=== PATIENT | male | born 1935 | race Caucasian/White ===

== ENCOUNTER 2022-11-27 10:48 | Emergency (ER) | payer MEDICARE, SELFPAY ==
[2022-11-27 10:59] VITALS: BP 164/102; PULSE 86; RESP 24; TEMP 36.4; O2SAT 97; BMI 32.4
--- NOTE | 2022-11-27 11:19 | CT_ITS ---
[address] [address] Patient Name: NAKIA NARAYANAN MRN: [id number] date: 1935 Sex: M Assigned Patient Location: ED.MAIN Current Patient Location: Accession/Order Number: [id number] Exam Date: 11/27/2022 12:50 Report Date: 11/27/2022 13:23 At the request of: MARY DUEÑAS Procedure: CT abdomen pelvis w con EXAMINATION: CT abdomen pelvis w con HISTORY: pain ; abdominal pain, diarrhea, nausea, weakness COMPARISON: No relevant comparison available. TECHNIQUE: Axial, Coronal, and Sagittal images were obtained without and/or with IV contrast as indicated by examination type. Dose reduction techniques were achieved by using automated exposure control and/or adjustment of mA and/or kV according to patient size and/or use of iterative reconstruction technique. FINDINGS: LUNG BASES: No visible pulmonary or pleural disease. LIVER: No enlargement, atrophy, suspicious density, or significant focal lesion. BILIARY: No dilatation or calcification. PANCREAS: No lesion, fluid collection, or abnormal duct dilatation. SPLEEN: No enlargement or focal lesion. ADRENALS: No mass or enlargement. KIDNEYS: Overall mild cortical thinning, with areas of moderate and marked thinning. Nonobstructing 3 mm stone within right and left kidney. Small benign-appearing cysts bilaterally. BOWEL/MESENTERY: Numerous prominent diverticula involving the proximal sigmoid colon with mild surrounding inflammatory changes. No visible mass, obstruction, or bowel wall thickening. Normal appendix. AORTA/VASCULAR: Moderate atherosclerotic disease. Slight fusiform aneurysmal dilation of the distal aorta, 2.7 cm in maximum diameter. RETROPERITONEUM: No mass or adenopathy. LYMPH NODES: No adenopathy. URINARY BLADDER: No visible focal wall thickening, lesion, or calculus. PELVIC ORGANS: No visible mass. Pelvic organs appropriate for patient age. ABDOMINAL WALL: No mass or hernia. BONES: No bony lesion or fracture. OTHER: Negative. IMPRESSION: 1.Mild acute diverticulitis of the sigmoid colon. 2.Bilateral nonobstructing nephrolithiasis. Bilateral cortical thinning, likely age related. 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 Electronically authenticated by: DOLORES NIETO Date: 11/27/2022 13:23
--- NOTE | 2022-11-27 11:22 | ED_ITS ---
HPI - Abdominal Pain General Chief Complaint: Abdominal Pain Stated Complaint: DIARRHEA Time Seen by Provider: 11/27/22 11:12 Source: patient Mode of arrival: walk-in Limitations: no limitations History of Present Illness HPI narrative: Patient presents to emergency department complaining of abdominal pain. Patient states he has left lower quadrant pain for 4 or 5 days. He had diarrhea for the last 6 days. He states the stool is watery. He was taking Imodium yesterday and he still having the diarrhea. He was recently started on for ataxia. Complains of generalized weakness. Denies any fever, or chills. He denies any flank pain hematuria, dysuria. He denies any Off,chest pain, shortness of breath. He denies any dizziness, palpitations. He denies any headache, or upper respiratory infection symptoms. Related Data Home Medications Medication Instructions Recorded Confirmed aspirin 81 mg tablet,delayed 81 mg PO DAILY 11/27/22 11/27/22 release (Adult Low Dose Aspirin) dapagliflozin 10 mg tablet 10 mg PO DAILY 11/27/22 11/27/22 (Farxiga) metoprolol succinate 50 mg 25 mg PO DAILY 11/27/22 11/27/22 tablet,extended release 24 hr (Toprol XL) multivitamin (Multiple Vitamins 1 tab PO DAILY 11/27/22 11/27/22 tablet) pantoprazole 40 mg tablet,delayed 40 mg PO DAILY 11/27/22 11/27/22 release (Protonix) potassium citrate 10 mEq (1,080 10 meq PO BID 11/27/22 11/27/22 mg) tablet,extended release psyllium husk (aspartame) 3.4 gram 1 packet PO DAILY 11/27/22 11/27/22 oral powder packet (Metamucil Fiber Singles) simvastatin 40 mg tablet 40 mg PO DAILY 11/27/22 11/27/22 sitagliptin phosphate 50 1 tab PO BID 11/27/22 11/27/22 mg-metformin 1,000 mg tablet (Janumet) torsemide 20 mg tablet 20 mg PO DAILY 11/27/22 11/27/22 Previous Rx's Medication Instructions Recorded amoxicillin 875 mg-potassium 1 tab PO Q12H #28 tabs 11/27/22 clavulanate 125 mg tablet Allergies Allergy/AdvReac Type Severity Reaction Status Date / Time No Known Drug Allergies Allergy Verified 11/27/22 11:41 Review of Systems ROS Narrative ROS: Unless otherwise stated in this report the patient's positive and negative responses for review of systems for constitutional, eyes, ENT, cardiovascular, respiratory, gastrointestinal, neurological, , musculoskeletal and integument systems and related systems to the presenting problem are either stated in the history of present illness or were not pertinent or were negative for the symptoms and/or complaints related to the presenting medical problem. [facility] Social History Smoking status: Former smoker Exam Narrative Exam Narrative: Nurses notes and vital signs reviewed and patient is not hypoxic. General: Nontoxic, Well-appearing and in no apparent distress. Skin: Warm, dry, no pallor noted. No Rash Head: Normocephalic, atraumatic. Neck: Supple, non-tender. Eye: Pupils are equal, round and EOMI. No scleral icterus. Ears, Nose, Mouth, and Throat: TM clear, no posterior oropharynx erythema or nasal mucosal hypertrophy, uvula is mid-line Oral mucosa is moist Cardiovascular: Regular Rate and Rhythm without murmur, gallop or rub. Respiratory: No accessory muscle use or respiratory distress. Lungs are clear to auscultation, no wheezing, rales or rhonchi Chest Wall: no tenderness Back: No midline thoracic or lumbar vertebral tenderness. No CVA tenderness Musculoskeletal: normal ROM, no calf or popliteal tenderness, no lower extremity edema/swelling GI: Abdomen is soft, non-distended. Normal bowel sounds. No masses appreciated. No tenderness to palpation. No rebound, guarding, or rigidity noted. Neurological: A&O x4. No cranial nerve dysfunction observed. No truncal ataxia. Moves all extremities. Sensation intact. Psychiatric: Cooperative and interactive. Normal mood and affect. Constitutional Vital Signs - 24 hr 11/27/22 10:59 11/27/22 12:13 Temperature 97.6 F Pulse Rate [Monitor] 86 72 Respiratory Rate 24 18 Blood Pressure [Right Arm] 164/102 H 117/89 H Pulse Oximetry 97 99 Oxygen Delivery Method Room Air Course Vital Signs Vital signs: Vital Signs Temperature 97.6 F 11/27/22 10:59 Pulse Rate 86 11/27/22 10:59 Respiratory Rate 24 11/27/22 10:59 Blood Pressure 164/102 H 11/27/22 10:59 Pulse Oximetry 97 11/27/22 10:59 Oxygen Delivery Method Room Air 11/27/22 10:59 Temperature 97.6 F 11/27/22 10:59 Pulse Rate 72 11/27/22 12:13 Respiratory Rate 18 11/27/22 12:13 Blood Pressure 117/89 H 11/27/22 12:13 Pulse Oximetry 99 11/27/22 12:13 Oxygen Delivery Method Room Air 11/27/22 10:59 MDM - Abdominal Pain MDM Narrative Medical decision making narrative: Patient had an IV established and was given IV fluids. Labs and CT studies were done. The patient was advised to provide a stool sample if possible. Denied any abdominal pain at this time and does not want anything for pain. Patient was started on Zosyn. He will be given a prescription for Augmentin. Patient was not able to provide a stool sample while in the emergency department. Patient is nontoxic, abdomen is benign and nonsurgical. He is stable for outpatient follow-up and treatment. At this time the patient is without objective evidence of an acute process requiring hospitalization or inpatient management. The patient has remained hemodynamically stable. No additional indication for emergent studies at this time. I answered all questions. Discussed discharge instructions including standard anticipatory guidance and what should prompt a return to the emergency department, including if they get worse are not getting better or develops any new or concerning symptoms. I've given them specific time frame in which to follow-up, and who to follow-up with. The patient demonstrates understanding. Patient is nontoxic and stable for discharge with outpatient follow-up. This note was created with the assistance of a speech recognition program. Although the intention is to generate documents that actually reflects the content of the visit, no guarantees can be provided that every mistake has been identified and corrected by editing. Differential Diagnosis Differential diagnosis: Likely abdominal pain, constipation, diverticulitis, gastroenteritis, pancreatitis and small bowel obstruction Medical Records Attestation: I reviewed the patient's medical records. Lab Data Attestation: I reviewed the patient's lab results. Labs: Lab Results 11/27/22 Range/Units 11:29 WBC 9.5 (4.0-11.0) 10^3/uL RBC 4.67 L (4.70-6.10) 10^6/uL Hgb 14.0 (14.0-18.0) g/dL Hct 42.9 (42.0-54.0) % MCV 91.9 (80.0-94.0) fL MCH 30.0 (25.9-34.0) pg MCHC 32.6 (29.9-35.2) g/dL RDW 14.8 (11.0-15.0) % Plt Count 195 (150-450) 10^3/uL MPV 11.6 (9.5-13.5) fL Neut % (Auto) 72.4 (43.0-75.0) % Lymph % (Auto) 11.5 L (20.5-60.0) % Hale % (Auto) 13.0 H (1.7-12.0) % Eos % (Auto) 1.5 (0.9-7.0) % Baso % (Auto) 0.6 (0.2-2.0) % Neut # (Auto) 6.9 H (1.4-6.5) 10^3/uL Lymph # (Auto) 1.1 L (1.2-3.8) 10^3/uL Hale # (Auto) 1.2 H (0.3-0.8) 10^3/uL Eos # (Auto) 0.1 (0.0-0.7) 10^3/uL Baso # (Auto) 0.1 (0.0-0.1) 10^3/uL Sodium 141 (136-145) mmol/L Potassium 4.2 (3.5-5.1) mmol/L Chloride 105 (98-107) mmol/L Carbon Dioxide 24.3 (21.0-32.0) mmol/L Anion Gap 15.9 BUN 21.0 H (7.0-18.0) mg/dL Creatinine 1.36 H (0.70-1.30) mg/dL Est GFR ( Amer) >60 (>=60) Est GFR (Non-Af Amer) 50 L (>=60) BUN/Creatinine Ratio 15.4 Glucose 155 H (74-106) mg/dL Lactate 1.6 (0.4-2.0) mmol/L Calcium 8.6 (8.5-10.1) mg/dL Total Bilirubin 0.6 (0.2-1.0) mg/dL AST 29 (15-37) U/L ALT 37 (16-63) U/L Total Protein 7.0 (6.4-8.2) g/dL Albumin 3.6 (3.4-5.0) g/dL Globulin 3.4 g/dL Albumin/Globulin Ratio 1.[address] scan - abdomen: Radiologist's impression: Patient Name: NAKIA NARAYANAN MRN: [id number] date: 1935 Sex: M Assigned Patient Location: ED.MAIN Current Patient Location: ER Accession/Order Number: [id number] Exam Date: 11/27/2022 12:50 Report Date: 11/27/2022 13:23 At the request of: MARY DUEÑAS Procedure: CT abdomen pelvis w con EXAMINATION: CT abdomen pelvis w con HISTORY: pain ; abdominal pain, diarrhea, nausea, weakness COMPARISON: No relevant comparison available. TECHNIQUE: Axial, Coronal, and Sagittal images were obtained without and/or with IV contrast as indicated by examination type. Dose reduction techniques were achieved by using automated exposure control and/or adjustment of mA and/or kV according to patient size and/or use of iterative reconstruction technique. FINDINGS: LUNG BASES: No visible pulmonary or pleural disease. LIVER: No enlargement, atrophy, suspicious density, or significant focal lesion. BILIARY: No dilatation or calcification. PANCREAS: No lesion, fluid collection, or abnormal duct dilatation. SPLEEN: No enlargement or focal lesion. ADRENALS: No mass or enlargement. KIDNEYS: Overall mild cortical thinning, with areas of moderate and marked thinning. Nonobstructing 3 mm stone within right and left kidney. Small benign-appearing cysts bilaterally. BOWEL/MESENTERY: Numerous prominent diverticula involving the proximal sigmoid colon with mild surrounding inflammatory changes. No visible mass, obstruction, or bowel wall thickening. Normal appendix. AORTA/VASCULAR: Moderate atherosclerotic disease. Slight fusiform aneurysmal dilation of the distal aorta, 2.7 cm in maximum diameter. RETROPERITONEUM: No mass or adenopathy. LYMPH NODES: No adenopathy. URINARY BLADDER: No visible focal wall thickening, lesion, or calculus. PELVIC ORGANS: No visible mass. Pelvic organs appropriate for patient age. ABDOMINAL WALL: No mass or hernia. BONES: No bony lesion or fracture. OTHER: Negative. IMPRESSION: 1.Mild acute diverticulitis of the sigmoid colon. 2.Bilateral nonobstructing nephrolithiasis. Bilateral cortical thinning, likely age related. 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 Electronically authenticated by: DOLORES NIETO Date: 11/27/2022 13:23 Discharge Plan Discharge Chief Complaint: Abdominal Pain Clinical Impression: Diverticulitis Patient Disposition: Home, Self-Care Time of Disposition Decision: 13:55 Condition: Good Mode of Transportation: Private Vehicle Prescriptions / Home Meds: New amoxicillin-pot clavulanate 875-125 mg tablet 1 tab PO Q12H Qty: 28 0RF No Action aspirin [Adult Low Dose Aspirin] 81 mg tablet,delayed release (DR/EC) 81 mg PO DAILY Janumet 50-1,000 mg tablet 1 tab PO BID potassium citrate 10 mEq (1,080 mg) tablet extended release 10 meq PO BID torsemide 20 mg tablet 20 mg PO DAILY simvastatin 40 mg tablet 40 mg PO DAILY pantoprazole [Protonix] 40 mg tablet,delayed release (DR/EC) 40 mg PO DAILY metoprolol succinate [Toprol XL] 50 mg tablet extended release 24 hr 25 mg PO DAILY multivitamin [Multiple Vitamins] Tablet 1 tab PO DAILY Metamucil Fiber Singles 3.4 gram powder in packet 1 packet PO DAILY Farxiga 10 mg tablet 10 mg PO DAILY Instructions: Diverticulitis (ED) Stand Alone Forms: Portal Instructions Referrals: LETHA COFFMAN [Primary Care Provider] - 1 week
[2022-11-27] MEDS: 0.9 % SODIUM CHLORIDE 1,000 ML 999 ML IV (11:33)
[2022-11-27 11:46] LABS: Basophils Absolute Auto 0.1 10^3/uL (0.0-0.1); Basophils Percent Auto 0.6 % (0.2-2.0); Eosinophils Absolute Auto 0.1 10^3/uL (0.0-0.7); Eosinophils Percent Auto 1.5 % (0.9-7.0); Hematocrit 42.9 % (42.0-54.0); Immature Granulocytes Abs Auto 0.09 10^3/uL (0.00-0.03); Lymphocytes Absolute Auto 1.1 10^3/uL (1.2-3.8); Lymphocytes Percent Auto 11.5 % (20.5-60.0); Mean Corpuscular HGB Conc 32.6 g/dL (29.9-35.2); Mean Corpuscular Volume 91.9 fL (80.0-94.0); Mean Platelet Volume 11.6 fL (9.5-13.5); Monocytes Absolute Auto 1.2 10^3/uL (0.3-0.8); Neutrophils Absolute Auto 6.9 10^3/uL (1.4-6.5); Neutrophils Percent Auto 72.4 % (43.0-75.0); Platelet Count 195 10^3/uL (150-450); Red Blood Count 4.67 10^6/uL (4.70-6.10); Red Cell Distribution Width 14.8 % (11.0-15.0); White Blood Count 9.5 10^3/uL (4.0-11.0)
[2022-11-27 12:04] LABS: Lactate/Lactic Acid 1.6 mmol/L (0.4-2.0)
[2022-11-27 12:13] VITALS: BP 117/89; PULSE 72; RESP 18; O2SAT 99
[2022-11-27 12:13] LABS: Alanine Aminotransferase 37 U/L (16-63); Albumin Globulin Ratio 1.1; Albumin Level 3.6 g/dL (3.4-5.0); Alkaline Phosphatase 69 U/L (46-116); Anion Gap 15.9; Aspartate Amino Transferase 29 U/L (15-37); BUN Creatinine Ratio 15.4; Bilirubin Total 0.6 mg/dL (0.2-1.0); Calcium 8.6 mg/dL (8.5-10.1); Carbon Dioxide 24.3 mmol/L (21.0-32.0); Chloride 105 mmol/L (98-107); Estimated GFR (African America >60 (>=60); Estimated GFR (Non-African Ame 50 (>=60); Globulin 3.4 g/dL; Glucose 155 mg/dL (74-106); Potassium 4.2 mmol/L (3.5-5.1); Sodium 141 mmol/L (136-145)
--- NOTE | 2022-11-27 12:53 | PC.NURSE ---
PT DOWN FOR CT SCAN BUDDY ALLISON
[2022-11-27] MEDS: PIPERACILLIN SODIUM/TAZOBACTAM 4.5 GM in 0.9 % SODIUM CHLORIDE 50 ML IV (13:50)
[2022-11-27 13:58] VITALS: BP 117/84; PULSE 72; RESP 16; O2SAT 97
[2022-11-27 14:42] LABS: Bilirubin Urine NEGATIVE (NEGATIVE); Blood Urine NEGATIVE (NEGATIVE); Clarity Urine CLEAR (CLEAR); Color Urine LT. YELLOW (YELLOW); Glucose Urine UA 250 mg/dL (NEGATIVE); Ketones Urine NEGATIVE (NEGATIVE); Leukocyte Esterase Urine NEGATIVE (NEGATIVE); Nitrite Urine NEGATIVE (NEGATIVE); Protein Urine NEGATIVE (NEG/TRACE); Specific Gravity Urine <=1.005 (1.005-1.025); Urobilinogen Urine 0.2 EU/dL (0.2-1.0); pH Urine 5.5 (5.0-9.0)
[2022-11-27 14:49] LABS: Bacteria Urine NONE SEEN #/HPF (NONE SEEN); Crystals Seen? None Seen #/HPF (None Seen); Mucus Urine NONE SEEN (NONE SEEN); RBC Urine NONE SEEN #/HPF (0-2); Squamous Epithelial Cell Urine NONE SEEN #/LPF (NONE/RARE); WBC Urine NONE SEEN #/HPF (NONE SEEN)
[2022-11-27 14:50] LABS: Cast Seen? NONE SEEN #/LPF (NONE SEEN); Urine Culture Indicated NO
== END 2022-11-27 14:26 | disposition home or self-care (01) ==
PROVIDERS: Emergency Provider Emergency Medicine; PCP Internal Medicine
DX: R10.32 Left lower quadrant pain (principal); K57.32 Diverticulitis of large intestine without perforation or abscess without bleeding; R19.7 Diarrhea, unspecified; R53.1 Weakness; Z79.82 Long term (current) use of aspirin; Z79.899 Other long term (current) drug therapy
CPT/HCPCS: 36415; 74177; 80053; 81001; 83605; 85025; 87507; 96361; 96365; 99285; Q9967

== ENCOUNTER 2023-03-27 09:11 | Outpatient (OUT) | payer MEDICARE, SELFPAY ==
--- NOTE | 2023-03-27 09:20 | XR_ITS ---
The [address] [address] Patient Name: NAKIA NARAYANAN MRN: [id number] date: 1935 Sex: M Assigned Patient Location: RAD Current Patient Location: RAD Accession/Order Number: [id number] Exam Date: 03/27/2023 09:28 Report Date: 03/27/2023 09:46 At the request of: SADAF WEINER Procedure: XR abdomen 1V EXAM: XR abdomen 1V HISTORY: Kidney Stone N20.0 COMPARISON: None. TECHNIQUE: AP view of the abdomen. FINDINGS: Nonobstructive bowel gas pattern is noted. There is a punctate calculus over the right renal region. The osseous structures are intact. XR/XR abdomen 1V IMPRESSION: Punctate right nephrolithiasis. Electronically authenticated by: CESAR TELLES Date: 03/27/2023 09:46
== END 2023-03-27 09:12 | disposition home or self-care (01) ==
LOC: RAD 09:14
PROVIDERS: PCP Internal Medicine; Visit Provider Urology
DX: N20.0 Calculus of kidney (principal)
CPT/HCPCS: 74018

== ENCOUNTER 2023-12-05 07:20 | Emergency (ER) | payer MEDICARE, SELFPAY ==
[2023-12-05] VITALS (20 sets, daily range): BP systolic 118–152; BP diastolic 75–100; PULSE 75–93; TEMP 37.3; O2SAT 84–96; BMI 32.6
[2023-12-05 07:33] LABS: Glucometer 199 mg/dL (74-106)
--- NOTE | 2023-12-05 07:49 | CT_ITS ---
The [address] [address] Patient Name: NAKIA NARAYANAN MRN: [id number] date: 1935 Sex: M Assigned Patient Location: ED.MAIN Current Patient Location: ER Accession/Order Number: [id number] Exam Date: 12/05/2023 08:13 Report Date: 12/05/2023 08:42 At the request of: RICHARD GARCIA Procedure: CT sinus wo con EXAMINATION: CT sinus wo con HISTORY: CHRONIC SINUS COMPARISON: No relevant comparison available. TECHNIQUE: Axial and Coronal CT images were created without IV contrast. Dose reduction techniques were achieved by using automated exposure control and/or adjustment of mA and/or kV according to patient size and/or use of iterative reconstruction technique. FINDINGS: MAXILLARY SINUSES: Bilateral maxillary soft tissue attenuation measuring up to 10 mm with narrowing of the right ostiomeatal unit and occlusion of the left ostiomeatal unit ETHMOID SINUSES: Moderate bilateral opacification SPHENOID SINUSES: Clear right. Opacified left FRONTAL SINUSES: Atrophic right. Moderate left opacification NASAL FOSSA: 1 mm left deviation of the nasal septum. No lianne bullosa or paradoxical turbinates are identified. OTHER: Negative. Limited views of the skull base and orbits are unremarkable. CT/CT sinus wo con IMPRESSION: Moderate diffuse paranasal sinus disease Electronically authenticated by: LISA CORRALES Date: 12/05/2023 08:42
[2023-12-05 08:09] LABS: PCO2 VBG 37.4 mmHg (40.0-52.0); pH VBG 7.447 (7.330-7.430)
[2023-12-05 08:14] LABS: Basophils Absolute Auto 0.1 10^3/uL (0.0-0.1); Basophils Percent Auto 0.3 % (0.2-2.0); Eosinophils Absolute Auto 0.1 10^3/uL (0.0-0.7); Eosinophils Percent Auto 0.7 % (0.9-7.0); Hematocrit 43.3 % (42.0-54.0); Hemoglobin 14.2 g/dL (14.0-18.0); Immature Granulocytes Abs Auto 0.07 10^3/uL (0.00-0.03); Immature Granulocytes Pct Auto 0.5 % (0.0-0.5); Lymphocytes Absolute Auto 1.1 10^3/uL (1.2-3.8); Mean Corpuscular HGB Conc 32.8 g/dL (29.9-35.2); Mean Corpuscular Hemoglobin 29.3 pg (25.9-34.0); Mean Corpuscular Volume 89.5 fL (80.0-94.0); Mean Platelet Volume 12.4 fL (9.5-13.5); Monocytes Absolute Auto 1.7 10^3/uL (0.3-0.8); Monocytes Percent Auto 11.1 % (1.7-12.0); Neutrophils Absolute Auto 12.1 10^3/uL (1.4-6.5); Neutrophils Percent Auto 80.4 % (43.0-75.0); Platelet Count 148 10^3/uL (150-450); Red Blood Count 4.84 10^6/uL (4.70-6.10); Red Cell Distribution Width 14.6 % (11.0-15.0); White Blood Count 15.1 10^3/uL (4.0-11.0)
[2023-12-05] MEDS: 0.9 % SODIUM CHLORIDE 1,000 ML 999 ML IV (08:19)
[2023-12-05 08:37] LABS: Alanine Aminotransferase 28 U/L (16-63); Albumin Globulin Ratio 0.8; Albumin Level 3.1 g/dL (3.4-5.0); Alkaline Phosphatase 76 U/L (46-116); Anion Gap 15.9; Aspartate Amino Transferase 29 U/L (15-37); BUN Creatinine Ratio 17.2; Bilirubin Total 0.6 mg/dL (0.2-1.0); Calcium 8.4 mg/dL (8.5-10.1); Carbon Dioxide 24.1 mmol/L (21.0-32.0); Chloride 101 mmol/L (98-107); Creatine Kinase 71 U/L (39-308); Estimated GFR (African America 51 (>=60); Estimated GFR (Non-African Ame 42 (>=60); Globulin 3.9 g/dL; Glucose 198 mg/dL (74-106); Magnesium 1.6 mg/dL (1.8-2.4); Sodium 137 mmol/L (136-145); Troponin I High Sensitivity 11.3 pg/mL (4.0-76.1)
--- NOTE | 2023-12-05 09:42 | ED_ITS ---
HPI HPI - General Adult General Chief complaint: Weakness Stated complaint: HIGH SUGAR Time Seen by Provider: 12/05/23 07:32 Source: patient Mode of arrival: walk-in Limitations: no limitations History of Present Illness HPI narrative: Patient is a 88-year-old male who is presenting to the ER today with chief complaint of a 1.5-hour shaking episode that occurred this morning. Patient nevaeh es at home alone. Patient called his sister around 7:00 this morning to bring her into the emergency room. Patient states that shaking has improved. Patient is been having chronic sinus issues for several months. Patient states he will intermittently have eye drainage, nasal drainage, intermittently coughing. Patient is here because the shaking episode today. Patient was due to have a outpatient CT scan of the sinuses done at 815 this morning. Patient came to the ER instead secondary to shaking episode. Patient has no headache. No neck pain. No chest pain, shortness of breath. No nausea, vomiting, no other acute complaints. No rash. All systems are negative except as noted/marked. All systems reviewed and otherwise negative. Nurses note and vital signs reviewed and patient is not hypoxic. General: The patient appears well and in no apparent distress. Patient is resting comfortably on cart. Patient is not toxic, lethargic, or listless Skin: Warm, dry, no pallor noted. There is no rash noted. No petechiae, purpura. Head: Normocephalic, atraumatic, no tenderness to palpation to bilateral frontal maxillary sinus. Eye: Normal conjunctiva, no drainage, EOMI. PERRL Ears, Nose, Mouth, and Throat: oral mucosa is moist. Patient has a hearing aid in his left ear. Left ear shows no erythema, perforation or bulging, patient does have some small black wax noted to the left ear canal, however I am able to visualize TM. Patient right TM shows black wax is noted to the auditory canal. Patient is able to visualize the right TM partially, no erythema, perforation or bulging noted. Nares patent. Mouth without vesicles. Cardiovascular: Regular Rate and Rhythm, no murmur, gallop, rub Respiratory: Patient is in no distress, no accessory muscle use, lungs are elizabeth r to auscultation, no wheezing, rales or rhonchi Back: non-tender, no CVA tenderness bilaterally to percussion. No CT LS midline pain GI: Soft, obese, no tenderness to palpation, no masses appreciated. No rebound, guarding, or rigidity noted. No distention. Musculoskeletal: Patient has full range of motion of all of the extremities, no motor, sensory, or focal neurological deficits Neurological: A&O x4, normal speech Psychiatric: Cooperative Related Data Home Medications ?Medication ?Instructions ?Recorded ?Confirmed aspirin 81 mg tablet,delayed 81 mg PO DAILY 11/27/22 11/27/22 release (Adult Low Dose Aspirin) dapagliflozin propanediol 10 mg 10 mg PO DAILY 11/27/22 11/27/22 tablet (Farxiga) metoprolol succinate 50 mg 25 mg PO DAILY 11/27/22 11/27/22 tablet,extended release 24 hr (Toprol XL) multivitamin (Multiple Vitamins 1 tab PO DAILY 11/27/22 11/27/22 tablet) pantoprazole 40 mg tablet,delayed 40 mg PO DAILY 11/27/22 11/27/22 release (Protonix) potassium citrate 10 mEq (1,080 10 meq PO BID 11/27/22 11/27/22 mg) tablet,extended release psyllium husk (aspartame) 3.4 gram 1 packet PO DAILY 11/27/22 11/27/22 oral powder packet (Metamucil Fiber Singles) simvastatin 40 mg tablet 40 mg PO DAILY 11/27/22 11/27/22 sitagliptin phosphate 50 1 tab PO BID 11/27/22 11/27/22 mg-metformin 1,000 mg tablet (Janumet) torsemide 20 mg tablet 20 mg PO DAILY 11/27/22 11/27/22 Previous Rx's ?Medication ?Instructions ?Recorded amoxicillin 875 mg-potassium 1 tab PO Q12H #28 tabs 11/27/22 clavulanate 125 mg tablet Allergies Allergy/AdvReac Type Severity Reaction Status Date / Time No Known Drug Allergies Allergy Verified 11/27/22 11:41 Opioid HPI Opioid Management Most Recent Opioid Data: No Data to Display PFSH PFSH Social History Smoking status: Former smoker Exam Constitutional Vital Signs, click to edit/add: Last Vital Signs Temp 99.1 F 12/05/23 07:23 Pulse 79 12/05/23 09:50 Resp 28 H 12/05/23 09:50 BP 125/75 12/05/23 09:30 Pulse Ox 84 L 12/05/23 09:50 Course Vital Signs Vital signs: Vital Signs Temperature 99.1 F 12/05/23 07:23 Pulse Rate 93 H 12/05/23 07:23 Respiratory Rate 18 12/05/23 07:23 Blood Pressure 152/93 H 12/05/23 07:23 Pulse Oximetry 93 L 12/05/23 07:23 Temperature 99.1 F 12/05/23 07:23 Pulse Rate 79 12/05/23 09:50 Respiratory Rate 28 H 12/05/23 09:50 Blood Pressure 125/75 12/05/23 09:30 Pulse Oximetry 84 L 12/05/23 09:50 Medical Decision Making MDM Narrative Medical decision making narrative: CT of the sinuses show moderate diffuse paranasal sinus disease. Patient BUN and creatinine are elevated compared to last year. Patient was given 1 L of IV fluids. Patient feels better. Patient was ambulated and feels back to his normal state. Patient ambulated well. Patient has no other acute findings on lab testing. Patient will be discharged. 0950 I did speak to MIKE Conklin and Dr. Hester office. Dr. Hester is out of the office today. Patient should have 2 more days of Augmentin to take. Dr. Hester will look at CT sinus report which was given to Katerin of moderate diffuse paranasal sinus disease. Patient has had no headache. No nausea or vomiting. Dr. Hester will call patient and add additional antibiotics if indicated. Patient understands this. This was written on his discharge paperwork. No questions at discharge Lab Data Lab results reviewed: Yes I reviewed the patient's lab results Labs: Lab Results 12/05/23 12/05/23 12/05/23 Range/Units 07:28 07:55 09:37 WBC 15.1 H (4.0-11.0) 10^3/uL RBC 4.84 (4.70-6.10) 10^6/uL Hgb 14.2 (14.0-18.0) g/dL Hct 43.3 (42.0-54.0) % MCV 89.5 (80.0-94.0) fL MCH 29.3 (25.9-34.0) pg MCHC 32.8 (29.9-35.2) g/dL RDW 14.6 (11.0-15.0) % Plt Count 148 L (150-450) 10^3/uL MPV 12.4 (9.5-13.5) fL Neut % (Auto) 80.4 H (43.0-75.0) % Lymph % (Auto) 7.0 L (20.5-60.0) % [place] % (Auto) 11.1 (1.7-12.0) % Eos % (Auto) 0.7 L (0.9-7.0) % Baso % (Auto) 0.3 (0.2-2.0) % Neut # (Auto) 12.1 H (1.4-6.5) 10^3/uL Lymph # (Auto) 1.1 L (1.2-3.8) 10^3/uL [place] # (Auto) 1.7 H (0.3-0.8) 10^3/uL Eos # (Auto) 0.1 (0.0-0.7) 10^3/uL Baso # (Auto) 0.1 (0.0-0.1) 10^3/uL Abs Immat Gran (auto) 0.07 H (0.00-0.03) 10^3/uL Imm/Tot Granulo (auto) 0.5 (0.0-0.5) % VBG pH 7.447 H (7.330-7.430) VBG pCO2 37.4 L (40.0-52.0) mmHg Sodium 137 (136-145) mmol/L Potassium 4.0 (3.5-5.1) mmol/L Chloride 101 (98-107) mmol/L Carbon Dioxide 24.1 (21.0-32.0) mmol/L Anion Gap 15.9 BUN 27.0 H (7.0-18.0) mg/dL Creatinine 1.57 H (0.70-1.30) mg/dL Est GFR ( Amer) 51 L (>=60) Est GFR (Non-Af Amer) 42 L (>=60) BUN/Creatinine Ratio 17.2 Glucose 198 H (74-106) mg/dL Calcium 8.4 L (8.5-10.1) mg/dL Magnesium 1.6 L (1.8-2.4) mg/dL Total Bilirubin 0.6 (0.2-1.0) mg/dL AST 29 (15-37) U/L ALT 28 (16-63) U/L Alkaline Phosphatase 76 (46-116) U/L Total Creatine Kinase 71 (39-308) U/L Troponin I High Sens 11.3 (4.0-76.1) pg/mL NT-Pro-B Natriuret Pep 448.0 (<=1800.0) pg/mL Total Protein 7.0 (6.4-8.2) g/dL Albumin 3.1 L (3.4-5.0) g/dL Globulin 3.9 g/dL Albumin/Globulin Ratio 0.8 Urine Color Yellow (YELLOW) Urine Clarity Clear (CLEAR) Urine pH 6.0 (5.0-9.0) Ur Specific [place] 1.020 (1.005-1.025) Urine Protein Negative (NEG/TRACE) mg/dL Urine Glucose (UA) Negative (NEGATIVE) mg/dL Urine Ketones Negative (NEGATIVE) mg/dL Urine Occult Blood Negative (NEGATIVE) Urine Nitrite Negative (NEGATIVE) Urine Bilirubin Negative (NEGATIVE) Urine Urobilinogen 0.2 (0.2-1.0) EU/dL Ur Leukocyte Esterase Negative (NEGATIVE) Urine RBC None seen (0-2) #/HPF Urine WBC None seen (NONE SEEN) #/HPF Ur Squamous Epith Cells Rare (NONE/RARE) #/LPF Urine Bacteria None seen (NONE SEEN) #/HPF Urine Mucus None seen (NONE SEEN) POC Glucose 199 H (74-106) mg/dL Urine creatinine is elevated compared to last year, Imaging Data CT scan - pelvis: Radiologist's impression: ITS Impressions Sinuses CT 12/05/23 07:49 IMPRESSION: Moderate diffuse paranasal sinus disease Electronically authenticated by: LISA CORRALES Date: 12/05/2023 08:42 ECG Data Attestation: I personally reviewed and interpreted this ECG as follows: (EKG interpretation. Normal sinus rhythm at 90 beats a minute. Left axis deviation. No acute ST elevation, flattening of ST waves, no acute changes) Discharge Plan Discharge Stand Alone Forms: Portal Instructions Chief Complaint: Weakness Clinical Impression: Episode of shaking, Dehydration, mild, Chronic sinusitis Patient Disposition: Home, Self-Care Time of Disposition Decision: 09:53 Condition: Fair Prescriptions / Home Meds: No Action aspirin [Adult Low Dose Aspirin] 81 mg tablet,delayed release (DR/EC) 81 mg PO DAILY Janumet 50-1,000 mg tablet 1 tab PO BID potassium citrate 10 mEq (1,080 mg) tablet extended release 10 meq PO BID torsemide 20 mg tablet 20 mg PO DAILY simvastatin 40 mg tablet 40 mg PO DAILY pantoprazole [Protonix] 40 mg tablet,delayed release (DR/EC) 40 mg PO DAILY metoprolol succinate [Toprol XL] 50 mg tablet extended release 24 hr 25 mg PO DAILY multivitamin [Multiple Vitamins] Tablet 1 tab PO DAILY Metamucil Fiber Singles 3.4 gram powder in packet 1 packet PO DAILY Farxiga 10 mg tablet 10 mg PO DAILY amoxicillin-pot clavulanate 875-125 mg tablet 1 tab PO Q12H Qty: 28 0RF Print Language: Monegasque Additional Instructions: I spoke to Esmer and Dr. Covarrubias office. She will relay the message to Dr. Hester tomorrow of patient's CT finding of moderate diffuse paranasal sinus disease. Continue to increase fluids at home. Finish the Augmentin antibiotic that you are on at this time. Increase fluids at home, Gatorade, Powerade, or water. Alternate using either Claritin or Zyrtec; and Flonase. Add Mucinex as well as needed. Alternate Tylenol and Motrin every 4 hours to help with fever control, body aches or joint pain. Use [id number] vitamin C, vitamin D3, and zinc to help fight infection and help with her immune system. Referrals: LETHA COVARRUBIAS [Primary Care Provider] - 1 week Discharge Date/Time: 12/05/23 10:07
[2023-12-05 09:59] LABS: Bilirubin Urine NEGATIVE (NEGATIVE); Blood Urine NEGATIVE (NEGATIVE); Clarity Urine CLEAR (CLEAR); Color Urine YELLOW (YELLOW); Glucose Urine UA NEGATIVE (NEGATIVE); Ketones Urine NEGATIVE (NEGATIVE); Leukocyte Esterase Urine NEGATIVE (NEGATIVE); Nitrite Urine NEGATIVE (NEGATIVE); Protein Urine NEGATIVE (NEG/TRACE); Urobilinogen Urine 0.2 EU/dL (0.2-1.0)
--- NOTE | 2023-12-05 10:01 | ECG_ITS ---
[facility] Test Date: 2023-12-05 Pat Name: NAKIA NARAYANAN Department: Room: - Gender: Male [employer]: : [id number] Requested By: LETHA CFOFMAN Order Number: [id number] Reading MD: EUSEBIO PADILLA Measurements Intervals [place] Rate: 90 P: 23 MA: 144 QRS: -22 QRSD: 96 T: 12 QT: 352 QTc: 399 Interpretive Statements 1100 Sinus rhythm 3623 Possible inferior myocardial infarction, probably old 9150 abnormal ECG Compared to ECG 04/24/2020 13:41:23 No significant changes Electronically Signed On 12-05-2023 21:05:58 EDT by EUSEBIO PADILLA
[2023-12-05 10:08] LABS: WBC Urine NONE SEEN #/HPF (NONE SEEN)
[2023-12-05 10:09] LABS: Bacteria Urine NONE SEEN #/HPF (NONE SEEN); Mucus Urine NONE SEEN (NONE SEEN); RBC Urine NONE SEEN #/HPF (0-2); Squamous Epithelial Cell Urine RARE #/LPF (NONE/RARE)
== END 2023-12-05 10:07 | disposition home or self-care (01) ==
PROVIDERS: Emergency Provider Emergency Medicine; PCP Internal Medicine
DX: E86.0 Dehydration (principal); J32.9 Chronic sinusitis, unspecified; R25.1 Tremor, unspecified; Z87.891 Personal history of nicotine dependence
CPT/HCPCS: 36415; 36416; 70486; 80053; 81001; 82550; 82800; 83735; 83880; 84484; 85025; 93005; 99285

== ENCOUNTER 2023-12-13 10:46 | Outpatient (OUT) | payer MEDICARE, SELFPAY ==
--- OUTSIDE RECORDS SUMMARY | 2023-12-13 10:54 | XMS_ITS ---
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 Name Role Phone Benjie Covarrubias II Unavailable [phone] Benjie Covarrubias II Primary Care Provider [phone] No, Referral Unavailable Unavailable BENJIE COVARRUBIAS Primary Care Physician TREVOR, DR ROSE MARIE Nicholson Attending Unavailable ZIJENNIFER, DR DOLORES Adamson Consulting Unavailable SATISH, DR MONAE Primary Care Unavailable TREVOR, DR ROSE MARIE Nicholson Admitting Unavailable TREVOR, DR ROSE MARIE Nicholson Consulting Unavailable HUSAM, DR TALAVERA Admitting Unavailable HUSAM, DR TALAVERA Attending Unavailable HUSAM, DR TALAVERA Consulting Unavailable SATISH, DR MONAE Primary Care Unavailable SAVANNA, DR LISA Alberto Consulting Unavailable SATISH, DR MONAE Admitting Unavailable SATISH, DR MONAE Attending Unavailable SATISH, DR MONAE Consulting Unavailable SATISH, DR MONAE Primary Care Unavailable GERSON, DR DOLORES Adamson Consulting Unavailable TREVOR, DR ROSE MARIE Nicholson Attending Unavailable SATISH, DR MONAE Primary Care Unavailable MURRAY, DR ROSE MARIE Nicholson Consulting Unavailable TREVOR, DR ROSE MARIE Nicholson Admitting Unavailable TREVOR, DR ROSE MARIE Nicholson Admitting Unavailable TREVOR, DR ROSE MARIE Nicholson Attending Unavailable SATISH, DR MONAE Primary Care Unavailable TREVOR, DR ROSE MARIE Nicholson Consulting Unavailable SATISH, DR MONAE Attending Unavailable SATISH, DR MONAE Consulting Unavailable COVARRUBIAS, DR MONAE Primary Care Unavailable COVARRUBIAS, DR MONAE Admitting Unavailable GERSON, DR DOLORES Adamson Consulting Unavailable Benjie Covarrubias II Unavailable [phone] Benjie Covarrubias II Primary Care Provider No, Referral Unavailable Unavailable Satish BRAND MD, Daniel B Unavailable Satish BRAND MD, Daniel B Primary Care Provider Sadaf STOVALL Attending Unavailable Sadaf STOVALL Attending Unavailable JOAO LARA Referring Unavailable BENJIE COVARRUBIAS II Primary Care Unavailable BENJIE COVARRUBIAS II Primary Care Unavailable MARCO A GARVEY Referring Unavailable JOAO LARA Attending Unavailable BENJIE COVARRUBIAS II Primary Care Unavailable JOAO LARA Referring Unavailable BENJIE COVARRUBIAS II Primary Care Unavailable MARCO A GARVEY Attending Unavailable BENJIE COVARRUBIAS Attending Unavailable LORENA RIVAS Attending Unavailable BENJIE COVARRUBIAS Attending Unavailable BENJIE COVARRUBIAS Attending Unavailable LORENA RIVSA Attending Unavailable BENJIE COVARRUBIAS Attending Unavailable BENJIE COVARRUBIAS Attending Unavailable Encounters Encounter Date Encounter Type Care Provider Facility Start: 04-05-2024 ambulatory Sadaf STOVALL Facili ty:[facility] Start: 12-11-2023 End: 12-11-2023 ambulatory BENJIE COVARRUBIAS Not Available Start: 11-27-2023 End: 11-27-2023 ambulatory BENJIE COVARRUBIAS Not Available Start: 10-26-2023 End: 10-26-2023 ambulatory LORENA RIVAS Not Available Start: 10-25-2023 End: 10-25-2023 ambulatory BENJIE COVARRUBIAS Not Available Start: 10-18-2023 End: 10-18-2023 ambulatory BENJIE COVARRUBIAS Not Available Start: 08-17-2023 End: 08-17-2023 ambulatory LORENA RIVAS Not Available Start: 08-14-2023 End: 08-15-2023 ambulatory JOAO LARA Facility:[facility] Start: 08-14-2023 End: 08-14-2023 Patient encounter procedure Steviehien Jacobstle MAYONNAISE MIXER.ASBESTOS PIPE SUPERVISOR Work Phone: Cardiology Comment on above: Primary hypertension (Primary Dx); Chronic diastolic heart failure (HCC); Pure hypercholesterolemia; S/P CABG x 1; Atherosclerosis of cheesh-na coronary artery 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; Nonrheumatic aortic valve stenosis Start: 07-24-2023 End: 07-24-2023 ambulatory EBNJIE COVARRUBIAS Not Available Start: 04-14-2023 End: 04-14-2023 ambulatory BENJIE COVARRUBIAS II Facility:[facility] Start: 04-03-2023 End: 04-04-2023 ambulatory Sadaf STOVALL Facility:[facility] Start: 02-20-2023 End: 02-20-2023 ambulatory BENJIE COVARRUBIAS II Facility:[facility] Start: 02-20-2023 End: 02-20-2023 Patient encounter procedure Marco A Garvey MD Work Phone: Cardiology Comment on above: Nonrheumatic aortic valve stenosis (Primary Dx); Primary hypertension; Pure hypercholesterolemia; Chronic diastolic heart failure (HCC); Atherosclerosis of cheesh-na coronary artery 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; S/P CABG x 1; S/P AVR Start: 08-23-2022 End: 08-23-2022 Patient encounter procedure Joao Lara APRÁNGELA Work Phone: Cardiology Comment on above: Chronic diastolic he art failure (HCC) (Primary Dx); S/P CABG x 1; S/P AVR; Nonrheumatic aortic valve stenosis; Primary hypertension; Pure hypercholesterolemia; Obesity, Class I, BMI 30-34.9; Type 2 diabetes mellitus without complication, without long-term current use of insulin (HCC); Abnormal TSH Start: 07-05-2022 End: 07-06-[address] BENJIE COVARRUBIAS Facility:[facility] Start: 04-01-2022 End: 04-01-2022 Patient encounter procedure Sadaf STOVALL [facility] Start: 03-28-2022 End: 03-29-[address] SADAF STOVALL Facility:[facility] Start: 02-21-2022 End: 02-21-2022 Patient encounter procedure Marco A Garvey MD Work Phone: Cardiology Comment on above: Nonrheumatic aortic valve stenosis (Primary Dx); Primary hypertension; Pure hypercholesterolemia; Chronic diastolic heart failure (HCC); Atherosclerosis of cheesh-na coronary artery 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; S/P CABG x 1; S/P AVR; Obesity, Class I, BMI 30-34.9 Start: 02-08-2022 End: 02-09-[address] ROSE MARIE MURRAY Facility:[facility] Start: 01-25-2022 End: 01-26-[address] ROSE MARIE MURRAY Facility:[facility] Start: 11-16-2021 End: 11-17-[address] BENJIE COVARRUBIAS Facility:[facility] Start: 04-07-2020 Patient encounter status Marco A Garvey MD Work Phone: [facility] Procedure Code Equipment Code Equipment Original Text Equipment Identifier Dates Wesley Thk1.65mm P tfe 4x.5in Cardiovascular Sterile - [id number] Start: 04-08-2020 Valve Perdomo In spiris Resilia 25mm Pericardial Aortic Bioprosthesis - [id number] Start: 04-08-2020 CATARACT EXTRACT ION W/ INTRAOCULAR LENS Luis Solis DO 08/06/19 Non Biological Eye L FDA Start: 08-06-2019 CATARACT EXTRACT ION W/ INTRAOCULAR LENS Will ULRICH, Luis 08/20/19 Non Biological Eye R [id number] FDA Start: 08-20-2019 Immunizations Immunization Date Immunization Notes Care Provider Fa yvettety 05-12-2021 influenza virus vacc ine, unspecified formulation Sadaf STOVALL [facility] 05-10-2021 SARS-CoV-2 (COVID-19 ) mRNA-[id number] vaccine Sadaf STOVALL [facility] Comment on above: Result Comment: 2021: [id number] 03-29-2021 influenza virus vacc ine, unspecified formulation Sadaf STOVALL [facility] 08-13-2020 SARS-CoV-2 (COVID-19 ) mRNA-[id number] vaccine Sadaf STOVALL [facility] 07-13-2020 SARS-CoV-2 (COVID-19 ) mRNA-1273 vaccine Sadaf STOVALL [facility] 06-26-2020 SARS-CoV-2 (COVID-19 ) mRNA-1273 vaccine Sadaf STOVALL [facility] Comment on above: Result Comment: Pt s tates he is fully vaccinated but does not know the dates 03-30-2020 influenza virus vacc ine, unspecified formulation Sadaf STOVALL [facility] 03-30-2020 influenza, high dose seasonal, preservative-free Marco A Garvey MD Work Phone: [facility] Work Phone: 04-11-2019 influenza virus vacc ine, unspecified formulation Sadaf STOVALL [facility] 04-11-2019 influenza, high dose seasonal, preservative-free Marco A Garvey MD Work Phone: [facility] Work Phone: 04-03-2018 influenza virus vacc ine, unspecified formulation Sadaf STOVALL [facility] 04-03-2018 seasonal influenza, intradermal, preservative free Marco A Garvey MD Work Phone: [facility] Work Phone: 05-10-2017 influenza virus vacc ine, unspecified formulation Sadaf STOVALL [facility] 05-10-2017 Seasonal trivalent influenza vaccine, adjuvanted, preservative free Marco A Garvey MD Work Phone: [facility] Work Phone: 04-12-2017 influenza virus vacc ine, unspecified formulation Sadafisamar STOVALL [facility] 04-12-2017 influenza, injectabl e, quadrivalent, preservative free Marco A Garvey MD Work Phone: [facility] Work Phone: 03-27-2017 pneumococcal conjuga te vaccine, 13 valaly Garvey MD Work Phone: [facility] Work Phone: 03-22-2017 pneumococcal conjuga te vaccine, 13 valent Marco A Garvey MD Work Phone: [facility] Work Phone: 03-14-2017 pneumococcal polysaccharide vaccine, 23 valent Marco A Garvey MD Work Phone: [facility] Work Phone: 05-11-2016 influenza virus vacc ine, unspecified formulation Sadaf STOVALL [facility] 05-11-2016 influenza, injectabl e, quadrivalent, preservative free Marco A Garvey MD Work Phone: [facility] Work Phone: 04-27-2016 influenza virus vacc ine, unspecified formulation Sadaf STOVALL [facility] 04-27-2016 Seasonal trivalent influenza vaccine, adjuvanted, preservative free Marco A Garvey MD Work Phone: [facility] Work Phone: 04-24-2015 influenza virus vacc ine, unspecified formulation Sadaf STOVALL [facility] 04-24-2015 influenza, injectabl e, quadrivalent, contains preservative Marco A Garvey MD Work Phone: [facility] Work Phone: 05-14-2013 influenza virus vacc ine, unspecified formulation Sadaf STOVALL [facility] 05-14-2013 influenza, seasonal, injectable Marco A Garvey MD Work Phone: [facility] Work Phone: Medications Current Medications Medication Drug Class(es) Dates Sig (Normalized) Sig (Original) aspirin 81 mg oral tablet (5 sources) Platelet Aggregation Inhibitor, Nonsteroidal Anti-inflammatory Drug Start: 03-19-2019 take 1 tablet by mouth once daily aspirin 81 mg oral tablet 81 mg = 1 tab(s), Oral, Daily, Refills(s) 0, Blood Thinner Start Date: 03/19/19 Status: Ordered take 1 tablet by mouth once kennedy y aspirin, enteric coated (ASPIRIN, ENTERIC COATED) 81 mg EC tablet Take 81 mg by mouth once daily. 0 Active Comment on above: Take 81 mg by mouth once daily. hydroCHLOROthiazide 12.5 mg / lisinopril 10 mg oral tablet (1 source) Thiazide Diuretic, Angiotensin Converting Enzyme Inhibitor Start: 03-19-20 take 1 tablet by mouth twice daily hydrochlorothiaz seema-lisinopril 12.5 mg-10 mg oral tablet 1 tab(s), Oral, BID, Refill(s) 0, High blood pressure Start Date: 03/19/19 Status: Ordered 24 hr metoprolol succinate 25 mg extended release oral tablet (5 sources) beta-Adrenergic Amrit Start: 04-01-20 take 1 mg by mouth once daily Toprol XL 25 mg Tab-ER mg tab(s), Oral, Daily, Refills(s) 0 Start Date: 04/01/22 Status: Ordered Start: 04-18-2020 take 1 tablet by evangelina th once daily metoprolol succinate ER (TOPROL XL) 50 mg 24 hr tablet Take 1 tablet by mouth once daily. 30 tablet 1 04/18/2020 Active Comment on above: Take 1 tablet by evangelina th once daily. Multi Vitamin+ (1 source) Start: 03-19-20 take 1 tablet by mouth once daily Multi Vitamin+ 1 tab, Oral, Daily, Refill(s) 0, Prophylaxis Start Date: 03/19/19 Status: Ordered Natural Fiber Therapy 3.4 g/7 g oral powder for reconstitution (1 source) Start: 04-01-20 take 1 g by mouth once daily Natural Fiber Therapy 3.4 g/7 g oral powder for reconstitution gm, Oral, Daily, Refills(s) 0 Start Date: 04/01/22 Status: Ordered pantoprazole 20 mg delayed release oral tablet (5 sources) Proton Pump Inhibitor Start: 04-01-20 take 1 mg by mouth once daily Protonix 20 mg Tab-DR mg tab(s), Oral, Daily, Refills(s) 0 Start Date: 04/01/22 Status: Ordered Start: 04-17-2020 take 1 tablet by evangelina th once daily pantoprazole DR (PROTONIX) 40 mg tablet Take 1 tablet by mouth once daily. 30 tablet 1 04/17/2020 Active Comment on above: Take 1 tablet by evangelina th once daily. perflutren lipid microspheres 1.3 mL in NaCl (PF) 0.9% 10 mL injection (DEFINITY) (5 sources) Start: 02-20-2023 End: 05-21-2024 perflutren lipid microspheres 1.3 mL in NaCl (PF) 0.9% 10 mL injection (DEFINITY) Start: 08-23-2022 End: 11-22-2023 perflutren lipid microsphere s 1.3 mL in NaCl (PF) 0.9% 10 mL injection (DEFINITY) potassium citrate 10 meq extended release oral tablet (5 sources) Start: 09-13-2019 take 1 tablet by mouth three times daily potassium CITRATE 10 mEq ER Tab 10 mEq, 1 tab(s), Oral, TID, 300 tab(s), Refill(s) 4, [facility], 172.7, cm, 08/20/19 7:07:00 EST, Height/Length Measured, 102.8, kg, 03/29/19 9:31:00 EDT, Weight Measured Start Date: 09/13/19 Status: Ordered take 10 mEq by mouth twice daily potassium citrate ER (UROCIT-K) 10 mEq (1,080 mg) TbER Take 1,080 mg by mouth twice daily. 0 Active Comment on above: Take 1,080 mg by evangelina twice daily. simvastatin 40 mg oral tablet (5 sources) HMG-CoA Reductase Inhibitor Start: 9 take 1 tablet by mouth once daily at bedtime simvastatin 40 mg Tab 40 mg = 1 tab(s), Oral, Once a day (at bedtime), Refills(s) 0, High cholesterol Start Date: 03/19/19 Status: Ordered Comment on above: Take 40 mg by mouth daily at bedtime. 125 ml sodium chloride 9 mg/ml prefilled syringe (5 sources) Start: 3 End: 4 sodium chloride 0.9 % (flush) 10 mL (BD POSIFLUSH) Completed/Discontinued Medications Medication Drug Class(es) Dates Sig (Normalized) Sig (Original) acetaminophen 325 mg oral tablet (4 sources) Start: 04-17-2020 take 2 tablets by mouth every four hours as needed acetaminophen (TYLENOL) 325 mg tablet Take 2 tablets by mouth every 4 hours as needed for Pain. 30 Each 0 04/17/2020 Active Comment on above: Take 2 tablets by mo uth every 4 hours as needed for Pain. canagliflozin 100 mg oral tablet (2 sources) Sodium-Glucose Cotransporter 2 Inhibitor take 1 tablet by mouth once daily at breakfast canagliflozin (INVOKANA) 100 mg tab Take 100 mg by mouth daily with breakfast. 0 Active Comment on above: Take 100 mg by mouth daily with breakfast. glimepiride 1 mg oral tablet (1 source) Sulfonylurea take 2 tablets by mouth once daily at breakfast glimepiride (AMARYL) 1 mg tablet Take 2 mg by mouth daily with breakfast. 0 Active Comment on above: Take 2 mg by mouth d aily with breakfast. metFORMIN hydrochloride 1000 mg / SITagliptin 50 mg oral tablet (5 sources) Biguanide, Dipeptidyl Peptidase 4 Inhibitor Start: 04-17-2020 take 1 tablet by mouth once daily at breakfast sitaGLIPtin-metFOR MIN (JANUMET) 50-1,000 mg per tablet Take 1 tablet by mouth daily with breakfast. 0 04/17/2020 Active Start: 03-19-2019 Janumet 50/100 , Oral, BID, Refill(s) 0, High blood sugar Start Date: 03/19/19 Status: Ordered Comment on above: Take 1 tablet by evangelina th daily with breakfast. metOLazone 5 mg oral tablet (4 sources) Thiazide-like Diuretic Start: 0 take 1 tablet by mouth once metOLAzone (ZAROXOLYN) 5 mg tablet Take 1 tablet by mouth every Monday,Monday,Mon. 30 tablet 0 05/08/2020 Active Comment on above: Take 1 tablet by evangelina th every Monday,Monday,Monday. multivitamin tablet (4 sources) take 1 tablet by mouth once daily multivitamin tablet Take 1 tablet by mouth once daily. 0 Active Comment on above: Take 1 tablet by evangelina th once daily. torsemide 20 mg oral tablet (5 sources) Loop Diuretic Start: 0 take 1 tablet by mouth once daily torsemide (DEMADEX) 20 mg tablet Indications: Chronic diastolic heart failure (HCC) TAKE 1 TABLET BY MOUTH EVERY DAY 90 tablet 1 06/10/2020 Active Comment on above: TAKE 1 TABLET BY EVANGELINA TH EVERY DAY wheat dextrin/L.acid/aspart maximilian (FIBER WITH PROBIOTIC ORAL) (4 sources) wheat dextrin/L.acid/aspar tame (FIBER WITH PROBIOTIC ORAL) Take 2 teaspoonsful by mouth once daily. 0 Active Comment on above: Take 2 teaspoonsful by mouth once daily. Payers Date Payer Category Payer Medicare [id number] 1959 Medicare [id number] 1959 Medicare [id number] 1935 Unknown [id number] 2.16.84 [id number] 1935 Unknown [id number] 2.16.84 [id number] 1935 Unknown [id number] 2.16.84 [id number] 1935 Unknown [id number] 2.16.84 [id number] 1935 Unknown [id number] 2.16.84 [id number] 1935 Unknown [id number] 2.16.84 [id number] 1935 Unknown [id number] 2.16.8 [id number] 1935 Unknown [id number] 2.16.8 [id number] 1935 Unknown [id number] 2.16.84 [id number] 1935 Unknown [id number] 2.16.84 [id number] 1935 Unknown [id number] 2.16.84 [id number] 1935 Unknown [id number] 2.16.84 [id number] 1935 Unknown [id number] 2.16.84 [id number] 1935 Unknown [id number] 2.16.84 [id number] 1935 Unknown [id number] 2.16.84 [id number] Plan of Treatment Date Care Activity Detail Author Start: 08-14-2024 Hepatitis B surface antibody level LDL Cholesterol [facility] Start: 10-23-2023 Hemoglobin A1c measurement HbA1C [facility] Start: 06-26-2023 Advance Directive Discussion Advance Directive Discussion [facility] Start: 06-26-2023 Depression Assessment Depression Assessment [facility] Start: 04-13-2023 End: 08-23-2023 Echocardiography ECHO Cardiology Routine Chronic diastolic heart failure (HCC) S/P AVR Expected: 04/13/2023, Expires: 08/23/2023 [facility] Work Phone: Comment on above: Expected: 04/13/2023, Expires: Start: 03-21-2023 Hemoglobin A1c/Hemoglobin.total in Blood HBA1C [facility] Start: 02-24-2023 Influenza vaccination INFLUENZA (#1) [facility] Start: 08-02-2022 COVID-19 VACCINE (5 - Moderna series) COVID-19 VACCINE (5 - Moderna series) [facility] Start: 06-26-2022 ADVANCE DIRECTIVE DISCUSSION ADVANCE DIRECTIVE DISCUSSION [facility] Start: 06-26-2022 DEPRESSION ASSESSMENT DEPRESSION ASSESSMENT [facility] Start: 02-24-2022 Influenza vaccination INFLUENZA (#1) [facility] Start: 09-07-2021 COVID-19 VACCINE (4 - Booster for Moderna series) COVID-19 VACCINE (4 - Booster for Moderna series) [facility] Start: 09-02-2021 Hemoglobin A1c/Hemoglobin.total in Blood HBA1C [facility] Start: 06-26-2021 ADVANCE DIRECTIVE DISCUSSION ADVANCE DIRECTIVE DISCUSSION [facility] Start: 03-13-2021 3 comp foot exam completed DIABETIC FOOT EXAM [facility] Start: 03-13-2021 Diabetic foot examination Diabetic Foot Exam [facility] Start: 1995 RSV Vaccine (1 - 1-dose 60+ series) RSV Vaccine (1 - 1-dose 60+ series) [facility] Start: 1985 SHINGRIX VACCINE (1 of 2) SHINGRIX VACCINE (1 of 2) [facility] Start: 1954 Urine microalbumin profile [facility] Start: 1953 Hepatitis B surface antibody level LDL CHOLESTEROL [facility] Start: 1945 Glaucoma screening Dilated Retinal Exam [facility] Start: 1945 Hepatitis B screening URINE ALBUMIN:CREATININE RATIO [facility] Start: 1945 Hepatitis C antibody, confirmatory test DILATED RETINAL EXAM [facility] ECG COMPLETE ECG COMPLETE ECG 08/23/2022 10:19 AM EST [facility] ECG COMPLETE ECG COMPLETE ECG 08/14/2023 9:29 AM EST [facility] End: 02-21-2024 Echocardiography ECHO Cardiology Routine Nonrheumatic aortic valve stenosis Primary hypertension Pure hypercholesterolemia Chronic diastolic heart failure (HCC) Atherosclerosis of cheesh-na coronary artery 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 S/P CABG x 1 S/P AVR 1 Occurrences starting 02/20/2023 until 02/21/2024 [facility] Work Phone: Comment on above: 1 Occurrences starting 02/20/2023 until 02/21/2024 [facility] Active Problems Problem Classification Problem Date Documented Da te Episodic/Chronic Chronic kidney disease (4 sources) Chronic kidney disease stage 2; Translations: [Chronic kidney disease, stage 2 (mild)] Onset: 05-08-2020 05-08-2020 Chronic Congestive heart failure; nonhypertensive (9 sources) Chronic diastolic heart failure; Translations: [Chronic diastolic (congestive) heart failure] Onset: 01-15-2020 Chronic Coronary atherosclerosis and other heart disease (8 sources) Coronary atherosclerosis; Translations: [Atherosclerotic heart disease of cheesh-na coronary artery without angina pectoris] Onset: 04-07-2020 Chronic Diabetes mellitus without complication (6 sources) Type 2 diabetes mellitus; Translations: [Type 2 diabetes mellitus without complications] Onset: 04-07-2020 04-16-2020 Chronic Diabetes mellitus without complication (2 sources) Glycosuria; Translations: [Glycosuria] Onset: 04-01-2022 Episodic Disorders of lipid metabolism (10 sources) Pure hypercholesterolemia ; Translations: [Pure hypercholesterolemia , unspecified] Onset: 06-18-2019 Chronic Essential hypertension (10 sources) Essential hypertension; Translations: [Essential (primary) hypertension] Onset: 06-18-2019 Chronic Genitourinary symptoms and ill-defined conditions (1 source) Post-micturition incontinence 03-30-2020 Chronic Genitourinary symptoms and ill-defined conditions (1 source) Blood in urine 03-19-2019 Episodic Heart valve disorders (16 sources) Aortic stenosis, non-rheumatic ; Translations: [Nonrheumatic aortic (valve) stenosis] Onset: 06-18-2019 Chronic Hyperplasia of prostate (3 sources) Benign prostatic hypertrophy with outflow obstruction; Translations: [Benign prostatic hyperplasia with lower urinary tract symptoms] Onset: 03-30-2022 Chronic Inflammatory conditions of male genital organs (1 source) Prostatitis 03-19-2019 Episodic Melanomas of skin (1 source) Malignant melanoma of skin 03-19-2019 Chronic Other male genital disorders (1 source) Impotence 03-19-2019 Chronic Other nutritional; endocrine; and metabolic disorders (6 sources) Obese class I; Translations: [Obesity, unspecified] Onset: 04-07-2020 Chronic Residual codes; unclassified (1 source) H/O: anticoagulant therapy 03-19-2019 Episodic Residual codes; unclassified (4 sources) Early satiety; Translations: [EARLY SATIETY] Onset: 07-05-2022 Episodic Screening and history of mental health and substance abuse codes (1 source) Ex-smoker 03-19-2019 Episodic Spondylosis; intervertebral disc disorders; other back problems (2 sources) Other spondylosis with radiculopathy, lumbar region; Translations: [Spondylosis without myelopathy or radiculopathy, lumbar region] Onset: 01-29-2022 Chronic Past or Other Problems Problem Classification Problem Date Documented Da te Episodic/Chronic Acute and unspecified renal failure (4 sources) Acute injury of kidney; Translations: [Acute kidney failure, unspecified] Onset: 0 04-16-2020 Episodic Administrative/social admission (8 sources) Discharge status; Translations: [Encounter for administrative examinations, unspecified] Onset: 0 04-16-2020 Episodic Calculus of urinary tract (7 sources) Kidney stone; Translations: [Calculus of kidney] Onset: 2 Episodic Complications of surgical procedures or medical care (4 sources) Expected difficult tracheal intubation; Translations: [Failed or difficult intubation, initial encounter] Onset: 0 04-14-2020 Episodic Conditions associated with dizziness or vertigo (4 sources) Orthostatic hypotension; Translations: [Dizziness and giddiness] Onset: 9 06-18-2019 Episodic Crushing injury or internal injury (4 sources) Laceration of stomach; Translations: [Laceration of stomach, initial encounter] Onset: 0 04-16-2020 Episodic Other bone disease and musculoskeletal deformities (1 source) Other specified disorders of bone density and structure, unspecified site; Translations: [OTH D/O BONE DEN STRUCT UNS SITE] Onset: 2 Episodic Other connective tissue disease (1 source) Pain in right leg; Translations: [PAIN IN RIGHT LEG] Onset: 2 Episodic Other gastrointestinal disorders (4 sources) Dysphagia, unspecified; Translations: [DYSPHAGIA UNSPECIFIED] Onset: 2 Episodic Other nervous system disorders (4 sources) Acute postoperative pain; Translations: [Other acute postprocedural pain] Onset: 0 04-16-2020 Episodic Other screening for suspected conditions (not mental disorders or infectious disease) (5 sources) Electrocardiogram abnormal; Translations: [Abnormal electrocardiogram [ECG] [EKG]] Onset: 9 06-18-2019 Episodic Pleurisy; pneumothorax; pulmonary collapse (4 sources) Atelectasis; Translations: [Atelectasis] Onset: 0 04-16-2020 Episodic Spondylosis; intervertebral disc disorders; other back problems (8 sources) Intervertebral disc disorders with radiculopathy, lumbar region; Translations: [Lumbago with sciatica, right side] Onset: 2 Episodic Procedures Date Procedure Procedure Detail Performing Clinician Start: 08-14-2023 Ecg routine ecg w/le ast 12 lds i&r only Joao Lara APRN.CNP Work Phone: Start: 08-23-2022 Ecg routine ecg w/le ast 12 lds i&r only [facility] Provider Start: 05-08-2020 History of coronary artery bypass grafting S/P CABG x 1 Marco A Garvey MD Work Phone: Start: 08-20-2019 Cataract extraction and insertion of intraocular lens Sadaf STOVALL Start: 08-06-2019 Cataract extraction and insertion of intraocular lens Sadaf STOVALL Comment on above: left Start: 06-26-2019 Construction of shunt P edyta STOVALL Start: 12-23-2013 Cystoscopy Sadaf RODRIGUEZ Start: 12-04-2013 Urodynamic studies Patr arielle STOVALL Start: 12-25-2007 Extracorporeal shock wave lithotripsy of calculus of kidney Sadaf STOVALL Comment on above: 09/05/2011, 01/05/2017 Start: 01-24-2002 Extracorporeal shock wave lithotripsy of calculus of kidney Sadaf STOVALL Comment on above: 12/2007, 09/21/2017 Start: 12-24-2001 Extracorporeal shock wave lithotripsy of calculus of kidney Sadaf STOVALL Arthroplasty of knee Sadaf STOVALL Circumcision Sadaf STOVALL History of coronary artery bypass grafting S/P CABG x 1 Marco A Garvey MD Work Phone: History of coronary artery bypass grafting S/P CABG x 1 Joao Lara APRN.[employer] PIPE SUPERVISOR Work Phone: History of coronary artery bypass grafting S/P CABG x 1 Marco A Garvey MD Work Phone: History of coronary artery bypass grafting S/P CABG x 1 Joao Lara APRN.[employer] PIPE SUPERVISOR Work Phone: Maxillary sinus endo scopy with removal of polyps Sadaf STOVALL Transurethral prostatectomy Sadaf STOVALL Results Test Name Value Interpretation Reference Range Facility CBC panel Auto (Bld)on 08-14 Erythrocyte distribution width (RBC) [Ratio] 14.8 % Normal 11.5-15.0 [facility] Comment on above: Order Comment: Claudia toscano Type: BLOOD SPECIMEN Ordering Facility: [facility] Address: [address] [place] [address] Performed By: #### 5 8410-2 #### [facility] CLIA [id number] [address] [place] [address] [place] Erythrocyte distribution width (RBC) [Ratio] 14.8 % 11.5 - 15.0 % [facility] Hematocrit (Bld) [Volume fraction] 40.3 % Normal 39.0-51.0 [facility] Comment on above: Order Comment: Claudia toscano Type: BLOOD SPECIMEN Ordering Facility: [facility] Address: [address] [place] [address] Performed By: #### 5 8410-2 #### [facility] CLIA [id number] [address] [place] [address] [place] Hematocrit (Bld) [Volume fraction] 40.3 % 39.0 - 51.0 % [facility] Hemoglobin (Bld) [Mass/Vol] 13.4 g/dL Normal 13.0-17.0 [facility] Comment on above: Order Comment: Katiei men Type: BLOOD SPECIMEN Ordering Facility: [facility] Address: [address] [place] [address] Performed By: #### 5 8410-2 #### [facility] CLIA [id number] [address] [place] [address] [place] Hemoglobin (Bld) [Mass/Vol] 13.4 g/dL 13.0 - 17.0 g/dL [facility] MCH (RBC) [Entitic mass] 30.5 pg Normal 26.0-34.0 [facility] Comment on above: Order Comment: Katiei men Type: BLOOD SPECIMEN Ordering Facility: [facility] Address: [address] [place] [address] Performed By: #### 5 8410-2 #### [facility] CLIA [id number] [address] [place] [address] [place] MCH (RBC) [Entitic mass] 30.5 pg 26.0 - 34.0 pg [facility] MCHC (RBC) [Mass/Vol] 33.3 g/dL Normal 30.5-36.0 [facility] Comment on above: Order Comment: Speci men Type: BLOOD SPECIMEN Ordering Facility: [facility] Address: [address] [place] [address] Performed By: #### 5 8410-2 #### [facility] CLIA [id number] [address] [place] [address] [place] MCHC (RBC) [Mass/Vol] 33.3 g/dL 30.5 - 36.0 g/dL [facility] MCV (RBC) [Entitic vol] 91.6 fL Normal 80.0-100.0 [facility] Comment on above: Order Comment: Speci men Type: BLOOD SPECIMEN Ordering Facility: [facility] Address: [address] [place] [address] Performed By: #### 5 8410-2 #### [facility] CLIA [id number] [address] [place] [address] [place] MCV (RBC) [Entitic vol] 91.6 fL 80.0 - 100.0 fL [facility] Nucleated RBC (Bld) [#/Vol] 10*3/uL Normal <0.01 [facility] Comment on above: Order Comment: Speci men Type: BLOOD SPECIMEN Ordering Facility: [facility] Address: [address] [place] [address] Performed By: #### 5 8410-2 #### [facility] CLIA [id number] [address] [place] [address] [place] Nucleated RBC (Bld) [#/Vol] <0.01 k/uL [facility] Platelet mean volume (Bld) [Entitic vol] 12.8 fL High 9.0-12.7 [facility] Comment on above: Order Comment: Speci men Type: BLOOD SPECIMEN Ordering Facility: [facility] Address: [address] [place] [address] Performed By: #### 5 8410-2 #### [facility] CLIA [id number] [address] [place] [address] [place] Platelet mean volume (Bld) [Entitic vol] 12.8 fL High 9.0 - 12.7 fL [facility] Platelets (Bld) [#/Vol] 194 10*3/uL Normal 150-400 [facility] Comment on above: Order Comment: Speci men Type: BLOOD SPECIMEN Ordering Facility: [facility] Address: [address] [place] [address] Performed By: #### 5 8410-2 #### [facility] CLIA [id number] [address] [place] [address] [place] Platelets (Bld) [#/Vol] 194 10*3/uL 150 - 400 k/uL [facility] RBC (Bld) [#/Vol] 4.40 10*6/uL Normal 4.20-6.00 [facility] Comment on above: Order Comment: Speci men Type: BLOOD SPECIMEN Ordering Facility: [facility] Address: [address] [place] [address] Performed By: #### 5 8410-2 #### [facility] CLIA [id number] [address] [place] [address] [place] RBC (Bld) [#/Vol] 4.40 10*6/uL 4.20 - 6.0 0 m/uL [facility] WBC (Bld) [#/Vol] 10.34 10*3/uL Normal 3.70-11.00 [facility] Comment on above: Order Comment: Speci men Type: BLOOD SPECIMEN Ordering Facility: [facility] Address: [address] [place] [address] Performed By: #### 5 8410-2 #### [facility] CLIA [id number] [address] [place] [address] [place] WBC (Bld) [#/Vol] 10.34 10*3/uL 3.70 - 11 .00 k/uL [facility] CNOVon 08-14-2023 CNOV Office Visit (CARDLO ) -------- NAKIA NARAYANAN ([id number]) 1935 M Date Time Provider Department 08/14/23 9:30 AM JOAO LARA During your visit today, we recorded the following information about you: Pulse Blood pressure Weight 67/minute 134/72 97.7 kg Joao Lara APRN.[employer] P[employer] SUPERVISOR 08/27/2023 10:06 PM Signed [facility] Department of Cardiovascular Medicine SECTION OF REGIONAL CARDIOLOGY August 14, 2023 OUTPATIENT VISIT TYPE ESTABLISHED PRIMARY CARE PHYSICIAN: Benjie Covarrubias II, MD, MD SUBJECTIVE: CHIEF COMPLAINT: Patient presents with: Cardiology Follow Up HISTORY OF PRESENT ILLNESS: Nakia Narayanan is a 88 year old male who presents for 6 month CVM follow up. He is accompanied by his son. Patient has a history of hypertension, hyperlipidemia, diastolic heart failure, as well as a history of aortic stenosis, status post AVR along with Coronary artery disease status post coronary artery bypass surgery with 1 vessel grafted on 04/08/2020. Former smoker Last visit: 02/20/[address] Marco A Garvey. No reported CV symptoms or complaints. No changes in medical management. An updated echocardiogram was advised. Today, patient denies chest pain, shortness of breath, orthopnea, cough, significant edema/weight gain, palpitations, PND, lightheadedness, syncope or other significant CV symptoms. Average functional capacity (active with ADL). States compliance with medications. Diet: He is eating deli meat for lunch. Cardiac work-up includes : An echocardiogram in 2019 which showed moderate aortic stenosis. A nuclear stress testing done in June 2019 showed no ischemia. Ejection fraction 62%. An Echocardiogram done on 01/15/2020 showed moderately severe aortic stenoses and a gradient over 55 mmHg. AVR, CABGx1 (Vein graft ascending aorta end to side first obtuse marginal branch. On 04/13/2020 had a limited 2D echo study which showed normal LV function. The bioprosthetic aortic valve appears to be functioning normally. REVIEW OF SYSTEMS: Detailed 14 systems reviewed. Pertinent information, positive and/or negative or non-contributory with the exception of pertinent positives described in HPI. Past Medical, Family and Social history reviewed; unchanged from prior. ASSESSMENT/PLAN: Nakia Narayanan was seen today for 6-month CVM follow-up. Diagnoses and all orders for this visit: Encounter Diagnosis ICD-10-CM 1. Primary hypertension I10 ECG COMPLETE COMP METABOLIC PANEL CBC LIPID PANEL, NONFASTING MAGNESIUM BLD 2. Chronic diastolic heart failure (HCC) I50.32 COMP METABOLIC PANEL CBC LIPID PANEL, NONFASTING MAGNESIUM BLD 3. Pure hypercholesterolemia E78.00 COMP METABOLIC PANEL LIPID PANEL, NONFASTING 4. 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 Atherosclerosis of cheesh-na coronary artery 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 I25.10 COMP METABOLIC PANEL CBC LIPID PANEL, NONFASTING MAGNESIUM BLD 6. 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 Grade 1 diastolic dysfunction noted. He is advised to limit his dietary sodium and eating of processed foods. -CAD status post CABG x 1- SVG to obtuse marginal branch No anginal symptoms. Continue aspirin 81 mg daily, metoprolol succinate 50 mg once daily, simvastatin 40 mg daily at bedtime -Chronic diastolic heart failure. EF 62% per echo 04/14/2023. Continue metolazone 5 mg Monday and Monday, torsemide 20 mg daily along with potassium citrate 10 mEq twice daily -Aortic stenosis status post AVR-Inspiris prosthetic valve size #25. -LDL goal less than 70 mg/dL. On statin therapy. Will update labs. -Continue lifestyle modifications: Reduce sodium intake, regular aerobic exercise 30 mins/day for at least 5 days/week, eating heart healthy/Plant-based/most ly whole foods, limited animal products and low dairy diet and maintaining ideal body weight with BMI < 25. Follow up: -Patient will follow-up in 6 months CVM with communication in between if symptoms or changes occur. -Patient should continue to follow with their primary physician for routine health care maintenance and age appropriate risk factor assessment, modification and screenings. PHYSICAL EXAMINATION: BP 134/72 (BP Site: Right Arm) Pulse 67 Wt 97.7 kg (215 lb 6.2 oz) SpO2 97% BMI 32.75 kg/m? General appearance: in no acute distress, alert. Eyes: Anicteric sclera. EOMI Neck: No carotid bruits. No JVD Lungs: Normal respiratory effort. No wheezing, crackles, or rhonchi. Heart: Regular rhythm. Regular rate. No significant murmur. Trace nonpitting edema to RLE 1+ LLE mildly pitting edema Abdomen: Abdomen soft, non-tender. No hepatomegaly or bruits. Vascular: Central and peripheral pulses: +2. No renal, ABD aortic, or femoral bruit. Neuro: No gross focal deficits Psych: mood maris (more content not included)... Normal [facility] Comprehensive metabolic 2000 panelon 08-14-2023 Albumin [Mass/Vol] 3.9 g/dL Normal 3.9-4.9 [facility] Comment on above: Order Comment: Katiei everton Type: BLOOD SPECIMEN Ordering Facility: [facility] Address: [address] [place] [address] Performed By: #### 1 9123-9, LIPNF, 42639-4 #### [facility] CLIA [id number] [address] [place] [address] [place] Albumin [Mass/Vol] 3.9 g/dL 3.9 - 4.9 g/dL [facility] ALP [Catalytic activity/Vol] 72 U/L Normal 38-113 [facility] Comment on above: Order Comment: Claudia toscano Type: BLOOD SPECIMEN Ordering Facility: [facility] Address: [address] [place] [address] Performed By: #### 1 9123-9, LIPNF, 06906-3 #### [facility] CLIA [id number] [address] [place] [address] [place] ALP [Catalytic activity/Vol] 72 U/L 38 - 113 U/L [facility] ALT [Catalytic activity/Vol] 14 U/L Normal 10-54 [facility] Comment on above: Order Comment: Speci men Type: BLOOD SPECIMEN Ordering Facility: [facility] Address: [address] [place] [address] Performed By: #### 1 9123-9, LIPNF, 44586-8 #### [facility] CLIA [id number] [address] [place] [address] [place] ALT [Catalytic activity/Vol] 14 U/L 10 - 54 U/L [facility] Anion gap [Moles/Vol] 13 mmol/L Normal 9-18 [facility] Comment on above: Order Comment: Speci men Type: BLOOD SPECIMEN Ordering Facility: [facility] Address: [address] [place] [address] Performed By: #### 1 9123-9, LIPNF, 09950-9 #### [facility] CLIA [id number] [address] [place] [address] [place] Anion gap [Moles/Vol] 13 mmol/L 9 - 18 mmol/L [facility] AST [Catalytic activity/Vol] 20 U/L Normal 14-40 [facility] Comment on above: Order Comment: Speci men Type: BLOOD SPECIMEN Ordering Facility: [facility] Address: [address] [place] [address] Performed By: #### 1 9123-9, LIPNF, 57498-2 #### [facility] CLIA [id number] [address] [place] [address] [place] AST [Catalytic activity/Vol] 20 U/L 14 - 40 U/L [facility] Bilirubin [Mass/Vol] 0.3 mg/dL Normal 0.2-1.3 [facility] Comment on above: Order Comment: Speci men Type: BLOOD SPECIMEN Ordering Facility: [facility] Address: [address] [place] [address] Performed By: #### 1 9123-9, LIPNF, #### [facility] CLIA [id number] [address] [place] [address] [place] Bilirubin [Mass/Vol] 0.3 mg/dL 0.2 - 1 .3 mg/dL [facility] Calcium [Mass/Vol] 9.1 mg/dL Normal 8.5-10.2 [facility] Comment on above: Order Comment: Speci men Type: BLOOD SPECIMEN Ordering Facility: [facility] Address: [address] [place] [place] [id number] Performed By: #### 1 9123-9, LIPNF, #### [facility] CLIA [id number] [address] [place] [address] [place] Calcium [Mass/Vol] 9.1 mg/dL 8.5 - 10. 2 mg/dL [facility] Chloride [Moles/Vol] 107 mmol/L High 97-105 [facility] Comment on above: Order Comment: Speci men Type: BLOOD SPECIMEN Ordering Facility: [facility] Address: [address] [place] [id number] Performed By: #### 1 9123-9, LIPNF, #### [facility] CLIA [id number] [address] [place], [place] [address] [place] Chloride [Moles/Vol] 107 mmol/L High 97 - 10 5 mmol/L [facility] CO2 [Moles/Vol] 24 mmol/L Normal 22-30 [facility] Comment on above: Order Comment: Speci men Type: BLOOD SPECIMEN Ordering Facility: [facility] Address: [address] [place] [id number] Performed By: #### 1 9123-9, LIPNF, #### [facility] CLIA [id number] [address] [place] [place] [id number] [place] CO2 [Moles/Vol] 24 mmol/L 22 - 30 mmol/L [facility] Creatinine [Mass/Vol] 1.28 mg/dL High 0.73-1.22 [facility] Comment on above: Order Comment: Claudia toscano Type: BLOOD SPECIMEN Ordering Facility: [facility] Address: [address] [place] [address] Performed By: #### 1 9123-9, YVETTE, 34336-3 #### [facility] CLIA [id number] [address] [place] [address] [place] Creatinine [Mass/Vol] 1.28 mg/dL High 0.73 - 1.22 mg/dL [facility] Creatinine and Glomerular filtration rate.predicted panel (S/P/Bld) 54 mL/min/1.73m??? Low >=60 [facility] Comment on above: Order Comment: Claudia toscano Type: BLOOD SPECIMEN Ordering Facility: [facility] Address: [address] [place] [address] Result Comment: Brenda mated Glomerular Filtration Rate (eGFR) is calculated using the 2020 CKD-EPI creatinine equation. This equation utilizes serum creatinine, sex, and age as parameters. The creatinine assay has traceable calibration to isotope dilution-mass spectrometry. Refer to KDIGO guidelines for clinical interpretation. In patients with unstable renal function, e.g. those with acute kidney injury, the eGFR may not accurately reflect actual GFR. Performed By: #### 1 9123-9, YVETTE, 87977-3 #### [facility] CLIA [id number] [address] [place] [address] [place] Estimated Glomerular Filtration Rate 54 mL/min/1.73m Low >=60 mL/min/1.73m [facility] Glucose [Mass/Vol] 121 mg/dL High 74-99 [facility] Comment on above: Order Comment: Claudia toscano Type: BLOOD SPECIMEN Ordering Facility: [facility] Address: [address] [place] [address] Result Comment: The [place] Diabetes Association (ADA) provides guidance for cutoff values for fasting glucose and random glucose. The ADA defines fasting as no caloric intake for at least 8 hours. Fasting plasma glucose results between 100 to 125 mg/dL indicate increased risk for diabetes (prediabetes). Fasting plasma glucose results greater than or equal to 126 mg/dL meet the criteria for diagnosis of diabetes. In the absence of unequivocal hyperglycemia, results should be confirmed by repeat testing. In a patient with classic symptoms of hyperglycemia or hyperglycemic crisis, random plasma glucose results greater than or equal to 200 mg/dL meet the criteria for diagnosis of diabetes. Reference: Standards of Medical Care in Diabetes 2016, [place] [employer] Association. Diabetes Care. 2016.39(Suppl 1). Performed By: #### 1 9123-9, LIPNF, 23431-3 #### [facility] CLIA [id number] [address] [place] [address] [place] Glucose [Mass/Vol] 121 mg/dL High 74 - 99 mg/dL [facility] Potassium [Moles/Vol] 4.2 mmol/L Normal 3.7-5.1 [facility] Comment on above: Order Comment: Speci men Type: BLOOD SPECIMEN Ordering Facility: [facility] Address: [address] [place] [address] Performed By: #### 1 9123-9, LIPNF, 68853-0 #### [facility] CLIA [id number] [address] [place] [address] [place] Potassium [Moles/Vol] 4.2 mmol/L 3.7 - 5.1 mmol/L [facility] Protein [Mass/Vol] 6.3 g/dL Normal 6.3-8.0 [facility] Comment on above: Order Comment: Speci men Type: BLOOD SPECIMEN Ordering Facility: [facility] Address: [address] [place] [address] Performed By: #### 1 9123-9, LIPNF, 05615-3 #### [facility] CLIA [id number] [address] [place] [address] [place] Protein [Mass/Vol] 6.3 g/dL 6.3 - 8.0 g/dL [facility] Sodium [Moles/Vol] 144 mmol/L Normal 136-144 [facility] Comment on above: Order Comment: Speci men Type: BLOOD SPECIMEN Ordering Facility: [facility] Address: [address] [place] [address] Performed By: #### 1 9123-9, LIPZACHERY, 07916-1 #### [facility] CLIA [id number] [address] [place] [address] [place] Sodium [Moles/Vol] 144 mmol/L 136 - 144 mmol/L [facility] Urea nitrogen [Mass/Vol] 22 mg/dL Normal 9-24 [facility] Comment on above: Order Comment: Claudia everton Type: BLOOD SPECIMEN Ordering Facility: [facility] Address: [address] [place] [address] Performed By: #### 1 9123-9, LIPZACHERY, 53296-1 #### [facility] CLIA [id number] [address] [place] [address] [place] Urea nitrogen [Mass/Vol] 22 mg/dL 9 - 24 mg/dL [facility] ECG COMPLETEon 08-14-2023 Atrial Rate 72 BPM [facility] Calculated P [place] 58 degrees [facility] Calculated R [place] -9 degrees [facility] Calculated T [place] 64 degrees [facility] ECG COMPLETE Ventricular Rate : 7 2 BPM Atrial Rate : 72 BPM P-R Interval : 182 ms QRS Duration : 102 ms Q-T Interval : 390 ms QTC Calculation(Bazett) : 427 ms Calculated P [place] : 58 degrees Calculated R [place] : -9 degrees Calculated T [place] : 64 degrees NORMAL SINUS RHYTHM LOW VOLTAGE QRS, CONSIDER PULMONARY DISEASE, PERICARDIAL EFFUSION, OR NORMAL VARIANT BORDERLINE ECG Confirmed by MARY SCHRADER MD ([id number]) on 08/14/2023 4:17:30 PM NAME : NAKIA NARAYANAN PID : [id number] : 1935 Gender : Male Race : ORD : [id number] Procedure Date : Aug 14 2023 09:29:38 Edit Date : Aug 14 2023 16:17:34 Diagnosis: NORMAL SINUS RHYTHM LOW VOLTAGE QRS, CONSIDER PULMONARY DISEASE, PERICARDIAL EFFUSION, OR NORMAL VARIANT BORDERLINE ECG Confirmed by MARY SCHRADER MD (34) on 08/14/2023 4:17:30 PM Test Reason : I10 Primary hypertension Location : 145 : [facility]ASH Overread By : MARY SCHRADER MD Edited By : MARY SCHRADER MD Referred By : MARCO A GARVEY Acquired by : lrs, [facility] P-R Interval 182 ms [facility] QRS Duration 102 ms [facility] QT Interval 390 ms [facility] QTC Calculation (Bazett) 427 ms [facility] Ventricular Rate 72 BPM [facility] LIPID PANEL, NONFASTINGon Cholesterol [Mass/Vol] 116 mg/dL Normal <200 [facility] Comment on above: Order Comment: Specjoseph men Type: BLOOD SPECIMEN Ordering Facility: [facility] Address: [address] [place] [address] Result Comment: <200 mg/dL, Desirable 200-239 mg/dL, Borderline high >239 mg/dL, High Performed By: #### 1 9123-9, LIPNF, 01766-9 #### [facility] CLIA [id number] [address] [place] [address] [place] Cholesterol [Mass/Vol] 116 mg/dL <200 mg/dL [facility] HDL CHOLESTEROL, NF 32 mg/dL Low >39 [facility] Comment on above: Order Comment: Claudia men Type: BLOOD SPECIMEN Ordering Facility: [facility] Address: [address] [place] [address] Result Comment: 40-5 9 mg/dL, Acceptable >59 mg/dL, High: Negative risk factor for coronary heart disease <40 mg/dL, Low: Positive risk factor for coronary heart disease Performed By: #### 1 9123-9, LIPNF, 05753-1 #### [facility] CLIA [id number] [address] [place] [address] [place] HDL Cholesterol, Nonfasting 32 mg/dL Low >39 mg/dL [facility] LDL CHOLESTEROL, NF 38 mg/dL Normal <100 [facility] Comment on above: Order Comment: Claudia men Type: BLOOD SPECIMEN Ordering Facility: [facility] Address: [address] [place] [address] Result Comment: <100 mg/dL, Optimal 100-129 mg/dL, Near optimal/above optimal 130-159 mg/dL, Borderline high 160-189 mg/dL, High >189 mg/dL, Very high Secondary prevention optimal LDL Cholesterol levels are recommended to be < 70 mg/dL Performed By: #### 1 9123-9, LIPNF, #### [facility] CLIA [id number] [address] [place] [address] [place] LDL Cholesterol, Nonfasting 38 mg/dL <100 mg/dL [facility] LDL/HDL RATIO, NF 1.19 mg/dL Normal <2.54 [facility] Comment on above: Order Comment: Claudia toscano Type: BLOOD SPECIMEN Ordering Facility: [facility] Address: [address] [place] [address] Result Comment: Refe rence: 1. National Cholesterol Education Program ATP III Guideline At-A-Glance Quick Desk Reference: National Heart, Lung, and Blood [place]. National Institutes of Health. 2001: NIH Publication No. 01-3305. 2. An International Atherosclerosis Society position paper: global recommendations for the management of dyslipidemia: executive summary, Atherosclerosis. 2014: 232(2):410-413. Performed By: #### 1 9123-9, LIPZACHERY, #### [facility] CLIA [id number] [address] [place] [address] [place] LDL/HDL Ratio, Nonfasting 1.19 mg/dL <2.54 mg/dL [facility] NON HDL CHOL, NF 84 mg/dL Normal <130 [facility] Comment on above: Order Comment: Claudia toscano Type: BLOOD SPECIMEN Ordering Facility: [facility] Address: [address] [place] [address] Result Comment: <130 mg/dL, Optimal 130-159 mg/dL, Near optimal/above optimal 160-189 mg/dL, Borderline high 190-219 mg/dL, High >219 mg/dL, Very high Secondary prevention optimal non HDL Cholesterol levels are recommended to be <100 mg/dL Performed By: #### 1 9123-9, LIPNF, 36587-8 #### [facility] CLIA [id number] [address] [place] [address] [place] Non HDL Cholesterol, Nonfasting 84 mg/dL <130 mg/dL [facility] T CHOL/HDL RATIO NF 3.63 mg/dL Normal <5.10 [facility] Comment on above: Order Comment: Speci men Type: BLOOD SPECIMEN Ordering Facility: [facility] Address: [address] [place] [address] Performed By: #### 1 9123-9, LIPNF, 66289-0 #### [facility] CLIA [id number] [address] [place] [address] [place] Total Chol/HDL Ratio, Nonfasting 3.63 mg/dL <5.10 mg/dL [facility] TRIGLYCERIDES, NF 230 mg/dL High <150 [facility] Comment on above: Order Comment: Speci men Type: BLOOD SPECIMEN Ordering Facility: [facility] Address: [address] [place] [address] Result Comment: <150 mg/dL, Normal 150-199 mg/dL, Borderline high 200-499 mg/dL, High >499 mg/dL, Very high Performed By: #### 1 9123-9, LIPNF, 98977-9 #### [facility] CLIA [id number] [address] [place] [address] [place] Triglycerides, Nonfasting 230 mg/dL High <150 mg/dL [facility] VLDL CHOLESTEROL, NF 46 mg/dL High <30 [facility] Comment on above: Order Comment: Speci men Type: BLOOD SPECIMEN Ordering Facility: [facility] Address: [address] [place], [place] [id number] Performed By: #### 1 9123-9, LIPNF, 08128-2 #### [facility] CLIA [id number] [address] [place] [address] [place] VLDL Cholesterol, Nonfasting 46 mg/dL High <30 mg/dL [facility] MAGNESIUM BLDon 08-14-2023 Magnesium [Mass/Vol] 1.7 mg/dL 1.7 - 2 .3 mg/dL [facility] Magnesium SerPl-mCncon 08-14 Magnesium [Mass/Vol] 1.7 mg/dL Normal 1.7-2.[address] [facility] Comment on above: Order Comment: Speci men Type: BLOOD SPECIMEN Ordering Facility: [facility] Address: [address] [place] [address] Performed By: #### 1 9123-9, LIPNF, 68302-6 #### [facility] CLIA [id number] [address] [place] [address] [place] [address] [place] ECHOon 04-14-2023 Echocardiography Echocardiography Rep ort: Transthoracic Echo Formerly [facility] Date of service: 04/14/2023 10:29:09 AM PROFESSIONAL Ordering physician: JOAO LARA Indication: Routine surveillance of prosthetic valve (>3yrs) Technologist: Chencho Huerta Interpreting physician: Kasey Hernández MD PATIENT: Name: NAKIA NARAYANAN : 1935 Age: 87 years Gender: M Previous cardiovascular interventions: CABG (04/08/2020) Aortic valve replacement (04/08/2020) Primary rhythm: sinus. Height: 172.70 cm BSA: 2.22 m Weight: 102.97 kg BMI: 34.5 kg/m Heart rate 68 bpm Blood pressure 148/71 mmHg Technically difficult exam due to body habitus. Color Doppler was utilized to interrogate the cardiac valves assessed and spectral Doppler was utilized to determine the flow velocities and pressure gradients reported in this exam. MEASUREMENTS: Value Indexed Normal Left atrial volume 67 ml (biplane A-L) 30 ml/m Leonard <= 34 LV ID (diastole) 4.4 cm (2D) 2.00 cm/m LV ID (systole) 2.8 cm (2D) 1.27 cm/m IVS, leaflet tips 1.1 cm (2D) Posterior wall thickness 1.1 cm (2D) Left ventricular mass 172 g (2D) 77 g/m LV stroke volume 56 ml (2D biplane) LV end diastolic volume 91 ml (2D biplane) 40.8 ml/m 34<=EDVi<75 LV end systolic volume 34 ml (2D biplane) 15.4 ml/m Ejection Fraction 62 % (2D biplane) EF > 52 FINDINGS: LEFT VENTRICLE The left ventricle is normal in size. Left ventricular systolic function is normal. Grade I left ventricular diastolic dysfunction. Mitral annular lateral E/e': 9.8. Mitral annular septal E/e': 13.6. Wall Motion: All scored segments are normal. RIGHT VENTRICLE The right ventricle is normal in size. Right ventricular systolic function is normal. RV systolic tissue Doppler velocity is 10.3 cm/s. Tricuspid annular displacement is 1.3 cm. Estimated right ventricular systolic pressure is not reported due to an insufficient tricuspid regurgitation signal. Estimated right atrial pressure is 8 mmHg based on IVC assessment. LEFT ATRIUM The left atrial cavity is normal in size. RIGHT ATRIUM The right atrial cavity is normal in size. Inferior Vena Cava: The inferior vena cava appears normal measuring 1.6 cm. The vessel decreases less than 50 percent with inspiration. MITRAL VALVE There is mild mitral annular calcification observed anterior and posterior. There is trace mitral valve regurgitation. There is no thickening. The pressure half time is 95 msec. The peak mitral E/A ratio is 0.65. The average mitral E/e' ratio is 11.7. The mitral flow deceleration time is 327 msec. TRICUSPID VALVE The tricuspid valve leaflets are structurally normal. There is trace tricuspid valve regurgitation. AORTIC VALVE Inspiris prosthetic valve size #25. There is trace (trace - 1+) aortic valve regurgitation. The peak gradient is 20 mmHg (peak velocity = 224.0 cm/s). The mean gradient is 10 mmHg. The LVOT mean velocity is 64.0 cm/s. The aortic VTI is 38.5 cm. The mean velocity in the aortic valve is 143.0 cm/s. The dimensionless valve index is 0.50. PULMONIC VALVE The pulmonic valve cusps are structurally normal. There is trace pulmonic valve regurgitation. The peak gradient is 6 mmHg. AORTA The aorta is unseen or not interrogated. INTERATRIAL SEPTUM There is no evidence of intracardiac shunting as detected by Doppler. INTERVENTRICULAR SEPTUM There is abnormal motion of the interventricular septum secondary to prior cardiac surgery. PERICARDIUM There is no pericardial effusion. There is an epicardial fat pad. CONCLUSIONS: - Technically difficult exam due to body habitus. - Exam indication: Routine surveillance of prosthetic valve (>3yrs) - The left ventricle is normal in size. Left ventricular systolic function is normal. EF = 62 5% (2D biplane) Grade I left ventricular diastolic dysfunction. - The right ventricle is normal in size. Right ventricular systolic function is normal. - Inspiris prosthetic aortic valve (size #25). There is trace (trace - 1+) aortic valve regurgitation. The peak gradient is 20 mmHg, the mean gradient is 10 mmHg and the dimensionless valve index is 0.50. Prior peak and mean gradients were 19/9mmHg. - Exam was compared with the prior CC echocardiographic exam performed on 04/13/2020. There is no significant change. * * * Final * * * CC [email or web address] [facility] [employer] : [id number] Normal [facility] Ambulatory Visit Summaryon 1 Ambulatory Visit Summary NAKIA NARAYANAN :1935 Visit Date:04/03/2023 Ambulatory Visit Instructions Your Diagnosis Kidney stones BPH with urinary obstruction Glucosuria Tests Performed Urnls Dip Stick Auto w/o Microscopy POC 22312 XR Abdomen 1 View -- Results Pending -- Please visit your patient portal for your results or contact your primary care physician. Your Care Team Attending Physician - Sadaf STOVALL MD Primary Care Physician - BENJIE COVARRUBIAS MD This Is Your Medications List potassium citrate (potassium CITRATE 10 mEq ER Tab) Contact prescribing physician if questions or concerns aspirin (aspirin 81 mg oral tablet) canagliflozin (Invokana 100 mg oral tablet) metformin-sitagliptin (Janumet) metoprolol (Toprol XL 25 mg Tab-ER) multivitamin (Multi Vitamin+) pantoprazole (Protonix 20 mg Tab-DR) psyllium (Natural Fiber Therapy 3.4 g/7 g oral powder for reconstitution) simvastatin (simvastatin 40 mg Tab) torsemide (torsemide 20 mg Tab) Procedures Performed Cataract extraction and insertion of intraocular lens (08/20/2019), Cataract extraction and insertion of intraocular lens (08/06/2019), Bypass (2019), Cystoscopy (12/23/2013), Urodynamics (12/04/2013), ESWL of kidney (12/25/2007), ESWL of kidney (01/24/2002), ESWL of kidney (12/24/2001), Circumcision, Knee replacement, Maxillary sinus endoscopy with removal of polyps, Transurethral resection of prostate. Discharge Vitals Heart Rate (Peripheral) 81 Respiratory Rate 16 Blood Pressure 131/80 Height 172.7 cm Height 68 in Weight 93 kg Weight 204.6 lb BMI 31.18 What to do next Scheduled Follow-Up Appointments Monday 8:30 AM EDT With: HUSAM ANGELES, Sadaf Adamson Where: [facility] Patient Educationon 04-03-20 23 Patient Education Nephrology Dietary Guidelines to Help Prevent Kidney Stones Kidney stones are deposits of minerals and salts that form inside your kidneys. Your risk of developing kidney stones may be greater depending on your diet, your lifestyle, the medicines you take, and whether you have certain medical conditions. Most people can lower their chances of developing kidney stones by following the instructions below. Your dietitian may give you more specific instructions depending on your overall health and the type of kidney stones you tend to develop. What are tips for following this plan? Reading food labels ? Choose foods with no salt added or low-salt labels. Limit your salt (sodium) intake to less than 1,500 mg a day. ? Choose foods with calcium for each meal and snack. Try to eat about 300 mg of calcium at each meal. Foods that contain 200?500 mg of calcium a serving include: ? 8 oz (237 mL) of milk, fdrnpej-plfifailvvrk-juc ry milk, and calcium-fortifiedfruit juice. Calcium-fortified means that calcium has been added to these drinks. ? 8 oz (237 mL) of kefir, yogurt, and soy yogurt. ? 4 oz (114 g) of tofu. ? 1 oz (28 g) of cheese. ? 1 cup (150 g) of dried figs. ? 1 cup (91 g) of cooked broccoli. ? One 3 oz (85 g) can of sardines or mackerel. Most people need 1,000?1,500 mg of calcium a day. Talk to your dietitian about how much calcium is recommended for you. Shopping ? Buy plenty of fresh fruits and vegetables. Most people do not need to avoid fruits and vegetables, even if these foods contain nutrients that may contribute to kidney stones. ? When shopping for convenience foods, choose: ? Whole pieces of fruit. ? Pre-made salads with dressing on the side. ? Low-fat fruit and yogurt smoothies. ? Avoid buying frozen meals or prepared deli foods. These can be high in sodium. ? Look for foods with live cultures, such as yogurt and kefir. ? Choose high-fiber grains, such as whole-wheat breads, oat bran, and wheat cereals. Cooking ? Do not add salt to food when cooking. Place a salt shaker on the table and allow each person to add his or her own salt to taste. ? Use vegetable protein, such as beans, textured vegetable protein (TVP), or tofu, instead of meat in pasta, casseroles, and soups. Meal planning ? Eat less salt, if told by your dietitian. To do this: ? Avoid eating processed or pre-made food. ? Avoid eating fast food. ? Eat less animal protein, including cheese, meat, poultry, or fish, if told by your dietitian. To do this: ? Limit the number of times you have meat, poultry, fish, or cheese each week. Eat a diet free of meat at least 2 days a week. ? Eat only one serving each day of meat, poultry, fish, or seafood. ? When you prepare animal protein, cut pieces into small portion sizes. For most meat and fish, one serving is about the size of the palm of your hand. ? Eat at least five servings of fresh fruits and vegetables each day. To do this: ? Keep fruits and vegetables on hand for snacks. ? Eat one piece of fruit or a handful of berries with breakfast. ? Have a salad and fruit at lunch. ? Have two kinds of vegetables at dinner. ? Limit foods that are high in a substance called oxalate. These include: ? Spinach (cooked), rhubarb, beets, sweet potatoes, and [place] chard. ? Peanuts. ? Potato chips, tanzanian fries, and baked potatoes with skin on. ? Nuts and nut products. ? Chocolate. ? If you regularly take a diuretic medicine, make sure to eat at least 1 or 2 servings of fruits or vegetables that are high in potassium each day. These include: ? Avocado. ? Banana. ? Carver, prune, carrot, or tomato juice. ? Baked potato. ? Cabbage. ? Beans and split peas. Lifestyle ? Drink enough fluid to keep your urine pale yellow. This is the most important thing you can do. Spread your fluid intake throughout the day. ? If you drink alcohol: ? Limit how much you use to: ? 0?1 drink a day for women who are not . ? 0?2 drinks a day for men. ? Be aware of how much alcohol is in your drink. In the [place] one drink equals one 12 oz bottle of beer (355 mL), one 5 oz glass of wine (148 mL), or one 1? oz glass of hard liquor (44 mL). ? Lose weight if told by your health care provider. Work with your dietitian to find an eating plan and weight loss strategies that work best for you. General information ? Talk to your health care provider and dietitian about taking daily supplements. You may be told the following depending on your health and the cause of your kidney stones: ? Not to take supplements with vitamin C. ? To take a calcium supplement. ? To take a daily probiotic supplement. ? To take other supplements such as magnesium, fish oil, or vitamin B6. ? Take wrpp-qcj-nzpdwvj and prescription medicines only as told by your health care provider. These include supplements. What foods should I limit? Limit your in (more content not included)... Normal [facility] RAD - MISCon 04-03-2023 RAD - MIS [id number] Normal [facility] Urology Phone Visit- Telehea lthon 04-03-2023 Urology Phone Visit- Telehealth Chief Complaint 1yr KUB HPI Staff 1yr KUB DX: Kidney Stone, BPH & Glucosuria *Potassium Citrate 10meq BID KUB 03/27/23 Denies flank pain. Denies visible blood in urine. Denies pain/burning. Denies all concerns at this time. History of Present Illness Tests reviewed: reviewed UA and KUB. I have reviewed the previous health record information and history for this patient from . I have reviewed and verified the staff HPI to be accurate for this encounter. There have been no associated fever, chills, flank pain, or blood in the urine. Denies any urinary infections since last encounter. Review of Systems PHQ Score Initial Depression Screen Score: 0 ROS - Provider Constitutional: denies weight loss, denies hot flashes. Eyes: denies eye problems. Gastrointestinal: denies nausea, denies vomiting. Cardiovascular: denies chest pain or angina. Integumentary: no dryness Musculoskeletal: denies musculoskeletal symptoms. ENMT: denies otolaryngeal symptoms. Respiratory: no shortness of breath. Heme/Lymph: denies easy bleeding tendency, denies easy bruising tendency. Psychiatric: no confusion, no anxiety. Genitourinary: See HPI. Physical Exam Vitals & Measurements HR: 81(Peripheral) RR: 16 BP: 131/80 HT: 68 in HT: 172.7 cm WT: 93 kg WT: 204.6 lb BMI: 31.18 General Appearance: alert, no distress, well nourished, well developed male. Assessment/Plan 1. Kidney stones (N20.0: Calculus of kidney) KUB 03/28/22 - Rt sided punctate lower pole nephrolithiasis KUB 03/27/23 - punctate stones in the Rt renal region Denies any stone issues since previous encounter. Pt continues Potassium Citrate 10mEq bid. States his PCP does refills for this med. Discussed imaging findings with pt, small stones are present, remain stable. Will continue to monitor stones. Follow up in 1 yr w/KUB. All questions/concerns were discussed. Pt to call the office if he encounters any issues prior. Pt acknowledges understanding. -Will order KUB. 2. BPH with urinary obstruction (N40.1: Benign prostatic hyperplasia with lower urinary tract symptoms) Patient is not on any prostate medications at this time. Pt. is on Lasix which increases his frequency. Good stream, states he usually double voids. Pt states that he dribbles when he doesn't double void. UA today is clear of infection or blood. Discussed starting a BPH med to help his current sxs. Pt states he feels he doesn't need to start one. Will continue to monitor sxs. 3. Glucosuria (R81: Glycosuria) UA today >=1000 mg/dL, pt. is diabetic. Pt states his recent A1C was 7.1, states he has been trying different meds. Unchanged. Follow-up With When Contact Information HUSAM ANGELES, JERROD Ch In 1 year [facility] [address], [place] [id number]- Additional Instructions: w/KUB Patient Education Dietary Guidelines to Help Prevent Kidney Stones I, Tori Ventura , personally scribed for Dr. Stovall on 04/03/2023 09:25:52. . Documentation recorded by the scribe, Tori Ventura, accurately reflects the services(s) I performed and decisions made by me. Problem List/Past Medical History Ongoing BPH with urinary obstruction Diabetes Elevated cholesterol Former smoker Glucosuria Hematuria History of kidney stones HTN (hypertension) Hx of chcf use of blood thinners Impotence Kidney stones Melanoma of skin Post-void dribbling Prostatitis Historical No qualifying data Procedure/Surgical History Cataract extraction and insertion of intraocular lens (08/20/2019), Cataract extraction and insertion of intraocular lens (08/06/2019), Bypass (2019), Cystoscopy (12/23/2013), Urodynamics (12/04/2013), ESWL of kidney (12/25/2007), ESWL of kidney (01/24/2002), ESWL of kidney (12/24/2001), Circumcision, Knee replacement, Maxillary sinus endoscopy with removal of polyps, Transurethral resection of prostate. Medications aspirin 81 mg oral tablet, 81 mg= 1 tab(s), Oral, Daily Invokana 100 mg oral tablet, Oral, Daily Janumet, 50/100, Oral, BID Multi Vitamin+, 1 tab, Oral, Daily Natural Fiber Therapy 3.4 g/7 g oral powder for reconstitution, Oral, Daily potassium CITRATE 10 mEq ER Tab, 10 mEq= 1 tab(s), Oral, TID, 4 refills Protonix 20 mg Tab-DR, Oral, Daily simvastatin 40 mg Tab, 40 mg= 1 tab(s), Oral, Once a day (at bedtime) Toprol XL 25 mg Tab-ER, Oral, Daily torsemide 20 mg Tab, Oral, Daily Allergies No Known Allergies Social History Alcohol Current, Beer, 1-2 times per month, 04/01/2022 Tobacco Never (less than 100 in lifetime) Tobacco Use:. Never Smokeless Tobacco Use:. Household tobacco concerns: No. Yes, 04/03/2023 Family History Stroke: Father and Father. Immunizations Vaccine Date Status Comments influenza virus vaccine, inactivated 03/27/2023 Recorded influenza virus vaccine, inactivated 04/01/2022 Recorded SARS-CoV-2 (COVID (more content not included)... Normal [facility] Comment on above: Result Comment: Elec tronically Signed By: HUSAM ANGELES, Sadaf Adamson\.br\Date and Time Signed: 04/03/23 09:28 EDT\.br\Electronically Co-Signed By: Tori Ventura.br\Date and Time Co-Signed: 04/03/23 09:26 EDT Fito 02-20-2023 [facility] Office Visit ([facility] ) -------- NAKIA NARAYANAN ([id number]) 1935 M Date Time Provider Department 02/20/23 10:30 AM MARCO A GARVEY During your visit today, we recorded the following information about you: Pulse Blood pressure Weight 68/minute 137/92 93.4 kg Marco A Garvey MD 02/20/2023 10:39 AM Signed [facility] OUTPATIENT VISIT DATE February 20, 2023 OUTPATIENT VISIT TYPE ESTABLISHED PRIMARY CARE PHYSICIAN: Benjie Covarrubias II, MD [address] [place] [address] CHIEF COMPLAINT: Heart failure, Hyperlipidemia, Hypertension, and Valvular heart disease HISTORY OF PRESENT ILLNESS: Mr. Narayanan is a 87 year old male A very delightful gentleman with history of hypertension, hyperlipidemia, diastolic heart failure, as well as a history of aortic stenosis, status post AVR along with Coronary artery disease status post coronary artery bypass surgery with 1 vessel grafted on 04/08/2020. Former smoker. Cardiac work-up includes : An echocardiogram in 2019 which showed moderate aortic stenosis. A nuclear stress testing done in June 2019 showed no ischemia. Ejection fraction 62%. An Echocardiogram done on 01/15/2020 showed moderately severe aortic stenoses and a gradient over 55 mmHg. AVR, CABGx1 (Vein graft ascending aorta end to side first obtuse marginal branch. On 04/13/2020 had a limited 2D echo study which showed normal LV function. The bioprosthetic aortic valve appears to be functioning normally. IMPRESSION: Encounter Diagnosis ICD-10-CM 1. 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 Primary hypertension I10 ECHO 3. Pure hypercholesterolemia E78.00 ECHO 4. Chronic diastolic heart failure (HCC) I50.32 ECHO 5. Atherosclerosis of cheesh-na coronary artery 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 I25.10 ECHO 6. 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 S/P AVR Z95.2 ECHO PLAN AND RECOMMENDATIONS: Aortic valve disease Status post aortic valve replacement in 2019. Had no echocardiogram done since then even though echo was ordered previously. We will ask for an echocardiogram to be done to reassess valvular function. Coronary artery disease Postcoronary artery bypass surgery x1. SVG to obtuse marginal branch. No anginal symptoms. History of heart failure Diastolic in nature and due to valvular heart disease. Euvolemic. Hypertension Fairly well controlled on current management. Usually on the higher side in the clinic. However at home it is perfectly controlled. Hyperlipidemia LDL goal 70 or less. Monitored by primary care physician. PHYSICAL EXAMINATION: BP 137/92 Pulse 68 Wt 93.4 kg (206 lb) SpO2 95% BMI 31.32 kg/m? HEENT: normocephalic, EOMI Heart: regular rhythm Lungs: clear to auscultation Abdomen: bowel sounds present Extremities: no edema Musculoskeletal: chest wall nontender Neurological: alert and oriented Psychiatric: appropriate and cooperative Skin: no rash, cellulitis or lesions appreciated CARDIOVASCULAR MEDICINE TESTING: I have personally reviewed ECG and laboratory results Last EKG Result Conclusion ECG COMPLETE Collected: 08/23/2022 10:19 AM (Final result) Impression: SINUS RHYTHM WITH OCCASIONAL PREMATURE VENTRICULAR COMPLEXES OTHERWISE NORMAL ECG Confirmed by MARCO A GARVEY MD ([id number]) on 08/24/2022 10:00:15 AM PAST CARDIAC HISTORY: See above. PAST MEDICAL HISTORY Diagnosis Date Atherosclerosis of cheesh-na coronary artery 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 04/07/2020 Chronic diastolic heart failure (HCC) DMII (diabetes mellitus, type 2) (HCC) 1999 HLD (hyperlipidemia) 1999 HTN (hypertension) 1999 Nonrheumatic aortic valve stenosis Orthostatic lightheadedness Pure hypercholesterolemia 06/18/2019 Type 2 diabetes mellitus without complication, with long-term current use of insulin (HCC) 04/07/2020 PAST SURGICAL HISTORY Procedure Laterality Date ARTHRP KNE CONDYLEANDPLATU MEDIALANDLAT COMPARTMENTS Right 1994 [employer] EXTRACTION HX SECOND STAGE TURP Social History Tobacco Use Smoking status: Former Packs/day: 1.00 Years: 35.00 Additional pack years: 0.00 Total pack years: 35.00 Types: Cigarettes Quit date: 1963 Years since quittin.6 Smokeless tobacco: Never Vaping Use Vaping Use: Never used Substance Use Topics Alcohol use: Never Drug use: Never FAMILY HISTORY Problem Relation Age of Onset other (Polycythemia) Mother other (CVA) Father 65 age 72 ALLERGIES No Known Allergies CURRENT MEDICATIONS: torsemide (DEMADEX) 20 mg tabletTAKE 1 TABLET BY MOUTH EVERY DAYDisp: 90 tabletRfl: 1 metOLAzone (ZAROXOLYN) 5 mg tabletTake 1 tablet by mouth every Monday,Monday,Monday. Disp: 30 tabletRfl: 0 (Patient taking differently: Take 5 mg by mouth as needed.) sitaGLIPtin-metFORMIN (JANUMET) (more content not included)... Normal [facility] ECG COMPLETEon 08-24-2022 Atrial Rate 72 BPM [facility] Calculated P [place] 56 degrees [facility] Calculated R [place] 61 degrees [facility] Calculated T [place] 42 degrees [facility] P-R Interval 188 ms [facility] QRS Duration 94 ms [facility] QT Interval 402 ms [facility] QTC Calculation (Bazett) 440 ms [facility] Ventricular Rate 72 BPM [facility] CBC panel Auto (Bld)on 08-23 Erythrocyte distribution width (RBC) [Ratio] 14.4 % 11.5 - 15.0 % [facility] Hematocrit (Bld) [Volume fraction] 43.9 % 39.0 - 51.0 % [facility] Hemoglobin (Bld) [Mass/Vol] 14.2 g/dL 13.0 - 17.0 g/dL [facility] MCH (RBC) [Entitic mass] 29.4 pg 26.0 - 34.0 pg [facility] MCHC (RBC) [Mass/Vol] 32.3 g/dL 30.5 - 36.0 g/dL [facility] MCV (RBC) [Entitic vol] 90.9 fL 80.0 - 100.0 fL [facility] Nucleated RBC (Bld) [#/Vol] <0.01 k/uL [facility] Platelet mean volume (Bld) [Entitic vol] 13.0 fL High 9.0 - 12.7 fL [facility] Platelets (Bld) [#/Vol] 189 10*3/uL 150 - 400 k/uL [facility] RBC (Bld) [#/Vol] 4.83 10*6/uL 4.20 - 6.0 0 m/uL [facility] WBC (Bld) [#/Vol] 8.53 10*3/uL 3.70 - 11. 00 k/uL [facility] Comprehensive metabolic 2000 panelon 08-23-2022 Albumin [Mass/Vol] 4.3 g/dL 3.9 - 4.9 g/dL [facility] ALP [Catalytic activity/Vol] 75 U/L 38 - 113 U/L [facility] ALT [Catalytic activity/Vol] 26 U/L 10 - 54 U/L [facility] Anion gap [Moles/Vol] 11 mmol/L 9 - 18 mmol/L [facility] AST [Catalytic activity/Vol] 31 U/L 14 - 40 U/L [facility] Bilirubin [Mass/Vol] 0.4 mg/dL 0.2 - 1 .3 mg/dL [facility] Calcium [Mass/Vol] 9.3 mg/dL 8.5 - 10. 2 mg/dL [facility] Chloride [Moles/Vol] 103 mmol/L 97 - 10 5 mmol/L [facility] CO2 [Moles/Vol] 25 mmol/L 22 - 30 mmol/L [facility] Creatinine [Mass/Vol] 1.17 mg/dL 0.73 - 1.22 mg/dL [facility] Estimated Glomerular Filtration Rate 60 mL/min/1.73m >=60 mL/min/1.73m [facility] Glucose [Mass/Vol] 277 mg/dL High 74 - 99 mg/dL [facility] Potassium [Moles/Vol] 5.0 mmol/L 3.7 - 5.1 mmol/L [facility] Protein [Mass/Vol] 6.4 g/dL 6.3 - 8.0 g/dL [facility] Sodium [Moles/Vol] 139 mmol/L 136 - 144 mmol/L [facility] Urea nitrogen [Mass/Vol] 21 mg/dL 9 - 24 mg/dL [facility] MAGNESIUM [facility] 08-23-2022 Magnesium [Mass/Vol] 1.7 mg/dL 1.7 - 2 .3 mg/dL [facility] TSH [facility] 08-23-2022 TSH Qn 5.670 m[IU]/L High 0.270 - 4.200 mIU/L [facility] XR KUB 1 VIEWon 03-28-2022 XR KUB 1 VIEW EXAMINATION: XR KUB 1 VIEW HISTORY: Kidney stone COMPARISON: No relevant comparison available. FINDINGS: KIDNEY/URETER - RIGHT: Punctate lower pole nephrolithiasis KIDNEY/URETER - LEFT: No visible renal or ureteral calcifications. PELVIS: No visible ureteral calcifications. Any visible calcifications favor phleboliths. BOWEL: No abnormal dilation or deviation. BONES: Moderate degenerative changes OTHER: Vascular calcifications. No abnormal gaseous collections. IMPRESSION: Punctate right nephrolithiasis Electronically authenticated by: LISA CORRALES Date: 2022-03-28 16:12 Normal [facility] XR LSPINE W_OBLS AND FLEX_EX Ton 01-26-2022 XR LSPINE W_OBLS AND FLEX_EXT EXAMINATION: XR LSPINE W_OBLS AND FLEX_EXT HISTORY: Low back pain COMPARISON: No relevant comparison available. FINDINGS: BONES: Mild grade 1 anterior listhesis of L4 on 5. Moderate degenerative facet arthropathy L3-4 through L5-S1. DISC SPACES: Moderate narrowing T11-T12. Mild narrowing L5-3, L3-4. PARASPINOUS: Negative. No paraspinous abnormality is seen. OTHER: Marked atherosclerotic disease of aorta. IMPRESSION: 1. Multilevel mild-moderate degenerative changes. 2. No appreciable acute abnormality. Electronically authenticated by: DOLORES NIETO Date: 2022-01-26 08:10 Normal [facility] Complete Blood Count with Au to Diffon 11-19-2021 Erythrocyte distribution width (RBC) [Ratio] 15.0 % Normal 11.0-15.0 [facility] Library Circulation Assistant Comment on above: Performed By: #### F T4, CMP, TSH reflex FT4, LIPD, URIC, CBCJESSICA, MDIFF #### [facility] [address], [place] [id number] Hematocrit (Bld) [Volume fraction] 41.0 % Normal 38.5-50.0 [facility] Specialist Comment on above: Performed By: #### F T4, CMP, TSH reflex FT4, LIPD, URIC, CBCMD JESSICAIFF #### [facility] [address], [place] [id number] Hemoglobin (Bld) [Mass/Vol] 13.2 g/dL Normal 13.0-17.1 [facility] Specialist Comment on above: Performed By: #### F T4, CMP, TSH reflex FT4, LIPD, URIC, CBCJESSICA, MDIFF #### [facility] [address], [place] [id number] MCH (RBC) [Entitic mass] 29.3 pg Normal 27.0-33.0 [facility] Specialist Comment on above: Performed By: #### F T4, CMP, TSH reflex FT4, LIPD, URIC, CBCJESSICA, MDIFF #### [facility] [address], [place] [id number] MCHC (RBC) [Mass/Vol] 32.2 g/dL Normal 32.0-36.0 [facility] Specialist Comment on above: Performed By: #### F T4, CMP, TSH reflex FT4, LIPD, URIC, CBCJESSICA MDIFF #### [facility] [address], [place] [id number] MCV (RBC) [Entitic vol] 91 fL Normal 80-100 [facility] Specialist Comment on above: Performed By: #### F T4, CMP, TSH reflex FT4, LIPD, URIC, CBCAD, MDIFF #### [facility] [address], [place] [id number] Platelet mean volume (Bld) [Entitic vol] 12.40 fL Normal 7.50-12.50 [facility] Comment on above: Performed By: #### F T4, CMP, TSH reflex FT4, LIPD, URIC, CBCAD, MDIFF #### [facility] [address], [place] [id number] Platelets (Bld) [#/Vol] 167 10*3/uL Normal 140-400 [facility] Comment on above: Performed By: #### F T4, CMP, TSH reflex FT4, LIPD, URIC, CBCAD, MDIFF #### [facility] [address], [place] [id number] RBC (Bld) [#/Vol] 4.50 10*6/uL Normal 4.20-5.80 [facility] Comment on above: Performed By: #### F T4, CMP, TSH reflex FT4, LIPD, URIC, CBCAD, MDIFF #### [facility] [address], [place] [id number] RDW-SD 50.4 fL High 37.0-50.0 [facility] Comment on above: Performed By: #### F T4, CMP, TSH reflex FT4, LIPD, URIC, CBCAD, IFF #### [facility] [address], [place] [id number] REFLEX Manual Differential Normal [facility] Comment on above: Performed By: #### F T4, CMP, TSH reflex FT4, LIPD, URIC, CBCAD, MDIFF #### [facility] [address], [place] [id number] WBC (Bld) [#/Vol] 10.5 10*3/uL Normal 3.8-11.0 [facility] Comment on above: Performed By: #### F T4, CMP, TSH reflex FT4, LIPD, URIC, CBCAD, IFF #### [facility] [address], [place] [id number] Comprehensive Metabolic Pane mary 11-19-2021 Albumin [Mass/Vol] 3.9 g/dL Normal 3.6-5.1 [facility] Comment on above: Performed By: #### F T4, CMP, TSH reflex FT4, LIPD, URIC, CBCJESSICA, MDIFF #### [facility] [address], [place] [id number] Albumin/Globulin [Mass ratio] 1.7 {ratio} Normal 1.0-2.5 [facility] Comment on above: Performed By: #### F T4, CMP, TSH reflex FT4, LIPD, URIC, CBCJESSICA, MDIFF #### [facility] [address], [place] [id number] ALP [Catalytic activity/Vol] 64 U/L Normal 40-129 [facility] Comment on above: Performed By: #### F T4, CMP, TSH reflex FT4, LIPD, URIC, CBCMD JESSICAIFF #### [facility] [address], [place] [id number] ALT [Catalytic activity/Vol] 29 U/L Normal 9-46 [facility] Specialist Comment on above: Result Comment: 05/26 Female reference range changed. Performed By: #### F T4, CMP, TSH reflex FT4, LIPD, URIC, CBCJESSICA, MDIFF #### [facility] [address], [place] [id number] Anion gap [Moles/Vol] 18 mmol/L Normal 12-20 [facility] Specialist Comment on above: Result Comment: Effe ctive 07/01/2019 reference range changed. Performed By: #### F T4, CMP, TSH reflex FT4, LIPD, URIC, CBCJESSICA, MDIFF #### [facility] [address], [place] [id number] AST [Catalytic activity/Vol] 25 U/L Normal 10-40 [facility] Specialist Comment on above: Performed By: #### F T4, CMP, TSH reflex FT4, LIPD, URIC, CBCMD JESSICAIFF #### [facility] [address], [place] [id number] Bilirubin [Mass/Vol] 0.67 mg/dL Normal 0.30-1.20 [facility] Comment on above: Performed By: #### F T4, CMP, TSH reflex FT4, LIPD, URIC, CBCMD JESSICAIFF #### [facility] [address], [place] [id number] BUN/CREA 15 Ratio Normal 6-22 [facility] Comment on above: Performed By: #### F T4, CMP, TSH reflex FT4, LIPD, URIC, CBCMD JESSICAIFF #### [facility] [address], [place] [id number] Calcium [Mass/Vol] 9.0 mg/dL Normal 8.6-10.2 [facility] Comment on above: Performed By: #### F T4, CMP, TSH reflex FT4, LIPD, URIC, CBCMD JESSICAIFF #### [facility] [address], [place] [id number] Chloride [Moles/Vol] 103 mmol/L Normal 98-107 [facility] Comment on above: Performed By: #### F T4, CMP, TSH reflex FT4, LIPD, URIC, CBCMD JESSICAIFF #### [facility] [address], [place] [id number] CO2 [Moles/Vol] 24 mmol/L Normal 20-31 [facility] Comment on above: Performed By: #### F T4, CMP, TSH reflex FT4, LIPD, URIC, CBCMD JESSICAIFF #### [facility] [address], [place] [id number] Creatinine [Mass/Vol] 1.3 mg/dL Normal 0.7-1.4 [facility] Comment on above: Performed By: #### F T4, CMP, TSH reflex FT4, LIPD, URIC, CBCMD JESSICAIFF #### [facility] [address], [place] [id number] eGFRAA 62 mL/min/1.73m2 Normal >60 [facility] Specialist Comment on above: Performed By: #### F T4, CMP, TSH reflex FT4, LIPD, URIC, CBCMD JESSICAIFF #### [facility] [address], [place] [id number] eGFRNAA 51 mL/min/1.73m2 Low >60 [facility] Comment on above: Performed By: #### F T4, CMP, TSH reflex FT4, LIPD, URIC, CBCMD JESSICAIFF #### [facility] [address], [place] [id number] Globulin (S) [Mass/Vol] 2.3 g/dL Normal 1.9-3.7 [facility] Library Circulation Assistant Comment on above: Performed By: #### F T4, CMP, TSH reflex FT4, LIPD, URIC, CBCJESSICA, MDIFF #### [facility] [address], [place] [id number] Glucose [Mass/Vol] 199 mg/dL High 65-99 [facility] Library Circulation Assistant Comment on above: Result Comment: For FASTING Glucose --- ADA reference ranges: Normal 65-99 mg/dl Prediabetes 100-125 Diabetes >/= 126 Performed By: #### F T4, CMP, TSH reflex FT4, LIPD, URIC, CBCMD JESSICAIFF #### [facility] [address], [place] [id number] Potassium [Moles/Vol] 4.5 mmol/L Normal 3.5-5.5 [facility] Library Circulation Assistant Comment on above: Performed By: #### F T4, CMP, TSH reflex FT4, LIPD, URIC, CBCJESSICA MDIFF #### [facility] [address], [place] [id number] Protein [Mass/Vol] 6.2 g/dL Normal 6.1-8.1 [facility] Circulation Assistant Comment on above: Performed By: #### F T4, CMP, TSH reflex FT4, LIPD, URIC, CBCJESSICA, IFF #### [facility] [address], [place] [id number] Sodium [Moles/Vol] 140 mmol/L Normal 135-146 [facility] Library Circulation Assistant Comment on above: Performed By: #### F T4, CMP, TSH reflex FT4, LIPD, URIC, MD CHINOIFF #### [facility] [address], [place] [id number] Urea nitrogen [Mass/Vol] 20 mg/dL Normal 7-25 [facility] Circulation Assistant Comment on above: Performed By: #### F T4, CMP, TSH reflex FT4, LIPD, URIC, [place] MDIFF #### [facility] [address], [place] [id number] Free T4on 11-19-2021 Free T4 [Mass/Vol] 0.96 ng/dL Normal 0.80-1.80 [facility] Comment on above: Performed By: #### F T4, CMP, TSH reflex FT4, LIPD, URIC, CBCJESSICA, MDIFF #### [facility] [address], [place] [id number] Lipid Panelon 11-19-2021 Cholesterol [Mass/Vol] 143 mg/dL Normal 125-200 [facility] Comment on above: Result Comment: Low risk < 200mg/dL Borderline risk 201-239 mg/dl High risk > or equal to 240 Performed By: #### F T4, CMP, TSH reflex FT4, LIPD, URIC, CBCJESSICA MDIFF #### [facility] [address], [place] [id number] Cholesterol in HDL [Mass/Vol] 44 mg/dL Normal >40 [facility] Comment on above: Result Comment: High Cardiovascular Risk HDL <40 mg/dL Low Cardiovascular Risk HDL > or equal to 60 mg/dl Performed By: #### F T4, CMP, TSH reflex FT4, LIPD, URIC, CBCJESSICA, MDIFF #### [facility] [address], [place] [id number] Cholesterol in LDL [Mass/Vol] 74 mg/dL Normal [facility] Comment on above: Result Comment: LDL ATP III CLASSIFICATION LDL less than 100 mg/dl Optimal LDL 100-129 mg/dl Near or above optimal LDL 130-159 Borderline high LDL 160-189 High LDL greater than 189 mg/dl Very High Performed By: #### F T4, CMP, TSH reflex FT4, LIPD, URIC, CBCJESSICA, MDIFF #### [facility] [address], [place] [id number] Cholesterol in VLDL [Mass/Vol] 25 mg/dL Normal [facility] Comment on above: Performed By: #### F T4, CMP, TSH reflex FT4, LIPD, URIC, CBCJESSICA, MDIFF #### [facility] [address], [place] [id number] Cholesterol.total/Ch olesterol in HDL [Mass ratio] 3 {ratio} Normal [place] [facility] Circulation Assistant Comment on above: Performed By: #### F T4, CMP, TSH reflex FT4, LIPD, URIC, CBCAD, MDIFF #### [facility] [address], [place] [id number] Triglyceride [Mass/Vol] 124 mg/dL Normal 30-150 [facility] Library Circulation Assistant Comment on above: Result Comment: TRIG ATPIII CLASSIFICATIONS TRIG less than 150 mg/dl Normal TRIG 150-199 mg/dl Borderline High TRIG 200-500 mg/dl High TRIG greather than 500 mg/dl Very High Performed By: #### F T4, CMP, TSH reflex FT4, LIPD, URIC, CBCAD, MDIFF #### [facility] [address], [place] [id number] Manual Differentialon 2021 BAND 0.0 % Normal [facility] Specialist Comment on above: Performed By: #### F T4, CMP, TSH reflex FT4, LIPD, URIC, CBCAD, MDIFF #### [facility] [address], [place] [id number] BANDABS 0.0 K/uL Normal [facility] Circulation Assistant Comment on above: Performed By: #### F T4, CMP, TSH reflex FT4, LIPD, URIC, CBCJESSICA, MDIFF #### [facility] [address], [place] [id number] BASO 0.0 % Normal [facility] Circulation Assistant Comment on above: Performed By: #### F T4, CMP, TSH reflex FT4, LIPD, URIC, CBCAD, MDIFF #### [facility] [address], [place] [id number] BASOABS 0.0 K/uL Normal 0.0-0.2 [facility] Circulation Assistant Comment on above: Performed By: #### F T4, CMP, TSH reflex FT4, LIPD, URIC, CBCJESSICA, MDIFF #### [facility] [address], [place] [id number] EOS 1.0 % Normal [facility] Library Circulation Assistant Comment on above: Performed By: #### F T4, CMP, TSH reflex FT4, LIPD, URIC, CBCAD, MDIFF #### [facility] [address], [place] [id number] EOSABS 0.1 K/uL Normal 0.0-0.5 [facility] Specialist Comment on above: Performed By: #### F T4, CMP, TSH reflex FT4, LIPD, URIC, CBCAD, MDIFF #### [facility] [address], [place] [id number] LYMPH 16.0 % Normal [facility] Specialist Comment on above: Performed By: #### F T4, CMP, TSH reflex FT4, LIPD, URIC, CBCAD, MDIFF #### [facility] [address], [place] [id number] LYMPHABS 1.7 K/uL Normal 0.9-3.9 [facility] Specialist Comment on above: Performed By: #### F T4, CMP, TSH reflex FT4, LIPD, URIC, CBCAD, MDIFF #### [facility] [address], [place] [id number] LYMPHATYP 0.0 % Low 0.9-3.9 [facility] Specialist Comment on above: Performed By: #### F T4, CMP, TSH reflex FT4, LIPD, URIC, CBCAD, MDIFF #### [facility] [address], [place] [id number] MONO 9.0 % Normal [facility] Specialist Comment on above: Performed By: #### F T4, CMP, TSH reflex FT4, LIPD, URIC, CBCAD, MDIFF #### [facility] [address], [place] [id number] MONOABS 0.9 K/uL Normal 0.2-0.9 [facility] Specialist Comment on above: Performed By: #### F T4, CMP, TSH reflex FT4, LIPD, URIC, CBCAD, MDIFF #### [facility] [address], [place] [id number] PLT EST Adequate Normal [facility] Specialist Comment on above: Performed By: #### F T4, CMP, TSH reflex FT4, LIPD, URIC, CBCAD, MDIFF #### [facility] [address], [place] [id number] RBCMORPH Normal Normal [facility] Specialist Comment on above: Performed By: #### F T4, CMP, TSH reflex FT4, LIPD, URIC, CBCAD, MDIFF #### [facility] [address], [place] [id number] SEG 74.0 % Normal [facility] Comment on above: Performed By: #### F T4, CMP, TSH reflex FT4, LIPD, URIC, CBCAD, MDIFF #### [facility] [address], [place] [id number] SEGABS 7.7 K/uL Normal 1.5-7.8 [facility] Specialist Comment on above: Performed By: #### F T4, CMP, TSH reflex FT4, LIPD, URIC, CBCAD, MDIFF #### [facility] [address], [place] [id number] WBC 10.5 K/uL Normal 3.8-11.0 [facility] Specialist Comment on above: Performed By: #### F T4, CMP, TSH reflex FT4, LIPD, URIC, CBCAD, MDIFF #### [facility] [address], [place] [id number] TSH w/ Reflex to Free T4on 0 11-19-2021 FT4 reflex Free T4 Normal [facility] Comment on above: Performed By: #### F T4, CMP, TSH reflex FT4, LIPD, URIC, CBCAD, MDIFF #### [facility] [address], [place] [id number] TSH 4.810 uIU/mL High 0.400-4.500 [facility] Library Circulation Assistant Comment on above: Performed By: #### F T4, CMP, TSH reflex FT4, LIPD, URIC, CBCAD, MDIFF #### [facility] [address], [place] [id number] Uric Acidon 11-19-2021 URIC 9.1 mg/dL High 4.0-8.0 [facility] Specialist Comment on above: Result Comment: Refe rence range change 05/12/2017. Prior reference range F 2.4-5.7mg/dL. M 3.4-7.0 mg/dL. Performed By: #### F T4, CMP, TSH reflex FT4, LIPD, URIC, CBCAD, MDIFF #### [facility] [address], [place] [id number] XR MODIFIED BARIUM SWALLOWon 11-16-2021 XR MODIFIED BARIUM SWALLOW EXAMINATION: XR MODIFIED BARIUM SWALLOW HISTORY: Dysphagia COMPARISON: No relevant comparison available. TECHNIQUE: A swallowing evaluation was performed with fluoroscopy in the usual manner. Standard level fluoroscopic mode of operation utilized. FINDINGS: ORAL PHASE: Normal deglutition. PHARYNGEAL PHASE: Normal swallowing. ASPIRATION: None. STRUCTURE: Normal. No visible obstruction, stricture, or dilatation. OTHER: Negative. IMPRESSION: 1. No specific findings to account for patient's symptoms. 2. Please see speech pathologist's report for additional discussion and recommendations. Electronically authenticated by: DOLORES NIETO Date: 2021-11-16 09:48 Normal [facility] Social History Date Type Detail Facility Start: 04-01-2022 Tobacco smoking status Never s moked tobacco (finding) [facility] Start: 02-21-2022 End: 08-14-2023 Alcohol intake Lifetime non-drinker (finding) [facility] Start: 02-11-2022 End: 02-21-2022 Exposure to SARS-CoV-2 (event) Not sure [facility] Start: 04-09-2020 History SDOH Financial 5 [facility] Start: 04-09-2020 History SDOH Transpo rt Med 2 [facility] Start: 04-07-2020 End: 04-09-2020 History SDOH Alcohol Frequency 1 [facility] Start: 04-07-2020 End: 02-20-2023 Sex Assigned At Male [facility] Start: 02-21-2020 End: 08-23-2022 Tobacco smoking status NHIS Ex-smoker [facility] Start: 02-21-2020 End: 02-20-2023 Cigarettes smoked current (pack per day) - Reported 1 [facility] Work Phone: Start: 02-21-2020 End: 08-23-2022 Tobacco use and exposure Smokeless tobacco non-user [facility] Start: 1935 Sex Assigned At Not on file [facility] End: 06-26-1963 History of tobacco use Current smoker [facility] End: 06-26-1963 History of tobacco use Cigarette Smoker [facility] Tobacco smoking status Never [facility] How often to you hav e a drink containing alcohol? Never [facility] Work Phone: (I/We) worried yuriy er (my/our) food would run out before (I/we) got money to buy more. Never true [facility] Work Phone: Vital Signs Date Time Vital Sign Value Performing Clinician Desiree pickard 08-14-2023 09:58-0500 Diastolic blood pressure 72 mm[Hg] Lavisa Lara MAYONNAISE M[employer]ER[employer] P[employer] SUPERVISOR Work Phone: [facility] 08-14-2023 09:58-0500 Systolic blood pressure 134 mm[Hg] Lavisa Lara MAYONNAISE M[employer] P[employer] SUPERVISOR Work Phone: [facility] 08-14-2023 09:33-0500 Body weight 97.7 kg Lavisa Lara MAYON[employer]ISE [employer] PIPE SUPERVISOR Work Phone: [facility] 08-14-2023 09:33-0500 Heart rate 67 /min Lavisa Lara MAYONNAISE M[employer] PIPE SUPERVISOR Work Phone: [facility] 08-14-2023 09:33-0500 SaO2% (BldA) [Mass fraction] 97 % Lavisa Lara [employer]ONNAISE M[employer] P[employer] SUPERVISOR Work Phone: [facility] 02-20-2023 10:16-0400 Body weight 93.44 kg Marco A Garvey MD Work Phone: [facility] 02-20-2023 10:16-0400 Diastolic blood pressure 92 mm[Hg] Marco A Garvey MD Work Phone: [facility] 02-20-2023 10:16-0400 Heart rate 68 /min Marco A Garvey MD Work Phone: [facility] 02-20-2023 10:16-0400 SaO2% (BldA) [Mass fraction] 95 % Marco A Garvey MD Work Phone: [facility] 02-20-2023 10:16-0400 Systolic blood pressure 137 mm[Hg] Marco A Garvey MD Work Phone: [facility] 08-23-2022 10:34-0500 Diastolic blood pressure 73 mm[Hg] Lavisa Lara MAYONNAISE M[employer] P[employer] SUPERVISOR Work Phone: [facility] 08-23-2022 10:34-0500 Heart rate 67 /min Lavisa Lara MAYONNAISE M[employer] PIPE SUPERVISOR Work Phone: [facility] 08-23-2022 10:34-0500 Systolic blood pressure 153 mm[Hg] Lavisa Lara MAYONNAISE M[employer] P[employer] SUPERVISOR Work Phone: [facility] 08-23-2022 10:20-0500 Body weight 102.97 kg Lavisa Lara [employer]ON[employer]ISE [employer] P[employer] SUPERVISOR Work Phone: [facility] 04-01-2022 08:54-0400 Blood Pressure Location Sadaf STOVALL [facility] 04-01-2022 08:54-0400 Diastolic blood pressure 83 mm[Hg] Sadaf STOVALL [facility] 04-01-2022 08:54-0400 Heart rate 73 /min Sadaf STOVALL [facility] 04-01-2022 08:54-0400 Systolic blood pressure 152 mm[Hg] Sadaf STOVALL [facility] 02-21-2022 10:19-0400 Body height 172.7 cm Marco A Garvey MD Work Phone: [facility] 02-21-2022 10:19-0400 Body weight 104.69 kg Marco A Garvey MD Work Phone: [facility] 02-21-2022 10:19-0400 Diastolic blood pressure 84 mm[Hg] Marco A Garvey MD Work Phone: [facility] 02-21-2022 10:19-0400 Heart rate 78 /min Marco A Garvey MD Work Phone: [facility] 02-21-2022 10:19040 SaO2% (BldA) [Mass fraction] 96 % Marco A Garvey MD Work Phone: [facility] 02-21-2022 10:040 Systolic blood pressure 136 mm[Hg] Marco A Garvey MD Work Phone: [facility] Functional Status Date Assessment Result Facility 04-01-2022 Functional Status N/A [facility] Clinical Notes 04-13-2020 to 08-14-2023 Joao Lara APRN.[employer] PIPE SUPERVISOR - 08/14/2023 9:58 AM Marco A Amador MD - 02/20/2023 10:11 AM EDTPatient InstructionsLamichael Lara APRN.[employer]BE[employer] P[employer] SUPERVISOR - 08/23/2022 10:31 AM EST Note Date & Type Note Facility 08-14-2023 Note HNO ID: [id number] Author: JOAO LARA APRN.SOHAN Service: ? Author Type: Nurse Practitioner Type: Progress Notes Filed: 08/27/2023 22:06 Note Text: [facility] Department of Cardiovascular Medicine SECTION OF REGIONAL CARDIOLOGY August 14, 2023 OUTPATIENT VISIT TYPE ESTABLISHED PRIMARY CARE PHYSICIAN: Benjie Covarrubias II, MD, MD SUBJECTIVE: CHIEF COMPLAINT: Patient presents with: Cardiology Follow Up HISTORY OF PRESENT ILLNESS: Nakia Narayanan is a 88 year old male who presents for 6 month CVM follow up. He is accompanied by his son. Patient has a history of hypertension, hyperlipidemia, diastolic heart failure, as well as a history of aortic stenosis, status post AVR along with Coronary artery disease status post coronary artery bypass surgery with 1 vessel grafted on 04/08/2020. Former smoker Last visit: 02/20/[address] Marco A Garvey. No reported CV symptoms or complaints. No changes in medical management. An updated echocardiogram was advised. Today, patient denies chest pain, shortness of breath, orthopnea, cough, significant edema/weight gain, palpitations, PND, lightheadedness, syncope or other significant CV symptoms. Average functional capacity (active with ADL). States compliance with medications. Diet: He is eating deli meat for lunch. Cardiac work-up includes : An echocardiogram in 2018 which showed moderate aortic stenosis. A nuclear stress testing done in June 2019 showed no ischemia. Ejection fraction 62%. An Echocardiogram done on 01/15/2020 showed moderately severe aortic stenoses and a gradient over 55 mmHg. AVR, CABGx1 (Vein graft ascending aorta end to side first obtuse marginal branch. On 04/13/2020 had a limited 2D echo study which showed normal LV function. The bioprosthetic aortic valve appears to be functioning normally. REVIEW OF SYSTEMS: Detailed 14 systems reviewed. Pertinent information, positive and/or negative or non-contributory with the exception of pertinent positives described in HPI. Past Medical, Family and Social history reviewed; unchanged from prior. ASSESSMENT/PLAN: Nakia Narayanan was seen today for 6-month CVM follow-up. Diagnoses and all orders for this visit: Encounter Diagnosis ICD-10-CM 1. Primary hypertension I10 ECG COMPLETE COMP METABOLIC PANEL CBC LIPID PANEL, NONFASTING MAGNESIUM BLD 2. Chronic diastolic heart failure (HCC) I50.32 COMP METABOLIC PANEL CBC LIPID PANEL, NONFASTING MAGNESIUM BLD 3. Pure hypercholesterolemia E78.00 COMP METABOLIC PANEL LIPID PANEL, NONFASTING 4. 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 Atherosclerosis of cheesh-na coronary artery 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 I25.10 COMP METABOLIC PANEL CBC LIPID PANEL, NONFASTING MAGNESIUM BLD 6. 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 Grade 1 diastolic dysfunction noted. He is advised to limit his dietary sodium and eating of processed foods. -CAD status post CABG x 1- SVG to obtuse marginal branch No anginal symptoms. Continue aspirin 81 mg daily, metoprolol succinate 50 mg once daily, simvastatin 40 mg daily at bedtime -Chronic diastolic heart failure. EF 62% per echo 04/14/2023. Continue metolazone 5 mg Monday and Monday, torsemide 20 mg daily along with potassium citrate 10 mEq twice daily -Aortic stenosis status post AVR-Inspiris prosthetic valve size #25. -LDL goal less than 70 mg/dL. On statin therapy. Will update labs. -Continue lifestyle modifications: Reduce sodium intake, regular aerobic exercise 30 mins/day for at least 5 days/week, eating heart healthy/Plant-based/mostly whole foods, limited animal products and low dairy diet and maintaining ideal body weight with BMI < 25. Follow up: -Patient will follow-up in 6 months CVM with communication in between if symptoms or changes occur. -Patient should continue to follow with their primary physician for routine health care maintenance and age appropriate risk factor assessment, modification and screenings. PHYSICAL EXAMINATION: BP 134/72 (BP Site: Right Arm) Pulse 67 Wt 97.7 kg (215 lb 6.2 oz) SpO2 97% BMI 32.75 kg/m? General appearance: in no acute distress, alert. Eyes: Anicteric sclera. EOMI Neck: No carotid bruits. No JVD Lungs: Normal respiratory effort. No wheezing, crackles, or rhonchi. Heart: Regular rhythm. Regular rate. No significant murmur. Trace nonpitting edema to RLE 1+ LLE mildly pitting edema Abdomen: Abdomen soft, non-tender. No hepatomegaly or bruits. Vascular: Central and peripheral pulses: +2. No renal, ABD aortic, or femoral bruit. Neuro: No gross focal deficits Psych: mood appropriate Skin: no rash, cellulitis or lesions appreciated Last 4 Encounter Wt Readings: Date: Wt: 08/14/2023 97.7 kg (215 lb 6.2 oz) 02/20/2023 93.4 kg (206 lb) 08/23/2022 103 kg (227 lb) 02/21/2022 104.7 kg (230 lb 12.8 oz) (more content not included)... [facility] 08-14-2023 History of Present illness Narrative Images from the original note were not included. [facility] Department of Cardiovascular Medicine SECTION OF REGIONAL CARDIOLOGY August 14, 2023 OUTPATIENT VISIT TYPE ESTABLISHED PRIMARY CARE PHYSICIAN: Benjie Covarrubias II, MD, MD SUBJECTIVE: CHIEF COMPLAINT: Patient presents with: Cardiology Follow Up HISTORY OF PRESENT ILLNESS: Nakia Narayanan is a 88 year old male who presents for 6 month CVM follow up. He is accompanied by his son. Patient has a history of hypertension, hyperlipidemia, diastolic heart failure, as well as a history of aortic stenosis, status post AVR along with Coronary artery disease status post coronary artery bypass surgery with 1 vessel grafted on 04/08/2020. Former smoker Last visit: 02/20/[address] Marco A Garvey. No reported CV symptoms or complaints. No changes in medical management. An updated echocardiogram was advised. Today, patient denies chest pain, shortness of breath, orthopnea, cough, significant edema/weight gain, palpitations, PND, lightheadedness, syncope or other significant CV symptoms. Average functional capacity (active with ADL). States compliance with medications. Diet: He is eating deli meat for lunch. Cardiac work-up includes : An echocardiogram in 2019 which showed moderate aortic stenosis. A nuclear stress testing done in June 2019 showed no ischemia. Ejection fraction 62%. An Echocardiogram done on 01/15/2020 showed moderately severe aortic stenoses and a gradient over 55 mmHg. AVR, CABGx1 (Vein graft ascending aorta end to side first obtuse marginal branch. On 04/13/2020 had a limited 2D echo study which showed normal LV function. The bioprosthetic aortic valve appears to be functioning normally. REVIEW OF SYSTEMS: Detailed 14 systems reviewed. Pertinent information, positive and/or negative or non-contributory with the exception of pertinent positives described in HPI. Past Medical, Family and Social history reviewed; unchanged from prior. ASSESSMENT/PLAN: Nakia Narayanan was seen today for 6-month CVM follow-up. Diagnoses and all orders for this visit: Encounter Diagnosis ICD-10-CM 1. Primary hypertension I10 ECG COMPLETE COMP METABOLIC PANEL CBC LIPID PANEL, NONFASTING MAGNESIUM BLD 2. Chronic diastolic heart failure (HCC) I50.32 COMP METABOLIC PANEL CBC LIPID PANEL, NONFASTING MAGNESIUM BLD 3. Pure hypercholesterolemia E78.00 COMP METABOLIC PANEL LIPID PANEL, NONFASTING 4. 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 Atherosclerosis of [place]-na coronary artery 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 I25.10 COMP METABOLIC PANEL CBC LIPID PANEL, NONFASTING MAGNESIUM BLD 6. 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 Grade 1 diastolic dysfunction noted. He is advised to limit his dietary sodium and eating of processed foods. -CAD status post CABG x 1- SVG to obtuse marginal branch No anginal symptoms. Continue aspirin 81 mg daily, metoprolol succinate 50 mg once daily, simvastatin 40 mg daily at bedtime -Chronic diastolic heart failure. EF 62% per echo 04/14/2023. Continue metolazone 5 mg Monday and Monday, torsemide 20 mg daily along with potassium citrate 10 mEq twice daily -Aortic stenosis status post AVR-Inspiris prosthetic valve size #25. -LDL goal less than 70 mg/dL. On statin therapy. Will update labs. -Continue lifestyle modifications: Reduce sodium intake, regular aerobic exercise 30 mins/day for at least 5 days/week, eating heart healthy/Plant-based/mostly whole foods, limited animal products and low dairy diet and maintaining ideal body weight with BMI < 25. Follow up: -Patient will follow-up in 6 months CVM with communication in between if symptoms or changes occur. -Patient should continue to follow with their primary physician for routine health care maintenance and age appropriate risk factor assessment, modification and screenings. PHYSICAL EXAMINATION: BP 134/72 (BP Site: Right Arm) Pulse 67 Wt 97.7 kg (215 lb 6.2 oz) SpO2 97% BMI 32.75 kg/m General appearance: in no acute distress, alert. Eyes: Anicteric sclera. EOMI Neck: No carotid bruits. No JVD Lungs: Normal respiratory effort. No wheezing, crackles, or rhonchi. Heart: Regular rhythm. Regular rate. No significant murmur. Trace nonpitting edema to RLE 1+ LLE mildly pitting edema Abdomen: Abdomen soft, non-tender. No hepatomegaly or bruits. Vascular: Central and peripheral pulses: +2. No renal, ABD aortic, or femoral bruit. Neuro: No gross focal deficits Psych: mood appropriate Skin: no rash, cellulitis or lesions appreciated Last 4 Encounter Wt Readings: Date: Wt: 08/14/2023 97.7 kg (215 lb 6.2 oz) 02/20/2023 93.4 kg (206 lb) 08/23/2022 103 kg (227 lb) 02/21/2022 104.7 kg (230 lb 12.8 oz) Last 4 Encounter BP Readings: Date: BP: 08/14/2023 134/69 02/20/2023 137/92 08/23/2022 153/73 02/21/2022 136/84[manual BP[ Last 4 Encounter Pulse Readings: Date: Pulse: 08/14/2023 67 02/20/2023 68 08/23/2022 67 02/21/2022 78 CARDIOVASCULAR MEDICINE TESTING: I have personally reviewed laboratory results and echocardiogram report P[employer]INENT LABORATORY STUDIES Potassium (mmol/L) Date Value 08/23/2022 5.0 04/17/2020 4.1 Sodium (mmol/L) Date Value 08/23/2022 139 04/17/2020 137 Magnesium (mg/dL) Date Value 08/23/2022 1.7 04/14/2020 1.8 Creatinine (mg/dL) Date Value 08/23/2022 1.17 04/17/2020 1.35 BUN (mg/dL) Date Value 08/23/2022 21 04/17/2020 37 Glucose (mg/dL) Date Value 08/23/2022 277 04/17/2020 145 PT INR (no units) Date Value 04/14/2020 1.1 TSH (mIU/L) Date Value 08/23/2022 5.670 NT Pro BNP (pg/mL) Date Value 02/21/2020 253 No results found for: CHOL , HDL , LDL , TG MEDICATIONS Current Outpatient Medications on File Prior to Visit Medication Sig glimepiride (AMARYL) 1 mg tablet Take 2 mg by mouth daily with breakfast. canagliflozin (INVOKANA) 100 mg tab Take 100 mg by mouth daily with breakfast. torsemide (DEMADEX) 20 mg tablet TAKE 1 TABLET BY MOUTH EVERY DAY metOLAzone (ZAROXOLYN) 5 mg tablet Take 1 tablet by mouth every Monday,Monday,Monday. (Patient taking differently: Take 5 mg by mouth as needed.) sitaGLIPtin-metFORMIN (JANUMET) 50-1,000 mg per tablet Take 1 tablet by mouth daily with breakfast. (Patient taking differently: Take 1 tablet by mouth two times a day with meals.) acetaminophen (TYLENOL) 325 mg tablet Take 2 tablets by mouth every 4 hours as needed for Pain. metoprolol succinate ER (TOPROL XL) 50 mg 24 hr tablet Take 1 tablet by mouth once daily. pantoprazole DR (PROTONIX) 40 mg tablet Take 1 tablet by mouth once daily. wheat dextrin/L.acid/aspartame (FIBER WITH PROBIOTIC ORAL) Take 2 teaspoonsful by mouth once daily. aspirin, enteric coated (ASPIRIN, ENTERIC COATED) 81 mg EC tablet Take 81 mg by mouth once daily. multivitamin tablet Take 1 tablet by mouth once daily. simvastatin (ZOCOR) 40 mg tablet Take 40 mg by mouth daily at bedtime. potassium citrate ER (UROCIT-K) 10 mEq (1,080 mg) TbER Take 1,080 mg by mouth twice daily. Current Facility-Administered Medications on File Prior to Visit Medication perflutren lipid microspheres 1.3 mL in NaCl (PF) 0.9% 10 mL injection (DEFINITY) sodium chloride 0.9 % (flush) 10 mL (BD POSIFLUSH) perflutren lipid microspheres 1.3 mL in NaCl (PF) 0.9% 10 mL injection (DEFINITY) sodium chloride 0.9 % (flush) 10 mL (BD POSIFLUSH) ALLERGIES No Known Allergies ACTIVE PROBLEM LIST Crf (Chronic Renal Failure), Stage 2 (Mild) - 05/08/2020 S/P Cabg X 1 - 05/08/2020 S/P Avr - 05/08/2020 Encounter for Support and Coordination of Transition of Care - 04/14/2020 Comment: Indication for Surgery: Aortic Valve Regurgitation, Coronary Artery Disease Preop LVEF: 58% RVF: Normal Postop LVEF: Normal RVF: Normal EKG: NSR w/ PVCs Cath: Nonobstructive coronary disease. Cards: Fadi Alicia Important/Relevant PMH/PSH: Aortic Valve Stenosis, HTN, HLD, CAD, Chronic Diastolic HF, DM Preoperative Hospital Course: Airway Difficulty: Grade III view (only epiglottis visible) - Bougie Pacing Wires: CUT on 04/13/2020 Chronological List of Surgeries and Major Events (Diagnosis): (Surgeries in bold characters) 04/08/2020: AVR, CABGx1 (Vein graft ascending aorta end to side obtuse marginal 1) A/P of Major Active Problems (excluding routine care and common problems): Cardio: HTN: Normotensive. Continue BB, up titrate as clinically indicated. Maintain MAP 65-85. Resp: Difficult airway: Grade III airway with bougie. Discussed with ENT, GI, Dr. Berrios - no plans for repeat endoscopy or laryngoscopy at this time. Extubated 04/10. Atelectasis: Atelectasis - 04/13/2020 Comment: History: S/p 04/08/2020: AVR, CABGx1 (Vein graft ascending aorta end to side obtuse marginal 1) Assessment: Bibasilar atelectasis noted on chest xray. Currently stable on RA. Plan: Encourage OOB, deep breathing, coughing, PEP therapy. Difficult Airway - 04/13/2020 Comment: History: Grade III airway with bougie. Assessment: Currently stable on RA. Plan: Continue aggressive BPH. Gastric Tear - 04/09/2020 Comment: History: Post op problem Assessment: EGD 04/09 with GI showing deep, but not full thickness, tear on the gastric side of the GE junction. Clot overlying. Not clipped. Post-pyloric feeding tube placed endoscopically. Repeat CT 04/09 of neck and chest to evaluate mediastinal/subQ air - improved air burden. Thoracic surgery and GI following. s/p MBS today (passed) w/ esophogram (no perforation) Plan: . Vanc d/c'ed 04/10 - zosyn and fluconazole dc'd 04/15 per thoracic. Corpak DC 04/[address] Berrios. Per [employer] SUPERVISOR ok to advance diet, use same controls as recommended 04/15. Per speech:The following controls should be utilized to improve pharygneal swallowing safety: *upright position *chin tuck posture during swallows *single sips of liquids, 1/2 teaspoon bites of purees (if placed on FLD) *double swallows after each bolus trial; consider sip of water after pureed trials due to increased residue in valleculae with this texture. - If giving PO meds, they should be in elixir form or crushed and given in a Pain, Postoperative, Acute - 04/08/2020 Comment: History: Post-op. Assessment: Adequately controlled. Plan: Continue to optimize pain with PRN tylenol and oxycodone. Cesar (Acute Kidney Injury) ([facility]) - 04/08/2020 Comment: History: Pre-op SCr-1.6. Home meds: Torsemide and lisinopril/HCTZ Assessment: Non-oliguric. sCr 1.35 today. Plan: Trend and monitor SrCr and UOP. Avoid hypotension and nephrotoxic medications. Discharge Planning Issues - 04/07/2020 Comment: Nakia Narayanan is a 84 year old male from [place], [place]. Supportive son. PT/OT recs Home. CM following. PCP, cards, endo f/u appts requested. DC likely Monday. FYI - CT imagine on 02/20 noted: Few small (less than 6 mm) pulmonary nodules are noted. Consider follow-up imaging in 12 months. Findings consistent with nonspecific interstitial lung abnormalities. Preop Testing - 04/07/2020 Comment: [facility] Surgeon: Dieter Pringle) Yash Informed Consent Completed: No STS Score: -- CAD: Yes - CAD on Problem List: Yes Is intended procedure a CABG: Yes - is a beta amrit ordered? Yes H & P completed: Yes PA/LAT: Completed CT: Completed MRI: N/A LE US: N/A Cath: Yes - reviewed: Yes EKG: Completed Is patient on Amiodarone? No Echo:Completed EF %: PI's: Completed Carotid: Completed Mapping: Completed Dental: cleared- to be scanned PFT's: Completed Recent Labs 04/06/20 1128 CREAT 1.67* UA: pending - patient to provide sample today HCG:N/A ABO/ABO Confirmed: Yes Blood ordered: No Willing to accept blood: SA Swab: Yes - results: Pending Last Dose of Anticoagulation: ASA - to continue Op Note: N/A Pacemaker Check: N/A Implants: no Consults: NONE DM: Yes (a1c 8.4 - Berrios notified) Cardiac Surgical prep: N/A SIGNATURE: Carmina Bolden Obesity, Class I, Bmi 30-34.9 - 04/07/2020 Comment: History: preop Assessment: Body mass index is 32.45 kg/m . Plan: Transitioned to HH diet 04/16. Nutrition following. Atherosclerosis of [place] Coronary Artery of [place] Heart Without Angina Pectoris - 04/07/2020 Comment: S/p 04/08/2020: AVR, CABGx1 (Vein graft ascending aorta end to side obtuse marginal 1) CAD Core Measures: Aspirin: Yes Beta blockers: Yes Statins: Yes Type 2 Diabetes Mellitus, Without Long-Term Current Use of Insulin (Hcc) - 04/07/2020 Comment: History: Pre-op on insulin/oral meds Assessment: BS elevated post-op Plan: Endocrinology following for recs. Endo f/u appt requested per Dr. Berrios recs. Chronic Diastolic Heart Failure (Hcc) - 01/15/2020 Comment: History: Pre-op on GDMT (lisinopril/torsemide, no BB). Pre-op echo with grade I LV diastolic dysfunction, LVH Assessment: S/p 04/08/2020: AVR, CABGx1 (Vein graft ascending aorta end to side obtuse marginal 1) 04/13 Limited echo- LV is normal in size. LV systolic function is normal. EF = 60 5%.Grade I LV diastolic dysfunction. RV is normal in size. RV systolic function is normal. Plan: Restart home regimen when appropriate. Continue diuresis, BB Nonrheumatic Aortic Valve Stenosis - 06/18/2019 Comment: History: Severe pre-op Assessment:S/p 04/08/2020: AVR, CABGx1 (Vein graft ascending aorta end to side obtuse marginal 1) 04/13 Limited echo- Inspiris prosthetic aortic valve (size #25). There is no AR. The peak gradient is 19 mmHg and the mean gradient is 9 mmHg Plan: ASA. Htn (Hypertension) - 06/18/2019 Comment: History: Home meds- lisinopril/HCTZ. Assessment: SBPs 100-130 Plan: Continue BB, up titrate as clinically indicated. Pure Hypercholesterolemia - 06/18/2019 Orthostatic Lightheadedness - 06/18/2019 Abnormal Ekg - 06/18/2019 PAST MEDICAL HISTORY Diagnosis Date Atherosclerosis of cheesh-na coronary artery 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 04/07/2020 Chronic diastolic heart failure (HCC) DMII (diabetes mellitus, type 2) (HCC) 1999 HLD (hyperlipidemia) 1999 HTN (hypertension) 1999 Nonrheumatic aortic valve stenosis Orthostatic lightheadedness Pure hypercholesterolemia 06/18/2019 Type 2 diabetes mellitus without complication, with long-term current use of insulin (HCC) 04/07/2020 PAST SURGICAL HISTORY Procedure Laterality Date ARTHRP KNE CONDYLE&PLATU MEDIAL&LAT COMPARTMENTS Right 1994 CATARACT EXTRACTION HX SECOND STAGE TURP FAMILY HISTORY Problem Relation Age of Onset other (Polycythemia) Mother other (CVA) Father 65 age 72 Social History Tobacco Use Smoking status: Former Packs/day: 1.00 Years: 35.00 Additional pack years: 0.00 Total pack years: 35.00 Types: Cigarettes Quit date: 1963 Years since quittin.1 Smokeless tobacco: Never Vaping Use Vaping Use: Never used Substance Use Topics Alcohol use: Never Drug use: Never Elements of this note, including HPI, ROS, Physical Exam, Assessment and Plan were copied and pasted from previous office visit notes completed within our department. Updates have been made where appropriate/noted and reflect current exam and medical decision making from date of this visit. This note was partially generated with [employer] voice recognition software and may contain errors, including spelling, grammar, syntax and misrecognition of what was dictated, that may not be fully corrected. I appreciate the opportunity to participate in this patient's care. Please do not hesitate to call my office if you have any questions. CONTACT INFORMATION: Joao Lara APRN.CNP Adult Nurse Practitioner [facility] Department of Cardiovascular Medicine [facility] Cardiology Consult Team documented in this encounter [facility] 02-20-2023 Note HNO ID: [id number] Author: Marco A Garvey MD Service: ? Author Type: Physician Type: Progress Notes Filed: 02/20/2023 10:39 AM Note Text: [facility] SECTION OF REGIONAL CARDIOLOGY OUTPATIENT VISIT DATE February 20, 2023 OUTPATIENT VISIT TYPE ESTABLISHED PRIMARY CARE PHYSICIAN: Benjie Covarrubias II, MD [address] [place] [address] CHIEF COMPLAINT: Heart failure, Hyperlipidemia, Hypertension, and Valvular heart disease HISTORY OF PRESENT ILLNESS: Mr. Narayanan is a 87 year old male A very delightful gentleman with history of hypertension, hyperlipidemia, diastolic heart failure, as well as a history of aortic stenosis, status post AVR along with Coronary artery disease status post coronary artery bypass surgery with 1 vessel grafted on 04/08/2020. Former smoker. Cardiac work-up includes : An echocardiogram in 2018 which showed moderate aortic stenosis. A nuclear stress testing done in June 2019 showed no ischemia. Ejection fraction 62%. An Echocardiogram done on 01/15/2020 showed moderately severe aortic stenoses and a gradient over 55 mmHg. AVR, CABGx1 (Vein graft ascending aorta end to side first obtuse marginal branch. On 04/13/2020 had a limited 2D echo study which showed normal LV function. The bioprosthetic aortic valve appears to be functioning normally. IMPRESSION: Encounter Diagnosis ICD-10-CM 1. 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 Primary hypertension I10 ECHO 3. Pure hypercholesterolemia E78.00 ECHO 4. Chronic diastolic heart failure (HCC) I50.32 ECHO 5. Atherosclerosis of cheesh-na coronary artery 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 I25.10 ECHO 6. 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 S/P AVR Z95.2 ECHO PLAN AND RECOMMENDATIONS: Aortic valve disease Status post aortic valve replacement in 2019. Had no echocardiogram done since then even though echo was ordered previously. We will ask for an echocardiogram to be done to reassess valvular function. Coronary artery disease Postcoronary artery bypass surgery x1. SVG to obtuse marginal branch. No anginal symptoms. History of heart failure Diastolic in nature and due to valvular heart disease. Euvolemic. Hypertension Fairly well controlled on current management. Usually on the higher side in the clinic. However at home it is perfectly controlled. Hyperlipidemia LDL goal 70 or less. Monitored by primary care physician. PHYSICAL EXAMINATION: BP 137/92 Pulse 68 Wt 93.4 kg (206 lb) SpO2 95% BMI 31.32 kg/m? HEENT: normocephalic, EOMI Heart: regular rhythm Lungs: clear to auscultation Abdomen: bowel sounds present Extremities: no edema Musculoskeletal: chest wall nontender Neurological: alert and oriented Psychiatric: appropriate and cooperative Skin: no rash, cellulitis or lesions appreciated CARDIOVASCULAR MEDICINE TESTING: I have personally reviewed ECG and laboratory results Last EKG Result Conclusion ECG COMPLETE Collected: 08/23/2022 10:19 AM (Final result) Impression: SINUS RHYTHM WITH OCCASIONAL PREMATURE VENTRICULAR COMPLEXES OTHERWISE NORMAL ECG Confirmed by MANI ANGELES, MARCO A ([id number]) on 08/24/2022 10:00:15 AM PAST CARDIAC HISTORY: See above. PAST MEDICAL HISTORY Diagnosis Date Atherosclerosis of cheesh-na coronary artery 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 04/07/2020 Chronic diastolic heart failure (HCC) DMII (diabetes mellitus, type 2) (HCC) 1999 HLD (hyperlipidemia) 1999 HTN (hypertension) 1999 Nonrheumatic aortic valve stenosis Orthostatic lightheadedness Pure hypercholesterolemia 06/18/2019 Type 2 diabetes mellitus without complication, with long-term current use of insulin (HCC) 04/07/2020 PAST SURGICAL HISTORY Procedure Laterality Date ARTHRP KNE CONDYLEANDPLATU MEDIALANDLAT COMPARTMENTS Right 1994 CATARACT EXTRACTION HX SECOND STAGE TURP Social History Tobacco Use Smoking status: Former Packs/day: 1.00 Years: 35.00 Additional pack years: 0.00 Total pack years: 35.00 Types: Cigarettes Quit date: 1963 Years since quittin.6 Smokeless tobacco: Never Vaping Use Vaping Use: Never used Substance Use Topics Alcohol use: Never Drug use: Never FAMILY HISTORY Problem Relation Age of Onset other (Polycythemia) Mother other (CVA) Father 65 age 72 ALLERGIES No Known Allergies CURRENT MEDICATIONS: torsemide (DEMADEX) 20 mg tabletTAKE 1 TABLET BY MOUTH EVERY DAYDisp: 90 tabletRfl: 1 metOLAzone (ZAROXOLYN) 5 mg tabletTake 1 tablet by mouth every Monday,Monday,Monday.Disp: 30 tabletRfl: 0 (Patient taking differently: Take 5 mg by mouth as needed.) sitaGLIPtin-metFORMIN (JANUMET) 50-1,000 mg per tabletTake 1 tablet by mouth daily with breakfast.Disp: Rfl: (Patient taking differently: Take 1 tablet by mouth twice daily with meals.) acetaminophen (TYLENOL) 325 mg tabletTake 2 tablets by mouth every 4 hours as need (more content not included)... [facility] 02-20-2023 History of Present illness Narrative Images from the original note were not included. [facility]ION[facility] CARDIOLOGY OUTPATIENT VISIT DATE February 20, 2023 OUTPATIENT VISIT TYPE ESTABLISHED PRIMARY CARE PHYSICIAN: Benjie Covarrubias II, MD [address] [place] [address] CHIEF COMPLAINT: Heart failure, Hyperlipidemia, Hypertension, and Valvular heart disease HISTORY OF PRESENT ILLNESS: Mr. Narayanan is a 87 year old male A very delightful gentleman with history of hypertension, hyperlipidemia, diastolic heart failure, as well as a history of aortic stenosis, status post AVR along with Coronary artery disease status post coronary artery bypass surgery with 1 vessel grafted on 04/08/2020. Former smoker. Cardiac work-up includes : An echocardiogram in 2018 which showed moderate aortic stenosis. A nuclear stress testing done in June 2019 showed no ischemia. Ejection fraction 62%. An Echocardiogram done on 01/15/2020 showed moderately severe aortic stenoses and a gradient over 55 mmHg. AVR, CABGx1 (Vein graft ascending aorta end to side first obtuse marginal branch. On 04/13/2020 had a limited 2D echo study which showed normal LV function. The bioprosthetic aortic valve appears to be functioning normally. IMPRESSION: Encounter Diagnosis ICD-10-CM 1. 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 Primary hypertension I10 ECHO 3. Pure hypercholesterolemia E78.00 ECHO 4. Chronic diastolic heart failure (HCC) I50.32 ECHO 5. Atherosclerosis of cheesh-na coronary artery 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 I25.10 ECHO 6. 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 S/P AVR Z95.2 ECHO PLAN AND RECOMMENDATIONS: Aortic valve disease Status post aortic valve replacement in 2020. Had no echocardiogram done since then even though echo was ordered previously. We will ask for an echocardiogram to be done to reassess valvular function. Coronary artery disease Postcoronary artery bypass surgery x1. SVG to obtuse marginal branch. No anginal symptoms. History of heart failure Diastolic in nature and due to valvular heart disease. Euvolemic. Hypertension Fairly well controlled on current management. Usually on the higher side in the clinic. However at home it is perfectly controlled. Hyperlipidemia LDL goal 70 or less. Monitored by primary care physician. PHYSICAL EXAMINATION: BP 137/92 Pulse 68 Wt 93.4 kg (206 lb) SpO2 95% BMI 31.32 kg/m HEENT: normocephalic, EOMI Heart: regular rhythm Lungs: clear to auscultation Abdomen: bowel sounds present Extremities: no edema Musculoskeletal: chest wall nontender Neurological: alert and oriented Psychiatric: appropriate and cooperative Skin: no rash, cellulitis or lesions appreciated CARDIOVASCULAR MEDICINE TESTING: I have personally reviewed ECG and laboratory results Last EKG Result Conclusion ECG COMPLETE Collected: 08/23/2022 10:19 AM (Final result) Impression: SINUS RHYTHM WITH OCCASIONAL PREMATURE VENTRICULAR COMPLEXES OTHERWISE NORMAL ECG Confirmed by MARCO A GARVEY MD ([id number]) on 08/24/2022 10:00:15 AM PAST CARDIAC HISTORY: See above. PAST MEDICAL HISTORY Diagnosis Date Atherosclerosis of cheesh-na coronary artery 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 04/07/2020 Chronic diastolic heart failure (HCC) DMII (diabetes mellitus, type 2) (HCC) 1999 HLD (hyperlipidemia) 1999 HTN (hypertension) 1999 Nonrheumatic aortic valve stenosis Orthostatic lightheadedness Pure hypercholesterolemia 06/18/2019 Type 2 diabetes mellitus without complication, with long-term current use of insulin (HCC) 04/07/2020 PAST SURGICAL HISTORY Procedure Laterality Date ARTHRP KNE CONDYLE&PLATU MEDIAL&LAT COMPARTMENTS Right 1994 CATARACT EXTRACTION HX SECOND STAGE TURP Social History Tobacco Use Smoking status: Former Packs/day: 1.00 Years: 35.00 Additional pack years: 0.00 Total pack years: 35.00 Types: Cigarettes Quit date: 1963 Years since quittin.6 Smokeless tobacco: Never Vaping Use Vaping Use: Never used Substance Use Topics Alcohol use: Never Drug use: Never FAMILY HISTORY Problem Relation Age of Onset other (Polycythemia) Mother other (CVA) Father 65 age 72 ALLERGIES No Known Allergies CURRENT MEDICATIONS: torsemide (DEMADEX) 20 mg tablet^TAKE 1 TABLET BY MOUTH EVERY DAY^Disp: 90 tablet^Rfl: 1 metOLAzone (ZAROXOLYN) 5 mg tablet^Take 1 tablet by mouth every Monday,Monday,Monday.^Disp: 30 tablet^Rfl: 0 (Patient taking differently: Take 5 mg by mouth as needed.) sitaGLIPtin-metFORMIN (JANUMET) 50-1,000 mg per tablet^Take 1 tablet by mouth daily with breakfast.^Disp: ^Rfl: (Patient taking differently: Take 1 tablet by mouth twice daily with meals.) acetaminophen (TYLENOL) 325 mg tablet^Take 2 tablets by mouth every 4 hours as needed for Pain.^Disp: 30 Each^Rfl: 0 metoprolol succinate ER (TOPROL XL) 50 mg 24 hr tablet^Take 1 tablet by mouth once daily.^Disp: 30 tablet^Rfl: [address] (PROTONIX) 40 mg tablet^Take 1 tablet by mouth once daily.^Disp: 30 tablet^Rfl: 1 wheat dextrin/L.acid/aspartame (FIBER WITH PROBIOTIC ORAL)^Take 2 teaspoonsful by mouth once daily.^Disp: ^Rfl: aspirin, enteric coated (ASPIRIN, ENTERIC COATED) 81 mg EC tablet^Take 81 mg by mouth once daily.^Disp: ^Rfl: multivitamin tablet^Take 1 tablet by mouth once daily.^Disp: ^Rfl: simvastatin (ZOCOR) 40 mg tablet^Take 40 mg by mouth daily at bedtime.^Disp: ^Rfl: potassium citrate ER (UROCIT-K) 10 mEq (1,080 mg) TbER^Take 1,080 mg by mouth twice daily. ^Disp: ^Rfl: canagliflozin (INVOKANA) 100 mg tab^Take 100 mg by mouth daily with breakfast.^Disp: ^Rfl: documented in this encounter [facility] 08-23-2022 Instructions Joao Lara APRN.SOHAN - 08/23/2022 10:42 AM EST Images from the original note were not included. Joao Lara CNP HOW TO CUT BACK ON SALT CONSUMPTION Here are the following guidelines to help reduce the amount of sodium in your diet Take the salt shaker off the table and omit salt from recipes and food preparation. Cook without salt or with only small amounts of added salt. Learn to enjoy the flavors of unsalted foods. Try flavoring foods with herbs, spices, and lemon juice. Read food labels carefully to determine the amounts of sodium. Learn to recognize ingredients that contain sodium. Salt, soy sauce, salt brine or any ingredient with sodium (such as monosodium glutamate) or baking soda (sodium bicarbonate) as part of its name contains sodium. Rinsing canned vegetables and fish will remove much of the salt. Season or marinate meat, poultry, and fish ahead of time with onion, garlic and your favorite herbs before cooking to bring out the flavor. Some terms describing sodium content: lite, light, lightly salted, low sodium, reduced sodium, sodium free, unsalted, no salt added, without salt added, very low sodium. Use lower sodium products, when available, to replace those with higher sodium content. Use simple techniques like saving chicken broth from a chicken you cook at home rather than buying a canned, powdered or bouillon cube broth. When dining out words that signal high sodium include: smoked, barbecued, pickled, broth, soy sauce, teriyaki, creole sauce, marinated, cocktail sauce, tomato base, Parmesan, and mustard sauce. FOODS RECOMMENDED FOODS TO AVOID MILK & DAIRY 2-3 servings each day All milk and milk products, except buttermilk Cream cheese Low sodium cheeses Yogurt MILK & DAIRY Buttermilk Cheese (Tiffin, Francis, Cheddar, Blue, Gouda, Chilean, Velveeta) Cheese spreads FRUIT & VEGETABLES 5-9 servings/day Fresh or frozen vegetables No added salt or low salt canned vegetables No added salt tomato products Salt-free vegetable juices All fruit and fruit juices FRUIT & VEGETABLES Canned vegetables Frozen vegetables with seasoning and sauces Pickle relish, sweet or sour Pickled Vegetables Pickles and others prepared in brine Sauerkraut Vegetable or tomato juices, canned or bottled Pickled Fruits BREADS & GRAINS 6-11 servings/day Bread and rolls Dry and cooked cereals Pancakes, waffles Potatoes Salt-free potato chips Salt-free pretzels/snack chips Rice, barley, noodles, spaghetti, macaroni and other pastas Tortillas Unsalted crackers Unsalted popcorn BREADS & GRAINS Breads and rolls with salted tops Instant hot cereals Instant Food Products (e.g., cereals, pasta mixes, potatoes, rice, etc.) Such as boxed mixes like rice, scalloped potatoes, macaroni and cheese Popcorn, Prepackaged Microwave Salted popcorn Saltines, potato chips, pretzels, snack chips, pork rinds MEATS & MEAT SUBSTITUTES 2-3 servings or total of 6 oz daily All fresh and fresh frozen meats (poultry, fish, shellfish, beef, pork, weston) Canned unsalted tuna fish Dried peas and beans Eggs Low sodium peanut butter Unsalted nuts Unsalted soybeans and other meat substitutes MEATS & MEAT SUBSTITUTES Cured, salted, canned or smoked meats, poultry, or fish such as corned beef, ham, clifford, luncheon meats, beef jerky, bologna, pork rinds, hogmaws, ribs, chitterlings, frankfurter, sausage, chorizo, canned fish like tuna, sardines, mackerel, anchovies, caviar, salted cod, de la cruz, sardines, lox, dry fish, and kippered salmon Dried Fish, Assorted (e.g., dried shrimp) Frozen pizza Frozen prepared meat entree dinners such as pot pies, macaroni and cheese Kosher meats Pickled Meats Regular peanut butter Salted nuts Soups Homemade soups, made with allowed ingredients Unsalted broth or bouillon Low sodium commercial soup Soups Broth and soups with added salt Regular canned soups Regular instant soups Regular bouillon cubes FATS & SNACKS (use sparingly) Margarine, vegetable oils and lard Unsalted gravies Unsalted butter Mayonnaise, sour cream Salt-free salad dressings Homemade salad dressings, made without added salt Whipping cream Sugar, honey, jelly, jam, syrup, candies Popsicle s, fruit ice, sherbet, fruit sorbet, marshmallows Homemade cookies, pies, cakes made with allowed ingredients FATS & SNACKS Butter Commercial salad dressings Cheese-based dressings Clifford fat, fatback, salt pork Salad dressing mixes Olives, green and black Prepared frozen cream pies and cheese cake Instant pudding mixes Commercially prepared baked goods (Cakes, cookies, pie) Salted nuts MISC. Allspice, Mustard (dry) Dayhoit Extract Basil Iberia Leaves Capello's Wolof Style Seasoning Jez Seeds Chives Cider Vinegar Cinnamon Velazco Powder Bita Crystal Dill Garlic Powder Dimas Herbal Seasonings: Lawry's Seasoned Pepper Lawrreese's Seasoning (no salt) Lemon Juice Mace Mrs. Dash Nutmeg Onion Powder Paprika Parsley Parsley Patch Peppermint Extract Pimento Jennifer Deandre Salt free seasoning blends Savory Sodium-free Baking Powder Thyme Turmeric Vinegar Ruiz's all-purpose Seasonings MISC. Accent Adela-[place] All commercially prepared and convenience foods such as TV dinners, box mixes, canned entrees, Hamburger [place], meat pies, Turkmen dinners, pizza, Shake'n Bake mixes BBQ sauce Celery salt Keller sauce Garlic salt Horseradish Kitchen Bouquet Lemon pepper Marinade sauce Meat tenderizers Monosodium Glutamate (MSG) Onion salt Libertarian spreads Regular ketchup Relish Salad dressings Salt Seasoning salts Sodium Benzoate Sodium Caseinate Sodium Citrate Sodium Nitrate Sodium Phosphate Sodium Propionate Sodium Saccharin Soy sauce Steak sauce Tartar sauce Teriyaki sauce Worcestershire sauce Labeled no salt Products, Assorted [e.g., hooks paste and sauces, oriental dried plums and other dried seeds, vegetables and fruits (lemon & dimas)] documented in this encounter [facility] 08-23-2022 History of Present illness Narrative Images from the original note were not included. [facility] Department of Cardiovascular Medicine SECTION OF REGIONAL CARDIOLOGY August 23, 2022 OUTPATIENT VISIT TYPE ESTABLISHED PRIMARY CARE PHYSICIAN: Benjie Covarrubias II, MD SUBJECTIVE: CHIEF COMPLAINT: Patient presents with: CARD Follow Up 6 Month HISTORY OF PRESENT ILLNESS: Nakia Narayanan is a 87 year old male who presents for CVM follow up. Patient has a history of coronary artery disease status post coronary artery bypass surgery x1 04/08/2020, long with aortic stenosis status post AVR, diastolic heart failure, hypertension, hyperlipidemia, obesity, former smoker who quit many years ago. Last seen in department of cardiology 02/21/[address] Marco A Garvey. At that time no specific CV symptoms or complaints. No changes to medical management. Today, patient denies chest pain, shortness of breath, orthopnea, cough, significant edema/weight gain, palpitations, PND, lightheadedness, syncope or other significant cardiac symptoms. Home BP 130/70's-80's. He is trying to monitor salt in his diet. Some days worse than other. Home weight about 230 pounds. He is only taking his Zaroxolyn as needed for increased swelling due to increased urination. He is active some days, goes up and down stairs; dong laundry, walking in [employer]. Cardiac work-up includes : An echocardiogram in 2018 which showed moderate aortic stenosis. A nuclear stress testing done in June 2019 showed no ischemia. Ejection fraction 62%. Echocardiogram done on 01/15/2020 showed moderately severe aortic stenoses and a gradient over 55 mmHg. he had AVR, CABGx1 (Vein graft ascending aorta end to side first obtuse marginal branch. On 04/13/2020 had a limited 2D echo study which showed normal LV function. The bioprosthetic aortic valve appears to be functioning normally. REVIEW OF SYSTEMS: Detailed 14 systems reviewed. Pertinent information, positive and/or negative or non-contributory with the exception of pertinent positives described in HPI. Past Medical, Family and Social history reviewed; unchanged from prior. ASSESSMENT/PLAN: Nakia Narayanan was seen today for CVM follow-up visit. Diagnoses and all orders for this visit: Encounter Diagnosis ICD-10-CM 1. Chronic diastolic heart failure (HCC) I50.32 ECG COMPLETE ECHO COMP METABOLIC PANEL CBC MAGNESIUM BLD 2. S/P CABG x 1 Z95.1 3. S/P AVR Z95.2 ECHO 4. Nonrheumatic aortic valve stenosis I35.0 5. Primary hypertension I10 ECG COMPLETE COMP METABOLIC PANEL CBC MAGNESIUM BLD 6. Pure hypercholesterolemia E78.00 7. Obesity, Class I, BMI 30-34.9 E66.9 8. Type 2 diabetes mellitus without complication, without long-term current use of insulin (HCC) E11.9 9. Abnormal TSH R79.89 TSH BLD -CAD status post CABG x1 03/2020. No anginal symptoms or changes in functional capacity. Preliminary ECG completed office today shows sinus rhythm with occasional premature ventricular complexes. Otherwise normal ECG. Ventricular rate 72 bpm. Continue aspirin 81 mg daily, metoprolol succinate 50 mg daily and Zocor 40 mg daily at bedtime. Monitor for myalgias on statin therapy. -Chronic diastolic heart failure. Appears euvolemic and well compensated today. Continue torsemide 20 mg daily along with potassium citrate 10 mEq twice daily and metolazone 5 mg as needed.(Patient is supposed to be taking every Monday and Monday but declines). -Aortic stenosis status post AVR 04/14/2020. Noted echocardiogram 04/14/2020 showed LVEF 60 5%. Prosthetic aortic valve without any regurgitation. Grade 1 diastolic dysfunction noted. Will reassess with next echocardiogram. -Blood pressure goal less than 30 over 80 mmHg. Currently above goal. -LDL goal less than 70 mg/dL. -Continue lifestyle modifications: Reduce sodium intake, regular aerobic exercise, eating heart healthy/Plant-based/whole foods diet and maintaining ideal body weight with BMI < 25. -A1C goal less than 7%. -Abnormal TSH noted on prior labs and will update. Follow-up with primary care provider. Follow up: -Patient will follow-up in 6 months with communication in between if symptoms or changes occur. -Patient should continue to follow with their primary physician for routine health care maintenance and age appropriate risk factor assessment, modification and screenings. PHYSICAL EXAMINATION: BP 153/73 (BP Site: Right Arm, BP Position: Sitting, BP Cuff Size: Large Adult) Pulse 67 Wt 103 kg (227 lb) BMI 34.52 kg/m General appearance: in no acute distress, alert. Eyes: Anicteric sclera. EOMI Neck: No carotid bruits. No JVD Lungs: Normal respiratory effort. No wheezing, crackles, or rhonchi. Heart: Regular rhythm with extrasystoles. Regular rate. NO significant murmur. Trace-1+ BLE edema Abdomen: Abdomen soft, non-tender. No hepatomegaly or bruits. Vascular: Brachial, DP, and PT pulses +2. No renal, ABD aortic, or femoral bruit. Neuro: No gross focal deficits Psych: mood appropriate Last 4 Encounter Wt Readings: Date: Wt: 08/23/2022 103 kg (227 lb) 02/21/2022 104.7 kg (230 lb 12.8 oz) 08/12/2021 106.1 kg (233 lb 12.8 oz) 02/08/2021 103 kg (227 lb) Last 4 Encounter BP Readings: Date: BP: 08/23/2022 162/92 02/21/2022 136/84[manual BP[ 08/12/2021 148/82 02/08/2021 136/75 Last 4 Encounter Pulse Readings: Date: Pulse: 08/23/2022 72 02/21/2022 78 08/12/2021 73 02/08/2021 66 CARDIOVASCULAR MEDICINE TESTING: I have personally reviewed ECG, laboratory results, and echocardiogram report P[employer]INENT LABORATORY STUDIES Potassium (mmol/L) Date Value 04/17/2020 4.1 Sodium (mmol/L) Date Value 04/17/2020 137 Magnesium (mg/dL) Date Value 04/14/2020 1.8 Creatinine (mg/dL) Date Value 04/17/2020 1.35 BUN (mg/dL) Date Value 04/17/2020 37 Glucose (mg/dL) Date Value 04/17/2020 145 PT INR (no units) Date Value 04/14/2020 1.1 NT Pro BNP (pg/mL) Date Value 02/21/2020 253 No results found for: CHOL, HDL, LDL, TG MEDICATIONS Current Outpatient Medications on File Prior to Visit Medication Sig torsemide (DEMADEX) 20 mg tablet TAKE 1 TABLET BY MOUTH EVERY DAY sitaGLIPtin-metFORMIN (JANUMET) 50-1,000 mg per tablet Take 1 tablet by mouth daily with breakfast. (Patient taking differently: Take 1 tablet by mouth twice daily with meals.) acetaminophen (TYLENOL) 325 mg tablet Take 2 tablets by mouth every 4 hours as needed for Pain. metoprolol succinate ER (TOPROL XL) 50 mg 24 hr tablet Take 1 tablet by mouth once daily. pantoprazole DR (PROTONIX) 40 mg tablet Take 1 tablet by mouth once daily. wheat dextrin/L.acid/aspartame (FIBER WITH PROBIOTIC ORAL) Take 2 teaspoonsful by mouth once daily. aspirin, enteric coated (ASPIRIN, ENTERIC COATED) 81 mg EC tablet Take 81 mg by mouth once daily. multivitamin tablet Take 1 tablet by mouth once daily. simvastatin (ZOCOR) 40 mg tablet Take 40 mg by mouth daily at bedtime. potassium citrate ER (UROCIT-K) 10 mEq (1,080 mg) TbER Take 1,080 mg by mouth twice daily. metOLAzone (ZAROXOLYN) 5 mg tablet Take 1 tablet by mouth every Monday,Monday,Monday. (Patient taking differently: Take 5 mg by mouth as needed.) No current facility-administered medications on file prior to visit. ALLERGIES No Known Allergies ACTIVE PROBLEM LIST Crf (Chronic Renal Failure), Stage 2 (Mild) - 05/08/2020 S/P Cabg X 1 - 05/08/2020 S/P Avr - 05/08/2020 Encounter for Support and Coordination of Transition of Care - 04/14/2020 Comment: Indication for Surgery: Aortic Valve Regurgitation, Coronary Artery Disease Preop LVEF: 58% RVF: Normal Postop LVEF: Normal RVF: Normal EKG: NSR w/ PVCs Cath: Nonobstructive coronary disease. Cards: Fadi Alicia Important/Relevant PMH/PSH: Aortic Valve Stenosis, HTN, HLD, CAD, Chronic Diastolic HF, DM Preoperative Hospital Course: Airway Difficulty: Grade III view (only epiglottis visible) - Bougie Pacing Wires: CUT on 04/13/2020 Chronological List of Surgeries and Major Events (Diagnosis): (Surgeries in bold characters) 04/08/2020: AVR, CABGx1 (Vein graft ascending aorta end to side obtuse marginal 1) A/P of Major Active Problems (excluding routine care and common problems): Cardio: HTN: Normotensive. Continue BB, up titrate as clinically indicated. Maintain MAP 65-85. Resp: Difficult airway: Grade III airway with bougie. Discussed with ENT, GI, Dr. Berrios - no plans for repeat endoscopy or laryngoscopy at this time. Extubated 04/10. Atelectasis: Atelectasis - 04/13/2020 Comment: History: S/p 04/08/2020: AVR, CABGx1 (Vein graft ascending aorta end to side obtuse marginal 1) Assessment: Bibasilar atelectasis noted on chest xray. Currently stable on RA. Plan: Encourage OOB, deep breathing, coughing, PEP therapy. Difficult Airway - 04/13/2020 Comment: History: Grade III airway with bougie. Assessment: Currently stable on RA. Plan: Continue aggressive BPH. Gastric Tear - 04/09/2020 Comment: History: Post op problem Assessment: EGD 04/09 with GI showing deep, but not full thickness, tear on the gastric side of the GE junction. Clot overlying. Not clipped. Post-pyloric feeding tube placed endoscopically. Repeat CT 04/09 of neck and chest to evaluate mediastinal/subQ air - improved air burden. Thoracic surgery and GI following. s/p MBS today (passed) w/ esophogram (no perforation) Plan: . Vanc d/c'ed 04/10 - zosyn and fluconazole dc'd 04/15 per thoracic. Corpak DC 04/[address] Berrios. Per [employer] ok to advance diet, use same controls as recommended 04/15. Per speech:The following controls should be utilized to improve pharygneal swallowing safety: *upright position *chin tuck posture during swallows *single sips of liquids, 1/2 teaspoon bites of purees (if placed on FLD) *double swallows after each bolus trial; consider sip of water after pureed trials due to increased residue in valleculae with this texture. - If giving PO meds, they should be in elixir form or crushed and given in a Pain, Postoperative, Acute - 04/08/2020 Comment: History: Post-op. Assessment: Adequately controlled. Plan: Continue to optimize pain with PRN tylenol and oxycodone. Cesar (Acute Kidney Injury) ([facility]) - 04/08/2020 Comment: History: Pre-op SCr-1.6. Home meds: Torsemide and lisinopril/HCTZ Assessment: Non-oliguric. sCr 1.35 today. Plan: Trend and monitor SrCr and UOP. Avoid hypotension and nephrotoxic medications. Discharge Planning Issues - 04/07/2020 Comment: Nakia Narayanan is a 84 year old male from [place], [place]. Supportive son. PT/OT recs Home. CM following. PCP, cards, endo f/u appts requested. DC likely Monday. FYI - CT imagine on 02/20 noted: Few small (less than 6 mm) pulmonary nodules are noted. Consider follow-up imaging in 12 months. Findings consistent with nonspecific interstitial lung abnormalities. Preop Testing - 04/07/2020 Comment: [facility] Surgeon: Dieter Berrios Informed Consent Completed: No STS Score: -- CAD: Yes - CAD on Problem List: Yes Is intended procedure a CABG: Yes - is a beta amrit ordered? Yes H & P completed: Yes PA/LAT: Completed CT: Completed MRI: N/A LE US: N/A Cath: Yes - reviewed: Yes EKG: Completed Is patient on Amiodarone? No Echo:Completed EF %: PI's: Completed Carotid: Completed Mapping: Completed Dental: cleared- to be scanned PFT's: Completed Recent Labs 04/06/20 1128 CREAT 1.67* UA: pending - patient to provide sample today HCG:N/A ABO/ABO Confirmed: Yes Blood ordered: No Willing to accept blood: SA Swab: Yes - results: Pending Last Dose of Anticoagulation: ASA - to continue Op Note: N/A Pacemaker Check: N/A Implants: no Consults: NONE DM: Yes (a1c 8.4 - Berrios notified) Cardiac Surgical prep: N/A SIGNATURE: Carmina Bolden Obesity, Class I, Bmi 30-34.9 - 04/07/2020 Comment: History: preop Assessment: Body mass index is 32.45 kg/m . Plan: Transitioned to HH diet 04/16. Nutrition following. Atherosclerosis of [place] Coronary Artery of [place] Heart Without Angina Pectoris - 04/07/2020 Comment: S/p 04/08/2020: AVR, CABGx1 (Vein graft ascending aorta end to side obtuse marginal 1) CAD Core Measures: Aspirin: Yes Beta blockers: Yes Statins: Yes Type 2 Diabetes Mellitus, Without Long-Term Current Use of Insulin ([facility]) - 04/07/2020 Comment: History: Pre-op on insulin/oral meds Assessment: BS elevated post-op Plan: Endocrinology following for recs. Endo f/u appt requested per Dr. Berrios recs. Chronic Diastolic Heart Failure (Hcc) - 01/15/2020 Comment: History: Pre-op on GDMT (lisinopril/torsemide, no BB). Pre-op echo with grade I LV diastolic dysfunction, LVH Assessment: S/p 04/08/2020: AVR, CABGx1 (Vein graft ascending aorta end to side obtuse marginal 1) 04/13 Limited echo- LV is normal in size. LV systolic function is normal. EF = 60 5%.Grade I LV diastolic dysfunction. RV is normal in size. RV systolic function is normal. Plan: Restart home regimen when appropriate. Continue diuresis, BB Nonrheumatic Aortic Valve Stenosis - 06/18/2019 Comment: History: Severe pre-op Assessment:S/p 04/08/2020: AVR, CABGx1 (Vein graft ascending aorta end to side obtuse marginal 1) 04/13 Limited echo- Inspiris prosthetic aortic valve (size #25). There is no AR. The peak gradient is 19 mmHg and the mean gradient is 9 mmHg Plan: ASA. Htn (Hypertension) - 06/18/2019 Comment: History: Home meds- lisinopril/HCTZ. Assessment: SBPs 100-130 Plan: Continue BB, up titrate as clinically indicated. Pure Hypercholesterolemia - 06/18/2019 Orthostatic Lightheadedness - 06/18/2019 Abnormal Ekg - 06/18/2019 PAST MEDICAL HISTORY Diagnosis Date Atherosclerosis of [place] coronary artery 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 04/07/2020 Chronic diastolic heart failure (HCC) DMII (diabetes mellitus, type 2) ([facility]) 1999 HLD (hyperlipidemia) 1999 HTN (hypertension) 1999 Nonrheumatic aortic valve stenosis Orthostatic lightheadedness Pure hypercholesterolemia 06/18/2019 Type 2 diabetes mellitus without complication, with long-term current use of insulin (HCC) 04/07/2020 PAST SURGICAL HISTORY Procedure Laterality Date ARTHRP KNE CONDYLE&PLATU MEDIAL&LAT COMPARTMENTS Right 1994 CATARACT EXTRACTION HX SECOND STAGE TURP FAMILY HISTORY Problem Relation Age of Onset other (Polycythemia) Mother other (CVA) Father 65 age 72 Social History Tobacco Use Smoking status: Former Packs/day: 1.00 Years: 35.00 Pack years: 35.00 Types: Cigarettes Quit date: 1963 Years since quittin.2 Smokeless tobacco: Never Vaping Use Vaping Use: Never used Substance Use Topics Alcohol use: Never Drug use: Never Elements of this note, including HPI, ROS, Physical Exam, Assessment and Plan were copied and pasted from previous office visit notes completed within our department. Updates have been made where appropriate/noted and reflect current exam and medical decision making from date of this visit. This note was partially generated with [employer] voice recognition software and may contain errors, including spelling, grammar, syntax and misrecognition of what was dictated, that may not be fully corrected. I appreciate the opportunity to participate in this patient's care. Please do not hesitate to call my office if you have any questions. CONTACT INFORMATION: Joao Lara APRN.SOHAN Adult Nurse Practitioner Stacy Gavin Department of Cardiovascular Medicine [facility] [place] [facility] and Surgery [facility] Cardiology Consult Team documented in this encounter [facility] 07-05-2022 Note PROCEDURE: XR GI UPP ER AIR KUB DUAL CONTRAST, XR CINERADIOGRAPHY COMPARISON: None. HISTORY: Early satiety TECHNIQUE: An air contrast upper gastrointestinal series was performed in the usual manner. Standard level fluoroscopic mode of operation utilized. FINDINGS: ESOPHAGUS:Multiple tertiary waves and lack of any coordinated muscular contraction, along with very delayed versus minimal opening of the gastroesophageal valve results in prolonged holding of swallowed contrast within the esophagus. STOMACH: No appreciable obstruction, mass, or ulceration. DUODENUM:No appreciable ulceration or diverticulum. OTHER: Negative. IMPRESSION: 1. Marked tertiary waves of esophagus and minimal forward moving coordinated muscular activity. 2. Minimal relaxation of gastroesophageal valve resulting in prolonged holding of contents within the esophagus. Electronically authenticated by: DOLORES NIETO Date: 2022-07-05 09:31 [facility] 07-05-2022 Note PROCEDURE: XR GI UPP ER AIR KUB DUAL CONTRAST, XR CINERADIOGRAPHY COMPARISON: None. HISTORY: Early satiety TECHNIQUE: An air contrast upper gastrointestinal series was performed in the usual manner. Standard level fluoroscopic mode of operation utilized. FINDINGS: ESOPHAGUS:Multiple tertiary waves and lack of any coordinated muscular contraction, along with very delayed versus minimal opening of the gastroesophageal valve results in prolonged holding of swallowed contrast within the esophagus. STOMACH: No appreciable obstruction, mass, or ulceration. DUODENUM:No appreciable ulceration or diverticulum. OTHER: Negative. IMPRESSION: 1. Marked tertiary waves of esophagus and minimal forward moving coordinated muscular activity. 2. Minimal relaxation of gastroesophageal valve resulting in prolonged holding of contents within the esophagus. Electronically authenticated by: DOLORES NIETO Date: 2022-07-05 09:31 [facility] 04-01-2022 Hospital Discharge instructions Patient Education 04/01/2022 09:37:53 Kidney Stones, Ccjl-[id number] Kidney Stones Kidney stones are rock-like masses that form inside of the kidneys. Kidneys are organs that make pee (urine). A kidney stone may move into other parts of the urinary tract, including: The tubes that connect the kidneys to the bladder (ureters). The bladder. The tube that carries urine out of the body (urethra). Kidney stones can cause very bad pain and can block the flow of pee. The stone usually leaves your body (passes) through your pee. You may need to have a doctor take out the stone. What are the causes? Kidney stones may be caused by: A condition in which certain glands make too much parathyroid hormone (primary hyperparathyroidism). A buildup of a type of crystals in the bladder made of a chemical called uric acid. The body makes uric acid when you eat certain foods. Narrowing (stricture) of one or both of the ureters. A kidney blockage that you were born with. Past surgery on the kidney or the ureters, such as gastric bypass surgery. What increases the risk? You are more likely to develop this condition if: You have had a kidney stone in the past. You have a family history of kidney stones. You do not drink enough water. You eat a diet that is high in protein, salt (sodium), or sugar. You are overweight or very overweight (obese). What are the signs or symptoms? Symptoms of a kidney stone may include: Pain in the side of the belly, right below the ribs (flank pain). Pain usually spreads (radiates) to the groin. Needing to pee often or right away (urgently). Pain when going pee (urinating). Blood in your pee (hematuria). Feeling like you may vomit (nauseous). Vomiting. Fever and chills. How is this treated? Treatment depends on the size, location, and makeup of the kidney stones. The stones will often pass out of the body through peeing. You may need to: Drink more fluid to help pass the stone. In some cases, you may be given fluids through an IV tube put into one of your veins at the hospital. Take medicine for pain. Make changes in your diet to help keep kidney stones from coming back. Sometimes, medical procedures are needed to remove a kidney stone. This may involve: A procedure to break up kidney stones using a beam of light (laser) or shock waves. Surgery to remove the kidney stones. Follow these instructions at home: Medicines Take okce-bqx-dswcvsk and prescription medicines only as told by your doctor. Ask your doctor if the medicine prescribed to you requires you to avoid driving or using heavy machinery. Eating and drinking Drink enough fluid to keep your pee pale yellow. You may be told to drink at least 8 10 glasses of water each day. This will help you pass the stone. If told by your doctor, change your diet. This may include: ?Limiting how much salt you eat. ?Eating more fruits and vegetables. ?Limiting how much meat, poultry, fish, and eggs you eat. Follow instructions from your doctor about eating or drinking restrictions. General instructions Collect pee samples as told by your doctor. You may need to collect a pee sample: ?24 hours after a stone comes out. ?8 12 weeks after a stone comes out, and every 6 12 months after that. Strain your pee every time you pee (urinate), for as long as told. Use the strainer that your doctor recommends. Do not throw out the stone. Keep it so that it can be tested by your doctor. Keep all follow-up visits as told by your doctor. This is important. You may need follow-up tests. How is this prevented? To prevent another kidney stone: Drink enough fluid to keep your pee pale yellow. This is the best way to prevent kidney stones. Eat healthy foods. Avoid certain foods as told by your doctor. You may be told to eat less protein. Stay at a healthy weight. Where to find more information National Kidney Foundation (NKF): www.kidney.org [facility] [employer] [facility] (UCF): www.urologyhealth.org Contact a doctor if: You have pain that gets worse or does not get better with medicine. Get help right away if: You have a fever or chills. You get very bad pain. You get new pain in your belly (abdomen). You pass out (faint). You cannot pee. Summary Kidney stones are rock-like masses that form inside of the kidneys. Kidney stones can cause very bad pain and can block the flow of pee. The stones will often pass out of the body through peeing. Drink enough fluid to keep your pee pale yellow. This information is not intended to replace advice given to you by your health care provider. Make sure you discuss any questions you have with your health care provider. Document Released: 11/28/2008 Document Revised: 10/29/2019 Document Reviewed: 10/29/2019 [employer] Patient Education 2020 [employer]. Follow Up Care 03/29/2021 11:32:59 With:HUSAM ANGELES, Sadaf Adamson, URL Address: [address] [place] [id number] When: Unknown [facility] 02-21-2022 History of Present illness Narrative Images from the original note were not included. [facility] SECTION OF REGIONAL CARDIOLOGY OUTPATIENT VISIT DATE February 21, 2022 OUTPATIENT VISIT TYPE ESTABLISHED PRIMARY CARE PHYSICIAN: Benjie Covarrubias II, MD [address] [place] [id number] CHIEF COMPLAINT: Coronary artery disease, Heart failure, Hyperlipidemia, Hypertension, and obesity HISTORY OF PRESENT ILLNESS: Mr. Narayanan is a 86 year old male, A very delightful gentleman with history of hypertension, hyperlipidemia, diastolic heart failure, as well as a history of aortic stenosis, status post AVR along with Coronary artery disease status post coronary artery bypass surgery with 1 vessel grafted on 04/08/2020. Former smoker however he quit many years ago. Cardiac work-up includes : An echocardiogram in 2019 which showed moderate aortic stenosis. A nuclear stress testing done in June 2019 showed no ischemia. Ejection fraction 62%. Echocardiogram done on 01/15/2020 showed moderately severe aortic stenoses and a gradient over 55 mmHg. he had AVR, CABGx1 (Vein graft ascending aorta end to side first obtuse marginal branch. On 04/13/2020 had a limited 2D echo study which showed normal LV function. The bioprosthetic aortic valve appears to be functioning normally. IMPRESSION: Encounter Diagnosis ICD-10-CM 1. Nonrheumatic aortic valve stenosis I35.0 2. Primary hypertension I10 3. Pure hypercholesterolemia E78.00 4. Chronic diastolic heart failure (HCC) I50.32 5. Atherosclerosis of [place] coronary artery 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 I25.10 6. S/P CABG x 1 Z95.1 7. S/P AVR Z95.2 8. Obesity, Class I, BMI 30-34.9 E66.9 PLAN AND RECOMMENDATIONS: Aortic valve disease Status post AVR as per history. Coronary artery disease With single-vessel coronary artery bypass surgery. No anginal symptoms. Diastolic heart failure As per history. Hypertension Well-controlled by current management. Hyperlipidemia LDL goal 70 or less. His primary care physician does his lipid profile. We do not have the numbers in our system however the patient mentioned to me that his LDL cholesterol is at goal. Obesity Needs more plant-based diet. Less animal-based products. Reduce calorie intake. PHYSICAL EXAMINATION: BP 136/84 (BP Site: Left Arm, BP Position: Sitting, BP Cuff Size: Large Adult) Pulse 78 Ht 172.7 cm (5' 8 ) Wt 104.7 kg (230 lb 12.8 oz) SpO2 96% BMI 35.09 kg/m HEENT: normocephalic, EOMI Heart: regular rhythm Lungs: clear to auscultation Abdomen: bowel sounds present Extremities: pitting edema present trace to 1+ Musculoskeletal: chest wall nontender Neurological: alert and oriented Psychiatric: appropriate and cooperative Skin: no rash, cellulitis or lesions appreciated CARDIOVASCULAR MEDICINE TESTING: I have personally reviewed ECG and laboratory results Last EKG Result Conclusion ECG COMPLETE Collected: 08/12/2021 9:10 AM (Final result) Impression: SINUS RHYTHM WITH OCCASIONAL PREMATURE VENTRICULAR COMPLEXES INFERIOR MYOCARDIAL INFARCTION , AGE UNDETERMINED ABNORMAL ECG Confirmed by MARCO A GARVEY MD ([id number]) on 08/13/2021 10:32:11 AM PAST CARDIAC HISTORY: See above. PAST MEDICAL HISTORY Diagnosis Date Atherosclerosis of [place] coronary artery 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 04/07/2020 Chronic diastolic heart failure (HCC) DMII (diabetes mellitus, type 2) ([facility]) 1999 HLD (hyperlipidemia) 1999 HTN (hypertension) 1999 Nonrheumatic aortic valve stenosis Orthostatic lightheadedness Pure hypercholesterolemia 06/18/2019 Type 2 diabetes mellitus without complication, with long-term current use of insulin ([facility]) 04/07/2020 PAST SURGICAL HISTORY Procedure Laterality Date ARTHRP KNE CONDYLE&PLATU MEDIAL&LAT COMPARTMENTS Right 1994 CATARACT EXTRACTION HX SECOND STAGE TURP Social History Tobacco Use Smoking status: Former Packs/day: 1.00 Years: 35.00 Pack years: 35.00 Types: Cigarettes Quit date: 1963 Years since quittin.6 Smokeless tobacco: Never Vaping Use Vaping Use: Never used Substance Use Topics Alcohol use: Never Drug use: Never FAMILY HISTORY Problem Relation Age of Onset other (Polycythemia) Mother other (CVA) Father 65 age 72 ALLERGIES No Known Allergies CURRENT MEDICATIONS: torsemide (DEMADEX) 20 mg tablet TAKE 1 TABLET BY MOUTH EVERY DAY metOLAzone (ZAROXOLYN) 5 mg tablet Take 1 tablet by mouth every Monday,Monday,Monday. (Patient taking differently: Take 5 mg by mouth as needed.) sitaGLIPtin-metFORMIN (JANUMET) 50-1,000 mg per tablet Take 1 tablet by mouth daily with breakfast. (Patient taking differently: Take 1 tablet by mouth twice daily with meals.) acetaminophen (TYLENOL) 325 mg tablet Take 2 tablets by mouth every 4 hours as needed for Pain. metoprolol succinate ER (TOPROL XL) 50 mg 24 hr tablet Take 1 tablet by mouth once daily. pantoprazole DR (PROTONIX) 40 mg tablet Take 1 tablet by mouth once daily. wheat dextrin/L.acid/aspartame (FIBER WITH PROBIOTIC ORAL) Take 2 teaspoonsful by mouth once daily. aspirin, enteric coated (ASPIRIN, ENTERIC COATED) 81 mg EC tablet Take 81 mg by mouth once daily. multivitamin tablet Take 1 tablet by mouth once daily. simvastatin (ZOCOR) 40 mg tablet Take 40 mg by mouth daily at bedtime. potassium citrate ER (UROCIT-K) 10 mEq (1,080 mg) TbER Take 1,080 mg by mouth twice daily. documented in this encounter [facility] 02-08-2022 Note CONSULTATION CONSULTATION DATE: 02/08/2022 CHIEF COMPLAINT: Right sided hip pain, leg pain. HISTORY OF PRESENT ILLNESS: This is a very pleasant, 86-year-old gentleman who is returning subsequent to a sciatic nerve block. This afforded the patient 50+% improvement of his pain. The patient still reports the pain as a 4/10; a dull, aching sensation. The pain travels into his right foot. The patient states sitting mitigates the pain as does lying down. Standing, walking, bending aggravate the pain. Activities aggravate the pain. The patient, if he drives too long, notes increased pain. The pain runs down his leg to his calf. Currently, the patient takes gabapentin 300 mg daily, hydrocodone 5/325 (he has not been taking this recently), Tylenol 500 mg. He applies Vicks VapoRub to his back and finds this helpful. X-rays of his lumbar spine were reviewed in office today which show anterolisthesis of L4 on L5, lumbar degenerative disc disease, lumbar spondylosis. Narrowing of the spinal canal is noted and is prominent at the level of L5-S1. PHYSICAL EXAMINATION: GENERAL: Upon physical examination, this is a pleasant, cooperative gentleman who does not appear to be in any acute distress. VITAL SIGNS: 127/81, with a heart rate of 75. At a height of 5'8 , the patient weighs 103 kg. HEAD: Atraumatic. NECK: No crepitus is noted. HEART: No orthopnea is present. LUNGS: Unlabored breathing. The patient has a baseline cyanosis along his lips from COPD. ABDOMEN: Protuberant, distended. BACK: Paravertebral spasming is noted, more so along the thoracolumbar spine, as opposed to his lumbosacral area. EXTREMITIES: Slight pedal edema is present bilaterally. MUSCULOSKELETAL: Intact in the lower extremities; however, the extensors and anterior tib are weak on the right compared to the left, especially the extensors hallucis and extensor digitorum. PSYCHIATRICALLY: Affect is appropriate. IMPRESSION: Lumbar radiculitis, neuritis L4-L5 on the right hand side, anterolisthesis of L4 on L5, osteopenia, lumbar degenerative disc disease, lumbar spondylosis. PLAN: We will schedule the patient for a transforaminal epidural steroid injection on the right hand side at the level of L4 and L5. Extension exercises have been given to the patient to perform at present. The patient does not wish to take any medication at this time. Magnesium has been suggested to the patient once again. CC: Benjie Covarrubias M.D. [facility] 01-25-2022 Note CONSULTATION CONSULTATION DATE: 01/25/2022 CHIEF COMPLAINT: Low back pain. Right leg pain, HISTORY OF PRESENT ILLNESS: This is a very pleasant, 86-year-old gentleman, very active individual, who has pain radiating into his right leg. He rates the pain as a 9-10 at times. Activities such as standing, walking, housework, bending, lifting, climbing stairs, yard work aggravate the patient's pain. Sitting down in the recliner mitigates the patient's pain. The patient has tried ibuprofen and he does not find it helpful. He has also tried hydrocodone, which also bound him up. He is taking gabapentin 300 mg on a b.i.d. basis. He thinks it helps. The patient's PAST MEDICAL HISTORY / SURGICAL HISTORY / REVIEW OF SYSTEMS are noted on the chart, along with the MEDICATION LIST / ALLERGIES. No RADIOLOGICAL IMAGES are available. PHYSICAL EXAMINATION: GENERAL APPEARANCE: Upon physical examination, this is a pleasant, cooperative gentleman, who does not appear to be in no acute distress. VITAL SIGNS: Stable at 126/83 with a heart rate of 63. At a height of 5'8 , the patient weighs 105 kg. HEAD: Atraumatic, normocephalic. NECK: Crepitus is noted. HEART: Patient has a porcine valve. LUNGS: Non-labored breathing. Audible congestion present. ABDOMEN: Soft. BACK: Loss of lumbar lordosis is noted. Pelvis is rotated anteriorly. EXTREMITIES: Slight pedal edema is present bilaterally. The patient does take a diuretic. MUSCULOSKELETAL: Intact in the lower extremities at 5/5 bilaterally. Straight leg raise is positive on the right hand side; however, the patient's motor strength is maintained. NEUROLOGICALLY: No overt hypoesthesia; however, the patient has generalized diminished sensation to pin prick in the lower extremities bilaterally. He attributes this to his age and work. IMPRESSION: Current working diagnosis on the patient is chronic low back pain, lumbar spondylosis, right leg pain, right sciatica. PLAN: We will get an x-ray of the lumbar spine, both flexion and extension. Given the heat in the summertime and the fact that the patient is taking diuretic, no narcotics will be prescribed at this time. Education was done with regards to the importance of maintaining daily bowel habit. In addition to this, the patient will apply heat rub to his low back. We will perform a right sciatic nerve block in office today. The patient will be followed up in the office in two weeks. CC: Benjie Covarrubias M.D. [facility] 01-25-2022 Note CONSULTATION PROCEDURE DATE: 01/25/2022 PREOPERATIVE DIAGNOSIS: Right sciatica. POSTOPERATIVE DIAGNOSIS: Right sciatica. PROCEDURE: Right sciatic nerve block. Subsequent to obtaining informed consent, the patient was placed in the prone position. Alcohol prep was used to sterilize the site. A 22 gauge spinal needle was advanced until it comes to rest along the right sciatic nerve. Negative aspiration. Marcaine 0.125% along with Kenalog, a total of 40 mg are injected to the site. Negative heme. The patient tolerates the procedure well, without any overt complication. Will be followed up in the office. [facility] 04-13-2020 History of Past i llness Narrative Problem Noted Date Resolved Date Hyperlipemia 04/13/2020 02/21/2022 Overview: History: On Simvastatin preop. Assessment: Resumed on HH diet 04/16 Plan: Continue statin, trend LFTs On mechanically assisted ventilation 04/08/2020 04/11/2020 Overview: Grade III airway with bougie A/P-WTE Stress hyperglycemia 04/08/2020 04/08/2020 documented as of this encounter (statuses as of 02/21/2022) [facility]10-19-2020 History of Past illness Narrative* Problem Noted Date Resolved Date Hyperlipemia 04/13/2020 02/21/2022 Overview: History: On Simvastatin preop. Assessment: Resumed on HH diet 04/16 Plan: Continue statin, trend LFTs On mechanically assisted ventilation 04/08/2020 04/11/2020 Overview: Grade III airway with bougie A/P-WTE Stress hyperglycemia 04/08/2020 04/08/2020 documented as of this encounter (statuses as of 09/09/2022) [facility] History of Past illness Narrative* Problem Noted Date Diagnosed Date Resolved Date Hyperlipemia 04/13/2020 02/21/2022 Overview: History: On Simvastatin preop. Assessment: Resumed on HH diet 04/16 Plan: Continue statin, trend LFTs On mechanically assisted ventilation 04/08/2020 04/11/2020 Overview: Grade III airway with bougie A/P-WTE Stress hyperglycemia 04/08/2020 020 documented as of this encounter (statuses as of 02/20/2023) [facility] History of Past illness Narrative* Problem Noted Date Diagnosed Date Resolved Date Hyperlipemia 04/13/2020 02/21/2022 Overview: History: On Simvastatin preop. Assessment: Resumed on HH diet 04/16 Plan: Continue statin, trend LFTs On mechanically assisted ventilation 04/08/2020 04/11/2020 Overview: Grade III airway with bougie A/P-WTE Stress hyperglycemia 04/08/2020 020 documented as of this encounter (statuses as of 08/28/2023) [facility] Future [facility]ments Appointment Date:04/03/2023 08:45:00 AM Scheduled Provider:Sadaf STOVALL MD Location:[facility] Appointment Type:URO Office Visit [facility] Evaluation note* Diagnosis Nonrheumatic aortic valve stenosis- Primary Aortic valve disorders Primary hypertension Unspecified essential hypertension Pure hypercholesterolemia Chronic diastolic heart failure (HCC) Chronic diastolic heart failure Atherosclerosis of [place] coronary artery 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 S/P CABG x 1 Postsurgical aortocoronary bypass status S/P 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, Class I, BMI 30-34.9 Obesity, unspecified [facility] Diagnosis Chronic diastolic heart failure (HCC)- Primary Chronic diastolic heart failure S/P CABG x 1 Postsurgical aortocoronary bypass status S/P AVR Heart valve replaced by other means Nonrheumatic aortic valve stenosis Aortic valve disorders Primary hypertension Unspecified essential hypertension Pure hypercholesterolemia Obesity, Class I, BMI 30-34.9 Obesity, unspecified Type 2 diabetes mellitus without complication, without long-term current use of insulin (HCC) Abnormal TSH Other abnormal clinical finding [facility] Diagnosis Nonrheumatic aortic valve stenosis- Primary Aortic valve disorders Primary hypertension Unspecified essential hypertension Pure hypercholesterolemia Chronic diastolic heart failure (HCC) Chronic diastolic heart failure Atherosclerosis of cheesh-na coronary artery 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 S/P CABG x 1 Postsurgical aortocoronary bypass status S/P AVR Heart valve replaced by other means [facility] Diagnosis Primary hypertension- Primary Unspecified essential hypertension Chronic diastolic heart failure (HCC) Chronic diastolic heart failure Pure hypercholesterolemia S/P CABG x 1 Postsurgical aortocoronary bypass status Atherosclerosis of cheesh-na coronary artery 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 Nonrheumatic aortic valve stenosis Aortic valve disorders documented in this encounter [facility] course Narrative No data available for this section [facility] progress note No data available for this section [facility] reason for referral (narrative)* Outpatient Procedure (Routine) - Authorized Specialty Diagnoses / Procedures Referred By Contac t [facility] Diagnoses Chronic diastolic heart failure (HCC) S/P AVR Procedures ECHO ECHO TTC R-T 2D W/WOM-MODE COMPL SPEC&COLR D Joao Lara, MAYON[employer]ISE M[employer]ER.[employer] PIPE SUPERVISOR [address] [place] [address] [facility] [address] [address] Referral ID Status Reason Start Date Expiration Date Visits Requested Visits Authorized [id number] Authorized Auto-Generat ed Referral 08/23/2023 1 1 * Outpatient Procedure (Routine) - Closed Specialty Diagnoses / Procedures Referred By Sunil kapoor Referred To Contact [facility] Diagnoses Chronic diastolic heart failure (HCC) Primary hypertension Procedures ECG COMPLETE ECG ROUTINE ECG W/LEAST 12 LDS W/I&R Joao Lara APRN.CNP [address] [place] [address] [address] Referral ID Status Reason Start Date Expiration Date V isits Requested Visits Authorized [id number] Closed Auto-Generate d Referral 08/23/2022 08/23/2023 1 1 [facility] for referral (narrative)* Outpatient Procedure (Routine) - Pending Review Specialty Diagnoses / Procedures Referred By Sunil kapoor Referred To Contact [facility] Diagnoses Nonrheumatic aortic valve stenosis Primary hypertension Pure hypercholesterolemia Chronic diastolic heart failure (HCC) Atherosclerosis of cheesh-na coronary artery 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 S/P CABG x 1 S/P AVR Procedures ECHO ECHO TTHRC R-T 2D W/WOM-MODE COMPL SPEC&COLR D Marco A Garvey MD [address] [place] [address] [facility] [address] [address] Referral ID Status Reason Start Date Expiration Date Visits Requested Visits Authorized [id number] Pending Review Auto-Generat ed Referral 02/20/2023 02/20/2024 1 1 [facility] for referral (narrative)* Outpatient Procedure (Routine) - Pending Review Specialty Diagnoses / Procedures Referred By Contkassy t Referred [facility] Diagnoses Primary hypertension Procedures ECG COMPLETE ECG ROUTINE ECG W/LEAST 12 LDS W/I&R Joao Lara APRN.SOHAN [address] [place] [address] [facility] [address] [place] [address] Referral ID Status Reason Start Date Expiration Date Visits Requested Visits Authorized [id number] Pending Review Auto-Generat ed Referral 08/14/2023 08/13/2024 1 1 [facility] Summary Purpose Family History No Family History Records FoundNo Family History Records FoundNo Family History Records FoundNo Family History Records FoundNo Family History Records Found Advance Directives No Advanced Directives Records FoundNo Advanced Directives Records FoundNo Advanced Directives Records FoundNo Advanced Directives Records FoundNo Advanced Directives Records Found Additional Source Comments (unrecognized sect ion and content) No Status Records FoundNo Status Records FoundNo Status Records FoundNo Status Records FoundNo Status Records Found INFORMATION SOURCE (unrecogn ized section and content) DATE CREATED AUTHOR 11/20/2021 [facility] dical Specialist DATE CREATED AUTHOR AUTHOR'S ORGANIZ ATION 07/07/2022 [facility] DATE CREATED AUTHOR AUTHOR'S ORGANIZ ATION 04/05/2023 [facility] DATE CREATED AUTHOR AUTHOR'S ORGANIZ ATION 08/28/2023 [facility] DATE CREATED AUTHOR AUTHOR'S ORGANIZ ATION 12/11/2023 [facility] dical Specialists EPIC Source Comments (unrecognize d section and content) In the event this informatio n is protected by the Federal Confidentiality of Alcohol and Drug Abuse Patient Records regulations: The Federal rules restrict any use of the information to criminally investigate or prosecute any alcohol or drug abuse patient.[facility] the event this information is protected by the Federal Confidentiality of Alcohol and Drug Abuse Patient Records regulations: The Federal rules restrict any use of the information to criminally investigate or prosecute any alcohol or drug abuse patient.[facility] the event this information is protected by the Federal Confidentiality of Alcohol and Drug Abuse Patient Records regulations: The Federal rules restrict any use of the information to criminally investigate or prosecute any alcohol or drug abuse patient.[facility] the event this information is protected by the Federal Confidentiality of Alcohol and Drug Abuse Patient Records regulations: The Federal rules restrict any use of the information to criminally investigate or prosecute any alcohol or drug abuse patient.[facility] Reason for Visit (unrecogniz ed section and content) Reason Comments Cardiology Follow Up Reason Comments CARD Follow Up 6 Month Reason Comments CARD Follow Up 6 Month Reason Comments Cardiology Follow Up Care Teams (unrecognized sec tion and content) Household Appliance Mechanic Relationship Specialty Start Date End Date Benjie Covarrubias II [address] [facility] [address] [place] [address] PCP - General Internal Medicine 02/19/20 Benjie Covarrubias II [address] [place] [address] Referring Internal Medicine 06/11/19 No, Referral Referring Cardiology 02/24/20 Household Appliance Mechanic Relationship Specialty Start Date End Date Benjie Covarrubias II [address] [place] [address] PCP - General Internal Medicine 02/19/20 Benjie Covarrubias II [address] [place] [address] Referring Internal Medicine 06/11/19 No, Referral Referring Cardiology 02/24/20 Household Appliance Mechanic Relationship Specialty Start Date End Date Benjie Covarrubias II, MD [address] [place] [address] PCP - General Internal Medicine 02/19/20 Benjie Covarrubias II, MD [address] [place] [address] Referring Internal Medicine 06/11/19 No, Referral Referring Cardiology 02/24/20 Household Appliance Mechanic Relationship Specialty Start Date End Date Benjie Covarrubias II, MD [address] [place] [address] PCP - General Internal Medicine 02/19/20 Benjie Covarrubias II, MD [address] [place] [address] Referring Internal Medicine 06/11/19 No, Referral Referring Cardiology 02/24/20 FOR RECORDS PERTAINING TO PATIENTS WHO ARE OR HAVE BEEN ENROLLED IN A CHEMICAL DEPENDENCY/SUBSTANCEABUSE PROGRAM, SOME INFORMATION MAY BE OMITTED. This clinical summary was aggregated from multiple sources. Caution should be exercised in using it in the provision of clinical care. This summary normalizes information from multiple sources, and as a consequence, information in this document may materially change the coding, format and clinical context of patient data. In addition, data may be omitted in some cases. CLINICAL DECISIONS SHOULD BE BASED ON THE PRIMARY CLINICAL RECORDS. [facility]. provides no warranty or guarantee of the accuracy or completeness of information in this document.
--- NOTE | 2023-12-13 10:55 | XR_ITS ---
The [address] [address] Patient Name: NAKIA NARAYANAN MRN: [id number] date: 1935 Sex: M Assigned Patient Location: [facility] Current Patient Location: Accession/Order Number: [id number] Exam Date: 12/13/2023 11:02 Report Date: 12/14/2023 11:31 At the request of: RONNIE BRUNO Procedure: XR chest 2V EXAMINATION: XR chest 2V HISTORY: Chronic Cough R05.3 COMPARISON: No relevant comparison available. FINDINGS: LUNGS: Trace amount of stranding within lung bases. VASCULATURE: No increased pulmonary vasculature. PLEURA: No pneumothorax, effusion, or pleural thickening. CARDIAC: Prior valve replacement. No cardiac enlargement. MEDIASTINUM: Prior sternotomy. No abnormal widening. BONES: No fracture or visible bone lesion. OTHER: Negative. XR/XR chest 2V IMPRESSION: 1. Suspect trace amount of bibasilar chronic interstitial changes. Mild acute infiltrates or atelectasis are not completely excluded. Electronically authenticated by: DOLORES NIETO Date: 12/14/2023 11:31
== END 2023-12-13 10:47 | disposition home or self-care (01) ==
LOC: RAD 10:48
PROVIDERS: PCP Internal Medicine; Visit Provider Otolaryngology
DX: R05.3 Chronic cough (principal)
CPT/HCPCS: 71046

== ENCOUNTER 2024-01-06 14:03 | Emergency (ER) | payer MEDICARE, SELFPAY ==
[2024-01-06 14:07] VITALS: BP 168/93; PULSE 72; TEMP 36.8; O2SAT 96; BMI 32.2
--- NOTE | 2024-01-06 14:14 | PC.NURSE ---
skin avulsion to right wrist with no bleeding to area. Area clean and bruising to upper and lower area of avulsion.
[2024-01-06 14:16] VITALS: O2SAT 96
--- NOTE | 2024-01-06 14:30 | ED.GENADUL1 ---
HPI HPI - General Adult General Chief complaint: Skin/Abscess/Foreign Body Stated complaint: LACERATION/ FALL Time Seen by Provider: 01/06/24 14:14 Source: patient Mode of arrival: walk-in History of Present Illness HPI narrative: The patient presented to the ER after he had a fall on when he slid into the garden , the patient mentioned that he had an object that he has a hand just below it and apparently he just slides into that object without hitting anything, he did not hit his head or fall directly on his arm but his arm did slide by that object and caused his wound in his right arm The patient denies any other complaint there was no head injury no loss of consciousness The patient last tetanus booster was more than 5 years ago Related Data Home Medications ?Medication ?Instructions ?Recorded ?Confirmed aspirin 81 mg tablet,delayed 81 mg PO DAILY 11/27/22 11/27/22 release (Adult Low Dose Aspirin) dapagliflozin propanediol 10 mg 10 mg PO DAILY 11/27/22 11/27/22 tablet (Farxiga) metoprolol succinate 50 mg 25 mg PO DAILY 11/27/22 11/27/22 tablet,extended release 24 hr (Toprol XL) multivitamin (Multiple Vitamins 1 tab PO DAILY 11/27/22 11/27/22 tablet) pantoprazole 40 mg tablet,delayed 40 mg PO DAILY 11/27/22 11/27/22 release (Protonix) potassium citrate 10 mEq (1,080 10 meq PO BID 11/27/22 11/27/22 mg) tablet,extended release psyllium husk (aspartame) 3.4 gram 1 packet PO DAILY 11/27/22 11/27/22 oral powder packet (Metamucil Fiber Singles) simvastatin 40 mg tablet 40 mg PO DAILY 11/27/22 11/27/22 sitagliptin phosphate 50 1 tab PO BID 11/27/22 11/27/22 mg-metformin 1,000 mg tablet (Janumet) torsemide 20 mg tablet 20 mg PO DAILY 11/27/22 11/27/22 Previous Rx's ?Medication ?Instructions ?Recorded amoxicillin 875 mg-potassium 1 tab PO Q12H #28 tabs 11/27/22 clavulanate 125 mg tablet Allergies Allergy/AdvReac Type Severity Reaction Status Date / Time No Known Drug Allergies Allergy Verified 06/04/23 11:41 Opioid HPI Opioid Management Most Recent Opioid Data: No Data to Display Review of Systems ROS Status of ROS 10 or more systems reviewed and unremarkable except as noted in history and below PFSH PFSH Social History Smoking status: Former smoker Exam Narrative Exam Narrative: Right upper extremity :on the exterior surface of the right forearm the patient have a abrasion that is 5 x 7 cm just proximal to the wrist with an area of redness looking like mostly contusion and ecchymosis then redness and it is mostly almost 5 cm surrounding that large abrasion, there is some mild warmth but no drainage or any abscess or fluid collection Nurses notes and vital signs reviewed and patient is not hypoxic. General: Well-appearing and in no apparent distress. Skin: Warm, dry, no pallor noted. No rash. Head: Normocephalic, atraumatic. Neck: Supple, non-tender. Eye: Pupils are equal, round and EOMI. No scleral icterus. Ears, Nose, Mouth, and Throat: TM are clear, no nasal mucosal hypertrophy. Oral mucosa is moist, no posterior oropharynx erythema, uvula is mid-line Cardiovascular: Regular Rate and Rhythm without murmur, gallop or rub. Respiratory: No accessory muscle use or respiratory distress. Lungs are clear to auscultation, no wheezing, rales or rhonchi Chest Wall: no tenderness Back: No midline thoracic or lumbar vertebral tenderness. No CVA tenderness GI: Abdomen is soft, non-distended. Normal bowel sounds. No masses appreciated. No tenderness to palpation. No rebound, guarding, or rigidity noted. Neurological: A&O x4. No cranial nerve dysfunction observed. No truncal ataxia. Moves all extremities. Sensation intact. Psychiatric: Cooperative and interactive. Normal mood and affect. Constitutional Vital Signs, click to edit/add: Last Vital Signs Temp 98.2 F 01/06/24 14:07 Pulse 72 01/06/24 14:07 Resp 14 01/06/24 14:07 BP 168/93 H 01/06/24 14:07 Pulse Ox 96 01/06/24 14:16 O2 Del Method Room Air 01/06/24 14:16 Course Vital Signs Vital signs: Vital Signs Temperature 98.2 F 01/06/24 14:07 Pulse Rate 72 01/06/24 14:07 Respiratory Rate 14 01/06/24 14:07 Blood Pressure 168/93 H 07/13/24 14:07 Pulse Oximetry 96 01/06/24 14:07 Oxygen Delivery Method Room Air 01/06/24 14:07 Temperature 98.2 F 01/06/24 14:07 Pulse Rate 72 01/06/24 14:07 Respiratory Rate 14 01/06/24 14:07 Blood Pressure 168/93 H 01/06/24 14:07 Pulse Oximetry 96 01/06/24 14:16 Oxygen Delivery Method Room Air 01/06/24 14:16 Medical Decision Making MDM Narrative Medical decision making narrative: Tetanus booster provided Local care with bacitracin as well as Augmentin The patient will be covered possible mild cellulitis and he will be monitoring his abrasion and redness surrounding The patient is to follow up with primary care physician in next 2-3 days or to return to the emergency department should any of the signs or symptoms worsen or new symptoms develop. The patient agrees with the following Diagnosis and Treatment plan and the patient will be discharged home. Discharge Plan Discharge Stand Alone Forms: Portal Instructions Chief Complaint: Skin/Abscess/Foreign Body Clinical Impression: Cellulitis Qualifiers: Site of cellulitis: extremity Site of cellulitis of extremity: upper extremity Laterality: right Qualified Code(s): L03.113 - Cellulitis of right upper limb Contusion Qualifiers: Encounter type: initial encounter Contusion area: upper arm Laterality: right Qualified Code(s): S40.021A - Contusion of right upper arm, initial encounter Patient Disposition: Home, Self-Care Time of Disposition Decision: 14:30 Prescriptions / Home Meds: No Action aspirin [Adult Low Dose Aspirin] 81 mg tablet,delayed release (DR/EC) 81 mg PO DAILY Janumet 50-1,000 mg tablet 1 tab PO BID potassium citrate 10 mEq (1,080 mg) tablet extended release 10 meq PO BID torsemide 20 mg tablet 20 mg PO DAILY simvastatin 40 mg tablet 40 mg PO DAILY pantoprazole [Protonix] 40 mg tablet,delayed release (DR/EC) 40 mg PO DAILY metoprolol succinate [Toprol XL] 50 mg tablet extended release 24 hr 25 mg PO DAILY multivitamin [Multiple Vitamins] Tablet 1 tab PO DAILY Metamucil Fiber Singles 3.4 gram powder in packet 1 packet PO DAILY Farxiga 10 mg tablet 10 mg PO DAILY amoxicillin-pot clavulanate 875-125 mg tablet 1 tab PO Q12H Qty: 28 0RF Print Language: Guinean Referrals: LETHA COFFMAN [Primary Care Provider] - 1 week
[2024-01-06] MEDS: BACITRACIN 0.9 GM PACKET 1 PACKET TOPICAL (14:43)
[2024-01-06] MEDS: ADACEL DIPH,PERTUSS(ACELL),TET VAC/PF 0.5 ML ADULT SYRINGE IM (14:43)
== END 2024-01-06 14:57 | disposition home or self-care (01) ==
PROVIDERS: Emergency Provider Emergency Medicine; PCP Internal Medicine
DX: L03.113 Cellulitis of right upper limb (principal); S40.021A Contusion of right upper arm, initial encounter; W19.XXXA Unspecified fall, initial encounter; Z23 Encounter for immunization; Z87.891 Personal history of nicotine dependence
CPT/HCPCS: 90471; 90715; 99283

== ENCOUNTER 2024-04-01 10:53 | Outpatient (OUT) | payer MEDICARE, SELFPAY ==
--- NOTE | 2024-04-01 11:08 | XR_ITS ---
The [address] [address] Patient Name: NAKIA NARAYANAN MRN: [id number] date: 1935 Sex: M Assigned Patient Location: LAB Current Patient Location: Accession/Order Number: [id number] Exam Date: 04/01/2024 11:12 Report Date: 04/02/2024 10:15 At the request of: SADAF WEINER Procedure: XR abdomen 1V EXAMINATION: XR abdomen 1V HISTORY: Kidney Stones COMPARISON: XR abdomen 03/27/2023 FINDINGS: KIDNEY/URETER - RIGHT: 3 mm calcification inferior pole of right kidney. KIDNEY/URETER - LEFT: No visible renal or ureteral calcifications. PELVIS: No appreciable ureteral stones. Stable appearance of multiple pelvic calcifications suspected represent phleboliths and atherosclerotic disease. BOWEL: No abnormal dilation or deviation. BONES: No acute abnormality. OTHER: Negative. No abnormal gaseous collections. XR/XR abdomen 1V IMPRESSION: 1. Grossly stable right nephrolithiasis. Electronically authenticated by: DOLORES NIETO Date: 04/02/2024 10:15
--- OUTSIDE RECORDS SUMMARY | 2024-04-01 11:16 | XMS_ITS | CCD ---
Author Organization [facility] CliniSyme Care Team Providers Care Veterinarian Epidemiologist Name Role Phone Benjie Covarrubias II Unavailable Benjie Covarrubias II Primary Care Provider No, Referral Unavailable Unavailable BENJIE COVARRUBIAS Primary Care Physician TREVOR, DR ROSE MARIE Nicholson Attending Unavailable ZIEBSHASHANK, DR DOLORES Adamson Consulting Unavailable SATISH, DR [...] Unavailable SATISH, DR MONAE Primary Care Unavailable ZIEBSHASHANK, DR DOLORES Adamson Consulting Unavailable TREVOR, DR ROSE MARIE Nicholson Attending Unavailable SATISH, DR MONAE Primary Care Unavailable MURRAY, DR ROSE MARIE Nicholson Consulting Unavailable TREVOR, DR ROSE MARIE Nicholson Admitting Unavailable TREVOR, DR ROSE MARIE Nicholson Admitting Unavailable MURRAY, DR ROSE MARIE Nicholson Attending Unavailable SATISH, DR MONAE Primary Care Unavailable TREVOR, DR ROSE MARIE Nicholson Consulting Unavailable SATISH, DR MONAE Attending Unavailable COVARRUBIAS, DR MONAE Consulting Unavailable SATISH, DR MONAE Primary Care Unavailable SATISH, DR MONAE Admitting Unavailable ZIJENNIFER, DR DOLORES Adamson Consulting Unavailable Benjie Covarrubias II Unavailable [phone] Benjie Covarrubias II Primary Care Provider [phone] No, Referral Unavailable Unavailable Satish BRAND MD, Daniel B Unavailable [phone] Satish BRAND MD, Daniel B Primary Care Provider Sadaf STOVALL Attending Unavailable Sadaf STOVALL Attending Unavailable Satish BRAND MD, Daniel B Primary Care Provider [phone] COVARRUBIAS II, BENJIE B Primary Care Unavailable LARA, MAVISVALENTINO Referring Unavailable GARVEY, ADALVIRAD Attending Unavailable COVARRUBIAS II, BENJIE B Primary Care Unavailable COVARRUBIAS II, BENJIE B Primary Care Unavailable GARVEY, ADALHAD Attending Unavailable COVARRUBIAS II, BENJIE B Primary Care Unavailable LARA, LAVISA Referring Unavailable COVARRUBIAS II, BENJIE B Primary Care Unavailable LARA, MAVISISA Attending Unavailable GARVEY, JIHAD Referring Unavailable BENJIE COVARRUBIAS Attending Unavailable LORENA RIVAS Attending Unavailable BENJIE COVARRUBIAS Attending Unavailable BENJIE COVARRUBIAS Attending Unavailable LORENA RIVAS Attending Unavailable BENJIE COVARRUBIAS Attending Unavailable BENJIE COVARRUBIAS B Attending Unavailable MARTHAMIRONNIE Nicholson H Attending Unavailable BENJIE COVARRUBIAS Referring Unavailable TIMMIRONNIE Nicholson H Attending Unavailable LORENA RIVAS Attending Unavailable BENJIE COVARRUBIAS Attending Unavailable BENJIE COVARRUBIAS Attending Unavailable BENJIE COVARRUBIAS Attending Unavailable LORENA RIVAS Attending Unavailable Medications Current Medications Medication Drug Class(es) Dates Sig (Normalized) Sig (Original) acetaminophen 325 mg oral tablet (5 sources) Start: 04-17-2020 take 2 tablets by mouth every four hours as needed acetaminophen (TYLENOL) 325 mg tablet Take 2 tablets by mouth every 4 hours as needed for Pain. 30 Each 04/17/2020 Active Comment on above: Take 2 tablets by [facility] every 4 hours as needed for Pain. aspirin 81 mg oral tablet (6 sources) Platelet Aggregation Inhibitor, Nonsteroidal Anti-inflammatory Drug Start: 03-19-2019 take 1 tablet by mouth once daily aspirin 81 mg oral tablet 81 mg = 1 tab(s), Oral, Daily, Refills(s) 0, Blood Thinner Start Date: 03/19/19 Status: Ordered take 1 tablet by mouth once kennedy y aspirin, enteric coated (ASPIRIN, ENTERIC COATED) 81 mg EC tablet Take 81 mg by mouth once daily. Active Comment on above: Take 81 mg by mouth once daily. doxycycline hyclate 100 mg oral capsule (1 source) Tetracycline-class Drug Start: 4 take 100 mg by mouth twice daily Doxycycline Hyclate Active 100 MG PO Twice daily 14 7 January 12, 2024 12:00am glimepiride 2 mg oral tablet (3 sources) Sulfonylurea Start: 4 Glimepiride Active MG PO January 12, 2024 12:00am End: 02-15-2024 take 2 tablets by mouth once daily at breakfast glimepiride (AMARYL) 1 mg tablet Take 2 mg by mouth daily with breakfast. 02/15/2024 Discontinued (Other) Comment on above: Take 2 mg by mouth d aily with breakfast. hydroCHLOROthiazide 12.5 mg / lisinopril 10 mg oral tablet (1 source) Thiazide Diuretic, Angiotensin Converting Enzyme Inhibitor Start: 03-19-20 take 1 tablet by mouth twice daily hydrochlorothia zide-lisinopril 12.5 mg-10 mg oral tablet 1 tab(s), Oral, BID, Refill(s) 0, High blood pressure Start Date: 03/19/19 Status: Ordered metFORMIN hydrochloride 1000 mg / SITagliptin 50 mg oral tablet (6 sources) Biguanide, Dipeptidyl Peptidase 4 Inhibitor Start: 04-17-20 take 1 tablet by mouth once daily at breakfast sitaGLIPtin-met FORMIN (JANUMET) 50-1,000 mg per tablet Take 1 tablet by mouth daily with breakfast. 04/17/2020 Active Start: 03-19-2019 Janumet 50/100 , Oral, BID, Refill(s) 0, High blood sugar Start Date: 03/19/19 Status: Ordered Comment on above: Take 1 tablet by evangelina th daily with breakfast. metOLazone 5 mg oral tablet (6 sources) Thiazide-like Diuretic Start: 02-16-2024 take 1 tablet by mouth once metOLazone (ZAROXOLYN) 5 mg tablet Take 1 tablet by mouth every Monday, Monday, and Monday. 30 tablet 02/16/2024 Active Start: 05-08-2020 End: 02-15-2024 take 1 tablet by mouth once metOLAzone (ZAROXOLYN) 5 mg tablet Take 1 tablet by mouth every Monday,Monday,Monday. 30 tablet 05/08/2020 02/15/2024 Discontinued Comment on above: Take 1 tablet by evangelina th every Monday,Monday,Monday. 24 hr metoprolol succinate 50 mg extended release oral tablet (7 sources) beta-Adrenergic Amrit Start: 01-12-2024 Metoprolol Succinate Active MG PO January 12, 2024 12:00am Start: 04-01-2022 take 1 mg by mouth once daily [...] once daily. Multi Vitamin+ (1 source) Start: 03-19-2019 take 1 tablet by mouth once daily Multi Vitamin+ 1 tab, Oral, Daily, Refill(s) 0, Prophylaxis Start Date: 03/19/19 Status: Ordered multivitamin tablet (5 sources) take 1 tablet by mouth once daily multivitamin tablet Take 1 tablet by mouth once daily. Active take 1 tablet by mouth once kennedy y multivitamin tablet Take 1 tablet by mouth once daily. 0 Active Comment on above: Take 1 tablet by evangelina th once daily. Natural Fiber Therapy 3.4 g/7 g oral powder for reconstitution (1 source) Start: 2 take 1 g by mouth once daily Natural Fiber Therapy 3.4 g/7 g oral powder for reconstitution gm, Oral, Daily, Refills(s) 0 Start Date: 04/01/22 Status: Ordered pantoprazole 40 mg delayed release oral tablet (7 sources) Proton Pump Inhibitor Start: 4 Pantoprazole Active MG PO January 12, 2024 12:00am Start: 04-01-2022 take 1 mg by mouth once daily [...] in NaCl (PF) 0.9% 10 mL injection (DEFINEwirelessgear) (6 sources) Start: 02-20-2023 End: 05-21-2024 perflutren lipid microspheres 1.3 mL in NaCl (PF) 0.9% 10 mL injection (DEFINITY) Start: 08-23-2022 End: 11-22-2023 perflutren lipid microsphere s 1.3 mL in NaCl (PF) 0.9% 10 mL injection (DEFINEwirelessgear) potassium citrate 10 meq extended release oral tablet (6 sources) Start: 09-13-2019 take 1 tablet by mouth three times daily potassium CITRATE 10 mEq ER Tab 10 mEq, 1 tab(s), Oral, TID, 300 tab(s), Refill(s) 4, [facility], 172.7, cm, 08/20/19 7:07:00 EST, Height/Length Measured, 102.8, kg, 03/29/19 9:31:00 EDT, Weight Measured Start Date: 09/13/19 Status: Ordered End: 02-15-2024 take 10 mEq by mouth twice daily potassium citrate ER (UROCIT-K) 10 mEq (1,080 mg) TbER Take 1,080 mg by mouth twice daily. 02/15/2024 Discontinued (Other) Comment on above: Take 1,080 mg by evangelina th twice daily. simvastatin 40 mg oral tablet (7 sources) HMG-CoA Reductase Inhibitor Start: 01-12-2024 Simvastatin Active MG PO January 12, 2024 12:00am Start: 03-19-2019 take 1 tablet by evangelian th once daily at bedtime simvastatin 40 mg Tab 40 mg = 1 tab(s), Oral, Once a day (at bedtime), Refills(s) 0, High cholesterol Start Date: 03/19/19 Status: Ordered Comment on above: Take 40 mg by mouth daily at bedtime. 125 ml sodium chloride 9 mg/ml prefilled syringe (6 sources) Start: 08-23-2022 End: 05-21-2024 sodium chloride 0.9 % (flush) 10 mL (BD POSIFLUSH) torsemide 20 mg oral tablet (6 sources) Loop Diuretic Start: 03-30-2020 take 1 tablet by mouth once daily torsemide (DEMADEX) 20 mg tablet Indications: Chronic diastolic heart failure (HCC) TAKE 1 TABLET BY MOUTH EVERY DAY 90 tablet 1 06/10/2020 Active Comment on above: TAKE 1 TABLET BY EVANGELINA TH EVERY DAY wheat dextrin/L.acid/aspa rtame (FIBER WITH PROBIOTIC ORAL) (5 sources) wheat dextrin/L.acid/asparta me (FIBER WITH PROBIOTIC ORAL) Take 2 teaspoonsful by mouth once daily. Active wheat dextrin/L. acid/aspartame (FIBER WITH PROBIOTIC ORAL) Take 2 teaspoonsful by mouth once daily. 0 Active Comment on above: Take 2 teaspoonsful by mouth once daily. Completed/Discontinued Medications Medication Drug Class(es) Dates Sig (Normalized) Sig (Original) canagliflozin 100 mg oral tablet (3 sources) Sodium-Glucose Cotransporter 2 Inhibitor End: 02-15-2024 take 1 tablet by mouth once daily at breakfast canagliflozin (INVOKANA) 100 mg tab Take 100 mg by mouth daily with breakfast. 02/15/2024 Discontinued (Other) Comment on above: Take 100 mg by mouth daily with breakfast. Problems Active Problems Problem Classification Problem Date Documented Da te Episodic/Chronic Chronic kidney disease (5 sources) Chronic kidney disease stage 2; Translations: [Chronic kidney disease, stage 2 (mild)] Onset: 05-08-2020 05-08-2020 Chronic Congestive heart failure; nonhypertensive (11 sources) Chronic diastolic heart failure; Translations: [Chronic diastolic (congestive) heart failure] Onset: 01-15-2020 Chronic Coronary atherosclerosis and other heart disease (10 sources) Coronary atherosclerosis; Translations: [Atherosclerotic heart disease of [place] coronary artery without angina pectoris] Onset: 04-07-2020 Chronic Diabetes mellitus without complication (7 sources) Type 2 diabetes mellitus; Translations: [Type 2 diabetes mellitus without complications] Onset: 04-07-2020 04-16-2020 Chronic Disorders of lipid metabolism (13 sources) Pure hypercholesterolemia ; Translations: [Pure hypercholesterolemia , unspecified] Onset: 06-18-2019 Resolved: 02-21-2022 Chronic Essential hypertension (12 sources) Essential hypertension; Translations: [Essential (primary) hypertension] Onset: 06-18-2019 Chronic Genitourinary symptoms and ill-defined conditions (1 source) Post-micturition incontinence 03-30-2020 Chronic Genitourinary symptoms and ill-defined conditions (1 source) Blood in urine 03-19-2019 Episodic Heart valve disorders (19 sources) Aortic stenosis, non-rheumatic ; Translations: [Nonrheumatic [...] Chronic Other nutritional; endocrine; and metabolic disorders (7 sources) Obese class I; Translations: [Obesity, unspecified] [...] te Episodic/Chronic Acute and unspecified renal failure (5 sources) Acute injury of kidney; Translations: [Acute kidney failure, unspecified] Onset: 0 04-16-2020 Episodic Administrative/social admission (10 sources) Discharge status; Translations: [Encounter for administrative examinations, unspecified] Onset: 0 04-16-2020 Episodic Calculus of urinary tract (7 sources) Kidney stone; Translations: [Calculus of kidney] Onset: 2 Episodic Complications of surgical procedures or medical care (5 sources) Expected difficult tracheal intubation; Translations: [Failed or difficult intubation, initial encounter] Onset: 0 04-14-2020 Episodic Conditions associated with dizziness or vertigo (5 sources) Orthostatic hypotension; Translations: [Dizziness and giddiness] Onset: 9 06-18-2019 Episodic Crushing injury or internal injury (5 sources) Laceration of stomach; Translations: [Laceration of stomach, initial encounter] Onset: 0 04-16-2020 Episodic Diabetes mellitus without complication (3 sources) Glycosuria; Translations: [Glycosuria] Onset: 0 Resolved: 0 Episodic Other bone disease and musculoskeletal deformities [...] Onset: 2 Episodic Other nervous system disorders (5 sources) Acute postoperative pain; Translations: [Other acute postprocedural pain] Onset: 0 04-16-2020 Episodic Other screening for suspected conditions (not mental disorders or infectious disease) (6 sources) Electrocardiogram abnormal; Translations: [Abnormal electrocardiogram [ECG] [EKG]] Onset: 9 06-18-2019 Episodic Pleurisy; pneumothorax; pulmonary collapse (5 sources) Atelectasis; Translations: [Atelectasis] Onset: 0 04-16-2020 Episodic Respiratory failure; insufficiency; arrest (adult) (1 source) Ventilator finding; Translations: [Dependence on respirator [ventilator] status] Onset: 0 Resolved: 0 04-14-2020 Chronic Spondylosis; intervertebral disc disorders; other back problems (8 sources) Intervertebral disc disorders with radiculopathy, lumbar region; Translations: [Lumbago with sciatica, right side] Onset: 2 Episodic Results Test Name Value Interpretation Reference Range Facility [facility] 02-15-2024 [facility] Office Visit (GRAY ) -------- NAKIA NARAYANAN ([id number]) 1935 M Date Time Provider Department 02/15/24 10:00 AM MARCO A GARVEY During your visit today, we recorded the following information about you: Pulse Blood pressure Weight Height 71/minute 122/72 99 kg 1.727 m Marc oA Garvey MD 02/15/2024 9:55 AM Signed [facility] OUTPATIENT VISIT DATE February 15, 2024 OUTPATIENT VISIT TYPE ESTABLISHED PRIMARY CARE PHYSICIAN: Benjie Covarrubias II, MD [address] [facility] [address] [place] [address] CHIEF COMPLAINT: Coronary artery disease, Heart failure, Hyperlipidemia, Hypertension, and Valvular heart disease HISTORY OF PRESENT ILLNESS: Mr. Narayanan is a 88 year old male, a very delightful gentleman with history of hypertension, hyperlipidemia, diastolic heart failure, as well as a history of aortic stenosis, status post AVR along with Coronary artery disease status post coronary artery bypass surgery with 1 vessel grafted on 04/08/2020. Former smoker. Cardiovascular work-up includes: An echocardiogram in 2018 which showed moderate aortic stenosis. A nuclear stress testing done in June 2019 showed no ischemia. Ejection fraction 62%. An Echocardiogram done on 01/15/2020 showed moderately severe aortic stenoses and a gradient over 55 mmHg. Was followed by AVR, CABGx1 (Vein graft ascending aorta end to side first obtuse marginal branch). On 04/13/2020 had a limited 2D echo study which showed normal LV function. The bioprosthetic aortic valve appears to be functioning normally. An echocardiogram on 04/14/2023 showed ejection fraction of 62%. Prosthetic aortic valve appears to be functioning normally. Only trace to mild aortic valve regurgitation noted. No pulmonary hypertension. No other valvular disease of any significance. He wakes up short of breath almost every night and he has to put extra pillows so he can breathe better. However no shortness of breath on activity during the day much. No chest pain of any kind. No other symptoms or complaints. IMPRESSION: Encounter Diagnosis ICD-10-CM 1. 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 S/P AVR Z95.2 3. Pure hypercholesterolemia E78.00 4. Primary hypertension I10 5. Chronic diastolic heart failure (HCC) I50.32 6. Atherosclerosis of [place] coronary artery of [place] heart without angina pectoris I25.10 PLAN AND RECOMMENDATIONS: Diastolic heart failure Appears to be having orthopnea at night. He is not taking his Zaroxolyn. He was advised strongly to take his Zaroxolyn as recommended. Aortic valve disease Status post AVR. Echocardiogram last year showed normally functioning valve. Will repeat the study next year. Hypertension Well-controlled by current management. Hyperlipidemia LDL goal 70 or less. Last LDL was 38. Excellent control. Coronary artery disease With single-vessel coronary artery bypass surgery. No anginal symptoms. PHYSICAL EXAMINATION: BP 122/72 (BP Site: Left Arm, BP Position: Sitting, BP Cuff Size: Large Adult) Pulse 71 Ht 172.7 cm (5' 8 ) Wt 99 kg (218 lb 4.1 oz) SpO2 95% BMI 33.19 kg/m? HEENT: normocephalic, EOMI Heart: regular rhythm Lungs: clear to auscultation Abdomen: bowel sounds present Extremities: pitting edema present 1+ bilaterally. Musculoskeletal: chest wall nontender Neurological: alert and oriented Psychiatric: appropriate and cooperative Skin: no rash, cellulitis or lesions appreciated CARDIOVASCULAR MEDICINE TESTING: I have personally reviewed ECG, laboratory results, and echocardiogram report Last ECHO Result Conclusion ECHO Collected: 04/14/2023 10:29 AM (Final result) Impression: CONCLUSIONS: - Technically difficult exam due to body habitus. - Exam indication: Routine surveillance of prosthetic valve (>3yrs) - The left ventricle is normal in size. Left ventricular systolic function is normal. EF = 62 ? 5% (2D biplane) Grade I left ventricular [...] - Exam was compared with the prior echocardiographic exam performed on 04/13/2020. There is no significant change. * * * Final * * * Last EKG Result Conclusion ECG COMPLETE Collected: 08/14/2023 9:29 AM (Preliminary result) Impression: NORMAL SINUS RHYTHM LOW VOLTAGE QRS, CONSIDER PULMONARY DISEASE, PERICARDIAL EFFUSION, OR NORMAL VARIANT BORDERLINE ECG PAST CARDIAC HISTORY: See above. PAST MEDICAL HISTORY (more content not included)... Normal [facility] CBC panel Auto (Bld)on 08-14 Erythrocyte distribution width (RBC) [Ratio] 14.8 % 11.5 - 15.0 % [facility] Hematocrit (Bld) [Volume fraction] 40.3 % 39.0 - 51.0 % [facility] Hemoglobin (Bld) [Mass/Vol] 13.4 g/dL 13.0 - 17.0 g/dL [facility] MCH (RBC) [Entitic mass] 30.5 pg 26.0 - 34.0 pg [facility] MCHC (RBC) [Mass/Vol] 33.3 g/dL 30.5 - 36.0 g/dL [facility] MCV (RBC) [Entitic vol] 91.6 fL 80.0 - 100.0 fL [facility] Nucleated RBC (Bld) [#/Vol] <0.01 k/uL [facility] Platelet mean volume (Bld) [Entitic vol] 12.8 fL High 9.0 - 12.7 fL [facility] Platelets (Bld) [#/Vol] 194 10*3/uL 150 - 400 k/uL [facility] RBC (Bld) [#/Vol] 4.40 10*6/uL 4.20 - 6.0 0 m/uL [facility] WBC (Bld) [#/Vol] 10.34 10*3/uL 3.70 - 11 .00 k/uL [facility] Erythrocyte distribution width (RBC) [Ratio] 14.8 % Normal 11.5-15.0 [facility] Comment on above: Order Comment: Speci men Type: BLOOD SPECIMEN Ordering Facility: [facility] Address: [address] [place] [address] Performed By: #### 5 8410-2 #### [facility] CLIA [id number] [address] [place] [address] [place] [facility] Hematocrit (Bld) [Volume fraction] 40.3 % Normal 39.0-51.0 [facility] Comment on above: Order Comment: Speci men Type: BLOOD SPECIMEN Ordering Facility: [facility] Address: [address] [place] [address] Performed By: #### 5 8410-2 #### [facility] CLIA [id number] [address] [place] [address] [place] Hemoglobin (Bld) [Mass/Vol] 13.4 g/dL Normal 13.0-17.0 [facility] Comment on above: Order Comment: Speci men Type: BLOOD SPECIMEN Ordering Facility: [facility] Address: [address] [place] [address] Performed By: #### 5 8410-2 #### [facility] CLIA [id number] [address] [place] [address] [place] MCH (RBC) [Entitic mass] 30.5 pg Normal 26.0-34.0 [facility] Comment on above: Order Comment: Speci men Type: BLOOD SPECIMEN Ordering Facility: [facility] Address: [address] [place] [address] Performed By: #### 5 8410-2 #### [facility] CLIA [id number] [address] [place] [address] [place] MCHC (RBC) [Mass/Vol] 33.3 g/dL Normal 30.5-36.0 [facility] Comment on above: Order Comment: Speci men Type: BLOOD SPECIMEN Ordering Facility: [facility] Address: [address] [place] [address] Performed By: #### 5 8410-2 #### [facility] CLIA [id number] [address] [place] [address] [place] MCV (RBC) [Entitic vol] 91.6 fL Normal 80.0-100.0 [facility] Comment on above: Order Comment: Speci men Type: BLOOD SPECIMEN Ordering Facility: [facility] Address: [address] [place] [address] Performed By: #### 5 8410-2 #### [facility] CLIA [id number] [address] [place] [address] [place] Nucleated RBC (Bld) [#/Vol] 10*3/uL Normal <0.01 [facility] Comment on above: Order Comment: Speci men Type: BLOOD SPECIMEN Ordering Facility: [facility] Address: [address] [place] [address] Performed By: #### 5 8410-2 #### [facility] CLIA [id number] [address] [place] [address] [place] Platelet mean volume (Bld) [Entitic vol] 12.8 fL High 9.0-12.7 [facility] Comment on above: Order Comment: Speci men Type: BLOOD SPECIMEN Ordering Facility: [facility] Address: [address] [place] [address] Performed By: #### 5 8410-2 #### [facility] CLIA [id number] [address] [place] [address] [place] Platelets (Bld) [#/Vol] 194 10*3/uL Normal 150-400 [facility] Comment on above: Order Comment: Speci men Type: BLOOD SPECIMEN Ordering Facility: [facility] Address: [address] [place] [address] Performed By: #### 5 8410-2 #### [facility] CLIA [id number] [address] [place] [address] [place] RBC (Bld) [#/Vol] 4.40 10*6/uL Normal 4.20-6.00 [facility] Comment on above: Order Comment: Speci men Type: BLOOD SPECIMEN Ordering Facility: [facility] Address: [address] [place] [address] Performed By: #### 5 8410-2 #### [facility] CLIA [id number] [address] [place] [address] [place] WBC (Bld) [#/Vol] 10.34 10*3/uL Normal 3.70-11.00 [facility] Comment on above: Order Comment: Speci men Type: BLOOD SPECIMEN Ordering Facility: [facility] Address: [address] [place] [address] Performed By: #### 5 8410-2 #### [facility] CLIA [id number] [address] [place] [address] [place] [address] [place] CNOVon 08-14-2023 [facility] Office Visit (CARDLO ) -------- NAKIA NARAYANAN ([id number]) 1935 M Date Time Provider Department 08/14/23 9:30 AM JOAO LARA During your visit today, we recorded the following information about you: Pulse Blood pressure Weight 67/minute 134/72 97.7 kg Joao Lara APRN.LOPPER 08/27/2023 10:06 PM Signed [facility] Stacy Gavin Department of Cardiovascular Medicine SECTION [...] CABG x 1 Z95.1 5. Atherosclerosis of [place] coronary artery of [place] heart without angina pectoris I25.10 COMP METABOLIC [...] mood maris (more content not included)... Normal [facility] Comprehensive metabolic 2000 panelon 08-14-2023 Albumin [Mass/Vol] 3.9 g/dL 3.9 - 4.9 g/dL [facility] ALP [Catalytic activity/Vol] 72 U/L 38 - 113 U/L [facility] ALT [Catalytic activity/Vol] 14 U/L 10 - 54 U/L [facility] Anion gap [Moles/Vol] 13 mmol/L 9 - 18 mmol/L [facility] AST [Catalytic activity/Vol] 20 U/L 14 - 40 U/L [facility] Bilirubin [Mass/Vol] 0.3 mg/dL 0.2 - 1 .3 mg/dL [facility] Calcium [Mass/Vol] 9.1 mg/dL 8.5 - 10. 2 mg/dL [facility] Chloride [Moles/Vol] 107 mmol/L High 97 - 10 5 mmol/L [facility] CO2 [Moles/Vol] 24 mmol/L 22 - 30 mmol/L [facility] Creatinine [Mass/Vol] 1.28 mg/dL High 0.73 - 1.22 mg/dL [facility] Estimated Glomerular Filtration Rate 54 mL/min/1.73m Low >=60 mL/min/1.73m [facility] Glucose [Mass/Vol] 121 mg/dL High 74 - 99 mg/dL [facility] Potassium [Moles/Vol] 4.2 mmol/L 3.7 - 5.1 mmol/L [facility] Protein [Mass/Vol] 6.3 g/dL 6.3 - 8.0 g/dL [facility] Sodium [Moles/Vol] 144 mmol/L 136 - 144 mmol/L [facility] Urea nitrogen [Mass/Vol] 22 mg/dL 9 - 24 mg/dL [facility] Albumin [Mass/Vol] 3.9 g/dL Normal 3.9-4.9 [facility] Comment on above: Order Comment: Speci men Type: BLOOD SPECIMEN Ordering Facility: [facility] Address: [address] [place] [address] Performed By: #### 1 9123-9, LIPNF, 00338-7 #### [facility] CLIA [id number] [address] [place] [address] [place] ALP [Catalytic activity/Vol] 72 U/L Normal 38-113 [facility] Comment on above: Order Comment: Speci men Type: BLOOD SPECIMEN Ordering Facility: [facility] Address: [address] [place] [address] Performed By: #### 1 9123-9, LIPNF, 94954-9 #### [facility] CLIA [id number] [address] [place] [address] [place] ALT [Catalytic activity/Vol] 14 U/L Normal 10-54 [facility] Comment on above: Order Comment: Speci men Type: BLOOD SPECIMEN Ordering Facility: [facility] Address: [address] [place] [address] Performed By: #### 1 9123-9, LIPNF, 54162-0 #### [facility] CLIA [id number] [address] [place] [address] [place] Anion gap [Moles/Vol] 13 mmol/L Normal 9-18 [facility] Comment on above: Order Comment: Speci men Type: BLOOD SPECIMEN Ordering Facility: [facility] Address: [address] [place] [address] Performed By: #### 1 9123-9, LIPNF, 29180-8 #### [facility] CLIA [id number] [address] [place] [address] [place] AST [Catalytic activity/Vol] 20 U/L Normal 14-40 [facility] Comment on above: Order Comment: Speci men Type: BLOOD SPECIMEN Ordering Facility: [facility] Address: [address] [place] [address] Performed By: #### 1 9123-9, LIPNF, 93912-0 #### [facility] CLIA [id number] [address] [place] [address] [place] Bilirubin [Mass/Vol] 0.3 mg/dL Normal 0.2-1.3 [facility] Comment on above: Order Comment: Speci men Type: BLOOD SPECIMEN Ordering Facility: [facility] Address: [address] [place] [address] Performed By: #### 1 9123-9, LIPNF, 60596-1 #### [facility] CLIA [id number] [address] [place] [address] [place] Calcium [Mass/Vol] 9.1 mg/dL Normal 8.5-10.2 [facility] Comment on above: Order Comment: Speci men Type: BLOOD SPECIMEN Ordering Facility: [facility] Address: [address] [place] [address] Performed By: #### 1 9123-9, LIPNF, 29722-0 #### [facility] CLIA [id number] [address] [place] [address] [place] Chloride [Moles/Vol] 107 mmol/L High 97-105 [facility] Comment on above: Order Comment: Speci men Type: BLOOD SPECIMEN Ordering Facility: [facility] Address: [address] [place] [address] Performed By: #### 1 9123-9, LIPNF, 07599-5 #### [facility] CLIA [id number] [address] [place] [address] [place] CO2 [Moles/Vol] 24 mmol/L Normal 22-30 [facility] Comment on above: Order Comment: Speci men Type: BLOOD SPECIMEN Ordering Facility: [facility] Address: [address] [place] [address] Performed By: #### 1 9123-9, YVETTE, #### [facility] CLIA [id number] [address] [place] [address] [place] Creatinine [Mass/Vol] 1.28 mg/dL High 0.73-1.22 [facility] Comment on above: Order Comment: Speci men Type: BLOOD SPECIMEN Ordering Facility: [facility] Address: [address] [place] [address] Performed By: #### 1 9123-9, YVETET, #### [facility] CLIA [id number] [address] [place] [address] [place] Creatinine and Glomerular filtration rate.predicted panel (S/P/Bld) 54 mL/min/1.73m??? Low >=60 [facility] Comment on above: Order Comment: Speci men Type: BLOOD SPECIMEN Ordering Facility: [facility] Address: [address] [place] [address] Result Comment: Brenda mated Glomerular Filtration Rate [...] GFR. Performed By: #### 1 9123-9, YVETTE, #### [facility] CLIA [id number] [address] [place] [address] [place] Glucose [Mass/Vol] 121 mg/dL High 74-99 [facility] Comment on above: Order Comment: Specjoseph toscano Type: BLOOD SPECIMEN Ordering Facility: [facility] Address: [address] [place] [address] Result Comment: The [place] Diabetes Association (ADA) provides guidance for cutoff [...] Standards of Medical Care in Diabetes 2016, [place] [employer]. Diabetes Care. 2016.39(Suppl 1). Performed By: #### 1 9123-9, LIPNF, 71097-8 #### [facility] CLIA [id number] [address] [place] [address] [place] Potassium [Moles/Vol] 4.2 mmol/L Normal 3.7-5.1 [facility] Comment on above: Order Comment: Claudia toscano Type: BLOOD SPECIMEN Ordering Facility: [facility] Address: [address] [place] [address] Performed By: #### 1 9123-9, LIPNF, 08879-9 #### [facility] CLIA [id number] [address] [place] [address] [place] Protein [Mass/Vol] 6.3 g/dL Normal 6.3-8.0 [facility] Comment on above: Order Comment: Claudia toscano Type: BLOOD SPECIMEN Ordering Facility: [facility] Address: [address] [place] [address] Performed By: #### 1 9123-9, LIPNF, 66965-7 #### [facility] CLIA [id number] [address] [place] [address] [place] Sodium [Moles/Vol] 144 mmol/L Normal 136-144 [facility] Comment on above: Order Comment: Speci men Type: BLOOD SPECIMEN Ordering Facility: [facility] Address: [address] [place] [address] Performed By: #### 1 9123-9, LIPNF, 37873-9 #### [facility] CLIA [id number] [address] [place] [address] [place] Urea nitrogen [Mass/Vol] 22 mg/dL Normal 9-24 [facility] Comment on above: Order Comment: Speci men Type: BLOOD SPECIMEN Ordering Facility: [facility] Address: [address] [place] [address] Performed By: #### 1 9123-9, LIPNF, 06329-9 #### [facility] CLIA [id number] [address] [place] [address] [place] ECG COMPLETEon 08-14-2023 Atrial Rate 72 BPM [facility] Calculated P Sussex 58 degrees [facility] Calculated R [place] -[address] [facility] Calculated T [place] [address] [facility] P-R Interval 182 ms [facility] QRS Duration 102 ms [facility] QT Interval 390 ms [facility] QTC Calculation (Bazett) 427 ms [facility] Ventricular Rate 72 BPM [facility] ECG COMPLETE Ventricular Rate : 7 2 BPM Atrial Rate : 72 BPM P-R Interval : 182 ms QRS Duration : 102 ms Q-T Interval : 390 ms QTC Calculation(Bazett) : 427 ms Calculated P [place] : 58 degrees Calculated R [place] : -9 degrees Calculated T [place] : 64 degrees NORMAL SINUS RHYTHM LOW VOLTAGE QRS, CONSIDER PULMONARY DISEASE, PERICARDIAL EFFUSION, OR NORMAL VARIANT BORDERLINE ECG Confirmed by RACIEL ANGELES, MARY Santiago ([id number]) on 08/14/2023 4:17:30 PM NAME : NAKIA NARAYANAN PID : [id number] : 1935 Gender : Male Race : ORD : [id number] Procedure Date : Aug 14 2023 09:29:38 Edit Date : Aug 14 2023 16:17:34 Diagnosis: NORMAL SINUS RHYTHM LOW VOLTAGE QRS, CONSIDER PULMONARY DISEASE, PERICARDIAL EFFUSION, OR NORMAL VARIANT BORDERLINE ECG Confirmed by MARY SCHRADER MD ([id number]) on 08/14/2023 4:17:30 PM Test Reason : I10 Primary hypertension Location : 145 : [place] Overread By : MARY SCHRADER MD Edited By : MARY SCHRADER MD Referred By : MARCO A GARVEY Acquired by : lrs, Normal [facility] LIPID PANEL, NONFASTINGon Cholesterol [Mass/Vol] 116 mg/dL <200 mg/dL [facility] HDL Cholesterol, Nonfasting 32 mg/dL Low >39 mg/dL [facility] LDL Cholesterol, Nonfasting 38 mg/dL <100 mg/dL [facility] LDL/HDL Ratio, Nonfasting 1.19 mg/dL <2.54 mg/dL [facility] Non HDL Cholesterol, Nonfasting 84 mg/dL <130 mg/dL [facility] Total Chol/HDL Ratio, Nonfasting 3.63 mg/dL <5.10 mg/dL [facility] Triglycerides, Nonfasting 230 mg/dL High <150 mg/dL [facility] VLDL Cholesterol, Nonfasting 46 mg/dL High <30 mg/dL [facility] Cholesterol [Mass/Vol] 116 mg/dL Normal <200 [facility] Comment on above: Order Comment: Claudia toscano Type: BLOOD SPECIMEN Ordering Facility: [facility] Address: [address] [place] [address] Result Comment: <200 mg/dL, Desirable 200-239 mg/dL, Borderline high >239 mg/dL, High Performed By: #### 1 9123-9, LIPNF, 48660-3 #### [facility] CLIA [id number] [address] [place], [place] [address] [place] [address] [place] HDL CHOLESTEROL, NF 32 mg/dL Low >39 [facility] Comment on above: Order Comment: Claudia toscano Type: BLOOD SPECIMEN Ordering Facility: [facility] Address: [address] [place] [address] Result Comment: 40-5 9 mg/dL, Acceptable >59 mg/dL, High: Negative risk factor for coronary heart disease <40 mg/dL, Low: Positive risk factor for coronary heart disease Performed By: #### 1 9123-9, LIPNF, 81634-6 #### [facility] CLIA [id number] [address] [place] [address] [place] LDL CHOLESTEROL, NF 38 mg/dL Normal <100 [facility] Comment on above: Order Comment: Claudia toscano Type: BLOOD SPECIMEN Ordering Facility: [facility] Address: [address] [place] [address] Result Comment: <100 mg/dL, Optimal 100-129 mg/dL, Near optimal/above optimal 130-159 mg/dL, Borderline high 160-189 mg/dL, High >189 mg/dL, Very high Secondary prevention optimal LDL Cholesterol levels are recommended to be < 70 mg/dL Performed By: #### 1 9123-9, LIPNF, #### [facility] CLIA [id number] [address] [place] [address] [place] LDL/HDL RATIO, NF 1.19 mg/dL Normal <2.54 [facility] Comment on above: Order Comment: Speci men Type: BLOOD SPECIMEN Ordering Facility: [facility] Address: [address] [place] [address] Result Comment: Larry haddad: 1. National Cholesterol Education Program ATP III Guideline At-A-Glance Quick Desk Reference: National Heart, Lung, and Blood [place]. National Institutes of Health. 2001: NIH Publication No. 01-3305. 2. An International Atherosclerosis Society position paper: global recommendations for the management of dyslipidemia: executive summary, Atherosclerosis. 2014: 232(2):410-413. Performed By: #### 1 9123-9, LIPNF, #### [facility] CLIA [id number] [address] [place] [address] [place] NON HDL CHOL, NF 84 mg/dL Normal <130 [facility] Comment on above: Order Comment: Claudia men Type: BLOOD SPECIMEN Ordering Facility: [facility] Address: [address] [place] [address] Result Comment: <130 mg/dL, Optimal 130-159 mg/dL, Near optimal/above optimal 160-189 mg/dL, Borderline high 190-219 mg/dL, High >219 mg/dL, Very high Secondary prevention optimal non HDL Cholesterol levels are recommended to be <100 mg/dL Performed By: #### 1 9123-9, LIPNF, 75338-8 #### [facility] CLIA [id number] [address] [place] [address] [place] T CHOL/HDL RATIO NF 3.63 mg/dL Normal <5.10 [facility] Comment on above: Order Comment: Speci men Type: BLOOD SPECIMEN Ordering Facility: [facility] Address: [address] [place] [address] Performed By: #### 1 9123-9, LIPZACHERY, 87491-0 #### [facility] CLIA [id number] [address] [place] [address] [place] TRIGLYCERIDES, NF 230 mg/dL High <150 [facility] Comment on above: Order Comment: Speci men Type: BLOOD SPECIMEN Ordering Facility: [facility] Address: [address] [place] [address] Result Comment: <150 mg/dL, Normal 150-199 mg/dL, Borderline high 200-499 mg/dL, High >499 mg/dL, Very high Performed By: #### 1 9123-9, LIPZACHERY, 99762-1 #### [facility] CLIA [id number] [address] [place] [address] [place] VLDL CHOLESTEROL, NF 46 mg/dL High <30 [facility] Comment on above: Order Comment: Speci men Type: BLOOD SPECIMEN Ordering Facility: [facility] Address: [address] [place] [address] Performed By: #### 1 9123-9, LIPZACHERY, 50062-7 #### [facility] CLIA [id number] [address] [place] [address] [place] MAGNESIUM BLDon 08-14-2023 Magnesium [Mass/Vol] 1.7 mg/dL 1.7 - 2 .3 mg/dL [facility] Magnesium SerPl-mCncon 08-14 Magnesium [Mass/Vol] 1.7 mg/dL Normal 1.7-2.3 [facility] Comment on above: Order Comment: Speci men Type: BLOOD SPECIMEN Ordering Facility: [facility] Address: [address] [place] [address] Performed By: #### 1 9123-9, LIPZACHERY, 37566-5 #### [facility] CLIA [id number] [address] [place] [address] [place] [address] [place] [facility] ECHOon 04-14-2023 Echocardiography Echocardiography Rep ort: Transthoracic Echo Formerly [facility] Date of service: 04/14/2023 10:29:09 AM ASSISTANT Ordering physician: JOAO LARA Indication: Routine surveillance [...] - Exam was compared with the prior echocardiographic exam performed on 04/13/2020. There is no significant change. * * * Final * * * [employer] Medical Image : [id number] Normal [facility] Ambulatory Visit Summaryon 1 Ambulatory Visit Summary ROVERTO NARAYANANCOLLEEN Lindsay :1935 Visit Date:04/03/2023 Ambulatory Visit Instructions Your Diagnosis Kidney stones BPH with urinary obstruction Glucosuria Tests Performed Urnls Dip Stick Auto w/o Microscopy POC 91831 XR Abdomen 1 View -- Results Pending [...] ANGELES, Sadaf Adamson Where: [facility] Patient Educationon 04-03-20 Patient Education Nephrology Dietary Guidelines to Help [...] ? 8 oz (237 mL) of milk, qydccky-bprlcpvjqsgf-rmk ry milk, and calcium-fortifiedfruit juice. Calcium-fortified means [...] Spinach (cooked), rhubarb, beets, sweet potatoes, and Scottish chard. ? Peanuts. ? Potato chips, arabic fries, and baked potatoes with skin on. ? Nuts and nut products. ? Chocolate. ? If you regularly take a diuretic medicine, make sure to eat at least 1 or 2 servings of fruits or vegetables that are high in potassium each day. These include: ? Avocado. ? Banana. ? [place], prune, carrot, or tomato juice. ? Baked [...] fish oil, or vitamin B6. ? Take geyk-yeu-ukflvki and prescription medicines only as told by your health care provider. These include supplements. What foods should I limit? Limit your in (more content not included)... 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 Normal [facility] Comment on above: Result Comment: Elec tronically Signed By: Sadaf STOVALL MD\.br\Date and Time Signed: 04/03/23 09:28 EDT\.br\Electronically Co-Signed By: Tori Ventura.br\Date and Time Co-Signed: 04/03/23 09:26 EDT CNOVjose 02-20-2023 JOSE Office Visit (GRAY ) -------- NAKIA NARAYANAN ([id number]) 1935 M Date Time Provider Department 02/20/23 10:30 AM MARCO A GARVEY During your visit today, we recorded the following information about you: Pulse Blood pressure Weight 68/minute 137/92 93.4 kg Marco A Garvey MD 02/20/2023 10:39 AM Signed [facility] OUTPATIENT VISIT DATE February 20, 2023 OUTPATIENT VISIT TYPE ESTABLISHED PRIMARY CARE PHYSICIAN: Benjie Covarrubias II, MD [address] [place] [address] CHIEF COMPLAINT: Heart failure, Hyperlipidemia, Hypertension, and [...] failure (HCC) I50.32 ECHO 5. Atherosclerosis of [place] coronary artery of [place] heart without angina pectoris I25.10 ECHO 6. [...] ECG Confirmed by MARCO A GARVEY MD ([id number]) on 08/24/2022 10:00:15 AM PAST CARDIAC HISTORY: See above. PAST MEDICAL HISTORY Diagnosis Date Atherosclerosis of [place] coronary artery of [place] heart without angina pectoris 04/07/2020 Chronic diastolic heart failure (HCC) DMII (diabetes mellitus, type 2) ([facility]) 1999 HLD (hyperlipidemia) 1999 HTN (hypertension) 1999 Nonrheumatic aortic valve stenosis Orthostatic lightheadedness Pure hypercholesterolemia 06/18/2019 Type 2 diabetes mellitus without complication, with long-term current use of insulin ([facility]) 04/07/2020 PAST SURGICAL HISTORY Procedure Laterality Date [...] 5 mg by mouth as needed.) sitaGLIPtin-metFORMIN (CANDICEUMET) (more content not included)... Normal [facility] ECG COMPLETEon 08-24-2022 Atrial Rate 72 BPM [facility] Calculated P [place] [address] [facility] Calculated R [place] [address] [facility] Calculated T [place] [address] [facility] P-R Interval 188 ms [facility] QRS Duration 94 ms [facility] QT Interval 402 ms [facility] QTC Calculation (Bazett) 440 ms [facility] Ventricular Rate 72 BPM [facility] CBC panel Auto (Bld)on 08-23 Erythrocyte distribution width (RBC) [Ratio] 14.4 % 11.5 - 15.0 % [facility] Hematocrit (Bld) [Volume fraction] 43.9 % 39.0 - 51.0 % [facility] Hemoglobin (Bld) [Mass/Vol] 14.2 g/dL 13.0 - 17.0 g/dL [facility] MCH (RBC) [Entitic mass] 29.4 pg 26.0 - 34.0 pg [facility] MCHC (RBC) [Mass/Vol] 32.3 g/dL 30.5 - 36.0 g/dL [facility] MCV (RBC) [Entitic vol] 90.9 fL 80.0 - 100.0 fL [facility] Nucleated RBC (Bld) [#/Vol] <0.01 k/uL [facility] Platelet mean volume (Bld) [Entitic vol] 13.0 fL High 9.0 - 12.7 fL [facility] Platelets (Bld) [#/Vol] 189 10*3/uL 150 - 400 k/uL [facility] RBC (Bld) [#/Vol] 4.83 10*6/uL 4.20 - 6.0 0 m/uL [facility] WBC (Bld) [#/Vol] 8.53 10*3/uL 3.70 - 11. 00 k/uL [facility] Comprehensive metabolic 2000 panelon 08-23-2022 Albumin [Mass/Vol] 4.3 g/dL 3.9 - 4.9 g/dL [facility] ALP [Catalytic activity/Vol] 75 U/L 38 - 113 U/L [facility] ALT [Catalytic activity/Vol] 26 U/L 10 - 54 U/L [facility] Anion gap [Moles/Vol] 11 mmol/L 9 - 18 mmol/L [facility] AST [Catalytic activity/Vol] 31 U/L 14 - 40 U/L [facility] Bilirubin [Mass/Vol] 0.4 mg/dL 0.2 - 1 .3 mg/dL [facility] Calcium [Mass/Vol] 9.3 mg/dL 8.5 - 10. 2 mg/dL [facility] Chloride [Moles/Vol] 103 mmol/L 97 - 10 5 mmol/L [facility] CO2 [Moles/Vol] 25 mmol/L 22 - 30 mmol/L [facility] Creatinine [Mass/Vol] 1.17 mg/dL 0.73 - 1.22 mg/dL [facility] Estimated Glomerular Filtration Rate 60 mL/min/1.73m >=60 mL/min/1.73m [facility] Glucose [Mass/Vol] 277 mg/dL High 74 - 99 mg/dL [facility] Potassium [Moles/Vol] 5.0 mmol/L 3.7 - 5.1 mmol/L [facility] Protein [Mass/Vol] 6.4 g/dL 6.3 - 8.0 g/dL [facility] Sodium [Moles/Vol] 139 mmol/L 136 - 144 mmol/L [facility] Urea nitrogen [Mass/Vol] 21 mg/dL 9 - 24 mg/dL [facility] MAGNESIUM [facility] 08-23-2022 Magnesium [Mass/Vol] 1.7 mg/dL 1.7 - 2 .3 mg/dL [facility] TSH [facility] 08-23-2022 TSH Qn 5.670 m[IU]/L High 0.270 - 4.200 mIU/L [facility] XR KUB 1 VIEWon 03-28-2022 XR KUB [...] by: LISA CORRALES Date: 2022-03-28 16:[address] [facility] XR LSPINE W_OBLS AND FLEX_EX Ton [...] DOLORES NIETO Date: 2022-01-26 08:10 Normal [facility] Complete Blood Count with Au to Diffon 11-19-2021 Erythrocyte distribution width (RBC) [Ratio] 15.0 % Normal 11.0-15.0 [facility] Supervisor Roving Comment on above: Performed By: #### F T4, CMP, TSH reflex FT4, LIPD, URIC, CBCJESSICA, MDIFF #### [facility] [address] [place], [place] [id number] Hematocrit (Bld) [Volume fraction] 41.0 % Normal 38.5-50.0 [facility] Supervisor Roving Comment on above: Performed By: #### F T4, CMP, TSH reflex FT4, LIPD, URIC, CBCJESSICA MDIFF #### [facility] [address] [place], [place] [id number] Hemoglobin (Bld) [Mass/Vol] 13.2 g/dL Normal 13.0-17.1 [facility] Supervisor Roving Comment on above: Performed By: #### F T4, CMP, TSH reflex FT4, LIPD, URIC, CBCJESSICA, MDIFF #### [facility] [address] [place], [place] [id number] MCH (RBC) [Entitic mass] 29.3 pg Normal 27.0-33.0 [facility] Supervisor Roving Comment on above: Performed By: #### F T4, CMP, TSH reflex FT4, LIPD, URIC, CBCJESSICA, MDIFF #### [facility] [address] [place], [place] [id number] MCHC (RBC) [Mass/Vol] 32.2 g/dL Normal 32.0-36.0 [facility] Supervisor Roving Comment on above: Performed By: #### F T4, CMP, TSH reflex FT4, LIPD, URIC, CBCJESSICA, MDIFF #### [facility] [address] [place], [place] [id number] MCV (RBC) [Entitic vol] 91 fL Normal 80-100 [facility] Supervisor Roving Comment on above: Performed By: #### F T4, CMP, TSH reflex FT4, LIPD, URIC, CBCAD, MDIFF #### [facility] [address] [place], [place] [id number] Platelet mean volume (Bld) [Entitic vol] 12.40 fL Normal 7.50-12.50 [facility] Comment on above: Performed By: #### F T4, CMP, TSH reflex FT4, LIPD, URIC, CBCAD, MDIFF #### [facility] [address] [place], [place] [id number] Platelets (Bld) [#/Vol] 167 10*3/uL Normal 140-400 [facility] Comment on above: Performed By: #### F T4, CMP, TSH reflex FT4, LIPD, URIC, CBCAD, MDIFF #### [facility] [address] [place], [place] [id number] RBC (Bld) [#/Vol] 4.50 10*6/uL Normal 4.20-5.80 [facility] Comment on above: Performed By: #### F T4, CMP, TSH reflex FT4, LIPD, URIC, CBCAD, MDIFF #### [facility] [address] [place], [place] [id number] RDW-SD 50.4 fL High 37.0-50.0 [facility] Comment on above: Performed By: #### F T4, CMP, TSH reflex FT4, LIPD, URIC, CBCAD, MDIFF #### [facility] [address] [place], [place] [id number] REFLEX Manual Differential Normal [facility] Comment on above: Performed By: #### F T4, CMP, TSH reflex FT4, LIPD, URIC, CBCAD, MDIFF #### [facility] [address] [place], [place] [id number] WBC (Bld) [#/Vol] 10.5 10*3/uL Normal 3.8-11.0 [facility] Comment on above: Performed By: #### F T4, CMP, TSH reflex FT4, LIPD, URIC, CBCAD, MDIFF #### [facility] [address] [place], [place] [id number] Comprehensive Metabolic Pane mary 11-19-2021 Albumin [Mass/Vol] 3.9 g/dL Normal 3.6-5.1 [facility] Comment on above: Performed By: #### F T4, CMP, TSH reflex FT4, LIPD, URIC, CBCAD, MDIFF #### [facility] [address] [place], [place] [id number] Albumin/Globulin [Mass ratio] 1.7 {ratio} Normal 1.0-2.5 [facility] Comment on above: Performed By: #### F T4, CMP, TSH reflex FT4, LIPD, URIC, CBCAD, MDIFF #### [facility] [address] [place], [place] [id number] ALP [Catalytic activity/Vol] 64 U/L Normal 40-129 [facility] Comment on above: Performed By: #### F T4, CMP, TSH reflex FT4, LIPD, URIC, CBCAD, MDIFF #### [facility] [address] [place], [place] [id number] ALT [Catalytic activity/Vol] 29 U/L Normal 9-46 [facility] Comment on above: Result Comment: 05/26 Female reference range changed. Performed By: #### F T4, CMP, TSH reflex FT4, LIPD, URIC, CBCAD, MDIFF #### [facility] [address] [place], [place] [id number] Anion gap [Moles/Vol] 18 mmol/L Normal 12-20 [facility] Comment on above: Result Comment: Effe ctive 07/01/2019 reference range changed. Performed By: #### F T4, CMP, TSH reflex FT4, LIPD, URIC, CBCAD, MDIFF #### [facility] [address] [place], [place] [id number] AST [Catalytic activity/Vol] 25 U/L Normal 10-40 [facility] Comment on above: Performed By: #### F T4, CMP, TSH reflex FT4, LIPD, URIC, CBCJESSICA, MDIFF #### [facility] [address] [place], [place] [id number] Bilirubin [Mass/Vol] 0.67 mg/dL Normal 0.30-1.20 [facility] Comment on above: Performed By: #### F T4, CMP, TSH reflex FT4, LIPD, URIC, CBCAD, MDIFF #### [facility] [address] [place], [place] [id number] BUN/CREA 15 Ratio Normal 6-22 [facility] Comment on above: Performed By: #### F T4, CMP, TSH reflex FT4, LIPD, URIC, CBCJESSICA, IFF #### [facility] [address] [place], [place] [id number] Calcium [Mass/Vol] 9.0 mg/dL Normal 8.6-10.2 [facility] Comment on above: Performed By: #### F T4, CMP, TSH reflex FT4, LIPD, URIC, CBCJESSICA, MDIFF #### [facility] [address] [place], [place] [id number] Chloride [Moles/Vol] 103 mmol/L Normal 98-107 [facility] Comment on above: Performed By: #### F T4, CMP, TSH reflex FT4, LIPD, URIC, CBCJESSICA, MDIFF #### [facility] [address] [place], [place] [id number] CO2 [Moles/Vol] 24 mmol/L Normal 20-31 [facility] Comment on above: Performed By: #### F T4, CMP, TSH reflex FT4, LIPD, URIC, CBCMD JESSICAIFF #### [facility] [address] [place], [place] [id number] Creatinine [Mass/Vol] 1.3 mg/dL Normal 0.7-1.4 [facility] Comment on above: Performed By: #### F T4, CMP, TSH reflex FT4, LIPD, URIC, CBCJESSICA, MDIFF #### [facility] [address] [place], [place] [id number] eGFRAA 62 mL/min/1.73m2 Normal >60 [facility] Comment on above: Performed By: #### F T4, CMP, TSH reflex FT4, LIPD, URIC, CBCJESSICA, MDIFF #### [facility] [address] [place], [place] [id number] eGFRNAA 51 mL/min/1.73m2 Low >60 [facility] Comment on above: Performed By: #### F T4, CMP, TSH reflex FT4, LIPD, URIC, CBCJESSICA, MDIFF #### [facility] [address] [place], [place] [id number] Globulin (S) [Mass/Vol] 2.3 g/dL Normal 1.9-3.7 [facility] Supervisor [place] Comment on above: Performed By: #### F T4, CMP, TSH reflex FT4, LIPD, URIC, CBCAD, MDIFF #### [facility] [address] [place], [place] [id number] Glucose [Mass/Vol] 199 mg/dL High 65-99 Garcia adkins [place] Supervisor [place] Comment on above: Result Comment: For FASTING Glucose --- ADA reference ranges: Normal 65-99 mg/dl Prediabetes 100-125 Diabetes >/= 126 Performed By: #### F T4, CMP, TSH reflex FT4, LIPD, URIC, CBCAD, MDIFF #### [facility] [address] [place], [place] [id number] Potassium [Moles/Vol] 4.5 mmol/L Normal 3.5-5.5 [facility] Supervisor [place] Comment on above: Performed By: #### F T4, CMP, TSH reflex FT4, LIPD, URIC, CBCAD, MDIFF #### [facility] [address] [place], [place] [id number] Protein [Mass/Vol] 6.2 g/dL Normal 6.1-8.1 [place] Super[facility] [place] Comment on above: Performed By: #### F T4, CMP, TSH reflex FT4, LIPD, URIC, CBCAD, MDIFF #### [facility] [address] [place], [place] [id number] Sodium [Moles/Vol] 140 mmol/L Normal 135-146 [facility] [place] Supervisor [place] Comment on above: Performed By: #### F T4, CMP, TSH reflex FT4, LIPD, URIC, CBCJESSICA, MDIFF #### [facility] [address] [place], [place] [id number] Urea nitrogen [Mass/Vol] 20 mg/dL Normal 7-25 [facility] Supervisor [place] Comment on above: Performed By: #### F T4, CMP, TSH reflex FT4, LIPD, URIC, CBCAD, MDIFF #### [facility] [address] [place], [place] [id number] Free T4on 11-19-2021 Free T4 [Mass/Vol] 0.96 ng/dL Normal 0.80-1.80 [facility] Comment on above: Performed By: #### F T4, CMP, TSH reflex FT4, LIPD, URIC, MD CHINOIFF #### [facility] [address] [place], [place] [id number] Lipid Panelon 11-19-2021 Cholesterol [Mass/Vol] 143 mg/dL Normal 125-200 [facility] Comment on above: Result Comment: Low risk < 200mg/dL Borderline risk 201-239 mg/dl High risk > or equal to 240 Performed By: #### F T4, CMP, TSH reflex FT4, LIPD, URIC, MD CHINOIFF #### [facility] [address] [place] [id number] Cholesterol in HDL [Mass/Vol] 44 mg/dL Normal >40 [facility] Comment on above: Result Comment: High Cardiovascular Risk HDL <40 mg/dL Low Cardiovascular Risk HDL > or equal to 60 mg/dl Performed By: #### F T4, CMP, TSH reflex FT4, LIPD, URIC, MD CHINOIFF #### [facility] [address] [place] [id number] Cholesterol in LDL [Mass/Vol] 74 mg/dL Normal [facility] Comment on above: Result Comment: LDL ATP III CLASSIFICATION LDL less than 100 mg/dl Optimal LDL 100-129 mg/dl Near or above optimal LDL 130-159 Borderline high LDL 160-189 High LDL greater than 189 mg/dl Very High Performed By: #### F T4, CMP, TSH reflex FT4, LIPD, URIC, CHINO MDIFF #### [facility] [address] [place] [id number] Cholesterol in VLDL [Mass/Vol] 25 mg/dL Normal [facility] Comment on above: Performed By: #### F T4, CMP, TSH reflex FT4, LIPD, URIC, CHINO MDIFF #### [facility] [address] [place] [id number] Cholesterol.total/Ch olesterol in HDL [Mass ratio] 3 {ratio} Normal [facility] Comment on above: Performed By: #### F T4, CMP, TSH reflex FT4, LIPD, URIC, CBCAD, MDIFF #### [facility] [address] [place], [place] [id number] Triglyceride [Mass/Vol] 124 mg/dL Normal 30-150 [facility] Supervisor [place] Comment on above: Result Comment: TRIG ATPIII CLASSIFICATIONS TRIG less than 150 mg/dl Normal TRIG 150-199 mg/dl Borderline High TRIG 200-500 mg/dl High TRIG greather than 500 mg/dl Very High Performed By: #### F T4, CMP, TSH reflex FT4, LIPD, URIC, CBCAD, MDIFF #### [facility] [address] [place], [place] [id number] Manual Differentialon 2021 BAND 0.0 % Normal [facility] Comment on above: Performed By: #### F T4, CMP, TSH reflex FT4, LIPD, URIC, CBCAD, MDIFF #### [facility] [address] [place], [place] [id number] BANDABS 0.0 K/uL Normal [facility] Comment on above: Performed By: #### F T4, CMP, TSH reflex FT4, LIPD, URIC, CBCAD, MDIFF #### [facility] [address] [place], [place] [id number] BASO 0.0 % Normal [facility] Comment on above: Performed By: #### F T4, CMP, TSH reflex FT4, LIPD, URIC, CBCAD, MDIFF #### [facility] [address] [place], [place] [id number] BASOABS 0.0 K/uL Normal 0.0-0.2 [facility] Comment on above: Performed By: #### F T4, CMP, TSH reflex FT4, LIPD, URIC, CBCAD, MDIFF #### [facility] [address] [place], [place] [id number] EOS 1.0 % Normal [facility] Comment on above: Performed By: #### F T4, CMP, TSH reflex FT4, LIPD, URIC, CBCAD, MDIFF #### [facility] [address] [place], [place] [id number] EOSABS 0.1 K/uL Normal 0.0-0.5 [facility] Comment on above: Performed By: #### F T4, CMP, TSH reflex FT4, LIPD, URIC, CBCAD, MDIFF #### [facility] [address] [place], [place] [id number] LYMPH 16.0 % Normal [facility] Comment on above: Performed By: #### F T4, CMP, TSH reflex FT4, LIPD, URIC, CBCAD, MDIFF #### [facility] [address] [place], [place] [id number] LYMPHABS 1.7 K/uL Normal 0.9-3.9 [facility] Supervisor [place] Comment on above: Performed By: #### F T4, CMP, TSH reflex FT4, LIPD, URIC, CBCAD, MDIFF #### [facility] [address] [place], [place] [id number] LYMPHATYP 0.0 % Low 0.9-3.9 [facility] Comment on above: Performed By: #### F T4, CMP, TSH reflex FT4, LIPD, URIC, CBCAD, MDIFF #### [facility] [address] [place], [place] [id number] MONO 9.0 % Normal [facility] Comment on above: Performed By: #### F T4, CMP, TSH reflex FT4, LIPD, URIC, CBCAD, IFF #### [facility] [address] [place], [place] [id number] MONOABS 0.9 K/uL Normal 0.2-0.9 [facility] Comment on above: Performed By: #### F T4, CMP, TSH reflex FT4, LIPD, URIC, CBCAD, MDIFF #### [facility] [address] [place], [place] [id number] PLT EST Adequate Normal [facility] Supervisor [place] Comment on above: Performed By: #### F T4, CMP, TSH reflex FT4, LIPD, URIC, CBCADMDIFF #### [facility] [address] [place], [place] [id number] RBCMORPH Normal Normal [facility] Supervisor [place] Comment on above: Performed By: #### F T4, CMP, TSH reflex FT4, LIPD, URIC, CBCAD, MDIFF #### [facility] [address] [place], [place] [id number] SEG 74.0 % Normal [facility] Comment on above: Performed By: #### F T4, CMP, TSH reflex FT4, LIPD, URIC, CBCJESSICA, IFF #### [facility] [address] [place], [place] [id number] SEGABS 7.7 K/uL Normal 1.5-7.8 [facility] Comment on above: Performed By: #### F T4, CMP, TSH reflex FT4, LIPD, URIC, CBCJESSICA, IFF #### [facility] [address] [place], [place] [id number] WBC 10.5 K/uL Normal 3.8-11.0 [facility] Comment on above: Performed By: #### F T4, CMP, TSH reflex FT4, LIPD, URIC, CBCJESSICA, MDIFF #### [facility] [address] [place], [place] [id number] TSH w/ Reflex to Free T4on 0 11-19-2021 FT4 reflex Free T4 Normal [facility] Special[facility] Comment on above: Performed By: #### F T4, CMP, TSH reflex FT4, LIPD, URIC, CBCRICARDO LOPEZ #### [facility] [address] [place], [place] [id number] TSH 4.810 uIU/mL High 0.400-4.500 [facility] Supervisor [place] Comment on above: Performed By: #### F T4, CMP, TSH reflex FT4, LIPD, URIC, CBCJESSICA, MDIFF #### [facility] [address] [place], [place] [id number] Uric Acidon 11-19-2021 URIC 9.1 mg/dL High 4.0-8.0 [facility] Comment on above: Result Comment: Refe rence range change 05/12/2017. Prior reference range F 2.4-5.7mg/dL. M 3.4-7.0 mg/dL. Performed By: #### F T4, CMP, TSH reflex FT4, LIPD, URIC, CBCJESSICA, MDIFF #### [facility] [address] [place], [place] [id number] XR MODIFIED BARIUM SWALLOWon 11-16-2021 XR MODIFIED [...] by: DOLORES NIETO Date: 2021-11-16 09:[address] [facility] Vital Signs Date Time Vital Sign Value Performing Clinician Facility 02-15-2024 09:40-0400 Body height 172.7 cm Marco A Garvey MD Work Phone: [facility] 02-15-2024 09:40-0400 Body mass index (BMI) [Ratio] 33.19 kg/m2 Marco A Garvey MD Work Phone: [facility] 02-15-2024 09:40-0400 Body weight 99 kg Marco A Garvey MD Work Phone: [facility] 02-15-2024 09:40-0400 Diastolic blood pressure 72 mm[Hg] Marco A Garvey MD Work Phone: [facility] Comment on above: manual BP 02-15-2024 09:40-0400 Heart rate 71 /min Marco A Garvey MD Work Phone: [facility] 02-15-2024 09:40-0400 SaO2% (BldA) [Mass fraction] 95 % Marco A Garvey MD Work Phone: [facility] Comment on above: RA 02-15-2024 09:40-0400 Systolic blood pressure 122 mm[Hg] Marco A Garvey MD Work Phone: [facility] Comment on above: manual BP 01-12-2024 10:06-0400 Body height 172.72 cm [facility] 01-12-2024 10:06-0400 Body mass index (BMI) [Ratio] 33.1 kg/m2 [facility] 01-12-2024 10:06-0400 Body temperature 97.5 [degF] [facility] 01-12-2024 10:06-0400 Body weight 98.93 kg [facility] 01-12-2024 10:06-0400 Diastolic blood pressure 82 mm[Hg] [facility] 01-12-2024 10:06-0400 Heart rate 71 /min [facility] 01-12-2024 10:06-0400 Respiratory rate 16 /min [facility] 01-12-2024 10:06-0400 SaO2% (BldA) [Mass fraction] 91 % [facility] 01-12-2024 10:06-0400 Systolic blood pressure 123 mm[Hg] [facility] 08-14-2023 09:58-0500 Diastolic blood pressure 72 mm[Hg] Lavisa Lara [employer]LOPPER Work Phone: [facility] 08-14-2023 09:58-0500 Systolic blood pressure 134 mm[Hg] Lavisa Lara [employer] Work Phone: [facility] 08-14-2023 09:33-0500 Body weight 97.7 kg Lavisa Lara [employer] Work Phone: [facility] 08-14-2023 09:33-0500 Heart rate 67 /min Lavisa Lara [employer] Work Phone: [facility] 08-14-2023 09:33-0500 SaO2% (BldA) [Mass fraction] 97 % Lavisa Lara [employer]OPPER Work Phone: [facility] 02-20-2023 10:16-0400 Body weight 93.44 kg Marco A Garvey MD Work Phone: [facility] 02-20-2023 10:16-0400 Diastolic blood pressure 92 mm[Hg] Marco A Garvey MD Work Phone: [facility] 02-20-2023 10:16-0400 Heart rate 68 /min Marco A Garvey MD Work Phone: [facility] 02-20-2023 10:16-0400 SaO2% (BldA) [Mass fraction] 95 % Marco A Garvey MD Work Phone: [facility] 02-20-2023 10:16-0400 Systolic blood pressure 137 mm[Hg] Marco A Garvey MD Work Phone: [facility] 08-23-2022 10:34-0500 Diastolic blood pressure 73 mm[Hg] Lavisa Lara [employer] Work Phone: [facility] 08-23-2022 10:34-0500 Heart rate 67 /min Lavisa Lara [employer] Work Phone: [facility] 08-23-2022 10:34-0500 Systolic blood pressure 153 mm[Hg] Lavisa Lara [employer] Work Phone: [facility] 08-23-2022 10:20-0500 Body weight 102.97 kg Lavisa Lara [employer] Work Phone: [facility] 04-01-2022 08:54-0400 Blood Pressure Location Sadaf STOVALL [facility] 04-01-2022 08:54-0400 Diastolic blood pressure 83 mm[Hg] Sadaf STOVALL [facility] 04-01-2022 08:54-0400 Heart rate 73 /min Sadaf STOVALL [facility] 04-01-2022 08:54-0400 Systolic blood pressure 152 mm[Hg] Sadaf STOVALL [facility] 02-21-2022 10:19-0400 Body height 172.7 cm Marco A Garvey MD Work Phone: [facility] 02-21-2022 10:190400 Body weight 104.69 kg Marco A Garvey MD Work Phone: [facility] 02-21-2022 10:190400 Diastolic blood pressure 84 mm[Hg] Marco A Garvey MD Work Phone: [facility] 02-21-2022 10:190400 Heart rate 78 /min Marco A Garvey MD Work Phone: [facility] 02-21-2022 10:190400 SaO2% (BldA) [Mass fraction] 96 % Marco A Garvey MD Work Phone: [facility] 02-21-2022 10:190400 Systolic blood pressure 136 mm[Hg] Marco A Garvey MD Work Phone: [facility] Encounters Encounter Date Encounter Type Care Provider Facility Start: 04-05-2024 ambulatory Sadaf Martinez ty:[facility] Start: 03-14-2024 End: 03-14-2024 ambulatory LORENA RIVAS Not Available Start: 02-28-2024 End: 02-28-2024 ambulatory BENJIE COVARRUBIAS Not Available Start: 02-15-2024 End: 02-15-2024 Patient encounter procedure Marco A Garvey MD Work Phone: Cardiology Comment on above: S/P CABG x 1 (Primar y Dx); S/P AVR; Pure hypercholesterolemia; Primary hypertension; Chronic diastolic heart failure (HCC); Atherosclerosis of [place] coronary artery of [place] heart without angina pectoris Start: 02-15-2024 End: 02-15-2024 ambulatory MARCO A GARVEY Facility:[facility] Start: 01-18-2024 End: 01-18-2024 ambulatory BENJIE COVARRUBIAS Not Available Start: 01-12-2024 End: 01-12-2024 ambulatory [facility] Work Phone: Start: 01-12-2024 End: 01-12-2024 Patient encounter procedure [facility] Physician [facility] Work Phone: Start: 01-08-2024 End: 01-08-2024 ambulatory BENJIE B COVARRUBIAS Not Available Start: 01-04-2024 End: 01-04-2024 ambulatory LORENA Cheung BROWN Not Available Start: 12-27-2023 End: 12-27-2023 ambulatory RONNIE H TIMMIS Not Available Start: 12-13-2023 End: 12-13-2023 ambulatory RONNIE H TIMMIS Not Available Start: 12-11-2023 End: 12-11-2023 ambulatory BENJIE B COVARRUBIAS Not Available Start: 11-27-2023 End: 11-27-2023 ambulatory BENJIE B COVARRUBIAS Not Available Start: 10-26-2023 End: 10-26-2023 ambulatory LORENA A BROWN Not Available Start: 10-25-2023 End: 10-25-2023 ambulatory BENJIE B COVARRUBIAS Not Available Start: 10-18-2023 End: 10-18-2023 ambulatory BENJIE B COVARRUBIAS Not Available Start: 08-17-2023 End: 08-17-2023 ambulatory LORENA Jonatan BROWN Not Available Start: 08-14-2023 End: 08-14-2023 ambulatory BENJIE B COVARRUBIAS II Facility:[facility] Start: 08-14-2023 End: 08-14-2023 Patient encounter procedure Joao Lara APRN.CNP Work Phone: Cardiology Comment on above: Primary hypertension (Primary Dx); Chronic diastolic heart failure (HCC); Pure hypercholesterolemia; S/P CABG x 1; Atherosclerosis of [place] coronary artery of [place] heart without angina pectoris; Nonrheumatic aortic valve stenosis Start: 07-24-2023 End: 07-24-2023 ambulatory BENJIE B COVARRUBIAS Not Available Start: 04-14-2023 End: 04-14-2023 ambulatory BENJIE B COVARRUBIAS II Facility:[facility] Start: 04-03-2023 End: 04-04-2023 ambulatory Sadaf STOVALL Facility:[facility] Start: 02-20-2023 End: 02-20-2023 ambulatory BENJIE B COVARRUBIAS II Facility:[facility] Start: 02-20-2023 End: 02-20-2023 Patient encounter procedure Marco A Garvey MD Work Phone: Cardiology Comment on above: Nonrheumatic aortic valve stenosis (Primary Dx); Primary hypertension; Pure hypercholesterolemia; Chronic diastolic heart failure (HCC); Atherosclerosis of [place] coronary artery of [place] heart without angina pectoris; S/P CABG x 1; S/P AVR Start: 08-23-2022 End: 08-23-2022 Patient encounter procedure Joao Lara APRN.LOPPER Work Phone: Cardiology Comment on above: Chronic [...] encounter procedure Sadaf STOVALL [facility] Start: 03-28-2022 End: 03-29-[address] SADAF STOVALL Facility:[facility] Start: 02-21-2022 End: 02-21-2022 Patient encounter procedure Marco A Garvey MD Work Phone: Cardiology Comment on above: Nonrheumatic aortic valve stenosis (Primary Dx); Primary hypertension; Pure hypercholesterolemia; Chronic diastolic heart failure (HCC); Atherosclerosis of [place] coronary artery of [place] heart without angina pectoris; S/P CABG x 1; S/P AVR; Obesity, Class I, BMI 30-34.9 Start: 02-08-2022 End: 02-09-[address] ROSE MARIE MURRAY Facility:[facility] Start: 01-25-2022 End: 01-26-[address] ROSE MARIE MURRAY Facility:[facility] Start: 11-16-2021 End: 11-17-[address] BENJIE COVARRUBIAS Facility:[facility] Start: 04-07-2020 Patient encounter status Marco A Garvey MD Work Phone: [facility] Procedures Date Procedure Procedure Detail Performing Clinician Start: 08-14-2023 Ecg routine ecg w/le ast 12 lds i&r only Joao Lara APRN.LOPPER Work Phone: Start: 08-23-2022 Ecg routine ecg [...] grafting S/P CABG x 1 Joao Lara APRN.LOPPER Work Phone: History of coronary artery bypass grafting S/P CABG x 1 Marco A Garvey MD Work Phone: History of coronary artery bypass grafting S/P CABG x 1 Joao Lara APRN.LOPPER Work Phone: History of coronary artery bypass grafting S/P CABG x 1 Marco A Garvey MD Work Phone: Maxillary sinus endo scopy with removal of polyps Sadaf STOVALL Transurethral prostatectomy Sadaf STOVALL Plan of Treatment Date Care Activity Detail Author Start: 08-26-2024 End: 08-26-2024 Patient encounter procedure 08/26/2024 10:00 AM EST Office Visit Cardiology [address] [facility] [place] [address] Marco A Garvey MD [address] [place] [address] Return in about 6 months (around 08/17/2024). Cardiology Comment on above: Return in about 6 months (around 08/17/19). Start: 08-14-2024 Hepatitis B surface antibody level LDL Cholesterol [facility] Start: 02-27-2024 Hemoglobin A1c measurement HbA1C [facility] Start: 02-25-2024 Influenza vaccination [facility] Start: 10-23-2023 Hemoglobin A1c measurement HbA1C [facility] Start: 07-28-2023 Covid-19 Vaccine ( season) Covid-19 Vaccine () [facility] Start: 06-26-2023 Advance Directive Discussion Advance Directive Discussion [facility] Start: 06-26-2023 Depression Assessment Depression Assessment [facility] Start: 04-13-2023 End: 08-23-2023 Echocardiography ECHO Cardiology Routine Chronic diastolic heart failure (HCC) S/P AVR Expected: 04/13/2023, Expires: 08/23/2023 [facility] Work Phone: Comment on above: Expected: 04/13/2023, Expires: Start: 03-21-2023 Hemoglobin A1c/Hemoglobin.total in Blood HBA1C [facility] Start: 02-24-2023 Influenza vaccination INFLUENZA (#1) [facility] Start: 08-02-2022 COVID-19 VACCINE (5 - Moderna series) COVID-19 VACCINE (5 - Moderna series) [facility] Start: 06-26-2022 ADVANCE DIRECTIVE DISCUSSION ADVANCE DIRECTIVE DISCUSSION [facility] Start: 06-26-2022 DEPRESSION ASSESSMENT DEPRESSION ASSESSMENT [facility] Start: 02-24-2022 Influenza vaccination INFLUENZA (#1) [facility] Start: 09-07-2021 COVID-19 VACCINE (4 - Booster for Moderna series) COVID-19 VACCINE (4 - Booster for Moderna series) [facility] Start: 09-02-2021 Hemoglobin A1c/Hemoglobin.total in Blood HBA1C [facility] Start: 06-26-2021 ADVANCE DIRECTIVE DISCUSSION ADVANCE DIRECTIVE DISCUSSION [facility] Start: 03-13-2021 3 comp foot exam completed DIABETIC FOOT EXAM [facility] Start: 03-13-2021 Diabetic foot examination Diabetic Foot Exam [facility] Start: 1995 RSV Vaccine (1 - 1-dose 60+ series) RSV Vaccine (1 - 1-dose 60+ series) [facility] Start: 1985 SHINGRIX VACCINE (1 of 2) SHINGRIX VACCINE (1 of 2) [facility] Start: 1954 Urine microalbumin profile [facility] Start: 1953 Anxiety Screening Anxiety Screening [facility] Start: 1953 Depression Screening Depression Screening [facility] Start: 1953 Hepatitis B surface antibody level LDL CHOLESTEROL [facility] Start: 1945 Glaucoma screening Dilated Retinal Exam [facility] Start: 1945 Hepatitis B screening URINE ALBUMIN:CREATININE RATIO [facility] Start: 1945 Hepatitis C antibody, confirmatory test DILATED RETINAL EXAM [facility] ECG COMPLETE ECG COMPLETE ECG 08/23/2022 10:19 AM EST [facility] ECG COMPLETE ECG COMPLETE ECG 08/14/2023 9:29 AM EST [facility] End: 02-21-2024 Echocardiography ECHO Cardiology Routine Nonrheumatic aortic valve stenosis Primary hypertension Pure hypercholesterolemia Chronic diastolic heart failure (HCC) Atherosclerosis of [place] coronary artery of [place] heart without angina pectoris S/P CABG x 1 S/P AVR 1 Occurrences starting 02/20/2023 until 02/21/2024 [facility] Work Phone: Comment on above: 1 Occurrences starting 02/20/2023 until 02/21/2024 [facility] Immunizations Immunization Date Immunization Notes Care Provider Fa clifford 03-27-2023 influenza virus vacc ine, unspecified formulation Marco A Garvey MD Work Phone: [facility] 05-12-2021 influenza virus vacc ine, unspecified formulation Sadaf STOVALL [facility] 05-10-2021 SARS-CoV-2 (COVID-19 ) mRNA-1273 vaccine Sadaf STOVALL [facility] Comment on above: Result Comment: 2021: [id number] 03-29-2021 influenza virus vacc ine, unspecified formulation Sadaf STOVALL [facility] 08-13-2020 SARS-CoV-2 (COVID-19 ) mRNA-1273 vaccine Sadaf STOVALL [facility] 07-13-2020 SARS-CoV-2 (COVID-19 ) mRNA-1273 vaccine Sadaf STOVALL [facility] 06-26-2020 SARS-CoV-2 (COVID-19 ) mRNA-1273 vaccine Sadaf STOVALL [facility] Comment on above: Result Comment: Pt s cony he is fully vaccinated but does not know the dates 03-30-2020 influenza virus vacc ine, unspecified formulation Sadaf STOVALL [facility] 03-30-2020 influenza, high dose seasonal, preservative-free Marco A Garvey MD Work Phone: [facility] Work Phone: 04-11-2019 influenza virus vacc ine, unspecified formulation Sadaf STOVALL [facility] 04-11-2019 influenza, high dose seasonal, preservative-free Marco A Garvey MD Work Phone: [facility] Work Phone: 04-03-2018 influenza virus vacc ine, unspecified formulation Sadaf STOVALL [facility] 04-03-2018 seasonal influenza, intradermal, preservative free Marco A Garvey MD Work Phone: [facility] Work Phone: 05-10-2017 influenza virus vacc ine, unspecified formulation Sadafisamar STOVALL [facility] 05-10-2017 Seasonal trivalent influenza vaccine, adjuvanted, preservative free Marco A Garvey MD Work Phone: [facility] Work Phone: 04-12-2017 influenza virus vacc ine, unspecified formulation Sadafisamar STOVALL [facility] 04-12-2017 influenza, injectabl e, quadrivalent, preservative free Marco A Garvey MD Work Phone: [facility] Work Phone: 03-27-2017 pneumococcal conjuga te vaccine, 13 valaly Garvey MD Work Phone: [facility] Work Phone: 03-22-2017 pneumococcal conjuga te vaccine, 13 valent Marco A Garvey MD Work Phone: [facility] Work Phone: 03-14-2017 pneumococcal polysaccharide vaccine, 23 valent Marco A Garvey MD Work Phone: [facility] Work Phone: 05-11-2016 influenza virus vacc ine, unspecified formulation Sadafisamar STOVALL [facility] 05-11-2016 influenza, injectabl e, quadrivalent, preservative free Marco A Garvey MD Work Phone: [facility] Work Phone: 04-27-2016 influenza virus vacc ine, unspecified formulation Sadaf STOVALL [facility] 04-27-2016 Seasonal trivalent influenza vaccine, adjuvanted, preservative free Marco A Garvey MD Work Phone: [facility] Work Phone: 04-24-2015 influenza virus vacc ine, unspecified formulation Sadafisamar STOVALL [facility] 04-24-2015 influenza, injectabl e, quadrivalent, contains preservative Marco A Garvey MD Work Phone: [facility] Work Phone: 05-14-2013 influenza virus vacc ine, unspecified formulation Sadaf STOVALL [facility] 05-14-2013 influenza, seasonal, injectable Marco A Garvey MD Work Phone: [facility] Work Phone: Payers Date Payer Category Payer Medicare [id number] 1959 Medicare [id number] 1959 Medicare [id number] 1935 Unknown [id number] 2.16.840.1.258182.3.579.2. 593 1935 Unknown [id number] 2.16.840.1.479864.3.579.2. 593 1935 Unknown [id number] 2.16.840.1.423961.3.579.2. 593 1935 Unknown [id number] 2.16.840.1.282157.3.579.2. 593 1935 Unknown [id number] 2.16.840.1.985980.3.579.2. 593 1935 Unknown [id number] 2.16.840.1.775112.3.579.2. 593 1935 Unknown [id number] 2.16.840.1.441666.3.579.2. 727 1935 Unknown [id number] 2.16.840.1.350564.3.579.2. 727 1935 Unknown [id number] 2..840.1.638930.3.579.2. 1259 1935 Unknown [id number] 2..840.1.103275.3.579.2. 1259 1935 Unknown [id number] 2.840.1.184844.3.579.2. 125 1935 Unknown [id number] 2.840.1.812044.3.579.2. 125 1935 Unknown [id number] 2..840.1.315436.3.579.2. 125 1935 Unknown [id number] 2.840.1.494919.3.579.2. 1259 1935 Unknown [id number] 2.840.1.197484.3.579.2. 125 1935 Unknown [id number] 2..840.1.952221.3.579.2. 125 1935 Unknown [id number] 2.16.840.1.516504.3.579.2. 125 1935 Unknown [id number] 2.16.840.1.195957.3.579.2. 125 1935 Unknown [id number] 2..840.1.955420.3.579.2. 125 1935 Unknown [id number] 2.16.840.1.727154.3.579.2. 1259 1935 Unknown [id number] 2.16.840.1.659723.3.579.2. 1259 1935 Unknown [id number] 2.16.840.1.747445.3.579.2. 1259 Private Health Insurance [facility] [id number] Social History Date Type Detail Facility Start: 02-21-2020 End: 08-23-2022 Tobacco smoking status NHIS Ex-smoker [facility] Start: 06-26-1928 End: 06-26-1963 History of tobacco use Current smoker [facility] Start: 06-26-1928 End: 06-26-1963 History of tobacco use Cigarette Smoker [facility] Start: 02-21-2020 End: 02-20-2023 Cigarettes smoked current (pack per day) - Reported 1 [facility] Work Phone: Start: 02-21-2020 End: 08-23-2022 Tobacco use and exposure Smokeless tobacco non-user [facility] Start: 02-21-2022 End: 02-15-2024 Alcohol intake Lifetime non-drinker (finding) [facility] Start: 04-07-2020 End: 04-09-2020 History SDOH Alcohol Frequency 1 [facility] Start: 04-09-2020 History SDOH Financial 5 [facility] Start: 04-09-2020 History SDOH Transpo rt Med 2 [facility] Start: 1935 Sex Assigned At Not on file [facility] Start: 02-11-2022 End: 02-21-2022 Exposure to SARS-CoV-2 (event) Not sure [facility] Start: 04-01-2022 Tobacco smoking status Never s moked tobacco (finding) [facility] Tobacco smoking status Never [facility] Start: 04-07-2020 End: 02-20-2023 Sex Assigned At Male [facility] How often to you hav e a drink containing alcohol? Never [facility] Work Phone: (I/We) worried wheth er (my/our) food would run out before (I/we) got money to buy more. Never true [facility] Work Phone: Start: 1935 Sex Assigned At Male F [facility] Medical Equipment Procedure Code Equipment Code Equipment Original Text Equipment Identifier Dates [place] Thk1.65mm P tfe 4x.5in Cardiovascular Sterile - [id number] Start: 04-08-2020 Valve Perdomo In spiris Resilia 25mm Pericardial Aortic Bioprosthesis - [id number] Start: 04-08-2020 CATARACT EXTRACT ION W/ INTRAOCULAR LENS Will ULRICH, Luis 08/06/19 Non Biological Eye L FDA Start: 08-06-2019 CATARACT EXTRACT ION W/ INTRAOCULAR LENS Will ULRICH, Luis 08/20/19 Non Biological Eye R [id number] FDA Start: 08-20-2019 Functional Status Date Assessment Result Facility 04-01-2022 Functional Status N/A [facility] Clinical Notes 04-13-2020 to 02-15-2024 Marco A Garvey MD - 02/15/2024 9:37 AM Joao Li APRN.LOPPER - 08/14/2023 9:58 AM Marco A Amador MD - 02/20/2023 10:11 AM EDTPatient Yi Garvey MD - 02/21/2022 10:17 AM EDT Note Date & Type Note Facility 02-15-2024 Note HNO ID: [id number] Author: MARCO A GARVEY MD Service: ? Author Type: Physician Type: Progress Notes Filed: 02/15/2024 09:55 Note Text: [facility] [place] [facility] CARDIOLOGY OUTPATIENT VISIT DATE February 15, 2024 OUTPATIENT VISIT TYPE ESTABLISHED PRIMARY CARE PHYSICIAN: Benjie Covarrubias II, MD [address] [address] CHIEF COMPLAINT: Coronary artery disease, Heart failure, Hyperlipidemia, Hypertension, and Valvular heart disease HISTORY OF PRESENT ILLNESS: Mr. Narayanan is a 88 year old male, a very delightful gentleman with history of hypertension, hyperlipidemia, diastolic heart failure, as well as a history of aortic stenosis, status post AVR along with Coronary artery disease status post coronary artery bypass surgery with 1 vessel grafted on 04/08/2020. Former smoker. Cardiovascular work-up includes: An echocardiogram in 2018 which showed moderate aortic stenosis. A nuclear stress testing done in June 2019 showed no ischemia. Ejection fraction 62%. An Echocardiogram done on 01/15/2020 showed moderately severe aortic stenoses and a gradient over 55 mmHg. Was followed by AVR, CABGx1 (Vein graft ascending aorta end to side first obtuse marginal branch). On 04/13/2020 had a limited 2D echo study which showed normal LV function. The bioprosthetic aortic valve appears to be functioning normally. An echocardiogram on 04/14/2023 showed ejection fraction of 62%. Prosthetic aortic valve appears to be functioning normally. Only trace to mild aortic valve regurgitation noted. No pulmonary hypertension. No other valvular disease of any significance. He wakes up short of breath almost every night and he has to put extra pillows so he can breathe better. However no shortness of breath on activity during the day much. No chest pain of any kind. No other symptoms or complaints. IMPRESSION: Encounter Diagnosis ICD-10-CM 1. 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 S/P AVR Z95.2 3. Pure hypercholesterolemia E78.00 4. Primary hypertension I10 5. Chronic diastolic heart failure (HCC) I50.32 6. Atherosclerosis of [place] coronary artery of [place] heart without angina pectoris I25.10 PLAN AND RECOMMENDATIONS: Diastolic heart failure Appears to be having orthopnea at night. He is not taking his Zaroxolyn. He was advised strongly to take his Zaroxolyn as recommended. Aortic valve disease Status post AVR. Echocardiogram last year showed normally functioning valve. Will repeat the study next year. Hypertension Well-controlled by current management. Hyperlipidemia LDL goal 70 or less. Last LDL was 38. Excellent control. Coronary artery disease With single-vessel coronary artery bypass surgery. No anginal symptoms. PHYSICAL EXAMINATION: BP 122/72 (BP Site: Left Arm, BP Position: Sitting, BP Cuff Size: Large Adult) Pulse 71 Ht 172.7 cm (5' 8 ) Wt 99 kg (218 lb 4.1 oz) SpO2 95% BMI 33.19 kg/m? HEENT: normocephalic, EOMI Heart: regular rhythm Lungs: clear to auscultation Abdomen: bowel sounds present Extremities: pitting edema present 1+ bilaterally. Musculoskeletal: chest wall nontender Neurological: alert and oriented Psychiatric: appropriate and cooperative Skin: no rash, cellulitis or lesions appreciated CARDIOVASCULAR MEDICINE TESTING: I have personally reviewed ECG, laboratory results, and echocardiogram report Last ECHO Result Conclusion ECHO Collected: 04/14/2023 10:29 AM (Final result) Impression: CONCLUSIONS: - Technically difficult exam due to body habitus. - Exam indication: Routine surveillance of prosthetic valve (>3yrs) - The left ventricle is normal in size. Left ventricular systolic function is normal. EF = 62 ? 5% (2D biplane) Grade I left ventricular [...] - Exam was compared with the prior echocardiographic exam performed on 04/13/2020. There is no significant change. * * * Final * * * Last EKG Result Conclusion ECG COMPLETE Collected: 08/14/2023 9:29 AM (Preliminary result) Impression: NORMAL SINUS RHYTHM LOW VOLTAGE QRS, CONSIDER PULMONARY DISEASE, PERICARDIAL EFFUSION, OR NORMAL VARIANT BORDERLINE ECG PAST CARDIAC HISTORY: See above. PAST MEDICAL HISTORY 04/07/2020: Atherosclerosis of [place] coronary artery of [place] heart without angina pectoris No date: Chronic diastolic heart failure (HCC) 2000: DMII (diabetes mellitus, type 2) (HCC) 2000: HLD (hyperlipidemia) 2000: HTN (hypertension) No date: N (more content not included)... [facility] 02-15-2024 History of Present illness Narrative Images from the original note were not included. [facility] [place] [facility] OUTPATIENT VISIT DATE February 15, 2024 OUTPATIENT VISIT TYPE ESTABLISHED PRIMARY CARE PHYSICIAN: Benjie Covarrubias II, MD 112 [facility] [address] [place] [address] CHIEF COMPLAINT: Coronary artery disease, Heart failure, Hyperlipidemia, Hypertension, and Valvular heart disease HISTORY OF PRESENT ILLNESS: Mr. Narayanan is a 88 year old male, a very delightful gentleman with history of hypertension, hyperlipidemia, diastolic heart failure, as well as a history of aortic stenosis, status post AVR along with Coronary artery disease status post coronary artery bypass surgery with 1 vessel grafted on 04/08/2020. Former smoker. Cardiovascular work-up includes: An echocardiogram in 2018 which showed moderate aortic stenosis. A nuclear stress testing done in June 2019 showed no ischemia. Ejection fraction 62%. An Echocardiogram done on 01/15/2020 showed moderately severe aortic stenoses and a gradient over 55 mmHg. Was followed by AVR, CABGx1 (Vein graft ascending aorta end to side first obtuse marginal branch). On 04/13/2020 had a limited 2D echo study which showed normal LV function. The bioprosthetic aortic valve appears to be functioning normally. An echocardiogram on 04/14/2023 showed ejection fraction of 62%. Prosthetic aortic valve appears to be functioning normally. Only trace to mild aortic valve regurgitation noted. No pulmonary hypertension. No other valvular disease of any significance. He wakes up short of breath almost every night and he has to put extra pillows so he can breathe better. However no shortness of breath on activity during the day much. No chest pain of any kind. No other symptoms or complaints. IMPRESSION: Encounter Diagnosis ICD-10-CM 1. 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 S/P AVR Z95.2 3. Pure hypercholesterolemia E78.00 4. Primary hypertension I10 5. Chronic diastolic heart failure (HCC) I50.32 6. Atherosclerosis of [place] coronary artery of [place] heart without angina pectoris I25.10 PLAN AND RECOMMENDATIONS: Diastolic heart failure Appears to be having orthopnea at night. He is not taking his Zaroxolyn. He was advised strongly to take his Zaroxolyn as recommended. Aortic valve disease Status post AVR. Echocardiogram last year showed normally functioning valve. Will repeat the study next year. Hypertension Well-controlled by current management. Hyperlipidemia LDL goal 70 or less. Last LDL was 38. Excellent control. Coronary artery disease With single-vessel coronary artery bypass surgery. No anginal symptoms. PHYSICAL EXAMINATION: BP 122/72 (BP Site: Left Arm, BP Position: Sitting, BP Cuff Size: Large Adult) Pulse 71 Ht 172.7 cm (5' 8 ) Wt 99 kg (218 lb 4.1 oz) SpO2 95% BMI 33.19 kg/m HEENT: normocephalic, EOMI Heart: regular rhythm Lungs: clear to auscultation Abdomen: bowel sounds present Extremities: pitting edema present 1+ bilaterally. Musculoskeletal: chest wall nontender Neurological: alert and oriented Psychiatric: appropriate and cooperative Skin: no rash, cellulitis or lesions appreciated CARDIOVASCULAR MEDICINE TESTING: I have personally reviewed ECG, laboratory results, and echocardiogram report Last ECHO Result Conclusion ECHO Collected: 04/14/2023 10:29 AM (Final result) Impression: CONCLUSIONS: - Technically difficult exam due to [...] - Exam was compared with the prior echocardiographic exam performed on 04/13/2020. There is no significant change. * * * Final * * * Last EKG Result Conclusion ECG COMPLETE Collected: 08/14/2023 9:29 AM (Preliminary result) Impression: NORMAL SINUS RHYTHM LOW VOLTAGE QRS, CONSIDER PULMONARY DISEASE, PERICARDIAL EFFUSION, OR NORMAL VARIANT BORDERLINE ECG PAST CARDIAC HISTORY: See above. PAST MEDICAL HISTORY 04/07/2020: Atherosclerosis of [place] coronary artery of [place] heart without angina pectoris No date: Chronic diastolic heart failure (HCC) 2000: DMII (diabetes mellitus, type 2) (HCC) 2000: HLD (hyperlipidemia) 2000: HTN (hypertension) No date: Nonrheumatic aortic valve stenosis No date: Orthostatic lightheadedness 06/18/2019: Pure hypercholesterolemia 04/07/2020: Type 2 diabetes mellitus without complication, with long- term current use of insulin (HCC) PAST SURGICAL HISTORY 1994: ARTHRP KNE CONDYLE&PLATU MEDIAL&LAT COMPARTMENTS; Right No date: CATARACT EXTRACTION HX No date: SECOND STAGE TURP Social History Tobacco Use Smoking status: Former Current packs/day: 0.00 Average packs/day: 1 pack/day for 35.0 years (35.0 ttl pk-yrs) Types: Cigarettes Start date: 1928 Quit date: 1963 Years since quittin.6 Smokeless tobacco: Never Vaping Use Vaping status: Never Used Substance Use Topics Alcohol use: Never Drug use: Never FAMILY HISTORY Problem Relation Age of Onset other (Polycythemia) Mother other (CVA) Father 65 age 72 ALLERGIES No Known Allergies CURRENT MEDICATIONS: torsemide (DEMADEX) 20 mg tablet^TAKE 1 TABLET BY MOUTH EVERY DAY^Disp: 90 tablet^Rfl: 1 sitaGLIPtin-metFORMIN (JANUMET) 50-1,000 mg per tablet^Take 1 tablet by mouth daily with breakfast.^Disp: ^Rfl: (Patient taking differently: Take 1 tablet by mouth two times a day with meals.) acetaminophen (TYLENOL) 325 mg tablet^Take [...] mg by mouth daily at bedtime.^Disp: ^Rfl: glimepiride (AMARYL) 1 mg tablet^Take 2 mg by mouth daily with breakfast.^Disp: ^Rfl: (Patient not taking: Reported on 02/15/2024) canagliflozin (INVOKANA) 100 mg tab^Take 100 mg by mouth daily with breakfast.^Disp: ^Rfl: (Patient not taking: Reported on 02/15/2024) metOLAzone (ZAROXOLYN) 5 mg tablet^Take 1 tablet by mouth every Monday,Monday,Monday.^Disp: 30 tablet^Rfl: 0 (Patient not taking: Reported on 02/15/2024) potassium citrate ER (UROCIT-K) 10 mEq (1,080 mg) TbER^Take 1,080 mg by mouth twice daily. ^Disp: ^Rfl: (Patient not taking: Reported on 02/15/2024) documented in this encounter [facility] 08-14-2023 Note HNO ID: [id number] Author: JOAO LARA APRN.LOPPER Service: ? Author Type: Nurse Practitioner Type: Progress Notes Filed: 08/27/2023 22:06 Note Text: [facility] [place] [facility] Department of Cardiovascular Medicine SECTION [...] CABG x 1 Z95.1 5. Atherosclerosis of [place] coronary artery of [place] heart without angina pectoris I25.10 COMP METABOLIC [...] lb 12.8 oz) (more content not included)... [facility] 08-14-2023 History of Present illness Narrative Images from the original note were not included. [facility] [facility] Department of Cardiovascular Medicine SECTION [...] Social history reviewed; unchanged from prior. ASSESSMENT/PLAN: Naika Narayanan was seen today for 6-month CVM [...] CABG x 1 Z95.1 5. Atherosclerosis of [place] coronary artery of [place] heart without angina pectoris I25.10 COMP METABOLIC [...] Corpak DC 04/[address] Berrios. Per DRAGSAW OPERATOR ok to advance diet, use same controls [...] tylenol and oxycodone. Cesar (Acute Kidney Injury) (Hcc) - 04/08/2020 Comment: History: Pre-op SCr-1.6. Home meds: Torsemide and lisinopril/HCTZ Assessment: Non-oliguric. sCr 1.35 today. Plan: Trend and monitor SrCr and UOP. Avoid hypotension and nephrotoxic medications. Discharge Planning Issues - 04/07/2020 Comment: Nakia Narayanan is a 84 year old male from [place], [place]. Supportive son. PT/OT recs Home. CM [...] HH diet 04/16. Nutrition following. Atherosclerosis of [place] Coronary Artery of [place] Heart Without Angina Pectoris - 04/07/2020 Comment: [...] PAST MEDICAL HISTORY Diagnosis Date Atherosclerosis of [place] coronary artery of [place] heart without angina pectoris 04/07/2020 Chronic diastolic [...] visit. This note was partially generated with [employer] voice recognition software and may contain errors, including spelling, grammar, syntax and misrecognition of what was dictated, that may not be fully corrected. I appreciate the opportunity to participate in this patient's care. Please do not hesitate to call my office if you have any questions. CONTACT INFORMATION: Joao Lara APRN.CNP Adult Nurse Practitioner [facility] Donna Gavni Department of Cardiovascular Medicine [facility] Heart, Vascular, Thoracic [place] [facility] Cardiology Consult Team documented in this encounter [facility] 02-20-2023 Note HNO ID: [id number] Author: Marco A Garvey MD Service: ? Author Type: Physician Type: Progress Notes Filed: 02/20/2023 10:39 AM Note Text: [facility] [place] [facility] OUTPATIENT VISIT DATE February 20, 2023 OUTPATIENT VISIT TYPE ESTABLISHED PRIMARY CARE PHYSICIAN: Benjie Covarrubias II, MD [address] [place] [address] CHIEF COMPLAINT: Heart failure, Hyperlipidemia, Hypertension, and [...] failure (HCC) I50.32 ECHO 5. Atherosclerosis of [place] coronary artery of [place] heart without angina pectoris I25.10 ECHO 6. [...] PAST MEDICAL HISTORY Diagnosis Date Atherosclerosis of [place] coronary artery of [place] heart without angina pectoris 04/07/2020 Chronic diastolic [...] hours as need (more content not included)... [facility] 02-20-2023 History of Present illness Narrative Images from the original note were not included. [facility] [place] [facility] OUTPATIENT VISIT DATE February 20, 2023 OUTPATIENT VISIT TYPE ESTABLISHED PRIMARY CARE PHYSICIAN: Benjie Covarrubias II, MD [address] [place] [address] CHIEF COMPLAINT: Heart failure, Hyperlipidemia, Hypertension, and [...] failure (HCC) I50.32 ECHO 5. Atherosclerosis of [place] coronary artery of [place] heart without angina pectoris I25.10 ECHO 6. [...] PAST MEDICAL HISTORY Diagnosis Date Atherosclerosis of [place] coronary artery of [place] heart without angina pectoris 04/07/2020 Chronic diastolic [...] with breakfast.^Disp: ^Rfl: documented in this encounter [facility] 08-23-2022 Instructions Joao Lara APRN.LOPPER - 08/23/2022 10:42 AM EST Images from [...] cheeses Yogurt MILK & DAIRY Buttermilk Cheese ([place], Francis, Cheddar, Blue, Gouda, Botswanan, Velveeta) Cheese spreads FRUIT & VEGETABLES 5-9 [...] pie) Salted nuts MISC. Allspice, Mustard (dry) [place] Extract Basil [place] Leaves Capello's Romanian Style Seasoning Lyman Seeds Chives Cider Vinegar Cinnamon Velazco Powder Bita Crystal Dill Garlic Powder [place] Herbal Seasonings: Lawry's Seasoned Pepper Lawry's Seasoning (no salt) Lemon Juice Mace Mrs. Dash Nutmeg Onion Powder Paprika Parsley Parsley Patch Peppermint Extract Pimento Jennifer Deandre Salt free seasoning blends Savory Sodium-free Baking Powder Thyme Turmeric Vinegar Ruiz's all-purpose Seasonings MISC. Accent Adela-Milan All commercially prepared and convenience foods such as TV dinners, box mixes, canned entrees, Hamburger [place], meat pies, Sami dinners, pizza, Shake'n Bake mixes BBQ sauce Celery salt Tyrone sauce Garlic salt Horseradish Kitchen Bouquet Lemon pepper Marinade sauce Meat tenderizers Monosodium Glutamate (MSG) Onion salt Republican spreads Regular ketchup Relish Salad dressings Salt Seasoning salts Sodium Benzoate Sodium Caseinate Sodium Citrate Sodium Nitrate Sodium Phosphate Sodium Propionate Sodium Saccharin Soy sauce Steak sauce Tartar sauce Teriyaki sauce [facility] sauce Labeled no salt Products, Assorted [e.g., hooks paste and sauces, oriental dried plums and other dried seeds, vegetables and fruits (lemon & dimas)] documented in this encounter [facility] 08-23-2022 History of Present illness Narrative Images from the original note were not included. [facility] [facility] Department of Cardiovascular Medicine SECTION [...] and down stairs; dong laundry, walking in [employer]. Cardiac work-up includes : An echocardiogram in [...] [place] DC 04/[address] Berrios. Per DRAGSAW OPERATOR ok to advance diet, use same controls [...] tylenol and oxycodone. Cesar (Acute Kidney Injury) (Hcc) - 04/08/2020 Comment: History: Pre-op SCr-1.6. Home meds: Torsemide and lisinopril/HCTZ Assessment: Non-oliguric. sCr 1.35 today. Plan: Trend and monitor SrCr and UOP. Avoid hypotension and nephrotoxic medications. Discharge Planning Issues - 04/07/2020 Comment: Nakia Narayanan is a 84 year old male from [place], [place]. Supportive son. PT/OT recs Home. CM [...] HH diet 04/16. Nutrition following. Atherosclerosis of [place] Coronary Artery of [place] Heart Without Angina Pectoris - 04/07/2020 Comment: S/p 04/08/2020: AVR, CABGx1 (Vein graft ascending aorta end to side obtuse marginal 1) CAD Core Measures: Aspirin: Yes Beta blockers: Yes Statins: Yes Type 2 Diabetes Mellitus, Without Long-Term Current Use of Insulin ([facility]) - 04/07/2020 Comment: History: Pre-op [...] PAST MEDICAL HISTORY Diagnosis Date Atherosclerosis of [place] coronary artery of [place] heart without angina pectoris 04/07/2020 Chronic diastolic heart failure (HCC) DMII (diabetes mellitus, type 2) ([facility]) 1999 HLD (hyperlipidemia) 1999 HTN (hypertension) 1999 Nonrheumatic aortic valve stenosis Orthostatic lightheadedness Pure hypercholesterolemia 06/18/2019 Type 2 diabetes mellitus without complication, with long-term current use of insulin ([facility]) 04/07/2020 PAST SURGICAL HISTORY Procedure Laterality Date [...] visit. This note was partially generated with [employer] voice recognition software and may contain errors, including spelling, grammar, syntax and misrecognition of what was dictated, that may not be fully corrected. I appreciate the opportunity to participate in this patient's care. Please do not hesitate to call my office if you have any questions. CONTACT INFORMATION: Joao Lara APRN.SOHAN Adult Nurse Practitioner [facility] Department of Cardiovascular Medicine [facility] Heart, Vascular, Thoracic [place] [facility] Cardiology Consult Team documented in this encounter [facility] 07-05-2022 Note PROCEDURE: XR GI UPP [...] authenticated by: DOLORES NIETO Date: 2022-07-05 09:[address] [facility] 07-05-2022 Note PROCEDURE: XR GI UPP [...] authenticated by: DOLORES NIETO Date: 2022-07-05 09:[address] [facility] 04-01-2022 Hospital Discharge instructions Patient Education 04/01/2022 09:37:53 Kidney Stones, Jznp-as-Syxe Kidney Stones Kidney stones are rock-like masses [...] Follow these instructions at home: Medicines Take [id number] and prescription medicines only as told by [...] 11/28/2008 Document Revised: 10/29/2019 Document Reviewed: 10/29/2019 [employer] Patient Education 2020 [employer]. Follow Up Care 03/29/2021 11:32:59 With:HUASM ANGELES, Sadaf Adamson, URL Address: [address] [place] [address]- When: Unknown [facility] 02-21-2022 History of Present illness Narrative Images from the original note were not included. [facility] SECTION OF REGIONAL CARDIOLOGY OUTPATIENT VISIT DATE February 21, 2022 OUTPATIENT VISIT TYPE ESTABLISHED PRIMARY CARE PHYSICIAN: Benjie Covarrubias II, MD [address] [place] [id number] CHIEF COMPLAINT: Coronary artery disease, Heart failure, [...] heart failure (HCC) I50.32 5. Atherosclerosis of [place] coronary artery of [place] heart without angina pectoris I25.10 6. S/P [...] by MARCO A GARVEY MD ([id number]) on 08/13/2021 10:32:11 AM PAST CARDIAC HISTORY: See above. PAST MEDICAL HISTORY Diagnosis Date Atherosclerosis of [place] coronary artery of [place] heart without angina pectoris 04/07/2020 Chronic diastolic heart failure (HCC) DMII (diabetes mellitus, type 2) ([facility]) 1999 HLD (hyperlipidemia) 1999 HTN (hypertension) 1999 Nonrheumatic aortic valve stenosis Orthostatic lightheadedness Pure hypercholesterolemia 06/18/2019 Type 2 diabetes mellitus without complication, with long-term current use of insulin ([facility]) 04/07/2020 PAST SURGICAL HISTORY Procedure Laterality Date [...] mouth twice daily. documented in this encounter [facility] 02-08-2022 Note CONSULTATION CONSULTATION DATE: 02/08/2022 CHIEF [...] once again. CC: Benjie Covarrubias M.D. [facility] 01-25-2022 Note CONSULTATION CONSULTATION DATE: 01/25/2022 [...] two weeks. CC: Benjie Covarrubias M.D. [facility] 01-25-2022 Note CONSULTATION PROCEDURE DATE: 01/25/2022 [...] be followed up in the office. [facility] 04-13-2020 History of Past i llness Narrative Problem Noted Date Resolved Date Hyperlipemia 04/13/2020 02/21/2022 Overview: History: On Simvastatin preop. Assessment: Resumed on diet 04/16 Plan: Continue statin, trend LFTs On mechanically assisted ventilation 04/08/2020 04/11/2020 Overview: Grade III airway with bougie A/P-WTE Stress hyperglycemia 04/08/2020 04/08/2020 documented as of this encounter (statuses as of 02/21/2022) [facility] History of Past illness Narrative* Problem Noted Date Resolved Date Hyperlipemia 04/13/2020 02/21/2022 Overview: History: On Simvastatin preop. Assessment: Resumed on HH diet 04/16 Plan: Continue statin, trend LFTs On mechanically assisted ventilation 04/08/2020 04/11/2020 Overview: Grade III airway with bougie A/P-WTE Stress hyperglycemia 04/08/2020 04/08/2020 documented as of this encounter (statuses as of 09/09/2022) [facility] History of Past illness Narrative* Problem Noted Date Diagnosed Date Resolved Date Hyperlipemia 04/13/2020 02/21/2022 Overview: History: On Simvastatin preop. Assessment: Resumed on HH diet 04/16 Plan: Continue statin, trend LFTs On mechanically assisted ventilation 04/08/2020 04/11/2020 Overview: Grade III airway with bougie A/P-WTE Stress hyperglycemia 04/08/2020 020 documented as of this encounter (statuses as of 02/20/2023) [facility] History of Past illness Narrative* Problem Noted Date Diagnosed Date Resolved Date Hyperlipemia 04/13/2020 02/21/2022 Overview: History: On Simvastatin preop. Assessment: Resumed on HH diet 04/16 Plan: Continue statin, trend LFTs On mechanically assisted ventilation 04/08/2020 04/11/2020 Overview: Grade III airway with bougie A/P-WTE Stress hyperglycemia 04/08/2020 020 documented as of this encounter (statuses as of 08/28/2023) [facility] Future Appointments Appointment Date:04/03/2023 08:45:00 AM Scheduled Provider:Sadaf STOVALL MD Location:[facility] Appointment Type:URO Office Visit [facility] evaluation note* Diagnosis Nonrheumatic aortic valve stenosis- Primary Aortic valve disorders Primary hypertension Unspecified essential hypertension Pure hypercholesterolemia Chronic diastolic heart failure (HCC) Chronic diastolic heart failure Atherosclerosis of [place] coronary artery of [place] heart without angina pectoris S/P CABG x 1 Postsurgical aortocoronary bypass status S/P 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, Class I, BMI 30-34.9 Obesity, unspecified [facility] Diagnosis Chronic diastolic heart failure (HCC)- [...] abnormal clinical finding documented in this encounter [facility] note* Diagnosis Nonrheumatic aortic valve stenosis- Primary Aortic valve disorders Primary hypertension Unspecified essential hypertension Pure hypercholesterolemia Chronic diastolic heart failure (HCC) Chronic diastolic heart failure Atherosclerosis of [place] coronary artery of [place] heart without angina pectoris S/P CABG x 1 Postsurgical aortocoronary bypass status S/P AVR Heart valve replaced by other means documented in this encounter [facility] note* Diagnosis Primary hypertension- Primary Unspecified essential hypertension Chronic diastolic heart failure (HCC) Chronic diastolic heart failure Pure hypercholesterolemia S/P CABG x 1 Postsurgical aortocoronary bypass status Atherosclerosis of [place] coronary artery of [place] heart without angina pectoris Nonrheumatic aortic valve stenosis Aortic valve disorders documented in this encounter [facility] noteNo assessment information [facility] Work Phone: Evaluation note* Diagnosis S/P CABG x 1- Primary Postsurgical aortocoronary bypass status S/P AVR Heart valve replaced by other means Pure hypercholesterolemia Primary hypertension Unspecified essential hypertension Chronic diastolic heart failure (HCC) Chronic diastolic heart failure Atherosclerosis of [place] coronary artery of [place] heart without angina pectoris documented in this encounter [facility] course Narrative No data available for this section [facility] progress note No data available for this section [facility] reason for referral (narrative)* Outpatient Procedure (Routine) - Authorized Specialty Diagnoses / Procedures Referred By Contac t Referred [facility] Diagnoses Chronic diastolic heart failure (HCC) S/P AVR Procedures ECHO ECHO TTHRC R-T 2D W/WOM-MODE COMPL SPEC&COLR D Joao Lara APRN.LOPPER [address] [place] [address] [address] Referral ID Status Reason Start Date Expiration Date Visits Requested Visits Authorized [id number] Authorized Auto-Generat ed Referral 08/23/2023 1 1 * Outpatient Procedure (Routine) - Closed Specialty Diagnoses / Procedures Referred By Contac t Referred To Contact [facility] [place] Diagnoses Chronic diastolic heart failure (HCC) Primary hypertension Procedures ECG COMPLETE ECG ROUTINE ECG W/LEAST 12 LDS W/I&R Joao Lara APRN.CNP [address] [place] [address] [address] Referral ID Status Reason Start Date Expiration Date V isits Requested Visits Authorized [id number] Closed Auto-Generate d Referral 08/23/2022 08/23/2023 1 1 [facility] for referral (narrative)* Outpatient Procedure (Routine) - Pending Review Specialty Diagnoses / Procedures Referred By Contac t Referred To Contact [facility] [place] Diagnoses Nonrheumatic aortic valve stenosis Primary hypertension Pure hypercholesterolemia Chronic diastolic heart failure (HCC) Atherosclerosis of [place] coronary artery of [place] heart without angina pectoris S/P CABG x 1 S/P AVR Procedures ECHO ECHO TTHRC R-T 2D W/WOM-MODE COMPL SPEC&COLR D Marco A Garvey MD [address] [place] [address] [address] Referral ID Status Reason Start Date Expiration Date Visits Requested Visits Authorized [id number] Pending Review Auto-Generat ed Referral 02/20/2023 02/20/2024 1 1 [facility] Outpatient Procedure (Routine) - Pending Review Specialty Diagnoses / Procedures Referred By Sunil kapoor Referred To [facility] Diagnoses Primary hypertension Procedures ECG COMPLETE ECG ROUTINE ECG W/LEAST 12 LDS W/I&R Joao Lara APRN.CNP [address] [place] [address] [facility] [place] [address] [place] [address] Referral ID Status Reason Start Date Expiration Date Visits Requested Visits Authorized [id number] Pending Review Auto-Generat ed Referral 08/14/2023 08/13/[address] [facility] Summary Purpose Family History No Family History Records FoundNo Family History Records FoundNo Family History Records FoundNo Family History Records FoundNo Family History Records Found Advance Directives No Advanced Directives Records Found Advance Directive Response Recorded Date/ Time Advance Directives No January 11 9:37am Chief Complaint and Reason for Visit Chief Complaint right wrist wound ca re Additional Source Comments (unrecognized sect ion and content) No Status Records FoundNo Status Records FoundNo Status Records FoundNo Status Records FoundNo Status Records Found INFORMATION SOURCE (unrecogn ized section and content) DATE CREATED AUTHOR 11/20/2021 [facility] dical Specialist DATE CREATED AUTHOR AUTHOR'S ORGANIZ ATION 07/07/2022 Jaimie Pabon [facility] DATE CREATED AUTHOR AUTHOR'S ORGANIZ ATION 04/05/2023 [facility] DATE CREATED AUTHOR AUTHOR'S ORGANIZ ATION 02/17/2024 [facility] DATE CREATED AUTHOR AUTHOR'S ORGANIZ ATION 03/16/2024 [facility] dical Specialists EPIC Source Comments (unrecognize d section and content) In the event this informatio n is protected by the Federal Confidentiality of Alcohol and Drug Abuse Patient Records regulations: The Federal rules restrict any use of the information to criminally investigate or prosecute any alcohol or drug abuse patient.[facility] the event this information is protected by the Federal Confidentiality of Alcohol and Drug Abuse Patient Records regulations: The Federal rules restrict any use of the information to criminally investigate or prosecute any alcohol or drug abuse patient.[facility] the event this information is protected by the Federal Confidentiality of Alcohol and Drug Abuse Patient Records regulations: The Federal rules restrict any use of the information to criminally investigate or prosecute any alcohol or drug abuse patient.[facility] the event this information is protected by the Federal Confidentiality of Alcohol and Drug Abuse Patient Records regulations: The Federal rules restrict any use of the information to criminally investigate or prosecute any alcohol or drug abuse patient.[facility] the event this information is protected by the Federal Confidentiality of Alcohol and Drug Abuse Patient Records regulations: The Federal rules restrict any use of the information to criminally investigate or prosecute any alcohol or drug abuse patient.[facility] Reason for Visit (unrecogniz ed section and content) Reason Comments Cardiology Follow Up Reason Comments CARD Follow Up 6 Month Reason Comments CARD Follow Up 6 Month Reason Comments Cardiology Follow Up Care Teams (unrecognized sec tion and content) Veterinarian Epidemiologist Relationship Specialty Start Date End Date Benjie Covarrubias II [address] [place] [address] PCP - General Internal Medicine 02/19/20 Benjie Covarrubias II [address] [place] [address] Referring Internal Medicine 06/11/19 No, Referral Referring Cardiology 02/24/20 Veterinarian Epidemiologist Relationship Specialty Start Date End Date Benjie Covarrubias II [address] [place] [address] PCP - General Internal Medicine 02/19/20 Benjie Covarrubias II [address] [place] [address] Referring Internal Medicine 06/11/19 No, Referral Referring Cardiology 02/24/20 Veterinarian Epidemiologist Relationship Specialty Start Date End Date Benjie Covarrubias II, MD [address] [place] [address] PCP - General Internal Medicine 02/19/20 Benjie Covarrubias II, MD [address] [place] [address] Referring Internal Medicine 06/11/19 No, Referral Referring Cardiology 02/24/20 Veterinarian Epidemiologist Relationship Specialty Start Date End Date Benjie Covarrubias II, MD [address] [place] [address] PCP - General Internal Medicine 02/19/20 Benjie Covarrubias II, MD [address] [facility] [address] [place] [address] Referring Internal Medicine 06/11/19 No, Referral Referring Cardiology 02/24/20 Team Status: Active Member Role Status Dates Benjie Covarrubias II MD Primary Care Provider Active Team Status: Inactive Member Role Status Dates Benjie Covarrubias II MD Primary Care Provider Active Start: January 12, 2024 End: January 12, 2024 Sonia Mchugh APRN Attending Provider Active Start: January 12, 2024 End: January 12, 2024 Veterinarian Epidemiologist Relationship Specialty Start Date End Date Benjie Covarrubias II, MD [address] [facility] [address] [place] [address] PCP - General Internal Medicine 02/19/20 Benjie Covarrubias II, MD [address] [facility] [address] [place] [address] Referring Internal Medicine 06/11/19 No, Referral Referring Cardiology 02/24/20 Goals (unrecognized section and content) Goals may be documented in a n alternate section FOR RECORDS PERTAINING TO PATIENTS WHO ARE [...] BE BASED ON THE PRIMARY CLINICAL RECORDS. [employer] [facility]. provides no warranty or guarantee of the accuracy or completeness of information in this document.
== END 2024-04-01 10:54 | disposition home or self-care (01) ==
LOC: LAB 11:00
PROVIDERS: PCP Internal Medicine; Visit Provider Urology
DX: N20.0 Calculus of kidney (principal)
CPT/HCPCS: 74018

== ENCOUNTER 2024-04-03 12:15 | Emergency (ER) | payer MEDICARE, SELFPAY ==
[2024-04-03] VITALS (17 sets, daily range): BP systolic 141–142; BP diastolic 83–87; PULSE 73–87; TEMP 36.8; O2SAT 92–96; BMI 31.9
--- NOTE | 2024-04-03 12:21 | ECG_ITS ---
[facility] Test Date: 2024-04-03 Pat Name: NAKIA NARAYANAN Department: Room: - Gender: Male Physiological Chemist: : [id number] Requested By: LETHA COFFMAN Order Number: [id number] Reading MD: EUSEBIO PADILLA Measurements Intervals Lewis Rate: 82 P: 57 WI: 166 QRS: -31 QRSD: 96 T: 36 QT: 388 QTc: 427 Interpretive Statements 1100 Sinus rhythm 1102 Sinus arrhythmia 3613 Cannot rule out inferior myocardial infarction, probably old 7200 Abnormal left axis deviation 8003 Consistent with pulmonary disease 9150 abnormal ECG Electronically Signed On 04-03-2024 22:48:03 EDT by EUSEBIO PADILLA
--- NOTE | 2024-04-03 12:26 | ED.GENADUL1 ---
HPI HPI - General Adult General Chief complaint: Chest Pain Stated complaint: Chest pain Time Seen by Provider: 04/03/24 12:17 History of Present Illness HPI narrative: Patient presents ED complaint of chest pain. He said his pain started kind of in his left leg hip and abdominal area kind of radiated up into the left chest and then over the past day or so has radiated crossed into the right chest. He said on Monday he was pulling weeds and reyes and lifting a lot of buckets up into a truck. He said he thinks he kind of overdid it but he was not really sure so he came in for further evaluation. 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 He said ever since then he has been feeling fine and he said for his age he feels pretty good. He has chronic lower extremity edema and chronic shortness of breath but nothing new or different recently. He said the chest pain is just worse with moving when he goes to try and sit up or exerts the chest wall muscles then he said the pain gets a little bit worse. No syncope no diaphoresis no nausea vomiting. He is alert and oriented x 3 no acute distress resting comfortably in the bed. Related Data Home Medications ?Medication ?Instructions ?Recorded ?Confirmed aspirin 81 mg tablet,delayed 81 mg PO DAILY 11/27/22 11/27/22 release (Adult Low Dose Aspirin) dapagliflozin propanediol 10 mg 10 mg PO DAILY 11/27/22 11/27/22 tablet (Farxiga) metoprolol succinate 50 mg 25 mg PO DAILY 11/27/22 11/27/22 tablet,extended release 24 hr (Toprol XL) multivitamin (Multiple Vitamins 1 tab PO DAILY 11/27/22 11/27/22 tablet) pantoprazole 40 mg tablet,delayed 40 mg PO DAILY 11/27/22 11/27/22 release (Protonix) potassium citrate 10 mEq (1,080 10 meq PO BID 11/27/22 11/27/22 mg) tablet,extended release psyllium husk (aspartame) 3.4 gram 1 packet PO DAILY 11/27/22 11/27/22 oral powder packet (Metamucil Fiber Singles) simvastatin 40 mg tablet 40 mg PO DAILY 11/27/22 11/27/22 sitagliptin phosphate 50 1 tab PO BID 11/27/22 11/27/22 mg-metformin 1,000 mg tablet (Janumet) torsemide 20 mg tablet 20 mg PO DAILY 11/27/22 11/27/22 Previous Rx's ?Medication ?Instructions ?Recorded bacitracin zinc 500 unit/gram 1 applic topical DAILY #14 grams 01/06/24 topical ointment (Antibiotic (bacitracin zinc)) cephalexin 500 mg capsule 500 mg PO Q8H 7 days #21 caps 01/06/24 Allergies Allergy/AdvReac Type Severity Reaction Status Date / Time No Known Drug Allergies Allergy Verified 04/03/24 12:19 Opioid HPI Opioid Management Most Recent Opioid Data: Last Pain Scale 7 04/03/24 12:35 Last ED Pain Assessment 04/03/24 12:35 Last MAR Pain Assessment 04/03/24 14:16 Review of Systems ROS Status of ROS 10 or more systems reviewed and unremarkable except as noted in history and below PFSH PFSH Social History Smoking status: Former smoker Little interest or pleasure in doing things: not at all Feeling down, depressed, or hopeless: not at all Exam Narrative Exam Narrative: Time Seen: [] Vital Signs: [Per nurse's notes.] General: [Alert] Skin: [Warm, dry, no rash.] Head: [Normocephalic, atraumatic.] Neck: [Supple, trachea midline.] Eye: [Pupils are equal, round and reactive to light, extraocular movements are intact, normal conjunctiva.] Ears, nose, mouth and throat: oral mucosa moist. Cardiovascular: [Regular rate and rhythm, no murmur.] Respiratory: [Lungs are clear to auscultation, respirations are non-labored, breath sounds are equal.] Chest wall: [Mild tenderness to palpation in the right chest wall and mild tenderness when patient is going to sit up or his upper extremities together and using the chest wall muscles.] Gastrointestinal: [Soft, nontender, non distended, normal bowel sounds.] MSK: 5 out of 5 muscle strength x 4 extremities no calf pain or edema Lymphatics: [No lymphadenopathy.] Psychiatric: [Cooperative, appropriate mood & affect.] Neurological: [Alert and oriented to person, place, time, and situation, no focal neurological deficit observed.] Constitutional Vital Signs, click to edit/add: Last Vital Signs Temp 98.2 F 04/03/24 12:19 Pulse 74 04/03/24 13:50 Resp 14 04/03/24 13:50 BP 141/87 04/03/24 14:19 Pulse Ox 94 L 04/03/24 13:50 O2 Del Method Room Air 04/03/24 12:19 Course Vital Signs Vital signs: Vital Signs Temperature 98.2 F 04/03/24 12:19 Pulse Rate 87 04/03/24 12:19 Respiratory Rate 18 04/03/24 12:19 Blood Pressure 142/83 H 04/03/24 12:19 Pulse Oximetry 96 04/03/24 12:19 Oxygen Delivery Method Room Air 04/03/24 12:19 Temperature 98.2 F 04/03/24 12:19 Pulse Rate 74 04/03/24 13:50 Respiratory Rate 14 04/03/24 13:50 Blood Pressure 141/87 04/03/24 14:19 Pulse Oximetry 94 L 04/03/24 13:50 Oxygen Delivery Method Room Air 04/03/24 12:19 Medical Decision Making MDM Narrative Medical decision making narrative: Patient's labs show a slightly elevated creatinine. Patient also has a slightly elevated glucose but he stopped taking one of his diabetes medications. He also has a small cyst on the right side of the chest which she said has been there for a very long time and he said that is not what is causing his pain. It is starting to look slightly red so I told him put some topical antibiotic ointment on it. I called and spoke to Dr. Hester who knows the patient well. He states all of this can be managed as outpatient. Patient does have an appointment with him on April 10. Patient reports that he is comfortable with care plan for home and will follow-up with Dr. Hester as scheduled. Dr. Hester is also agreeable with outpatient management. Most likely his chest pain is musculoskeletal in nature. EKG and troponin negative Differential Diagnosis Differential Diagnosis: Atypical chest pain, chest wall pain, musculoskeletal chest pain, Medical Records Medical records reviewed: Yes I reviewed the patient's medical records Lab Data Lab results reviewed: Yes I reviewed the patient's lab results Labs: Lab Results 04/03/24 Range/Units 12:38 WBC 9.2 (4.0-11.0) 10^3/uL RBC 4.30 L (4.70-6.10) 10^6/uL Hgb 13.0 L (14.0-18.0) g/dL Hct 38.1 L (42.0-54.0) % MCV 88.6 (80.0-94.0) fL MCH 30.2 (25.9-34.0) pg MCHC 34.1 (29.9-35.2) g/dL RDW 14.3 (11.0-15.0) % Plt Count 181 (150-450) 10^3/uL MPV 12.1 (9.5-13.5) fL Neut % (Auto) 67.2 (43.0-75.0) % Lymph % (Auto) 15.4 L (20.5-60.0) % [place] % (Auto) 13.4 H (1.7-12.0) % Eos % (Auto) 2.1 (0.9-7.0) % Baso % (Auto) 1.1 (0.2-2.0) % Neut # (Auto) 6.2 (1.4-6.5) 10^3/uL Lymph # (Auto) 1.4 (1.2-3.8) 10^3/uL [place] # (Auto) 1.2 H (0.3-0.8) 10^3/uL Eos # (Auto) 0.2 (0.0-0.7) 10^3/uL Baso # (Auto) 0.1 (0.0-0.1) 10^3/uL Abs Immat Gran (auto) 0.07 H (0.00-0.03) 10^3/uL Imm/Tot Granulo (auto) 0.8 H (0.0-0.5) % Sodium 137 (136-145) mmol/L Potassium 3.2 L (3.5-5.1) mmol/L Chloride 99 (98-107) mmol/L Carbon Dioxide 26.1 (21.0-32.0) mmol/L Anion Gap 15.1 BUN 30.0 H (7.0-18.0) mg/dL Creatinine 2.15 H (0.70-1.30) mg/dL Est GFR ( Amer) 35 L (>=60 mL/min/1.73m^2) Est GFR (Non-Af Amer) 29 L (>=60 mL/min/1.73m^2) BUN/Creatinine Ratio 14.0 Glucose 292 H (74-106) mg/dL Calcium 8.4 L (8.5-10.1) mg/dL Total Bilirubin 0.6 (0.2-1.0) mg/dL AST 24 (15-37) U/L ALT 29 (16-63) U/L Alkaline Phosphatase 71 (46-116) U/L Troponin I High Sens 12.4 (4.0-76.1) pg/mL Total Protein 6.3 L (6.4-8.2) g/dL Albumin 3.3 L (3.4-5.0) g/dL Globulin 3.0 g/dL Albumin/Globulin Ratio 1.1 Imaging Data Chest x-ray: Radiologist's impression: ITS Impressions Chest X-Ray 04/03/24 12:35 IMPRESSION: 1. Low lung volume examination with trace amount of bibasilar atelectasis versus infiltrates. Electronically authenticated by: DOLORES NIETO Date: 04/03/2024 13:09 ECG Data Interpretation: EKG INTERPRETATION Time: []1229 Rate: 82 Rhythm: _ []Normal sinus rhythm ST segments: _ []No acute ST elevation or depression T waves: _ [] Ectopy: _ [] P wave/VA interval: _ [] QRS interval: _ [] QT interval: _ [] Comparison: _ [] Comparison EKG date: [] Performed by: [self] Discharge Plan Discharge Chief Complaint: Chest Pain Clinical Impression: Atypical chest pain Patient Disposition: Home, Self-Care Time of Disposition Decision: 14:14 Condition: Good Mode of Transportation: Private Vehicle Prescriptions / Home Meds: No Action cephalexin 500 mg capsule 500 mg PO Q8H 7 Days Qty: 21 0RF bacitracin zinc [Antibiotic (bacitracin zinc)] 500 unit/gram ointment 1 applic topical DAILY Qty: 14 0RF Rx Instructions: to the right forearm aspirin [Adult Low Dose Aspirin] 81 mg tablet,delayed release (DR/EC) 81 mg PO DAILY Janumet 50-1,000 mg tablet 1 tab PO BID potassium citrate 10 mEq (1,080 mg) tablet extended release 10 meq PO BID torsemide 20 mg tablet 20 mg PO DAILY simvastatin 40 mg tablet 40 mg PO DAILY pantoprazole [Protonix] 40 mg tablet,delayed release (DR/EC) 40 mg PO DAILY metoprolol succinate [Toprol XL] 50 mg tablet extended release 24 hr 25 mg PO DAILY multivitamin [Multiple Vitamins] Tablet 1 tab PO DAILY Metamucil Fiber Singles 3.4 gram powder in packet 1 packet PO DAILY Farxiga 10 mg tablet 10 mg PO DAILY Print Language: [place] Instructions: Chest Pain (ED), Chest Wall Pain (ED) Referrals: LETHA COFFMAN [Primary Care Provider] - 1 week
--- OUTSIDE RECORDS SUMMARY | 2024-04-03 12:26 | XMS_ITS | CCD ---
Author Organization [facility] CliniSydc Care Team Providers Care Graphite Grinder Name Role Phone Benjie Covarrubias II Unavailable [phone] Benjie Covarrubias II Primary Care Provider [phone] No, Referral Unavailable Unavailable BENJIE COVARRUBIAS Primary Care Physician [phone] TREVOR, DR ROSE MARIE Nicholson Attending Unavailable ZIEBSHASHANK, DR DOLORES Adamson Consulting Unavailable SATISH, DR MONAE Primary Care Unavailable TREVRO, DR ROSE MARIE Nicholson Admitting Unavailable TREVOR, [...] Adamson Consulting Unavailable Benjie Covarrubias II Unavailable Benjie Covarrubias II Primary Care Provider No, Referral Unavailable Unavailable Satish BRAND MD, Daniel B Unavailable Satish BRAND MD, Daniel B Primary Care Provider Sadaf STOVALL Attending Unavailable Sadaf STOVALL Attending Unavailable Satish BRAND MD, Daniel B Primary Care Provider COVARRUBIAS II, BENJIE B Primary Care Unavailable [...] Comment on above: [facility] 2 tablets [facility] 4 hours as needed for [...] in NaCl (PF) 0.9% 10 mL injection (DEFINBlossom Records) (6 sources) Start: 02-20-2023 End: 05-21-2024 perflutren lipid microspheres 1.3 mL in NaCl (PF) 0.9% 10 mL injection (DEFINITY) Start: 08-23-2022 End: 11-22-2023 perflutren lipid microsphere s 1.3 mL in NaCl (PF) 0.9% 10 mL injection (DEFINBlossom Records) potassium citrate 10 meq extended release oral [...] 12:00am Start: 03-19-2019 take 1 tablet by evangelina th once daily at bedtime simvastatin 40 [...] Coronary atherosclerosis; Translations: [Atherosclerotic heart disease of [place] coronary artery without angina pectoris] Onset: 04-07-2020 [...] Test Name Value Interpretation Reference Range Facility [facility] 02-15-2024 [facility] Office Visit (GRAY ) -------- NAKIA NARAYANAN ([id number]) 1935 M Date Time Provider Department 02/15/24 10:00 AM MARCO A GARVEY During your visit today, we recorded the following information about you: Pulse Blood pressure Weight Height 71/minute 122/72 99 kg 1.727 m Marco A Garvey MD 02/15/2024 9:55 AM Signed [facility] SE[facility] OF REGIONAL CARDIOLOGY OUTPATIENT VISIT DATE February 15, 2024 OUTPATIENT VISIT TYPE ESTABLISHED PRIMARY CARE PHYSICIAN: Benjie Covarrubias II, MD [address] [facility] [address] [place] [address] CHIEF COMPLAINT: Coronary artery disease, Heart failure, [...] heart failure (HCC) I50.32 6. Atherosclerosis of [place] coronary artery of [place] heart without angina pectoris I25.10 PLAN AND [...] MEDICAL HISTORY (more content not included)... Normal [facility] CBC panel Auto (Bld)on 08-14 Erythrocyte distribution width (RBC) [Ratio] 14.8 % 11.5 - 15.0 % [facility] Hematocrit (Bld) [Volume fraction] 40.3 % 39.0 - 51.0 % [facility] Hemoglobin (Bld) [Mass/Vol] 13.4 g/dL 13.0 - 17.0 g/dL [facility] MCH (RBC) [Entitic mass] 30.5 pg 26.0 - 34.0 pg [facility] MCHC (RBC) [Mass/Vol] 33.3 g/dL 30.5 - 36.0 g/dL [facility] MCV (RBC) [Entitic vol] 91.6 fL 80.0 - 100.0 fL [facility] Nucleated RBC (Bld) [#/Vol] <0.01 k/uL [facility] Platelet mean volume (Bld) [Entitic vol] 12.8 fL High 9.0 - 12.7 fL [facility] Platelets (Bld) [#/Vol] 194 10*3/uL 150 - 400 k/uL [facility] RBC (Bld) [#/Vol] 4.40 10*6/uL 4.20 - 6.0 0 m/uL [facility] WBC (Bld) [#/Vol] 10.34 10*3/uL 3.70 - 11 .00 k/uL [facility] Erythrocyte distribution width (RBC) [Ratio] 14.8 % Normal 11.5-15.0 [facility] Comment on above: Order Comment: Speci men Type: BLOOD SPECIMEN Ordering Facility: [facility] Address: [address] [place] [address] Performed By: #### 5 8410-2 #### [facility] CLIA [id number] [address] [place] [address] [place] [facility] Hematocrit (Bld) [Volume fraction] 40.3 % Normal 39.0-51.0 [facility] Comment on above: Order Comment: Speci men Type: BLOOD SPECIMEN Ordering Facility: [facility] Address: [address] [place] [address] Performed By: #### 5 8410-2 #### [facility] CLIA [id number] [address] [place] [address] [place] Hemoglobin (Bld) [Mass/Vol] 13.4 g/dL Normal 13.0-17.0 [facility] Comment on above: Order Comment: Speci men Type: BLOOD SPECIMEN Ordering Facility: [facility] Address: [address] [place] [address] Performed By: #### 5 8410-2 #### [facility] CLIA [id number] [address] [place] [address] [place] MCH (RBC) [Entitic mass] 30.5 pg Normal 26.0-34.0 [facility] Comment on above: Order Comment: Speci men Type: BLOOD SPECIMEN Ordering Facility: [facility] Address: [address] [place] [address] Performed By: #### 5 8410-2 #### [facility] CLIA [id number] [address] [place] [address] [place] MCHC (RBC) [Mass/Vol] 33.3 g/dL Normal 30.5-36.0 [facility] Comment on above: Order Comment: Speci men Type: BLOOD SPECIMEN Ordering Facility: [facility] Address: [address] [place] [address] Performed By: #### 5 8410-2 #### [facility] CLIA [id number] [address] [place] [address] [place] MCV (RBC) [Entitic vol] 91.6 fL Normal 80.0-100.0 [facility] Comment on above: Order Comment: Speci men Type: BLOOD SPECIMEN Ordering Facility: [facility] Address: [address] [place] [address] Performed By: #### 5 8410-2 #### [facility] CLIA [id number] [address] [place] [address] [place] Nucleated RBC (Bld) [#/Vol] 10*3/uL Normal <0.01 [facility] Comment on above: Order Comment: Speci men Type: BLOOD SPECIMEN Ordering Facility: [facility] Address: [address] [place] [address] Performed By: #### 5 8410-2 #### [facility] CLIA [id number] [address] [place] [address] [place] Platelet mean volume (Bld) [Entitic vol] 12.8 fL High 9.0-12.7 [facility] Comment on above: Order Comment: Speci men Type: BLOOD SPECIMEN Ordering Facility: [facility] Address: [address] [place] [address] Performed By: #### 5 8410-2 #### [facility] CLIA [id number] [address] [place] [address] [place] Platelets (Bld) [#/Vol] 194 10*3/uL Normal 150-400 [facility] Comment on above: Order Comment: Speci men Type: BLOOD SPECIMEN Ordering Facility: [facility] Address: [address] [place] [address] Performed By: #### 5 8410-2 #### [facility] CLIA [id number] [address] [place] [address] [place] RBC (Bld) [#/Vol] 4.40 10*6/uL Normal 4.20-6.00 [facility] Comment on above: Order Comment: Speci men Type: BLOOD SPECIMEN Ordering Facility: [facility] Address: [address] [place] [address] Performed By: #### 5 8410-2 #### [facility] CLIA [id number] [address] [place] [address] [place] WBC (Bld) [#/Vol] 10.34 10*3/uL Normal 3.70-11.00 [facility] Comment on above: Order Comment: Speci men Type: BLOOD SPECIMEN Ordering Facility: [facility] Address: [address] [place] [address] Performed By: #### 5 8410-2 #### [facility] CLIA [id number] [address] [place] [address] [place] [address] [place] CNOVon 08-14-2023 CNOV Office Visit (CARDLO ) -------- NAKIA NARAYANAN ([id number]) 1935 M Date Time Provider Department 08/14/23 9:30 AM JOAO LARA During your visit today, we recorded the following information about you: Pulse Blood pressure Weight 67/minute 134/72 97.7 kg Joao Lara APRN.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 Atherosclerosis of [place] coronary artery of [place] heart without angina pectoris I25.10 COMP METABOLIC [...] mood maris (more content not included)... Normal [facility] Comprehensive metabolic 2000 panelon 08-14-2023 Albumin [Mass/Vol] 3.9 g/dL 3.9 - 4.9 g/dL [facility] ALP [Catalytic activity/Vol] 72 U/L 38 - 113 U/L [facility] ALT [Catalytic activity/Vol] 14 U/L 10 - 54 U/L [facility] Anion gap [Moles/Vol] 13 mmol/L 9 - 18 mmol/L [facility] AST [Catalytic activity/Vol] 20 U/L 14 - 40 U/L [facility] Bilirubin [Mass/Vol] 0.3 mg/dL 0.2 - 1 .3 mg/dL [facility] Calcium [Mass/Vol] 9.1 mg/dL 8.5 - 10. 2 mg/dL [facility] Chloride [Moles/Vol] 107 mmol/L High 97 - 10 5 mmol/L [facility] CO2 [Moles/Vol] 24 mmol/L 22 - 30 mmol/L [facility] Creatinine [Mass/Vol] 1.28 mg/dL High 0.73 - 1.22 mg/dL [facility] Estimated Glomerular Filtration Rate 54 mL/min/1.73m Low >=60 mL/min/1.73m [facility] Glucose [Mass/Vol] 121 mg/dL High 74 - 99 mg/dL [facility] Potassium [Moles/Vol] 4.2 mmol/L 3.7 - 5.1 mmol/L [facility] Protein [Mass/Vol] 6.3 g/dL 6.3 - 8.0 g/dL [facility] Sodium [Moles/Vol] 144 mmol/L 136 - 144 mmol/L [facility] Urea nitrogen [Mass/Vol] 22 mg/dL 9 - 24 mg/dL [facility] Albumin [Mass/Vol] 3.9 g/dL Normal 3.9-4.9 [facility] Comment on above: Order Comment: Speci men Type: BLOOD SPECIMEN Ordering Facility: [facility] Address: [address] [place] [address] Performed By: #### 1 9123-9, LIPNF, 36085-1 #### [facility] CLIA [id number] [address] [place] [address] [place] ALP [Catalytic activity/Vol] 72 U/L Normal 38-113 [facility] Comment on above: Order Comment: Speci men Type: BLOOD SPECIMEN Ordering Facility: [facility] Address: [address] [place] [address] Performed By: #### 1 9123-9, LIPNF, 22653-2 #### [facility] CLIA [id number] [address] [place] [address] [place] ALT [Catalytic activity/Vol] 14 U/L Normal 10-54 [facility] Comment on above: Order Comment: Speci men Type: BLOOD SPECIMEN Ordering Facility: [facility] Address: [address] [place] [address] Performed By: #### 1 9123-9, LIPNF, 25564-1 #### [facility] CLIA [id number] [address] [place] [address] [place] Anion gap [Moles/Vol] 13 mmol/L Normal 9-18 [facility] Comment on above: Order Comment: Speci men Type: BLOOD SPECIMEN Ordering Facility: [facility] Address: [address] [place] [address] Performed By: #### 1 9123-9, LIPNF, 27561-8 #### [facility] CLIA [id number] [address] [place] [address] [place] AST [Catalytic activity/Vol] 20 U/L Normal 14-40 [facility] Comment on above: Order Comment: Speci men Type: BLOOD SPECIMEN Ordering Facility: [facility] Address: [address] [place] [address] Performed By: #### 1 9123-9, LIPNF, 68128-8 #### [facility] CLIA [id number] [address] [place] [address] [place] Bilirubin [Mass/Vol] 0.3 mg/dL Normal 0.2-1.3 [facility] Comment on above: Order Comment: Speci men Type: BLOOD SPECIMEN Ordering Facility: [facility] Address: [address] [place] [address] Performed By: #### 1 9123-9, LIPNF, 98820-6 #### [facility] CLIA [id number] [address] [place] [address] [place] Calcium [Mass/Vol] 9.1 mg/dL Normal 8.5-10.2 [facility] Comment on above: Order Comment: Speci men Type: BLOOD SPECIMEN Ordering Facility: [facility] Address: [address] [place] [address] Performed By: #### 1 9123-9, LIPNF, 47098-8 #### [facility] CLIA [id number] [address] [place] [address] [place] Chloride [Moles/Vol] 107 mmol/L High 97-105 [facility] Comment on above: Order Comment: Speci men Type: BLOOD SPECIMEN Ordering Facility: [facility] Address: [address] [place] [address] Performed By: #### 1 9123-9, LIPNF, 29122-2 #### [facility] CLIA [id number] [address] [place] [address] [place] CO2 [Moles/Vol] 24 mmol/L Normal 22-30 [facility] Comment on above: Order Comment: Speci men Type: BLOOD SPECIMEN Ordering Facility: [facility] Address: [address] [place] [address] Performed By: #### 1 9123-9, YVETTE, #### [facility] CLIA [id number] [address] [place] [address] [place] Creatinine [Mass/Vol] 1.28 mg/dL High 0.73-1.22 [facility] Comment on above: Order Comment: Speci men Type: BLOOD SPECIMEN Ordering Facility: [facility] Address: [address] [place] [address] Performed By: #### 1 9123-9, YVETTE, #### [facility] CLIA [id number] [address] [place] [address] [place] Creatinine and Glomerular filtration rate.predicted panel (S/P/Bld) 54 mL/min/1.73m??? Low >=60 [facility] Comment on above: Order Comment: Speci men Type: BLOOD SPECIMEN Ordering Facility: [facility] Address: [address] [place] [address] Result Comment: Brenda mated Glomerular Filtration Rate [...] Performed By: #### 1 9123-9, YVETTE, #### [facility] CLIA [id number] [address] [place] [address] [place] Glucose [Mass/Vol] 121 mg/dL High 74-99 [facility] Comment on above: Order Comment: Specjoseph toscano Type: BLOOD SPECIMEN Ordering Facility: [facility] Address: [address] [place] [address] Result Comment: The [place] Diabetes Association (ADA) provides guidance for cutoff [...] Standards of Medical Care in Diabetes 2016, [place] Diabetes Association. Diabetes Care. 2016.39(Suppl 1). Performed By: #### 1 9123-9, LIPNF, 14926-3 #### [facility] CLIA [id number] [address] [place] [address] [place] Potassium [Moles/Vol] 4.2 mmol/L Normal 3.7-5.1 [facility] Comment on above: Order Comment: Claudia toscano Type: BLOOD SPECIMEN Ordering Facility: [facility] Address: [address] [place] [address] Performed By: #### 1 9123-9, LIPNF, 01949-8 #### [facility] CLIA [id number] [address] [place] [address] [place] Protein [Mass/Vol] 6.3 g/dL Normal 6.3-8.0 [facility] Comment on above: Order Comment: Claudia toscano Type: BLOOD SPECIMEN Ordering Facility: [facility] Address: [address] [place] [address] Performed By: #### 1 9123-9, LIPNF, 40383-7 #### [facility] CLIA [id number] [address] [place] [address] [place] Sodium [Moles/Vol] 144 mmol/L Normal 136-144 [facility] Comment on above: Order Comment: Speci men Type: BLOOD SPECIMEN Ordering Facility: [facility] Address: [address] [place] [address] Performed By: #### 1 9123-9, LIPNF, 53836-9 #### [facility] CLIA [id number] [address] [place] [address] [place] Urea nitrogen [Mass/Vol] 22 mg/dL Normal 9-24 [facility] Comment on above: Order Comment: Speci men Type: BLOOD SPECIMEN Ordering Facility: [facility] Address: [address] [place] [address] Performed By: #### 1 9123-9, LIPNF, 51472-3 #### [facility] CLIA [id number] [address] [place] [address] [place] ECG COMPLETEon 08-14-2023 Atrial Rate 72 BPM [facility] Calculated P [place] 58 degrees [facility] Calculated R [place] -9 degrees [facility] Calculated T [place] 64 degrees [facility] P-R Interval 182 ms [facility] QRS Duration 102 ms [facility] QT Interval 390 ms [facility] QTC Calculation (Bazett) 427 ms [facility] Ventricular Rate 72 BPM [facility] ECG COMPLETE Ventricular Rate : 7 2 BPM Atrial Rate : 72 BPM P-R Interval : 182 ms QRS Duration : 102 ms Q-T Interval : 390 ms QTC Calculation(Bazett) : 427 ms Calculated P [place] : 58 degrees Calculated R [place] : -9 degrees Calculated T [place] : 64 degrees NORMAL SINUS RHYTHM LOW VOLTAGE QRS, CONSIDER PULMONARY DISEASE, PERICARDIAL EFFUSION, OR NORMAL VARIANT BORDERLINE ECG Confirmed by RACIEL ANGELES, MARY Santiago (34) on 08/14/2023 4:17:30 PM NAME : NAKIA NARAYANAN PID : [id number] : 1935 Gender : Male Race : ORD : [id number] Procedure Date : Aug 14 2023 09:29:38 [...] A GARVEY Acquired by : lrs, Normal [facility] LIPID PANEL, NONFASTINGon Cholesterol [Mass/Vol] 116 mg/dL <200 mg/dL [facility] HDL Cholesterol, Nonfasting 32 mg/dL Low >39 mg/dL [facility] LDL Cholesterol, Nonfasting 38 mg/dL <100 mg/dL [facility] LDL/HDL Ratio, Nonfasting 1.19 mg/dL <2.54 mg/dL [facility] Non HDL Cholesterol, Nonfasting 84 mg/dL <130 mg/dL [facility] Total Chol/HDL Ratio, Nonfasting 3.63 mg/dL <5.10 mg/dL [facility] Triglycerides, Nonfasting 230 mg/dL High <150 mg/dL [facility] VLDL Cholesterol, Nonfasting 46 mg/dL High <30 mg/dL [facility] Cholesterol [Mass/Vol] 116 mg/dL Normal <200 [facility] Comment on above: Order Comment: Claudia toscano Type: BLOOD SPECIMEN Ordering Facility: [facility] Address: [address] [place] [address] Result Comment: <200 mg/dL, Desirable 200-239 mg/dL, Borderline high >239 mg/dL, High Performed By: #### 1 9123-9, LIPNF, 31247-1 #### [facility] CLIA [id number] [address] [place], [place] [id number] [address] [place] HDL CHOLESTEROL, NF 32 mg/dL Low >39 [facility] Comment on above: Order Comment: Claudia toscano Type: BLOOD SPECIMEN Ordering Facility: [facility] Address: [address] [place] [address] Result Comment: 40-5 9 mg/dL, Acceptable >59 mg/dL, High: Negative risk factor for coronary heart disease <40 mg/dL, Low: Positive risk factor for coronary heart disease Performed By: #### 1 9123-9, LIPNF, 74557-6 #### [facility] CLIA [id number] [address] [place] [address] [place] LDL CHOLESTEROL, NF 38 mg/dL Normal <100 [facility] Comment on above: Order Comment: Claudia toscano Type: BLOOD SPECIMEN Ordering Facility: [facility] Address: [address] [place] [address] Result Comment: <100 mg/dL, Optimal 100-129 mg/dL, Near optimal/above optimal 130-159 mg/dL, Borderline high 160-189 mg/dL, High >189 mg/dL, Very high Secondary prevention optimal LDL Cholesterol levels are recommended to be < 70 mg/dL Performed By: #### 1 9123-9, LIPNF, #### [facility] CLIA [id number] [address] [place] [address] [place] LDL/HDL RATIO, NF 1.19 mg/dL Normal <2.54 [facility] Comment on above: Order Comment: Speci men Type: BLOOD SPECIMEN Ordering Facility: [facility] Address: [address] [place] [address] Result Comment: Larry haddad: 1. National Cholesterol Education Program ATP III Guideline At-A-Glance Quick Desk Reference: National Heart, Lung, and Blood Marcy. National Institutes of Health. 2001: NIH Publication No. 01-3305. 2. An International Atherosclerosis Society position paper: global recommendations for the management of dyslipidemia: executive summary, Atherosclerosis. 2014: 232(2):410-413. Performed By: #### 1 9123-9, LIPNF, #### [facility] CLIA [id number] [address] [place] [address] [place] NON HDL CHOL, NF 84 mg/dL Normal <130 [facility] Comment on above: Order Comment: Claudia men Type: BLOOD SPECIMEN Ordering Facility: [facility] Address: [address] [place] [address] Result Comment: <130 mg/dL, Optimal 130-159 mg/dL, Near optimal/above optimal 160-189 mg/dL, Borderline high 190-219 mg/dL, High >219 mg/dL, Very high Secondary prevention optimal non HDL Cholesterol levels are recommended to be <100 mg/dL Performed By: #### 1 9123-9, LIPNF, 23588-7 #### [facility] CLIA [id number] [address] [place] [address] [place] T CHOL/HDL RATIO NF 3.63 mg/dL Normal <5.10 [facility] Comment on above: Order Comment: Speci men Type: BLOOD SPECIMEN Ordering Facility: [facility] Address: [address] [place] [address] Performed By: #### 1 9123-9, LIPZACHERY, 67568-6 #### [facility] CLIA [id number] [address] [place] [address] [place] TRIGLYCERIDES, NF 230 mg/dL High <150 [facility] Comment on above: Order Comment: Speci men Type: BLOOD SPECIMEN Ordering Facility: [facility] Address: [address] [place] [address] Result Comment: <150 mg/dL, Normal 150-199 mg/dL, Borderline high 200-499 mg/dL, High >499 mg/dL, Very high Performed By: #### 1 9123-9, LIPZACHERY, 20755-7 #### [facility] CLIA [id number] [address] [place] [address] [place] VLDL CHOLESTEROL, NF 46 mg/dL High <30 [facility] Comment on above: Order Comment: Speci men Type: BLOOD SPECIMEN Ordering Facility: [facility] Address: [address] [place] [address] Performed By: #### 1 9123-9, LIPZACHERY, 01891-0 #### [facility] CLIA [id number] [address] [place] [address] [place] MAGNESIUM BLDon 08-14-2023 Magnesium [Mass/Vol] 1.7 mg/dL 1.7 - 2 .3 mg/dL [facility] Magnesium SerPl-mCncon 08-14 Magnesium [Mass/Vol] 1.7 mg/dL Normal 1.7-2.3 [facility] Comment on above: Order Comment: Speci men Type: BLOOD SPECIMEN Ordering Facility: [facility] Address: [address] [place] [address] Performed By: #### 1 9123-9, LIPZACHERY, 84608-0 #### [facility] CLIA [id number] [address] [place] [address] [place] [address] [place] [address] 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 Ordering physician: JOAO LARA Indication: Routine surveillance [...] * * * Final * * * [employer] Image : [id number] D Normal [facility] Ambulatory Visit Summaryon 1 Ambulatory Visit Summary ROVERTO NARAYANANCOLLEEN Lindsay :1935 Visit Date:04/03/2023 Ambulatory Visit Instructions Your Diagnosis Kidney stones BPH with urinary obstruction Glucosuria Tests Performed Urnls Dip Stick Auto w/o Microscopy POC 22678 XR Abdomen 1 View -- Results Pending [...] ANGELES, Sadaf Adamson Where: [facility] Patient Educationon 04-03-20 Patient Education Nephrology Dietary [...] ? 8 oz (237 mL) of milk, pbgjqmw-drygldskqudn-emk ry milk, and calcium-fortifiedfruit juice. Calcium-fortified means [...] Spinach (cooked), rhubarb, beets, sweet potatoes, and Northern Irish chard. ? Peanuts. ? Potato chips, indonesian fries, and baked potatoes with skin on. ? Nuts and nut products. ? Chocolate. ? If you regularly take a diuretic medicine, make sure to eat at least 1 or 2 servings of fruits or vegetables that are high in potassium each day. These include: ? Avocado. ? Banana. ? Aurora, prune, carrot, or tomato juice. ? Baked [...] fish oil, or vitamin B6. ? Take yuvh-qwn-kyqogba and prescription medicines only as told by your health care provider. These include supplements. What foods should I limit? Limit your in (more content not included)... 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 Normal [facility] Comment on above: Result Comment: Elec tronically Signed By: Sadaf STOVALL MD\.br\Date and Time Signed: 04/03/23 09:28 EDT\.br\Electronically Co-Signed By: Tori Ventura.br\Date and Time Co-Signed: 04/03/23 09:26 EDT CNOVjose 02-20-2023 JOSE Office Visit (GRAY ) -------- NAKIA NARAYANAN ([id number]) 1935 M Date Time Provider Department 02/20/23 10:30 AM MARCO A GARVEY During your visit today, we recorded the following information about you: Pulse Blood pressure Weight 68/minute 137/92 93.4 kg Marco A Garvey MD 02/20/2023 10:39 AM Signed [facility] SECTION OF REGIONAL CARDIOLOGY OUTPATIENT VISIT DATE February 20, 2023 OUTPATIENT VISIT TYPE ESTABLISHED PRIMARY CARE PHYSICIAN: Benjie Covarrubias II, MD [address] [place] [address] CHIEF COMPLAINT: Heart failure, Hyperlipidemia, Hypertension, and [...] failure (HCC) I50.32 ECHO 5. Atherosclerosis of [place] coronary artery of [place] heart without angina pectoris I25.10 ECHO 6. [...] ECG Confirmed by MARCO A GARVEY MD ([id number]) on 08/24/2022 10:00:15 AM PAST CARDIAC HISTORY: See above. PAST MEDICAL HISTORY Diagnosis Date Atherosclerosis of [place] coronary artery of [place] heart without angina pectoris 04/07/2020 Chronic diastolic heart failure (HCC) DMII (diabetes mellitus, type 2) ([facility]) 1999 HLD (hyperlipidemia) 1999 HTN (hypertension) 1999 Nonrheumatic aortic valve stenosis Orthostatic lightheadedness Pure hypercholesterolemia 06/18/2019 Type 2 diabetes mellitus without complication, with long-term current use of insulin ([facility]) 04/07/2020 PAST SURGICAL HISTORY Procedure Laterality Date [...] sitaGLIPtin-metFORMIN (CANDICEUMET) (more content not included)... Normal [facility] ECG COMPLETEon 08-24-2022 Atrial Rate 72 BPM [facility] Calculated P [place] 56 degrees [facility] Calculated R [place] 61 degrees [facility] Calculated T [place] 42 degrees [facility] P-R Interval 188 ms [facility] QRS Duration 94 ms [facility] QT Interval 402 ms [facility] QTC Calculation (Bazett) 440 ms [facility] Ventricular Rate 72 BPM [facility] CBC panel Auto (Bld)on 08-23 Erythrocyte distribution width (RBC) [Ratio] 14.4 % 11.5 - 15.0 % [facility] Hematocrit (Bld) [Volume fraction] 43.9 % 39.0 - 51.0 % [facility] Hemoglobin (Bld) [Mass/Vol] 14.2 g/dL 13.0 - 17.0 g/dL [facility] MCH (RBC) [Entitic mass] 29.4 pg 26.0 - 34.0 pg [facility] MCHC (RBC) [Mass/Vol] 32.3 g/dL 30.5 - 36.0 g/dL [facility] MCV (RBC) [Entitic vol] 90.9 fL 80.0 - 100.0 fL [facility] Nucleated RBC (Bld) [#/Vol] <0.01 k/uL [facility] Platelet mean volume (Bld) [Entitic vol] 13.0 fL High 9.0 - 12.7 fL [facility] Platelets (Bld) [#/Vol] 189 10*3/uL 150 - 400 k/uL [facility] RBC (Bld) [#/Vol] 4.83 10*6/uL 4.20 - 6.0 0 m/uL [facility] WBC (Bld) [#/Vol] 8.53 10*3/uL 3.70 - 11. 00 k/uL [facility] Comprehensive metabolic 2000 panelon 08-23-2022 Albumin [Mass/Vol] 4.3 g/dL 3.9 - 4.9 g/dL [facility] ALP [Catalytic activity/Vol] 75 U/L 38 - 113 U/L [facility] ALT [Catalytic activity/Vol] 26 U/L 10 - 54 U/L [facility] Anion gap [Moles/Vol] 11 mmol/L 9 - 18 mmol/L [facility] AST [Catalytic activity/Vol] 31 U/L 14 - 40 U/L [facility] Bilirubin [Mass/Vol] 0.4 mg/dL 0.2 - 1 .3 mg/dL [facility] Calcium [Mass/Vol] 9.3 mg/dL 8.5 - 10. 2 mg/dL [facility] Chloride [Moles/Vol] 103 mmol/L 97 - 10 5 mmol/L [facility] CO2 [Moles/Vol] 25 mmol/L 22 - 30 mmol/L [facility] Creatinine [Mass/Vol] 1.17 mg/dL 0.73 - 1.22 mg/dL [facility] Estimated Glomerular Filtration Rate 60 mL/min/1.73m >=60 mL/min/1.73m [facility] Glucose [Mass/Vol] 277 mg/dL High 74 - 99 mg/dL [facility] Potassium [Moles/Vol] 5.0 mmol/L 3.7 - 5.1 mmol/L [facility] Protein [Mass/Vol] 6.4 g/dL 6.3 - 8.0 g/dL [facility] Sodium [Moles/Vol] 139 mmol/L 136 - 144 mmol/L [facility] Urea nitrogen [Mass/Vol] 21 mg/dL 9 - 24 mg/dL [facility] MAGNESIUM [facility] 08-23-2022 Magnesium [Mass/Vol] 1.7 mg/dL 1.7 - 2 .3 mg/dL [facility] TSH [facility] 08-23-2022 TSH Qn 5.670 m[IU]/L High 0.270 - 4.200 mIU/L [facility] XR KUB 1 VIEWon 03-28-2022 XR KUB [...] by: LISA CORRALES Date: 2022-03-28 16:12 Normal [facility] XR LSPINE W_OBLS AND FLEX_EX Ton 01-26-2022 [...] DOLORES NIETO Date: 2022-01-26 08:10 Normal [facility] Complete Blood Count with Au to Diffon 11-19-2021 Erythrocyte distribution width (RBC) [Ratio] 15.0 % Normal 11.0-15.0 [facility] Comment on above: Performed By: #### F T4, CMP, TSH reflex FT4, LIPD, URIC, CBCJESSICA, MDIFF #### [facility] [address], [place] [id number] Hematocrit (Bld) [Volume fraction] 41.0 % Normal 38.5-50.0 [facility] Comment on above: Performed By: #### F T4, CMP, TSH reflex FT4, LIPD, URIC, CBCJESSICA MDIFF #### [facility] [address], [place] [id number] Hemoglobin (Bld) [Mass/Vol] 13.2 g/dL Normal 13.0-17.1 [facility] Comment on above: Performed By: #### F T4, CMP, TSH reflex FT4, LIPD, URIC, CBCJESSICA, MDIFF #### [facility] [address], [place] [id number] MCH (RBC) [Entitic mass] 29.3 pg Normal 27.0-33.0 [facility] Comment on above: Performed By: #### F T4, CMP, TSH reflex FT4, LIPD, URIC, CBCJESSICA, MDIFF #### [facility] [address], [place] [id number] MCHC (RBC) [Mass/Vol] 32.2 g/dL Normal 32.0-36.0 [facility] Comment on above: Performed By: #### F T4, CMP, TSH reflex FT4, LIPD, URIC, CBCJESSICA, MDIFF #### [facility] [address], [place] [id number] MCV (RBC) [Entitic vol] 91 fL Normal 80-100 [facility] Comment on above: Performed By: #### F T4, CMP, TSH reflex FT4, LIPD, URIC, CBCAD, MDIFF #### [facility] [address], [place] [id number] Platelet mean volume (Bld) [Entitic vol] 12.40 fL Normal 7.50-12.50 [facility] Comment on above: Performed By: #### F T4, CMP, TSH reflex FT4, LIPD, URIC, CBCAD, MDIFF #### [facility] [address], [place] [id number] Platelets (Bld) [#/Vol] 167 10*3/uL Normal 140-400 [facility] Comment on above: Performed By: #### F T4, CMP, TSH reflex FT4, LIPD, URIC, CBCAD, MDIFF #### [facility] [address], [place] [id number] RBC (Bld) [#/Vol] 4.50 10*6/uL Normal 4.20-5.80 [facility] Comment on above: Performed By: #### F T4, CMP, TSH reflex FT4, LIPD, URIC, CBCAD, MDIFF #### [facility] [address], [place] [id number] RDW-SD 50.4 fL High 37.0-50.0 [facility] Comment on above: Performed By: #### F T4, CMP, TSH reflex FT4, LIPD, URIC, CBCAD, MDIFF #### [facility] [address], [place] [id number] REFLEX Manual Differential Normal [facility] Comment on above: Performed By: #### F T4, CMP, TSH reflex FT4, LIPD, URIC, CBCAD, MDIFF #### [facility] [address], [place] [id number] WBC (Bld) [#/Vol] 10.5 10*3/uL Normal 3.8-11.0 [facility] Comment on above: Performed By: #### F T4, CMP, TSH reflex FT4, LIPD, URIC, CBCAD, MDIFF #### [facility] [address], [place] [id number] Comprehensive Metabolic Pane mary 11-19-2021 Albumin [Mass/Vol] 3.9 g/dL Normal 3.6-5.1 [facility] Comment on above: Performed By: #### F T4, CMP, TSH reflex FT4, LIPD, URIC, CBCAD, MDIFF #### [facility] [address], [place] [id number] Albumin/Globulin [Mass ratio] 1.7 {ratio} Normal 1.0-2.5 [facility] Comment on above: Performed By: #### F T4, CMP, TSH reflex FT4, LIPD, URIC, CBCAD, MDIFF #### [facility] [address], [place] [id number] ALP [Catalytic activity/Vol] 64 U/L Normal 40-129 [facility] Comment on above: Performed By: #### F T4, CMP, TSH reflex FT4, LIPD, URIC, CBCAD, MDIFF #### [facility] [address], [place] [id number] ALT [Catalytic activity/Vol] 29 U/L Normal 9-46 [facility] Comment on above: Result Comment: 05/26 Female reference range changed. Performed By: #### F T4, CMP, TSH reflex FT4, LIPD, URIC, CBCAD, MDIFF #### [facility] [address], [place] [id number] Anion gap [Moles/Vol] 18 mmol/L Normal 12-20 [facility] Comment on above: Result Comment: Effe ctive 07/01/2019 reference range changed. Performed By: #### F T4, CMP, TSH reflex FT4, LIPD, URIC, CBCAD, MDIFF #### [facility] [address], [place] [id number] AST [Catalytic activity/Vol] 25 U/L Normal 10-40 [facility] Comment on above: Performed By: #### F T4, CMP, TSH reflex FT4, LIPD, URIC, CBCJESSICA, MDIFF #### [facility] [address], [place] [id number] Bilirubin [Mass/Vol] 0.67 mg/dL Normal 0.30-1.20 [facility] Comment on above: Performed By: #### F T4, CMP, TSH reflex FT4, LIPD, URIC, CBCAD, MDIFF #### [facility] [address], [place] [id number] BUN/CREA 15 Ratio Normal 6-22 [facility] Comment on above: Performed By: #### F T4, CMP, TSH reflex FT4, LIPD, URIC, CBCJESSICA, IFF #### [facility] [address], [place] [id number] Calcium [Mass/Vol] 9.0 mg/dL Normal 8.6-10.2 [facility] Comment on above: Performed By: #### F T4, CMP, TSH reflex FT4, LIPD, URIC, CBCJESSICA, MDIFF #### [facility] [address], [place] [id number] Chloride [Moles/Vol] 103 mmol/L Normal 98-107 [facility] Comment on above: Performed By: #### F T4, CMP, TSH reflex FT4, LIPD, URIC, CBCJESSICA, MDIFF #### [facility] [address], [place] [id number] CO2 [Moles/Vol] 24 mmol/L Normal 20-31 [facility] Comment on above: Performed By: #### F T4, CMP, TSH reflex FT4, LIPD, URIC, CBCMD JESSICAIFF #### [facility] [address], [place] [id number] Creatinine [Mass/Vol] 1.3 mg/dL Normal 0.7-1.4 [facility] Comment on above: Performed By: #### F T4, CMP, TSH reflex FT4, LIPD, URIC, CBCJESSICA, MDIFF #### [facility] [address], [place] [id number] eGFRAA 62 mL/min/1.73m2 Normal >60 [facility] Comment on above: Performed By: #### F T4, CMP, TSH reflex FT4, LIPD, URIC, CBCJESSICA, MDIFF #### [facility] [address], [place] [id number] eGFRNAA 51 mL/min/1.73m2 Low >60 [facility] Comment on above: Performed By: #### F T4, CMP, TSH reflex FT4, LIPD, URIC, CBCJESSICA, MDIFF #### [facility] [address], [place] [id number] Globulin (S) [Mass/Vol] 2.3 g/dL Normal 1.9-3.7 [facility] Comment on above: Performed By: #### F T4, CMP, TSH reflex FT4, LIPD, URIC, CBCAD, MDIFF #### [facility] [address], [place] [id number] Glucose [Mass/Vol] 199 mg/dL High 65-99 Garcia adkins [place] [facility] Comment on above: Result Comment: For FASTING Glucose --- ADA reference ranges: Normal 65-99 mg/dl Prediabetes 100-125 Diabetes >/= 126 Performed By: #### F T4, CMP, TSH reflex FT4, LIPD, URIC, CBCAD, MDIFF #### [facility] [address], [place] [id number] Potassium [Moles/Vol] 4.5 mmol/L Normal 3.5-5.5 [facility] Comment on above: Performed By: #### F T4, CMP, TSH reflex FT4, LIPD, URIC, CBCAD, MDIFF #### [facility] [address], [place] [id number] Protein [Mass/Vol] 6.2 g/dL Normal 6.1-8.1 [facility] [place] [facility] Comment on above: Performed By: #### F T4, CMP, TSH reflex FT4, LIPD, URIC, CBCAD, MDIFF #### [facility] [address], [place] [id number] Sodium [Moles/Vol] 140 mmol/L Normal 135-146 [facility] [place] [facility] Comment on above: Performed By: #### F T4, CMP, TSH reflex FT4, LIPD, URIC, CBCJESSICA, MDIFF #### [facility] [address], [place] [id number] Urea nitrogen [Mass/Vol] 20 mg/dL Normal 7-25 [facility] Comment on above: Performed By: #### F T4, CMP, TSH reflex FT4, LIPD, URIC, CBCAD, MDIFF #### [facility] [address], [place] [id number] Free T4on 11-19-2021 Free T4 [Mass/Vol] 0.96 ng/dL Normal 0.80-1.80 [facility] Comment on above: Performed By: #### F T4, CMP, TSH reflex FT4, LIPD, URIC, MD CHINOIFF #### [facility] [address] [place], [place] [id number] Lipid Panelon 11-19-2021 Cholesterol [Mass/Vol] 143 mg/dL Normal 125-200 [facility] Comment on above: Result Comment: Low risk < 200mg/dL Borderline risk 201-239 mg/dl High risk > or equal to 240 Performed By: #### F T4, CMP, TSH reflex FT4, LIPD, URIC, MD CHINOIFF #### [facility] [address] [place] [id number] Cholesterol in HDL [Mass/Vol] 44 mg/dL Normal >40 [facility] Comment on above: Result Comment: High Cardiovascular Risk HDL <40 mg/dL Low Cardiovascular Risk HDL > or equal to 60 mg/dl Performed By: #### F T4, CMP, TSH reflex FT4, LIPD, URIC, MD CHINOIFF #### [facility] [address] [place] [id number] Cholesterol in LDL [Mass/Vol] 74 mg/dL Normal [facility] Comment on above: Result Comment: LDL ATP III CLASSIFICATION LDL less than 100 mg/dl Optimal LDL 100-129 mg/dl Near or above optimal LDL 130-159 Borderline high LDL 160-189 High LDL greater than 189 mg/dl Very High Performed By: #### F T4, CMP, TSH reflex FT4, LIPD, URIC, CHINO MDIFF #### [facility] [address] [place] [id number] Cholesterol in VLDL [Mass/Vol] 25 mg/dL Normal [facility] Comment on above: Performed By: #### F T4, CMP, TSH reflex FT4, LIPD, URIC, CHINO MDIFF #### [facility] [address] [place] [id number] Cholesterol.total/Ch olesterol in HDL [Mass ratio] 3 {ratio} Normal [facility] Comment on above: Performed By: #### F T4, CMP, TSH reflex FT4, LIPD, URIC, CBCAD, MDIFF #### [facility] [address], [place] [id number] Triglyceride [Mass/Vol] 124 mg/dL Normal 30-150 [facility] Comment on above: Result Comment: TRIG ATPIII CLASSIFICATIONS TRIG less than 150 mg/dl Normal TRIG 150-199 mg/dl Borderline High TRIG 200-500 mg/dl High TRIG greather than 500 mg/dl Very High Performed By: #### F T4, CMP, TSH reflex FT4, LIPD, URIC, CBCAD, MDIFF #### [facility] [address], [place] [id number] Manual Differentialon 2021 BAND 0.0 % Normal [facility] Comment on above: Performed By: #### F T4, CMP, TSH reflex FT4, LIPD, URIC, CBCAD, MDIFF #### [facility] [address], [place] [id number] BANDABS 0.0 K/uL Normal [facility] Comment on above: Performed By: #### F T4, CMP, TSH reflex FT4, LIPD, URIC, CBCAD, MDIFF #### [facility] [address], [place] [id number] BASO 0.0 % Normal [facility] Comment on above: Performed By: #### F T4, CMP, TSH reflex FT4, LIPD, URIC, CBCAD, MDIFF #### [facility] [address], [place] [id number] BASOABS 0.0 K/uL Normal 0.0-0.2 [facility] Comment on above: Performed By: #### F T4, CMP, TSH reflex FT4, LIPD, URIC, CBCAD, MDIFF #### [facility] [address], [place] [id number] EOS 1.0 % Normal [facility] Comment on above: Performed By: #### F T4, CMP, TSH reflex FT4, LIPD, URIC, CBCAD, MDIFF #### [facility] [address], [place] [id number] EOSABS 0.1 K/uL Normal 0.0-0.5 [facility] Comment on above: Performed By: #### F T4, CMP, TSH reflex FT4, LIPD, URIC, CBCAD, MDIFF #### [facility] [address], [place] [id number] LYMPH 16.0 % Normal [facility] Comment on above: Performed By: #### F T4, CMP, TSH reflex FT4, LIPD, URIC, CBCAD, MDIFF #### [facility] [address], [place] [id number] LYMPHABS 1.7 K/uL Normal 0.9-3.9 [facility] Comment on above: Performed By: #### F T4, CMP, TSH reflex FT4, LIPD, URIC, CBCAD, MDIFF #### [facility] [address], [place] [id number] LYMPHATYP 0.0 % Low 0.9-3.9 [facility] Comment on above: Performed By: #### F T4, CMP, TSH reflex FT4, LIPD, URIC, CBCAD, MDIFF #### [facility] [address], [place] [id number] MONO 9.0 % Normal [facility] Comment on above: Performed By: #### F T4, CMP, TSH reflex FT4, LIPD, URIC, CBCAD, IFF #### [facility] [address], [place] [id number] MONOABS 0.9 K/uL Normal 0.2-0.9 [facility] Comment on above: Performed By: #### F T4, CMP, TSH reflex FT4, LIPD, URIC, CBCAD, MDIFF #### [facility] [address], [place] [id number] PLT EST Adequate Normal [facility] Comment on above: Performed By: #### F T4, CMP, TSH reflex FT4, LIPD, URIC, CBCADMDIFF #### [facility] [address], [place] [id number] RBCMORPH Normal Normal [facility] Comment on above: Performed By: #### F T4, CMP, TSH reflex FT4, LIPD, URIC, CBCAD, MDIFF #### [facility] [address], [place] [id number] SEG 74.0 % Normal [facility] Comment on above: Performed By: #### F T4, CMP, TSH reflex FT4, LIPD, URIC, CBCJESSICA, IFF #### [facility] [address], [place] [id number] SEGABS 7.7 K/uL Normal 1.5-7.8 [facility] Comment on above: Performed By: #### F T4, CMP, TSH reflex FT4, LIPD, URIC, CBCJESSICA, IFF #### [facility] [address], [place] [id number] WBC 10.5 K/uL Normal 3.8-11.0 [facility] Comment on above: Performed By: #### F T4, CMP, TSH reflex FT4, LIPD, URIC, CBCJESSICA, MDIFF #### [facility] [address], [place] [id number] TSH w/ Reflex to Free T4on 0 11-19-2021 FT4 reflex Free T4 Normal [facility] Comment on above: Performed By: #### F T4, CMP, TSH reflex FT4, LIPD, URIC, CBCRICARDO LOPEZ #### [facility] [address], [place] [id number] TSH 4.810 uIU/mL High 0.400-4.500 [facility] Comment on above: Performed By: #### F T4, CMP, TSH reflex FT4, LIPD, URIC, CBCJESSICA, MDIFF #### [facility] [address], [place] [id number] Uric Acidon 11-19-2021 URIC 9.1 mg/dL High 4.0-8.0 [facility] Comment on above: Result Comment: Refe rence range change 05/12/2017. Prior reference range F 2.4-5.7mg/dL. M 3.4-7.0 mg/dL. Performed By: #### F T4, CMP, TSH reflex FT4, LIPD, URIC, CBCJESSICA, MDIFF #### [facility] [address], [place] [id number] XR MODIFIED BARIUM SWALLOWon 11-16-2021 XR MODIFIED [...] by: DOLORES NIETO Date: 2021-11-16 09:48 Normal [facility] Vital Signs Date Time Vital Sign Value Performing Clinician Facility 02-15-2024 09:40-0400 Body height 172.7 cm Marco A Garvey MD Work Phone: [facility] 02-15-2024 09:40-0400 Body mass index (BMI) [Ratio] 33.19 kg/m2 Marco A Garvey MD Work Phone: [facility] 02-15-2024 09:40-0400 Body weight 99 kg Marco A Garvey MD Work Phone: [facility] 02-15-2024 09:40-0400 Diastolic blood pressure 72 mm[Hg] Marco A Garvey MD Work Phone: [facility] Comment on above: manual BP 02-15-2024 09:40-0400 Heart rate 71 /min Marco A Garvey MD Work Phone: [facility] 02-15-2024 09:40-0400 SaO2% (BldA) [Mass fraction] 95 % Marco A Garvey MD Work Phone: [facility] Comment on above: RA 02-15-2024 09:40-0400 Systolic blood pressure 122 mm[Hg] Marco A Garvey MD Work Phone: [facility] Comment on above: manual BP 01-12-2024 10:06-0400 Body height 172.72 cm [facility] 01-12-2024 10:06-0400 Body mass index (BMI) [Ratio] 33.1 kg/m2 [facility] 01-12-2024 10:06-0400 Body temperature 97.5 [degF] [facility] 01-12-2024 10:06-0400 Body weight 98.93 kg [facility] 01-12-2024 10:06-0400 Diastolic blood pressure 82 mm[Hg] [facility] 01-12-2024 10:06-0400 Heart rate 71 /min [facility] 01-12-2024 10:06-0400 Respiratory rate 16 /min [facility] 01-12-2024 10:06-0400 SaO2% (BldA) [Mass fraction] 91 % [facility] 01-12-2024 10:06-0400 Systolic blood pressure 123 mm[Hg] [facility] 08-14-2023 09:58-0500 Diastolic blood pressure 72 mm[Hg] Lavisa Lara INSPECTOR [employer] OPERATOR HELPER Work Phone: [facility] 08-14-2023 09:58-0500 Systolic blood pressure 134 mm[Hg] Lavisa Lara INSPECT[employer] OPERATOR HELPER Work Phone: [facility] 08-14-2023 09:33-0500 Body weight 97.7 kg Lavisa Lara INSPECTOR [employer] OPERATOR HELPER Work Phone: [facility] 08-14-2023 09:33-0500 Heart rate 67 /min Lavisa Lara INSPECT[employer] OPERATOR HELPER Work Phone: [facility] 08-14-2023 09:33-0500 SaO2% (BldA) [Mass fraction] 97 % Lavisa Lara INSPECT[employer] OPERATOR HELPER Work Phone: [facility] 02-20-2023 10:16-0400 Body weight 93.44 kg Marco A Garvey MD Work Phone: [facility] 02-20-2023 10:16-0400 Diastolic blood pressure 92 mm[Hg] Marco A Garvey MD Work Phone: [facility] 02-20-2023 10:16-0400 Heart rate 68 /min Marco A Garvey MD Work Phone: [facility] 02-20-2023 10:16-0400 SaO2% (BldA) [Mass fraction] 95 % Marco A Garvey MD Work Phone: [facility] 02-20-2023 10:16-0400 Systolic blood pressure 137 mm[Hg] Marco A Garvey MD Work Phone: [facility] 08-23-2022 10:34-0500 Diastolic blood pressure 73 mm[Hg] Lavisa Lara INSPECT[employer] OPERATOR HELPER Work Phone: [facility] 08-23-2022 10:34-0500 Heart rate 67 /min Lavisa Lara INSPECTOR [employer] OPERATOR HELPER Work Phone: [facility] 08-23-2022 10:34-0500 Systolic blood pressure 153 mm[Hg] Lavisa Lara INSPECTOR [employer] OPERATOR HELPER Work Phone: [facility] 08-23-2022 10:20-0500 Body weight 102.97 kg Lavisa Lara INSPECTOR [employer] OPERATOR HELPER Work Phone: [facility] 04-01-2022 08:54-0400 Blood Pressure Location Sadaf STOVALL [facility] 04-01-2022 08:54-0400 Diastolic blood pressure 83 mm[Hg] Sadaf STOVALL [facility] 04-01-2022 08:54-0400 Heart rate 73 /min Sadaf STOVALL [facility] 04-01-2022 08:54-0400 Systolic blood pressure 152 mm[Hg] Sadaf STOVALL [facility] 02-21-2022 10:19-0400 Body height 172.7 cm Marco A Garvey MD Work Phone: [facility] 02-21-2022 10:190400 Body weight 104.69 kg Marco A Garvey MD Work Phone: [facility] 02-21-2022 10:190400 Diastolic blood pressure 84 mm[Hg] Marco A Garvey MD Work Phone: [facility] 02-21-2022 10:190400 Heart rate 78 /min Marco A Garvey MD Work Phone: [facility] 02-21-2022 10:190400 SaO2% (BldA) [Mass fraction] 96 % Marco A Garvey MD Work Phone: [facility] 02-21-2022 10:190400 Systolic blood pressure 136 mm[Hg] Marco A Garvey MD Work Phone: [facility] Encounters Encounter Date Encounter Type Care Provider [...] Chronic diastolic heart failure (HCC); Atherosclerosis of [place] coronary artery of [place] heart without angina pectoris Start: 02-15-2024 End: 02-15-2024 ambulatory MARCO A GARVEY Facility:[facility] Start: 01-18-2024 End: 01-18-2024 ambulatory BENJIE COVARRUBIAS Not Available Start: 01-12-2024 End: 01-12-2024 ambulatory [facility] Work Phone: Start: 01-12-2024 End: 01-12-2024 Patient encounter procedure [facility] Work Phone: Start: 01-08-2024 [...] End: 08-14-2023 ambulatory BENJIE B COVARRUBIAS II Facility:[facility] Start: 08-14-2023 End: 08-14-2023 Patient encounter procedure Joao Lara APRN.CNP Work Phone: Cardiology Comment on above: Primary hypertension (Primary Dx); Chronic diastolic heart failure (HCC); Pure hypercholesterolemia; S/P CABG x 1; Atherosclerosis of [place] coronary artery of [place] heart without angina pectoris; Nonrheumatic aortic valve stenosis Start: 07-24-2023 End: 07-24-2023 ambulatory BENJIE B COVARRUBIAS Not Available Start: 04-14-2023 End: 04-14-2023 ambulatory BENJIE B COVARRUBIAS II Facility:[facility] Start: 04-03-2023 End: 04-04-2023 ambulatory Sadaf STOVALL Facility:[facility] Start: 02-20-2023 End: 02-20-2023 ambulatory BENJIE B COVARRUBIAS II Facility:[facility] Start: 02-20-2023 End: 02-20-2023 Patient encounter procedure Marco A Garvey MD Work Phone: Cardiology Comment on above: Nonrheumatic aortic valve stenosis (Primary Dx); Primary hypertension; Pure hypercholesterolemia; Chronic diastolic heart failure (HCC); Atherosclerosis of [place] coronary artery of [place] heart without angina pectoris; S/P CABG x 1; S/P AVR Start: 08-23-2022 End: 08-23-2022 Patient encounter procedure Joao Lraa APRN.PILOT PLANT OPERATOR HELPER Work Phone: Cardiology Comment on above: Chronic [...] encounter procedure Sadaf STOVALL [facility] Start: 03-28-2022 End: 03-29-[address] SADAF STOVALL Facility:[facility] Start: 02-21-2022 End: 02-21-2022 Patient encounter procedure Marco A Garvey MD Work Phone: Cardiology Comment on above: Nonrheumatic aortic valve stenosis (Primary Dx); Primary hypertension; Pure hypercholesterolemia; Chronic diastolic heart failure (HCC); Atherosclerosis of [place] coronary artery of [place] heart without angina pectoris; S/P CABG x 1; S/P AVR; Obesity, Class I, BMI 30-34.9 Start: 02-08-2022 End: 02-09-[address] ROSE MARIE MURRAY Facility:[facility] Start: 01-25-2022 End: 01-26-[address] ROSE MARIE MURRAY Facility:[facility] Start: 11-16-2021 End: 11-17-[address] BENJIE COVARRUBIAS Facility:[facility] Start: 04-07-2020 Patient encounter status Marco A Garvey MD Work Phone: [facility] Procedures Date Procedure Procedure Detail Performing Clinician Start: 08-14-2023 Ecg routine ecg w/le ast 12 lds i&r only Joao Lara APRN.PILOT PLANT OPERATOR HELPER Work Phone: Start: 08-23-2022 Ecg routine ecg [...] grafting S/P CABG x 1 Joao Lara APRN.PILOT PLANT OPERATOR HELPER Work Phone: History of coronary artery bypass grafting S/P CABG x 1 Marco A Garvey MD Work Phone: History of coronary artery bypass grafting S/P CABG x 1 Joao Lara APRN.PILOT PLANT OPERATOR HELPER Work Phone: History of coronary artery bypass grafting S/P CABG x 1 Marco A Garvey MD Work Phone: Maxillary sinus endo scopy with removal of polyps Sadaf STOVALL Transurethral prostatectomy Sadaf STOVALL Plan of Treatment Date Care Activity Detail Author Start: 08-26-2024 End: 08-26-2024 Patient encounter procedure 08/26/2024 10:00 AM EST Office Visit Cardiology [address] [facility] [place] [address] Marco A Garvey MD [address] [place] [address] Return in about 6 months (around 08/17/2024). Cardiology Comment on above: Return in about 6 months (around 08/17/19). Start: 08-14-2024 Hepatitis B surface antibody level LDL Cholesterol [facility] Start: 02-27-2024 Hemoglobin A1c measurement HbA1C [facility] Start: 02-25-2024 Influenza vaccination Influenza Vaccine (#1) [facility] Start: 10-23-2023 Hemoglobin A1c measurement HbA1C [facility] Start: 07-28-2023 Covid-19 Vaccine ( season) Covid-19 Vaccine () [facility] Start: 06-26-2023 Advance Directive Discussion Advance Directive Discussion [facility] Start: 06-26-2023 Depression Assessment Depression Assessment [facility] Start: 04-13-2023 End: 08-23-2023 Echocardiography ECHO Cardiology Routine Chronic diastolic heart failure (HCC) S/P AVR Expected: 04/13/2023, Expires: 08/23/2023 [facility] Work Phone: Comment on above: Expected: 04/13/2023, Expires: Start: 03-21-2023 Hemoglobin A1c/Hemoglobin.total in Blood HBA1C [facility] Start: 02-24-2023 Influenza vaccination INFLUENZA (#1) [facility] Start: 08-02-2022 COVID-19 VACCINE (5 - Moderna series) COVID-19 VACCINE (5 - Moderna series) [facility] Start: 06-26-2022 ADVANCE DIRECTIVE DISCUSSION ADVANCE DIRECTIVE DISCUSSION [facility] Start: 06-26-2022 DEPRESSION ASSESSMENT DEPRESSION ASSESSMENT [facility] Start: 02-24-2022 Influenza vaccination INFLUENZA (#1) [facility] Start: 09-07-2021 COVID-19 VACCINE (4 - Booster for Moderna series) COVID-19 VACCINE (4 - Booster for Moderna series) [facility] Start: 09-02-2021 Hemoglobin A1c/Hemoglobin.total in Blood HBA1C [facility] Start: 06-26-2021 ADVANCE DIRECTIVE DISCUSSION ADVANCE DIRECTIVE DISCUSSION [facility] Start: 03-13-2021 3 comp foot exam completed DIABETIC FOOT EXAM [facility] Start: 03-13-2021 Diabetic foot examination Diabetic Foot Exam [facility] Start: 1995 RSV Vaccine (1 - 1-dose 60+ series) RSV Vaccine (1 - 1-dose 60+ series) [facility] Start: 1985 SHINGRIX VACCINE (1 of 2) SHINGRIX VACCINE (1 of 2) [facility] Start: 1954 Urine microalbumin profile [facility] Start: 1953 Anxiety Screening Anxiety Screening [facility] Start: 1953 Depression Screening Depression Screening [facility] Start: 1953 Hepatitis B surface antibody level LDL CHOLESTEROL [facility] Start: 1945 Glaucoma screening Dilated Retinal Exam [facility] Start: 1945 Hepatitis B screening URINE ALBUMIN:CREATININE RATIO [facility] Start: 1945 Hepatitis C antibody, confirmatory test DILATED RETINAL EXAM [facility] ECG COMPLETE ECG COMPLETE ECG 08/23/2022 10:19 AM EST [facility] ECG COMPLETE ECG COMPLETE ECG 08/14/2023 9:29 AM EST [facility] End: 02-21-2024 Echocardiography ECHO Cardiology Routine Nonrheumatic aortic valve stenosis Primary hypertension Pure hypercholesterolemia Chronic diastolic heart failure (HCC) 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 S/P AVR 1 Occurrences starting 02/20/2023 until 02/21/2024 [facility] Work Phone: Comment on above: 1 Occurrences starting 02/20/2023 until 02/21/2024 [facility] Immunizations Immunization Date Immunization Notes Care Provider Fa clifford 03-27-2023 influenza virus vacc ine, unspecified formulation Marco A Garvey MD Work Phone: [facility] 05-12-2021 influenza virus vacc ine, unspecified formulation Sadaf STOVALL [facility] 05-10-2021 SARS-CoV-2 (COVID-19 ) mRNA-1273 vaccine Sadaf STOVALL [facility] Comment on above: Result Comment: 2021: [id number] 03-29-2021 influenza virus vacc ine, unspecified formulation Sadaf STOVALL [facility] 08-13-2020 SARS-CoV-2 (COVID-19 ) mRNA-1273 vaccine Sadaf STOVALL [facility] 07-13-2020 SARS-CoV-2 (COVID-19 ) mRNA-1273 vaccine Sadaf STOVALL [facility] 06-26-2020 SARS-CoV-2 (COVID-19 ) mRNA-1273 vaccine Sadaf STOVALL [facility] Comment on above: Result Comment: Pt s cony he is fully vaccinated but does not know the dates 03-30-2020 influenza virus vacc ine, unspecified formulation Sadaf STOVALL [facility] 03-30-2020 influenza, high dose seasonal, preservative-free Marco A Garvey MD Work Phone: [facility] Work Phone: 04-11-2019 influenza virus vacc ine, unspecified formulation Sadaf STOVALL [facility] 04-11-2019 influenza, high dose seasonal, preservative-free Marco A Garvey MD Work Phone: [facility] Work Phone: 04-03-2018 influenza virus vacc ine, unspecified formulation Sadaf STOVALL [facility] 04-03-2018 seasonal influenza, intradermal, preservative free Marco A Garvey MD Work Phone: [facility] Work Phone: 05-10-2017 influenza virus vacc ine, unspecified formulation Sadafisamar STOVALL [facility] 05-10-2017 Seasonal trivalent influenza vaccine, adjuvanted, preservative free Marco A Garvey MD Work Phone: [facility] Work Phone: 04-12-2017 influenza virus vacc ine, unspecified formulation Sadafisamar STOVALL [facility] 04-12-2017 influenza, injectabl e, quadrivalent, preservative free Marco A Garvey MD Work Phone: [facility] Work Phone: 03-27-2017 pneumococcal conjuga te vaccine, 13 valaly Garvey MD Work Phone: [facility] Work Phone: 03-22-2017 pneumococcal conjuga te vaccine, 13 valent Marco A Garvey MD Work Phone: [facility] Work Phone: 03-14-2017 pneumococcal polysaccharide vaccine, 23 valent Marco A Garvey MD Work Phone: [facility] Work Phone: 05-11-2016 influenza virus vacc ine, unspecified formulation Sadafisamar STOVALL [facility] 05-11-2016 influenza, injectabl e, quadrivalent, preservative free Marco A Garvey MD Work Phone: [facility] Work Phone: 04-27-2016 influenza virus vacc ine, unspecified formulation Sadaf STOVALL [facility] 04-27-2016 Seasonal trivalent influenza vaccine, adjuvanted, preservative free Marco A Garvey MD Work Phone: [facility] Work Phone: 04-24-2015 influenza virus vacc ine, unspecified formulation Sadafisamar STOVALL [facility] 04-24-2015 influenza, injectabl e, quadrivalent, contains preservative Marco A Garvey MD Work Phone: [facility] Work Phone: 05-14-2013 influenza virus vacc ine, unspecified formulation Sadaf STOVALL [facility] 05-14-2013 influenza, seasonal, injectable Marco A Garvey MD Work Phone: [facility] Work Phone: Payers Date Payer Category Payer Medicare [id number] 1959 Medicare [id number] 1959 Medicare [id number] 1935 Unknown [id number] 2.16.840.1.968394.3.579.2. 593 1935 Unknown [id number] 2.16.840.1.136368.3.579.2. 593 1935 Unknown [id number] 2.16.840.1.791875.3.579.2. 593 1935 Unknown [id number] 2.16.840.1.960107.3.579.2. 593 1935 Unknown [id number] 2.16.840.1.066871.3.579.2. 593 1935 Unknown [id number] 2.16.840.1.002035.3.579.2. 593 1935 Unknown [id number] 2.16.840.1.477850.3.579.2. 727 1935 Unknown [id number] 2.16.840.1.976923.3.579.2. 727 1935 Unknown [id number] 2..840.1.805518.3.579.2. 1259 1935 Unknown [id number] 2..840.1.735486.3.579.2. 1259 1935 Unknown [id number] 2.840.1.804880.3.579.2. 125 1935 Unknown [id number] 2.840.1.717773.3.579.2. 125 1935 Unknown [id number] 2..840.1.199689.3.579.2. 125 1935 Unknown [id number] 2.840.1.532326.3.579.2. 1259 1935 Unknown [id number] 2.840.1.157420.3.579.2. 125 1935 Unknown [id number] 2..840.1.142868.3.579.2. 125 1935 Unknown [id number] 2.16.840.1.041430.3.579.2. 125 1935 Unknown [id number] 2.16.840.1.558613.3.579.2. 125 1935 Unknown [id number] 2..840.1.579938.3.579.2. 125 1935 Unknown [id number] 2.16.840.1.452546.3.579.2. 1259 1935 Unknown [id number] 2.16.840.1.260761.3.579.2. 1259 1935 Unknown [id number] 2.16.840.1.762887.3.579.2. 1259 Private Health Insurance [facility] [id number] Social History Date Type Detail Facility Start: 02-21-2020 End: 08-23-2022 Tobacco smoking status NHIS Ex-smoker [facility] Start: 06-26-1928 End: 06-26-1963 History of tobacco use Current smoker [facility] Start: 06-26-1928 End: 06-26-1963 History of tobacco use Cigarette Smoker [facility] Start: 02-21-2020 End: 02-20-2023 Cigarettes smoked current (pack per day) - Reported 1 [facility] Work Phone: Start: 02-21-2020 End: 08-23-2022 Tobacco use and exposure Smokeless tobacco non-user [facility] Start: 02-21-2022 End: 02-15-2024 Alcohol intake Lifetime non-drinker (finding) [facility] Start: 04-07-2020 End: 04-09-2020 History SDOH Alcohol Frequency 1 [facility] Start: 04-09-2020 History SDOH Financial 5 [facility] Start: 04-09-2020 History SDOH Transpo rt Med 2 [facility] Start: 1935 Sex Assigned At Not on file C [facility] Start: 02-11-2022 End: 02-21-2022 Exposure to SARS-CoV-2 (event) Not sure [facility] Start: 04-01-2022 Tobacco smoking status Never s moked tobacco (finding) [facility] Tobacco smoking status Never [facility] Start: 04-07-2020 End: 02-20-2023 Sex Assigned At Male [facility] How often to you hav e a drink containing alcohol? Never [facility] Work Phone: (I/We) worried wheth er (my/our) food would run out before (I/we) got money to buy more. Never true [facility] Work Phone: Start: 1935 Sex Assigned At Male F [facility] Medical Equipment Procedure Code Equipment Code Equipment Original Text Equipment Identifier Dates [place] Thk1.65mm P tfe 4x.5in Cardiovascular Sterile - [id number] Start: 04-08-2020 Valve Perdomo In spiris Resilia 25mm Pericardial Aortic Bioprosthesis - [id number] Start: 04-08-2020 CATARACT EXTRACT ION W/ INTRAOCULAR LENS Will ULRICH, Luis 08/06/19 Non Biological Eye L FDA Start: 08-06-2019 CATARACT EXTRACT ION W/ INTRAOCULAR LENS Will ULRICH, Luis 08/20/19 Non Biological Eye R [id number] FDA Start: 08-20-2019 Functional Status Date Assessment Result Facility 04-01-2022 Functional Status N/A [facility] Clinical Notes 04-13-2020 to 02-15-2024 Marco A Garvey MD - 02/15/2024 9:37 AM Joao Li APRN.PILOT PLANT OPERATOR HELPER - 08/14/2023 9:58 AM Marco A Amador MD - 02/20/2023 10:11 AM EDTPatient Yi Garvey MD - 02/21/2022 10:17 AM EDT Note Date & Type Note Facility 02-15-2024 Note HNO ID: [id number] Author: MARCO A GARVEY MD Service: ? Author Type: Physician Type: Progress Notes Filed: 02/15/2024 09:55 Note Text: Heart and Vascular [facility] CARDIOLOGY OUTPATIENT VISIT DATE February 15, 2024 OUTPATIENT VISIT TYPE ESTABLISHED PRIMARY CARE PHYSICIAN: Benjie Covarrubias II, MD [address] [address] CHIEF COMPLAINT: Coronary artery disease, Heart failure, [...] heart failure (HCC) I50.32 6. Atherosclerosis of [place] coronary artery of [place] heart without angina pectoris I25.10 PLAN AND [...] above. PAST MEDICAL HISTORY 04/07/2020: Atherosclerosis of [place] coronary artery of [place] heart without angina pectoris No date: Chronic diastolic heart failure (HCC) 2000: DMII (diabetes mellitus, type 2) (HCC) 2000: HLD (hyperlipidemia) 2000: HTN (hypertension) No date: N (more content not included)... [facility] 02-15-2024 History of Present illness Narrative Images from the original note were not included. [facility] OUTPATIENT VISIT DATE February 15, 2024 OUTPATIENT VISIT TYPE ESTABLISHED PRIMARY CARE PHYSICIAN: Benjie Covarrubias II, MD [address] [facility] [address] [place] [address] CHIEF COMPLAINT: Coronary artery disease, Heart failure, [...] heart failure (HCC) I50.32 6. Atherosclerosis of [place] coronary artery of [place] heart without angina pectoris I25.10 PLAN AND [...] above. PAST MEDICAL HISTORY 04/07/2020: Atherosclerosis of [place] coronary artery of [place] heart without angina pectoris No date: Chronic [...] Reported on 02/15/2024) documented in this encounter [facility] 08-14-2023 Note HNO ID: [id number] Author: JOAO LARA APRN.PILOT PLANT OPERATOR HELPER Service: ? Author Type: Nurse Practitioner Type: Progress Notes Filed: 08/27/2023 22:06 Note Text: [facility] Department of Cardiovascular Medicine SECTION [...] CABG x 1 Z95.1 5. Atherosclerosis of [place] coronary artery of [place] heart without angina pectoris I25.10 COMP METABOLIC [...] lb 12.8 oz) (more content not included)... [facility] 08-14-2023 History of Present illness Narrative Images from the original note were not included. [facility] Department of Cardiovascular Medicine SECTION [...] CABG x 1 Z95.1 5. Atherosclerosis of [place] coronary artery of [place] heart without angina pectoris I25.10 COMP METABOLIC [...] [place] DC 04/[address] Berrios. Per SELF PROPELLED MINING MACHINE OPERATOR ok to advance diet, use same [...] is a 84 year old male from [place], [place]. Supportive son. PT/OT recs Home. CM [...] HH diet 04/16. Nutrition following. Atherosclerosis of [place] Coronary Artery of [place] Heart Without Angina Pectoris - 04/07/2020 Comment: [...] PAST MEDICAL HISTORY Diagnosis Date Atherosclerosis of [place] coronary artery of [place] heart without angina pectoris 04/07/2020 Chronic diastolic [...] visit. This note was partially generated with [employer] voice recognition software and may contain errors, including spelling, grammar, syntax and misrecognition of what was dictated, that may not be fully corrected. I appreciate the opportunity to participate in this patient's care. Please do not hesitate to call my office if you have any questions. CONTACT INFORMATION: Joao Lara APRN.CNP Adult Nurse Practitioner [facility] Donna [facility] Department of Cardiovascular Medicine [facility] Heart, Vascular, Thoracic [facility] Cardiology Consult Team documented in this encounter [facility] 02-20-2023 Note HNO ID: [id number] Author: Marco A Garvey MD Service: ? Author Type: Physician Type: Progress Notes Filed: 02/20/2023 10:39 AM Note Text: Heart [facility] V[facility] OUTPATIENT VISIT DATE February 20, 2023 OUTPATIENT VISIT TYPE ESTABLISHED PRIMARY CARE PHYSICIAN: Benjie Covarrubias II, MD [address] [place] [address] CHIEF COMPLAINT: Heart failure, Hyperlipidemia, Hypertension, and [...] failure (HCC) I50.32 ECHO 5. Atherosclerosis of [place] coronary artery of [place] heart without angina pectoris I25.10 ECHO 6. [...] PAST MEDICAL HISTORY Diagnosis Date Atherosclerosis of [place] coronary artery of [place] heart without angina pectoris 04/07/2020 Chronic diastolic [...] hours as need (more content not included)... [facility] 02-20-2023 History of Present illness Narrative Images from the original note were not included. [facility] OUTPATIENT VISIT DATE February 20, 2023 OUTPATIENT VISIT TYPE ESTABLISHED PRIMARY CARE PHYSICIAN: Benjie Covarrubias II, MD [address] [place] [address] CHIEF COMPLAINT: Heart failure, Hyperlipidemia, Hypertension, and [...] failure (HCC) I50.32 ECHO 5. Atherosclerosis of [place] coronary artery of [place] heart without angina pectoris I25.10 ECHO 6. [...] PAST MEDICAL HISTORY Diagnosis Date Atherosclerosis of [place] coronary artery of [place] heart without angina pectoris 04/07/2020 Chronic diastolic [...] with breakfast.^Disp: ^Rfl: documented in this encounter [facility] 08-23-2022 Instructions Joao Lara APRN.PILOT PLANT OPERATOR HELPER - 08/23/2022 10:42 AM EST Images from [...] cheeses Yogurt MILK & DAIRY Buttermilk Cheese ([place], Francis, Cheddar, Blue, Gouda, Citizen Of [place], Velveeta) Cheese spreads FRUIT & VEGETABLES 5-9 [...] pie) Salted nuts MISC. Allspice, Mustard (dry) [place] Extract Basil Sugarloaf Leaves Capello's [place] Islander Style Seasoning [place] Seeds Chives Cider Vinegar Cinnamon Velazco Powder Bita Crystal Dill Garlic Powder [place] Herbal Seasonings: Lawry's Seasoned Pepper Lawry's Seasoning (no salt) Lemon Juice Mace Mrs. Dash Nutmeg Onion Powder Paprika Parsley Parsley Patch Peppermint Extract Pimento Jennifer Deandre Salt free seasoning blends Savory Sodium-free Baking Powder Thyme Turmeric Vinegar Ruiz's all-purpose Seasonings MISC. Accent Adela[place] All commercially prepared and convenience foods such as TV dinners, box mixes, canned entrees, Hamburger [place], meat pies, Divehi dinners, pizza, Shake'n Bake mixes BBQ sauce Celery salt Frankewing sauce Garlic salt Horseradish Kitchen Bouquet Lemon pepper Marinade sauce Meat tenderizers Monosodium Glutamate (MSG) Onion salt Green Party spreads Regular ketchup Relish Salad dressings Salt Seasoning salts Sodium Benzoate Sodium Caseinate Sodium Citrate Sodium Nitrate Sodium Phosphate Sodium Propionate Sodium Saccharin Soy sauce Steak sauce Tartar sauce Teriyaki sauce [facility] sauce Labeled no salt Products, Assorted [e.g., hooks paste and sauces, oriental dried plums and other dried seeds, vegetables and fruits (lemon & dimas)] documented in this encounter [facility] 08-23-2022 History of Present illness Narrative Images from the original note were not included. [facility] Department of Cardiovascular Medicine SECTION OF [facility] CARDIOLOGY August 23, 2022 OUTPATIENT VISIT TYPE ESTABLISHED PRIMARY CARE PHYSICIAN: Benjie Covarrubias II, MD SUBJECTIVE: CHIEF COMPLAINT: Patient presents with: CARD Follow Up 6 Month HISTORY OF PRESENT ILLNESS: Nkaia Narayanan is a 87 year old male [...] and down stairs; dong laundry, walking in [place]. Cardiac work-up includes : An echocardiogram in [...] [place] DC 04/[address] Berrios. Per SELF PROPELLED MINING MACHINE OPERATOR ok to advance diet, use same [...] is a 84 year old male from [place], [place]. Supportive son. PT/OT recs Home. CM [...] HH diet 04/16. Nutrition following. Atherosclerosis of [place] Coronary Artery of [place] Heart Without Angina Pectoris - 04/07/2020 Comment: S/p 04/08/2020: AVR, CABGx1 (Vein graft ascending aorta end to side obtuse marginal 1) CAD Core Measures: Aspirin: Yes Beta blockers: Yes Statins: Yes Type 2 Diabetes Mellitus, Without Long-Term Current Use of Insulin ([facility]) - 04/07/2020 Comment: History: Pre-op [...] PAST MEDICAL HISTORY Diagnosis Date Atherosclerosis of [place] coronary artery of [place] heart without angina pectoris 04/07/2020 Chronic diastolic heart failure (HCC) DMII (diabetes mellitus, type 2) ([facility]) 1999 HLD (hyperlipidemia) 1999 HTN (hypertension) 1999 Nonrheumatic aortic valve stenosis Orthostatic lightheadedness Pure hypercholesterolemia 06/18/2019 Type 2 diabetes mellitus without complication, with long-term current use of insulin ([facility]) 04/07/2020 PAST SURGICAL HISTORY Procedure Laterality Date [...] visit. This note was partially generated with [employer] voice recognition software and may contain errors, including spelling, grammar, syntax and misrecognition of what was dictated, that may not be fully corrected. I appreciate the opportunity to participate in this patient's care. Please do not hesitate to call my office if you have any questions. CONTACT INFORMATION: Joao Lara APRN.SOHAN Adult Nurse Practitioner Stacy Gavin Department of Cardiovascular Medicine [facility], Vascular, [facility] [place] Cardiology Consult Team documented in this encounter [facility] 07-05-2022 Note PROCEDURE: XR GI UPP ER [...] authenticated by: DOLORES NIETO Date: 2022-07-05 09:31 [facility] 07-05-2022 Note PROCEDURE: XR GI UPP ER [...] authenticated by: DOLORES NIETO Date: 2022-07-05 09:31 [facility] 04-01-2022 Hospital Discharge instructions Patient Education 04/01/2022 09:37:53 Kidney Stones, Rzxj-zu-Bhyz Kidney Stones Kidney stones are rock-like masses [...] Follow these instructions at home: Medicines Take umdn-ufd-wozmpki and prescription medicines only as told by [...] 11/28/2008 Document Revised: 10/29/2019 Document Reviewed: 10/29/2019 [place] Patient Education 2020 GITR. Follow Up Care 03/29/2021 11:32:59 With:HUSAM ANGELES, Sadaf Adamson, URL Address: [address] [place] [address]- When: Unknown [facility] 02-21-2022 History of Present illness Narrative Images from the original note were not included. [facility] SECTION OF REGIONAL CARDIOLOGY OUTPATIENT VISIT DATE February 21, 2022 OUTPATIENT VISIT TYPE ESTABLISHED PRIMARY CARE PHYSICIAN: Benjie Covarrubias II, MD [address] [place] [id number] CHIEF COMPLAINT: Coronary artery disease, Heart failure, [...] heart failure (HCC) I50.32 5. Atherosclerosis of [place] coronary artery of [place] heart without angina pectoris I25.10 6. S/P [...] UNDETERMINED ABNORMAL ECG Confirmed by MARCO A GRAVEY MD ([id number]) on 08/13/2021 10:32:11 AM PAST CARDIAC HISTORY: See above. PAST MEDICAL HISTORY Diagnosis Date Atherosclerosis of [place] coronary artery of [place] heart without angina pectoris 04/07/2020 Chronic diastolic heart failure (HCC) DMII (diabetes mellitus, type 2) ([facility]) 1999 HLD (hyperlipidemia) 1999 HTN (hypertension) 1999 Nonrheumatic aortic valve stenosis Orthostatic lightheadedness Pure hypercholesterolemia 06/18/2019 Type 2 diabetes mellitus without complication, with long-term current use of insulin ([facility]) 04/07/2020 PAST SURGICAL HISTORY Procedure Laterality Date [...] mouth twice daily. documented in this encounter [facility] 02-08-2022 Note CONSULTATION CONSULTATION DATE: 02/08/2022 CHIEF [...] once again. CC: Benjie Covarrubias M.D. [facility] 01-25-2022 Note CONSULTATION CONSULTATION DATE: 01/25/2022 CHIEF [...] the office in two weeks. CC: Benjie Covarurbias M.D. [facility] 01-25-2022 Note CONSULTATION PROCEDURE DATE: 01/25/2022 PREOPERATIVE [...] be followed up in the office. [facility] 04-13-2020 History of Past i llness Narrative Problem Noted Date Resolved Date Hyperlipemia 04/13/2020 02/21/2022 Overview: History: On Simvastatin preop. Assessment: Resumed on diet 04/16 Plan: Continue statin, trend LFTs On mechanically assisted ventilation 04/08/2020 04/11/2020 Overview: Grade III airway with bougie A/P-WTE Stress hyperglycemia 04/08/2020 04/08/2020 documented as of this encounter (statuses as of 02/21/2022) [facility]10-19-2020 History of Past illness Narrative* Problem Noted Date Resolved Date Hyperlipemia 04/13/2020 02/21/2022 Overview: History: On Simvastatin preop. Assessment: Resumed on HH diet 04/16 Plan: Continue statin, trend LFTs On mechanically assisted ventilation 04/08/2020 04/11/2020 Overview: Grade III airway with bougie A/P-WTE Stress hyperglycemia 04/08/2020 04/08/2020 documented as of this encounter (statuses as of 09/09/2022) [facility]2020 History of Past illness Narrative* Problem Noted Date Diagnosed Date Resolved Date Hyperlipemia 04/13/2020 02/21/2022 Overview: History: On Simvastatin preop. Assessment: Resumed on HH diet 04/16 Plan: Continue statin, trend LFTs On mechanically assisted ventilation 04/08/2020 04/11/2020 Overview: Grade III airway with bougie A/P-WTE Stress hyperglycemia 04/08/2020 020 documented as of this encounter (statuses as of 02/20/2023) [facility]2020 History of Past illness Narrative* Problem Noted Date Diagnosed Date Resolved Date Hyperlipemia 04/13/2020 02/21/2022 Overview: History: On Simvastatin preop. Assessment: Resumed on HH diet 04/16 Plan: Continue statin, trend LFTs On mechanically assisted ventilation 04/08/2020 04/11/2020 Overview: Grade III airway with bougie A/P-WTE Stress hyperglycemia 04/08/2020 020 documented as of this encounter (statuses as of 08/28/2023) [facility] Future Appointments Appointment Date:04/03/2023 08:45:00 AM Scheduled Provider:Sadaf STOVALL MD Location:[facility] Appointment Type:URO Office Visit [facility] evaluation note* Diagnosis Nonrheumatic aortic valve stenosis- Primary Aortic valve disorders Primary hypertension Unspecified essential hypertension Pure hypercholesterolemia Chronic diastolic heart failure (HCC) Chronic diastolic heart failure 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 S/P 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, Class I, BMI 30-34.9 Obesity, unspecified [facility]* Diagnosis Chronic diastolic heart failure (HCC)- [...] abnormal clinical finding documented in this encounter [facility] note* Diagnosis Nonrheumatic aortic valve stenosis- Primary Aortic valve disorders Primary hypertension Unspecified essential hypertension Pure hypercholesterolemia Chronic diastolic heart failure (HCC) Chronic diastolic heart failure 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 S/P AVR Heart valve replaced by other means documented in this encounter [facility] note* Diagnosis Primary hypertension- Primary Unspecified essential hypertension Chronic diastolic heart failure (HCC) Chronic diastolic heart failure Pure hypercholesterolemia 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 Aortic valve disorders documented in this encounter [facility] noteNo assessment information availableClinton [facility] Work Phone: Evaluation note* Diagnosis S/P CABG x 1- Primary Postsurgical aortocoronary bypass status S/P AVR Heart valve replaced by other means Pure hypercholesterolemia Primary hypertension Unspecified essential hypertension Chronic diastolic heart failure (HCC) Chronic diastolic heart failure Atherosclerosis of [place] coronary artery of [place] heart without angina pectoris documented in this encounter [facility] course Narrative No data available for this section [facility] progress note No data available for this section [facility] reason for referral (narrative)* Outpatient Procedure (Routine) - Authorized Specialty Diagnoses / Procedures Referred By Contac t Referred To [facility] Diagnoses Chronic diastolic heart failure (HCC) S/P AVR Procedures ECHO ECHO TTHRC R-T 2D W/WOM-MODE COMPL SPEC&COLR D Joao Lara APRN.P[employer]OT PLANT OPERATOR HELPER [address] [place] [address] [address] Referral ID Status Reason Start Date Expiration Date Visits Requested Visits Authorized [id number] Authorized Auto-Generat ed Referral 08/23/2023 1 1 * Outpatient Procedure (Routine) - Closed Specialty Diagnoses / Procedures Referred By Contac t Referred To Contact [facility] Diagnoses Chronic diastolic heart failure (HCC) Primary hypertension Procedures ECG COMPLETE ECG ROUTINE ECG W/LEAST 12 LDS W/I&R Joao Lara APRN.CNP [address] [place] [address] [address] Referral ID Status Reason Start Date Expiration Date V isits Requested Visits Authorized [id number] Closed Auto-Generate d Referral 08/23/2022 08/23/2023 1 1 [facility] for referral (narrative)* Outpatient Procedure (Routine) - Pending Review Specialty Diagnoses / Procedures Referred By Contac t Referred To Contact [facility] Diagnoses Nonrheumatic aortic valve stenosis Primary hypertension Pure hypercholesterolemia Chronic diastolic heart failure (HCC) 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 S/P AVR Procedures ECHO ECHO TTHRC R-T 2D W/WOM-MODE COMPL SPEC&COLR D Marco A Garvey MD [address] [place] [address] [address] Referral ID Status Reason Start Date Expiration Date Visits Requested Visits Authorized [id number] Pending Review Auto-Generat ed Referral 02/20/2023 02/20/2024 1 1 [facility] Outpatient Procedure (Routine) - Pending Review Specialty Diagnoses / Procedures Referred By Sunil kapoor Referred To Contact [facility] Diagnoses Primary hypertension Procedures ECG COMPLETE ECG ROUTINE ECG W/LEAST 12 LDS W/I&R Joao Lara APRN.CNP [address] [place] [address] [facility] [address] [place] [address] Referral ID Status Reason Start Date Expiration Date Visits Requested Visits Authorized [id number] Pending Review Auto-Generat ed Referral 08/14/2023 08/13/2024 1 1 [facility] Summary Purpose Family History No Family [...] section and content) DATE CREATED AUTHOR 11/20/2021 [facility] dical Specialist DATE CREATED AUTHOR AUTHOR'S ORGANIZ ATION 07/07/2022 Jaimie Pabon [facility] DATE CREATED AUTHOR AUTHOR'S ORGANIZ ATION 04/05/2023 [facility] DATE CREATED AUTHOR AUTHOR'S ORGANIZ ATION 02/17/2024 [facility] DATE CREATED AUTHOR AUTHOR'S ORGANIZ ATION 03/16/2024 [facility] dical Specialists EPIC Source Comments (unrecognize d section and content) In the event this informatio n is protected by the Federal Confidentiality of Alcohol and Drug Abuse Patient Records regulations: The Federal rules restrict any use of the information to criminally investigate or prosecute any alcohol or drug abuse patient.[facility] the event this information is protected by the Federal Confidentiality of Alcohol and Drug Abuse Patient Records regulations: The Federal rules restrict any use of the information to criminally investigate or prosecute any alcohol or drug abuse patient.[facility] the event this information is protected by the Federal Confidentiality of Alcohol and Drug Abuse Patient Records regulations: The Federal rules restrict any use of the information to criminally investigate or prosecute any alcohol or drug abuse patient.[facility] the event this information is protected by the Federal Confidentiality of Alcohol and Drug Abuse Patient Records regulations: The Federal rules restrict any use of the information to criminally investigate or prosecute any alcohol or drug abuse patient.[facility] the event this information is protected by the Federal Confidentiality of Alcohol and Drug Abuse Patient Records regulations: The Federal rules restrict any use of the information to criminally investigate or prosecute any alcohol or drug abuse patient.[facility] Reason for Visit (unrecogniz ed section and content) Reason Comments Cardiology Follow Up Reason Comments CARD Follow Up 6 Month Reason Comments CARD Follow Up 6 Month Reason Comments Cardiology Follow Up Care Teams (unrecognized sec tion and content) Graphite Grinder Relationship Specialty Start Date End Date Benjie Covarrubias II [address] [place] [address] PCP - General Internal Medicine 02/19/20 Benjie Covarrubias II [address] [place] [address] Referring Internal Medicine 06/11/19 No, Referral Referring Cardiology 02/24/20 Graphite Grinder Relationship Specialty Start Date End Date Benjie Covarrubias II [address] [place] [address] PCP - General Internal Medicine 02/19/20 Benjie Covarrubias II [address] [place] [address] Referring Internal Medicine 06/11/19 No, Referral Referring Cardiology 02/24/20 Graphite Grinder Relationship Specialty Start Date End Date Benjie Covarrubias II, MD [address] [place] [address] PCP - General Internal Medicine 02/19/20 Benjie Covarrubias II, MD [address] [place] [address] Referring Internal Medicine 06/11/19 No, Referral Referring Cardiology 02/24/20 Graphite Grinder Relationship Specialty Start Date End Date Benjie Covarrubias II, MD [address] [place] [address] PCP - General Internal Medicine 02/19/20 Benjie Covarrubias II, MD [address] [facility] [address] [place] [address] Referring Internal Medicine 06/11/19 No, Referral Referring Cardiology 02/24/20 Team Status: Active Member Role Status Dates Benjie Covarrubias II MD Primary Care Provider Active Team Status: Inactive Member Role Status Dates Benjie Covarrubias II MD Primary Care Provider Active Start: January 12, 2024 End: January 12, 2024 Sonia Mchugh APRN Attending Provider Active Start: January 12, 2024 End: January 12, 2024 Graphite Grinder Relationship Specialty Start Date End Date Benjie Covarrubias II, MD [address] [facility] [address] [place] [address] PCP - General Internal Medicine 02/19/20 Benjie Covarrubias II, MD [address] [facility] [address] [place] [address] Referring Internal Medicine 06/11/19 No, Referral Referring [...] BE BASED ON THE PRIMARY CLINICAL RECORDS. [facility]. provides no warranty or guarantee of the accuracy or completeness of information in this document.
--- NOTE | 2024-04-03 12:35 | XR_ITS ---
The [address] [address] Patient Name: NAKIA NARAYANAN MRN: [id number] date: 1935 Sex: M Assigned Patient Location: ER Current Patient Location: ER Accession/Order Number: [id number] Exam Date: 04/03/2024 12:30 Report Date: 04/03/2024 13:09 At the request of: FRANCA WARNER Procedure: XR chest 1V EXAMINATION: XR chest 1V HISTORY: cp COMPARISON: XR chest 12/13/2023 FINDINGS: LUNGS: Underexpanded lungs with mild haziness and stranding within lung bases. VASCULATURE: No increased pulmonary vasculature. PLEURA: No pneumothorax, effusion, or pleural thickening. CARDIAC: Stable heart size may represent limits of normal. Prior valve replacement and sternotomy. MEDIASTINUM: No visible mass or adenopathy. BONES: No fracture or visible bone lesion. OTHER: Negative. XR/XR chest 1V IMPRESSION: 1. Low lung volume examination with trace amount of bibasilar atelectasis versus infiltrates. Electronically authenticated by: DOLORES NIETO Date: 04/03/2024 13:09
[2024-04-03 12:50] LABS: Basophils Absolute Auto 0.1 10^3/uL (0.0-0.1); Basophils Percent Auto 1.1 % (0.2-2.0); Eosinophils Absolute Auto 0.2 10^3/uL (0.0-0.7); Eosinophils Percent Auto 2.1 % (0.9-7.0); Hematocrit 38.1 % (42.0-54.0); Immature Granulocytes Abs Auto 0.07 10^3/uL (0.00-0.03); Immature Granulocytes Pct Auto 0.8 % (0.0-0.5); Lymphocytes Absolute Auto 1.4 10^3/uL (1.2-3.8); Lymphocytes Percent Auto 15.4 % (20.5-60.0); Mean Corpuscular HGB Conc 34.1 g/dL (29.9-35.2); Mean Corpuscular Hemoglobin 30.2 pg (25.9-34.0); Mean Corpuscular Volume 88.6 fL (80.0-94.0); Mean Platelet Volume 12.1 fL (9.5-13.5); Monocytes Absolute Auto 1.2 10^3/uL (0.3-0.8); Monocytes Percent Auto 13.4 % (1.7-12.0); Neutrophils Absolute Auto 6.2 10^3/uL (1.4-6.5); Neutrophils Percent Auto 67.2 % (43.0-75.0); Platelet Count 181 10^3/uL (150-450); Red Cell Distribution Width 14.3 % (11.0-15.0); White Blood Count 9.2 10^3/uL (4.0-11.0)
[2024-04-03 13:08] LABS: Alanine Aminotransferase 29 U/L (16-63); Albumin Globulin Ratio 1.1; Albumin Level 3.3 g/dL (3.4-5.0); Alkaline Phosphatase 71 U/L (46-116); Anion Gap 15.1; Aspartate Amino Transferase 24 U/L (15-37); Bilirubin Total 0.6 mg/dL (0.2-1.0); Calcium 8.4 mg/dL (8.5-10.1); Carbon Dioxide 26.1 mmol/L (21.0-32.0); Chloride 99 mmol/L (98-107); Estimated GFR (African America 35 (>=60 mL/min/1.73m^2); Estimated GFR (Non-African Ame 29 (>=60 mL/min/1.73m^2); Glucose 292 mg/dL (74-106); Potassium 3.2 mmol/L (3.5-5.1); Sodium 137 mmol/L (136-145); Total Protein 6.3 g/dL (6.4-8.2); Troponin I High Sensitivity 12.4 pg/mL (4.0-76.1)
[2024-04-03] MEDS: POTASSIUM CHLORIDE 10 MEQ ER TABLET 20 MEQ PO (14:15)
[2024-04-03] MEDS: ACETAMINOPHEN 325 MG TABLET 650 MG PO (14:16)
== END 2024-04-03 14:36 | disposition home or self-care (01) ==
PROVIDERS: Emergency Provider Emergency Medicine; PCP Internal Medicine
DX: R07.89 Other chest pain (principal); Z95.2 Presence of prosthetic heart valve; Z87.891 Personal history of nicotine dependence
CPT/HCPCS: 36415; 71045; 80053; 84484; 85025; 93005; 99285

== ENCOUNTER 2024-12-02 10:58 | Emergency (ER) | payer MEDICARE, SELFPAY ==
[2024-12-02 11:05] VITALS: BP 163/88; PULSE 71; TEMP 36.8; O2SAT 97; BMI 31.9
--- NOTE | 2024-12-02 11:16 | PC.NURSE ---
pt has had decreased hearing and drainage in L ear since . today, started with pink/blood drainage
--- OUTSIDE RECORDS SUMMARY | 2024-12-02 11:24 | XMS_ITS | CCD ---
Author Organization [facility] Care Team Providers Care Clinical Nursing Assistant Name Role Phone Benjie Covarrubias II Unavailable [...] Unavailable SATISH, DR MONAE Primary Care Unavailable ZIJENNIFER, DR DOLORES Adamson Consulting Unavailable TREVOR, DR ROSE MARIE Nicholson Attending Unavailable SATISH, DR MONAE Primary Care Unavailable TREVOR, DR ROSE MARIE Nicholson Consulting Unavailable TREVOR, [...] BRAND MD, Daniel B Primary Care Provider Satish BRAND MD, Daniel B Primary Care Provider Sadaf STOVALL Attending Unavailable Benjie Covarrubias MD Primary Care Provider Mark Stearns Attending Unavailable Mark Stearns Admitting Unavailable Benjie Covarrubias Primary Care Unavailable MAGDY GARVEYVimal Attending Unavailable COVARRUBIAS II, BENJIE Verde Primary Care Unavailable JOAO LARA Attending Unavailable COVARRUBIAS II, BENJIE B Primary Care Unavailable JAIME HANSON A Attending Unavailable JAIME HANSON A Referring Unavailable BENJIE COVARRUBIAS B Attending Unavailable COVARRUBIAS, BENJIE B Attending Unavailable PETITTI, HARSHAL A Attending Unavailable BENJIE COVARRUBIAS B Referring Unavailable EMMANUEL SOLIS Attending Unavailable PETITTI, HARSHAL A Attending Unavailable COVARRUBIAS, BENJIE B Attending Unavailable TIMMISRONNIE H Attending Unavailable COVARRUBIAS, BENJIE B Referring Unavailable TIMMIS, RONNIE H Attending Unavailable ROB, JAIME A Attending Unavailable COVARRUBIAS, BENJIE B Attending Unavailable COVARRUBIAS, BENJIE B Attending Unavailable BROWN, JAIME A Attending Unavailable PETITTI, HARSHAL A Attending Unavailable COVARRUBIAS, BENJIE B Attending Unavailable BROWN, JAIME A Attending Unavailable COVARRUBIAS, BENJIE B Attending Unavailable COVARRUBIAS, BENJIE B Attending Unavailable BROWN, JAIME A Attending Unavailable COVARRUBIAS, BENJIE B Attending Unavailable COVARRUBIAS, BENJIE B Attending Unavailable Medications Current Medications Medication Drug Class(es) Dates Sig (Normalized) Sig (Original) acetaminophen 325 mg oral tablet (7 sources) Start: 04-17-2020 take 2 tablets by mouth every four hours as needed acetaminophen (TYLENOL) 325 mg tablet Take 2 tablets by mouth every 4 hours as needed for Pain. 30 Each 04/17/2020 Active Comment on above: Take 2 tablets by mo [facility] every 4 hours as needed for Pain. aspirin 81 mg oral tablet (20 sources) Platelet Aggregation Inhibitor, Nonsteroidal Anti-inflammatory Drug Start: 03-19-2019 take 1 tablet by mouth once daily aspirin 81 mg oral tablet 81 mg = 1 tab(s), Oral, Daily, Refills(s) 0, Blood Thinner Start Date: 03/19/19 Status: Ordered Start: 01-15-2009 take 1 tablet by evangelina th once daily ASPIRIN 81 PO Take 1 tablet by mouth 1 (one) time each day. 01/15/2009 Active take 1 tablet by evangelina th once daily aspirin, enteric coated (ASPIRIN, ENTERIC COATED) 81 mg EC tablet Take 81 mg by mouth once daily. Active Comment on above: Take 81 mg by mouth once daily. Blood Glucose Monitoring Suppl (Blood Glucose Monitor System) w/Device kit (20 sources) Start: 03-18-20 Blood Glucose Monitoring Suppl (Blood Glucose Monitor System) w/Device kit Indications: Uncontrolled type 2 diabetes mellitus with hyperglycemia (CMS/HCC) 1 each Daily 1 kit 03/18/2024 Active cefdinir 300 mg oral capsule (2 sources) Cephalosporin Antibacterial Start: 08-14-19 End: 08-21-19 take 1 capsule by mouth in the morning cefdinir (Omnicef) 300 MG capsule Indications: Acute non-recurrent sinusitis, unspecified location Take 1 capsule (300 mg) by mouth in the morning and 1 capsule (300 mg) before bedtime. Do all this for 7 days. 14 capsule 08/14/2024 08/21/2024 Active dapagliflozin 5 mg oral tablet (14 sources) Sodium-Glucose Cotransporter 2 Inhibitor Start: 04-10-20 End: 05-21-20 take 1 tablet by mouth once daily dapagliflozin (Farxiga) 5 MG Indications: Uncontrolled type 2 diabetes mellitus with hyperglycemia (CMS/[facility]) Take 1 tablet (5 mg) by mouth Daily 90 tablet 3 05/21/2024 05/21/2025 Active doxycycline hyclate 100 mg oral capsule (1 source) Tetracycline-class Drug Start: 01-12-20 take 100 mg by mouth twice daily Doxycycline Hyclate Active 100 MG PO Twice daily 14 January 12, 2024 12:00am Fiber (20 sources) Fiber 500 MG cap shruthi 1 (one) time each day. Active fluconazole 100 mg oral tablet (2 sources) Azole Antifungal Start: 07-03-19 End: 07-10-19 take 1 tablet by mouth once daily fluconazole (Diflucan) 100 MG tablet Indications: Candidiasis of genitalia Take 1 tablet (100 mg) by mouth Daily for 7 days 7 tablet 07/03/2024 07/10/2024 Active glimepiride 1 mg oral tablet (20 sources) Sulfonylurea Start: 07-03-19 End: 07-03-19 take 1 tablet by mouth before mealtime glimepiride (Amaryl) 1 MG tablet Indications: Type 2 diabetes mellitus with stage 3b chronic kidney disease, without long-term current use of insulin (HCC) (CMS/[facility]) Take 1 tablet (1 mg) by mouth in the morning. Take before meals. 30 tablet 11 07/03/2024 07/03/2025 Active Start: 01-12-2024 Glimepiride Ac tive MG PO January 12, 2024 12:00am Start: 07-24-2023 End: 07-23-2024 take 1 tablet by mouth before mealtime glimepiride (Amaryl) 2 MG tablet Indications: Diabetes mellitus without complication (CMS/HCC) Take 1 tablet (2 mg) by mouth in the morning. Take before meals. 100 tablet 3 07/24/2023 02/28/2024 Discontinued (Side effects) End: 02-15-2024 take 2 tablets by mouth once daily at breakfast glimepiride (AMARYL) 1 mg tablet Take 2 mg by mouth daily with breakfast. 02/15/2024 Discontinued (Other) Comment on above: Take 2 mg by mouth d aily with breakfast. hydroCHLOROthiazide 12.5 mg / lisinopril 10 mg oral tablet (1 source) Thiazide Diuretic, Angiotensin Converting Enzyme Inhibitor Start: 2018 take 1 tablet by mouth twice daily hydrochlorothiazide -lisinopril 12.5 mg-10 mg oral tablet 1 tab(s), Oral, BID, Refill(s) 0, High blood pressure Start Date: 03/19/19 Status: Ordered levothyroxine sodium 0.075 mg oral tablet (20 sources) l-Thyroxine Start: 2023 End: 2024 take 1 tablet by mouth before mealtime levothyroxine (Synthroid) 75 MCG tablet Indications: Hypothyroidism, unspecified type (CMS/HCC) Take 1 tablet (75 mcg) by mouth in the morning. Take before meals. 30 tablet 11 06/10/2024 06/10/2025 Active lidocaine 0.05 mg/mg medicated patch (20 sources) Antiarrhythmic, Amide Local Anesthetic Start: 2023 apply 1 dose transdermal route once daily lidocaine (Lidoderm) 5 % patch Apply 1 patch topically Daily 05/27/2024 Active metFORMIN hydrochloride 1000 mg / SITagliptin 50 mg oral tablet (20 sources) Biguanide, Dipeptidyl Peptidase 4 Inhibitor Start: 2023 take 1 tablet by mouth in the morning SITagliptin-metFORM IN (Janumet) 50-1000 MG tablet Indications: Uncontrolled type 2 diabetes mellitus with hyperglycemia (CMS/HCC) Take 1 tablet by mouth in the morning and 1 tablet in the evening. Take with meals. 180 tablet 3 03/18/2024 Active Start: 03-11-2024 take 1 tablet by evangelina th in the morning SITagliptin-metFORMIN (Junumet) 50-1000 MG tablet Indications: Uncontrolled type 2 diabetes mellitus with hyperglycemia (CMS/HCC) Take 1 tablet by mouth in the morning and 1 tablet in the evening. Take with meals. 180 tablet 3 03/11/2024 Active Start: 03-23-2023 Janumet 50-100 0 MG tablet Indications: Uncontrolled type 2 diabetes mellitus with hyperglycemia (CMS/HCC) TAKE 1 TABLET TWICE A DAY WITH MEALS 180 tablet 3 03/23/2023 Active Start: 04-17-2020 take 1 tablet by evangelina th once daily at breakfast sitaGLIPtin-metFORMIN (JUNUMET) 50-1,000 mg per tablet Take 1 tablet by mouth daily with breakfast. 04/17/2020 Active Start: 03-19-2019 Janumet 50/100 , Oral, BID, Refill(s) 0, High blood sugar Start Date: 03/19/19 Status: Ordered Comment on above: Take 1 tablet by evangelina th daily with breakfast. 24 hr metoprolol succinate 50 mg extended release oral tablet (20 sources) beta-Adrenergic Amrit Start: 01-12-2024 Metoprolol Succinate Active MG PO January 12, 2024 12:00am Start: 01-10-2024 take 1 tablet by evangelina th every twenty-four hours in the morning metoprolol succinate XL (Toprol-XL) 50 MG 24 hr tablet Indications: Benign essential hypertension (CMS/HCC) TAKE 1 TABLET BY MOUTH IN THE MORNING 90 tablet 3 01/10/2024 Active Start: 04-01-2022 take 1 mg by mouth once daily Toprol XL 25 mg Tab-ER mg tab(s), Oral, Daily, Refills(s) 0 Start Date: 04/01/22 Status: Ordered Start: 04-18-2020 take 1 tablet by mouth once da shala metoprolol succinate ER (TOPROL XL) 50 mg 24 hr tablet Take 1 tablet by mouth once daily. 30 tablet 1 04/18/2020 Active Comment on above: Take 1 tablet by evangelina th once daily. Multi Vitamin+ (2 sources) Start: 03-19-2019 take 1 tablet by mouth once daily Multi Vitamin+ 1 tab, Oral, Daily, Refill(s) 0, Prophylaxis Start Date: 03/19/19 Status: Ordered Multiple Vitamin (multivitamin) capsule (20 sources) Multiple Vitamin (multivitamin) capsule Take by mouth Daily. Active multivitamin tablet (7 sources) take 1 tablet by mouth once daily multivitamin tablet Take 1 tablet by mouth once daily. Active take 1 tablet by mouth once kennedy y multivitamin tablet Take 1 tablet by mouth once daily. 0 Active Comment on above: Take 1 tablet by evangelina th once daily. naproxen 500 mg oral tablet (20 sources) Nonsteroidal Anti-inflammatory Drug Start: 05-27-20 take 1 tablet by mouth in the morning naproxen (Naprosyn) 500 MG tablet Take 500 mg by mouth in the morning and 500 mg before bedtime. 05/27/2024 Active Natural Fiber Therapy 3.4 g/7 g oral powder for reconstitution (2 sources) Start: 04-01-20 take 1 g by mouth once daily Natural Fiber Therapy 3.4 g/7 g oral powder for reconstitution gm, Oral, Daily, Refills(s) 0 Start Date: 04/01/22 Status: Ordered pantoprazole 40 mg delayed release oral tablet (20 sources) Proton Pump Inhibitor Start: 01-12-20 Pantoprazole Active MG PO January 12, 2024 12:00am Start: 04-01-2022 take 1 mg by mouth once daily Protonix 20 mg Tab-DR mg tab(s), Oral, Daily, Refills(s) 0 Start Date: 04/01/22 Status: Ordered Start: 04-17-2020 take 1 tablet by evangelina th once daily pantoprazole (ProtoNix) 40 MG EC tablet Indications: Gastroesophageal reflux disease without esophagitis TAKE 1 TABLET BY MOUTH DAILY 90 tablet 3 02/15/2024 Active Comment on above: Take 1 tablet by evangelina th once daily. perflutren lipid microspheres 1.3 mL in NaCl (PF) 0.9% 10 mL injection (DEFINITY) (7 sources) Start: 02-20-2023 End: 05-21-2024 perflutren lipid [...] twice daily. simvastatin 40 mg oral tablet (20 sources) HMG-CoA Reductase Inhibitor Start: 01-12-2024 Simvastatin Active MG PO January 12, 2024 12:00am Start: 03-19-2019 take 1 tablet by evangelina th once daily in the evening simvastatin (Zocor) 40 MG tablet Indications: Mixed hyperlipidemia (CMS/HCC) TAKE 1 TABLET BY MOUTH DAILY IN THE EVENING 100 tablet 3 08/27/2024 Active Comment on above: Take 40 mg by mouth daily at bedtime. 125 ml sodium chloride 9 mg/ml prefilled syringe (7 sources) Start: End: sodium chloride 0.9 % (flush) 10 mL (BD POSIFLUSH) sulfamethoxazole 800 mg / trimethoprim 160 mg oral tablet (2 sources) Dihydrofolate Reductase Inhibitor Antibacterial, Sulfonamide Antimicrobial Start: End: take 1 tablet by mouth once in the morning, then take 1 tablet by mouth once at bedtime sulfamethoxazole-tr imethoprim (Bactrim DS) 800-160 MG per tablet Indications: Chronic pansinusitis , Follicular cyst of skin and subcutaneous tissue Take 1 tablet by mouth in the morning and 1 tablet before bedtime. Do all this for 10 days. 20 tablet 04/10/2024 04/20/2024 Active torsemide 20 mg oral tablet (20 sources) Loop Diuretic Start: take 1 tablet by mouth once daily torsemide (Demadex) 20 MG tablet Indications: Benign essential hypertension (CMS/HCC) Take 1 tablet (20 mg) by mouth Daily 100 tablet 3 08/08/2024 Active Comment on above: TAKE 1 TABLET BY EVANGELINA TH EVERY DAY Completed/Discontinued Medications Medication Drug Class(es) Dates Sig (Normalized) Sig (Original) canagliflozin 100 mg oral tablet (3 sources) Sodium-Glucose Cotransporter 2 Inhibitor End: 02-15-2024 take 1 tablet by mouth once daily at breakfast canagliflozin (INVOKANA) 100 mg tab Take 100 mg by mouth daily with breakfast. 02/15/2024 Discontinued (Other) Comment on above: Take 100 mg by mouth daily with breakfast. metOLazone 5 mg oral tablet (12 sources) Thiazide-like Diuretic Start: 04-05-2024 metolazone 5 mg Tab 5 mg = 1 tab(s), Refills(s) 0 Start Date: 04/05/24 Status: Ordered Start: 02-16-2024 End: 02-28-2024 take 1 tablet by mouth every other day metOLazone (Zaroxolyn) 5 MG tablet Take 5 mg by mouth every other day M,W,F 02/16/2024 02/28/2024 Discontinued Start: 05-08-2020 End: 08-26-2024 take 1 tablet by mouth once metOLazone (ZAROXOLYN) 5 m g tablet TAKE 1 TABLET BY MOUTH EVERY MONDAY, MONDAY, AND MONDAY 30 tablet 1 04/24/2024 08/26/2024 Discontinued Comment on above: Take 1 tablet by evangelina th every Monday,Monday,Monday. wheat dextrin/L.acid/aspa rtame (FIBER WITH PROBIOTIC ORAL) (7 sources) End: wheat dextrin/L.acid/aspart maximilian (FIBER WITH PROBIOTIC ORAL) Take 2 teaspoonsful by mouth once daily. 08/26/2024 Discontinued (Discontinued by Patient) wheat dextrin/L. acid/aspartame (FIBER WITH PROBIOTIC ORAL) Take 2 teaspoonsful by mouth once daily. Active wheat dextrin/L. acid/aspartame (FIBER WITH PROBIOTIC ORAL) Take 2 teaspoonsful by mouth once daily. 0 Active Comment on above: Take 2 teaspoonsful by mouth once daily. Problems Active Problems Problem Classification Problem Date Documented Date Episodic/Chronic Chronic kidney disease (20 sources) Chronic kidney disease stage 2; Translations: [Chronic kidney disease, stage 2 (mild)] Onset: 05-08-2020 05-08-2020 Chronic Complication of device; implant or graft (20 sources) Arteriosclerosis of coronary artery bypass graft; Translations: [Atherosclerosis of coronary artery bypass graft(s) without angina pectoris] Onset: 11-10-2022 11-10-2022 Chronic Congestive heart failure; nonhypertensive (20 sources) Chronic diastolic heart failure; Translations: [Chronic diastolic (congestive) heart failure] Onset: 01-15-2020 Chronic Coronary atherosclerosis and other heart disease (14 sources) Coronary atherosclerosis; Translations: [Atherosclerotic heart disease of [place] coronary artery without angina pectoris] Onset: 04-07-2020 Chronic Diabetes mellitus with complications (20 sources) Type II diabetes mellitus uncontrolled; Translations: [Type 2 diabetes mellitus with hyperglycemia] Onset: 11-10-2022 11-10-2022 Chronic Diabetes mellitus without complication (20 sources) Type 2 diabetes mellitus; Translations: [Type 2 diabetes mellitus without complications] Onset: 04-07-2020 04-16-2020 Chronic Disorders of lipid metabolism (20 sources) Pure hypercholesterolemia; Translations: [Pure hypercholesterolemia, unspecified] Onset: 01-14-2009 Resolved: 02-21-2022 Chronic Diverticulosis and diverticulitis (20 sources) Diverticulitis; Translations: [Diverticulitis of intestine, part unspecified, without perforation or abscess without bleeding] Onset: 12-19-2022 12-19-2022 Chronic Esophageal disorders (20 sources) Gastroesophageal reflux disease; Translations: [Gastro-esophageal reflux disease without esophagitis] Onset: 11-10-2022 11-10-2022 Chronic Essential hypertension (20 sources) Essential hypertension; Translations: [Essential (primary) hypertension] Onset: 01-14-2009 Chronic Genitourinary symptoms and ill-defined conditions (20 sources) Post-micturition incontinence ; Translations: [Post-void dribbling] Onset: 07-24-2023 03-30-2020 Chronic Heart valve disorders (20 sources) Aortic stenosis, non-rheumatic ; Translations: [Nonrheumatic aortic (valve) stenosis] Onset: 06-18-2019 Chronic Hyperplasia of prostate (20 sources) Benign prostatic hypertrophy with outflow obstruction; Translations: [Benign prostatic hyperplasia with lower urinary tract symptoms] Onset: 03-30-2022 Chronic Inflammation; infection of eye (except that caused by tuberculosis or sexually transmitteddisease) (7 sources) Blepharitis of upper and lower eyelids of bilateral eyes; Translations: [Unspecified blepharitis right eye, upper and lower eyelids] Onset: 09-23-2024 09-23-2024 Episodic Melanomas of skin (20 sources) Malignant melanoma of skin; Translations: [Malignant melanoma of skin, unspecified] Onset: 07-24-2023 03-19-2019 Chronic Mycoses (6 sources) Onychomycosis; Translations: [Tinea unguium] 05-26-2024 Episodic Neoplasms of unspecified nature or uncertain behavior (2 sources) Neoplastic disease; Translations: [Neoplasm of unspecified behavior of bone, soft tissue, and skin] 09-03-2024 Episodic Occlusion or stenosis of precerebral arteries (20 sources) Arteriosclerosis of carotid artery; Translations: [Occlusion and stenosis of bilateral carotid arteries] Onset: 11-10-2022 11-10-2022 Chronic Other and ill-defined heart disease (20 sources) Left ventricular hypertrophy; Translations: [Cardiomegaly] Onset: 11-10-2022 11-10-2022 Chronic Other connective tissue disease (1 source) Pain of toe of left foot; Translations: [Pain in left toe(s)] 05-26-2024 Episodic Other connective tissue disease (1 source) Pain of toe of right foot; Translations: [Pain in right toe(s)] 05-26-2024 Episodic Other diseases of veins and lymphatics (4 sources) Vascular insufficiency; Translations: [Venous insufficiency (chronic) (peripheral)] 05-26-2024 Episodic Other eye disorders (7 sources) Dry eyes; Translations: [Dry eye syndrome of bilateral lacrimal glands] Onset: 09-23-2024 09-23-2024 Episodic Other eye disorders (7 sources) Bilateral senile ectropion of lower eyelids; Translations: [Senile ectropion of right lower eyelid] Onset: 09-23-2024 09-23-2024 Episodic Other lower respiratory disease (2 sources) Interstitial lung disease; Translations: [Interstitial pulmonary disease, unspecified] 08-14-2024 Chronic Other male genital disorders (2 sources) Impotence 03-19-2019 Chronic Other nervous system disorders (20 sources) Difficulty walking; Translations: [Difficulty in walking, not elsewhere classified] Onset: 11-10-2022 11-10-2022 Chronic Other non-traumatic joint disorders (1 source) Pain in right shoulder; Translations: [Pain in right shoulder] Onset: 05-27-2024 Episodic Other nutritional; endocrine; and metabolic disorders (20 sources) Obese class I; Translations: [Obesity, unspecified] Onset: 04-07-2020 Chronic Other skin disorders (2 sources) Follicular cysts of skin and subcutaneous tissue; Translations: [Follicular cyst of the skin and subcutaneous tissue, unspecified] 04-10-2024 Episodic Other skin disorders (4 sources) Inflamed seborrheic keratosis; Translations: [Inflamed seborrheic keratosis] 09-03-2024 Episodic Other skin disorders (2 sources) Seborrheic keratosis; Translations: [Other seborrheic keratosis] 09-03-2024 Episodic Other skin disorders (4 sources) Actinic keratosis; Translations: [Actinic keratosis] 09-03-2024 Episodic Other skin disorders (2 sources) Lentiginosis; Translations: [Other melanin hyperpigmentation] 09-03-2024 Episodic Other upper respiratory infections (20 sources) Chronic pansinusitis; Translations: [Chronic pansinusitis] Onset: 12-11-2023 12-11-2023 Chronic Other upper respiratory infections (2 sources) Acute sinusitis; Translations: [Acute sinusitis, unspecified] 08-14-2024 Episodic Residual codes; unclassified (4 sources) Early satiety; Translations: [EARLY SATIETY] Onset: 07-05-2022 Episodic Spondylosis; intervertebral disc disorders; other back problems (2 sources) Other spondylosis with radiculopathy, lumbar region; Translations: [Spondylosis without myelopathy or radiculopathy, lumbar region] Onset: 01-29-2022 Chronic Thyroid disorders (20 sources) Acquired hypothyroidism; Translations: [Hypothyroidism, unspecified] Onset: 11-10-2022 11-10-2022 Chronic Past or Other Problems Problem Classification Problem Date Documented Date Episodic/Chronic Acute and unspecified renal failure (7 sources) Acute injury of kidney; Translations: [Acute kidney failure, unspecified] Onset: 0 04-16-2020 Episodic Administrative/social admission (20 sources) Discharge status; Translations: [Encounter for administrative examinations, unspecified] Onset: 0 04-16-2020 Episodic Calculus of urinary tract (20 sources) Kidney stone; Translations: [Calculus of kidney] Onset: 9 Episodic Complications of surgical procedures or medical care (7 sources) Expected difficult tracheal intubation; Translations: [Failed or difficult intubation, initial encounter] Onset: 0 04-14-2020 Episodic Conditions associated with dizziness or vertigo (20 sources) Orthostatic hypotension; Translations: [Dizziness and giddiness] Onset: 9 06-18-2019 Episodic Crushing injury or internal injury (7 sources) Laceration of stomach; Translations: [Laceration of stomach, initial encounter] Onset: 0 04-16-2020 Episodic Diabetes mellitus without complication (20 sources) Glycosuria; Translations: [Glycosuria] Onset: 0 Resolved: 0 Episodic Genitourinary symptoms and ill-defined conditions (20 sources) Blood in urine; Translations: [Hematuria, unspecified] Onset: 4 03-19-2019 Episodic Heart valve disorders (20 sources) Heart murmur; Translations: [Cardiac murmur, unspecified] Onset: 3 11-10-2022 Episodic Inflammatory conditions of male genital organs (20 sources) Prostatitis; Translations: [Inflammatory disease of prostate, unspecified] Onset: 4 03-19-2019 Episodic Other bone disease and musculoskeletal deformities (1 source) Other specified disorders of bone density and structure, unspecified site; Translations: [OTH D/O BONE DEN STRUCT UNS SITE] Onset: 2 Episodic Other connective tissue disease (1 source) Pain in right leg; Translations: [PAIN IN RIGHT LEG] Onset: 2 Episodic Other connective tissue disease (1 source) Pain of toes of bilateral feet; Translations: [Pain in right toe(s)] 03-07-2024 Episodic Other ear and sense organ disorders (20 sources) Otorrhea; Translations: [Otorrhea, bilateral] Onset: 4 12-27-2023 Episodic Other gastrointestinal disorders (4 sources) Dysphagia, unspecified; Translations: [DYSPHAGIA UNSPECIFIED] Onset: 2 Episodic Other gastrointestinal disorders (20 sources) Dysphagia; Translations: [Dysphagia, pharyngoesophageal phase] Onset: 3 11-10-2022 Episodic Other nervous system disorders (20 sources) Acute postoperative pain; Translations: [Other acute postprocedural pain] Onset: 0 04-16-2020 Episodic Other screening for suspected conditions (not mental disorders or infectious disease) (20 sources) Electrocardiogram abnormal; Translations: [Abnormal electrocardiogram [ECG] [EKG]] Onset: 9 06-18-2019 Episodic Other upper respiratory disease (20 sources) Deviated nasal septum; Translations: [Deviated nasal septum] Onset: 3 11-10-2022 Episodic Other upper respiratory disease (20 sources) Nasal obstruction; Translations: [Other specified disorders of nose and nasal sinuses] Onset: 3 11-10-2022 Episodic Pleurisy; pneumothorax; pulmonary collapse (20 sources) Atelectasis; Translations: [Atelectasis] Onset: 0 04-16-2020 Episodic Residual codes; unclassified (20 sources) H/O: anticoagulant therapy; Translations: [Personal history of other drug therapy] Onset: 4 03-19-2019 Episodic Residual codes; unclassified (20 sources) Edema of lower leg ; Translations: [Localized edema] Onset: 3 11-10-2022 Episodic Respiratory failure; insufficiency; arrest (adult) (3 sources) Ventilator finding; Translations: [Dependence on respirator [ventilator] status] Onset: 0 Resolved: 0 04-14-2020 Chronic Screening and history of mental health and substance abuse codes (20 sources) Ex-smoker; Translations: [Personal history of nicotine dependence] Onset: 4 03-19-2019 Episodic Spondylosis; intervertebral disc disorders; other back problems (20 sources) Intervertebral disc disorders with radiculopathy, lumbar region; Translations: [Lumbago with sciatica, right side] Onset: 9 Episodic Results Test Name Value Interpretation Reference Range Facility No Panel Informationon 10-15 [facility] No Panel Informationon 09-03 Type of biopsy: tangential Informed consent: discussed and consent obtained Informed consent comment: The risks and benefits of the biopsy were discussed. Risks include but are not limited to bleeding, infection, scarring, pain, and nerve damage. An opportunity to ask questions prior to the procedure was permitted and all questions were answered. Patient was prepped and draped in usual sterile fashion: area cleansed with alcohol. Anesthesia: the lesion was anesthetized in a standard fashion Anesthetic: 1% lidocaine w/ epinephrine 1-100,000 buffered w/ 8.4% NaHCO3 Instrument used: DermaBlade Hemostasis achieved with: electrodesiccation Outcome: patient tolerated procedure well Outcome comment: The specimen was placed in a prelabeled formalin container to be sent for pathology Post-procedure details: sterile dressing applied and wound care instructions given Post-procedure details comment: Emphasized need to contact clinic for any signs of infection, uncontrollable bleeding, or complications. Dressing type: bandage Additional details: Photo taken Amount of lidocaine used: 0.5 cc [facility] CNOVon 08-26-2024 CNOV Office Visit (GRAY ) -------- NAKIA NARAYANAN ([id number]) 1935 M Date Time Provider Department 08/26/24 11:00 AM JOAO LARA During your visit today, we recorded the following information about you: Pulse Blood pressure Weight 67/minute 162/82 97.7 kg Joao Lara APRN.INVESTMENT BROKER 08/26/2024 4:59 PM Signed [facility] Stacy Gavin Department of Cardiovascular Medicine SECTION OF REGIONAL CARDIOLOGY August 26, 2024 OUTPATIENT VISIT TYPE ESTABLISHED PRIMARY CARE PHYSICIAN: Benjie Covarrubias II, MD, MD SUBJECTIVE: CHIEF COMPLAINT: Patient presents with: CARD Follow Up 6 Month HISTORY OF PRESENT ILLNESS: Nakia Narayanan is a 89 year old male who presents for 6 month CVM follow up. Patient has a history of hypertension, hyperlipidemia, diastolic heart failure, as well as a history of aortic stenosis, status post AVR along with Coronary artery disease status post coronary artery bypass surgery with 1 vessel grafted on 04/08/2020. Former smoker. Last visit: 02/15/[address] Marco A Garvey. At that time, patient reported shortness of breath requiring extra pillows to help breathe better. No shortness of breath with activity during the day. He was advised to resume taking zaroxolyn. Today, patient denies chest pain, shortness of breath, orthopnea (using 2 pillows chronically), cough, significant edema/weight gain, palpitations, PND, lightheadedness, syncope or other significant CV symptoms. Rubens bruises. No spontaneous bleeding. Average functional capacity (active with ADL). Up and down the stairs 5-6 times daily. Denies exertional symptoms. Upon further questioning, he reports issues with balance. No falls. Home BP: 130/72 Home weight:206-210# Cardiovascular work-up includes: An echocardiogram in 2018 [...] No other valvular disease of any significance. REVIEW OF SYSTEMS: Detailed 14 systems reviewed. Pertinent information, positive and/or negative or non-contributory with the exception of pertinent positives described in HPI. Past Medical, Family and Social history reviewed; unchanged from prior. ASSESSMENT/PLAN: Nakia Narayanan was seen today for CVM follow up. Diagnoses and all orders for this visit: Encounter Diagnosis ICD-10-CM 1. Atherosclerosis of [place] coronary artery of [place] heart without angina pectoris I25.10 ECG COMPLETE ECHO 2. 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 Chronic diastolic heart failure (HCC) I50.32 ECG COMPLETE ECHO 4. Primary hypertension I10 ECHO 5. Nonrheumatic aortic valve stenosis I35.0 ECHO 6. S/P AVR Z95.2 -CAD S/P CABG x1 in 03/2020. There are no current symptoms of angina. -Chronic HFpEF. Echo 03/2023-LVEF 62%. No clinical evidence of CHF. No acute decompensation. -Aortic stenosis-S/P AVR 03/2020. Trace-mild AI. Will reassess bioprosthetic valve with updated Echo. -Goal BP <130/80 mmHg. Uncontrolled BP in the setting of right foot pain. He is also reporting some occasional neck pain. He has been using Naproxen 500 mg . Office BP check with Primary care in 1 week. I have advised that he not take Naproxen and use Tylenol as listed on his MAR. He can discuss other options with pain management or PCP. -Goal LDL <70 mg/dL. -Continue lifestyle modifications: Reduce sodium intake, regular aerobic exercise 30 mins/day for at least 5 days/week, eating heart healthy/Plant-based/most ly whole foods, limited animal products and low dairy diet and maintaining ideal body weight with BMI < 25. -Continue aspirin 81 mg daily, Toprol XL 50 mg once daily, simvastatin 40 mg daily at bedtime and torsemide 20 mg daily. He reports PCP stopped Zaroxolyn for low potassium. Follow up: -Patient will follow-up in 6 months with Echo same day and communication in between if symptoms or changes occur. -Patient should continue to follow with their primary physician for routine health care maintenance and age appropriate risk factor assessment, modification and screenings. PHYSICAL EXAMINATION: BP 162/82 (BP Site: Left Arm, BP Position: Sitting, BP Cuff Size: Regular Adult) Pulse 67 Wt 97.7 kg (215 lb 6.2 oz) SpO2 97% BMI 32.75 kg/m? General appeara (more content not included)... Normal [facility] [id number] 08-26-2024 ECG01 Ventricular Rate : 6 6 BPM Atrial Rate : 66 BPM P-R Interval : 188 ms QRS Duration : 96 ms Q-T Interval : 426 ms QTC Calculation(Bazett) : 446 ms Calculated P Blackstone : 37 degrees Calculated R Blackstone : 30 degrees Calculated T Blackstone : 27 degrees NORMAL SINUS RHYTHM NORMAL ECG Confirmed by JOSÉ MIGUEL VALVERDE MD ([id number]) on 08/27/2024 1:50:55 PM NAME : NAKIA NARAYANAN PID : [id number] : 1935 Gender : Male Race : ORD : Procedure Date : Aug 26 2024 10:50:37 Edit Date : Aug 27 2024 13:51:00 Diagnosis: NORMAL SINUS RHYTHM NORMAL ECG Confirmed by JOSÉ MIGUEL VALVERDE MD ([id number]) on 08/27/2024 1:50:55 PM Test Reason : Location : 145 : LOCARD Overread By : JOSÉ MIGUEL VALVERDE MD Edited By : JOSÉ MIGUEL VALVERDE MD Referred By : Marco, Acquired by : Peterson russo [facility] Laboratory - Hematology and Cell countson 07-03-2024 HbA1c (Bld) [Mass fraction] 7 % [facility] No Panel Informationon 07-03 [facility] Laboratory - Hematology and Cell countson 04-10-2024 HbA1c (Bld) [Mass fraction] 8.2 % [facility] No Panel Informationon 04-10 [facility] Ambulatory Visit Summaryon 1 Ambulatory Visit Summary Ambulatory Visit Summary NAKIA NARAYANAN :1935 Visit Date:04/05/2024 Ambulatory Visit Instructions Your Diagnosis Kidney stone BPH with urinary obstruction Your Care Team Attending Physician - HUSAM ANGELES, Sadaf Adamson Primary Care Physician - SATISH ANGELES, BENJIE Verde This Is Your Medications List Contact prescribing physician if questions or concerns aspirin (aspirin 81 mg oral tablet) metformin-sitagliptin (Janumet) metolazone (metolazone 5 mg Tab) metoprolol (Toprol XL 25 mg Tab-ER) multivitamin (Multi Vitamin+) pantoprazole (Protonix 20 mg Tab-DR) psyllium (Natural Fiber Therapy 3.4 g/7 g oral powder for reconstitution) simvastatin (simvastatin 40 mg Tab) torsemide (torsemide 20 mg Tab) [Image Removed: STOP]Stop taking these medications potassium citrate (potassium CITRATE 10 mEq ER Tab) Procedures Performed Cataract extraction and insertion of intraocular lens (08/20/2019), Cataract extraction and insertion of intraocular lens (08/06/2019), Bypass (2019), Cystoscopy (12/23/2013), Urodynamics (12/04/2013), ESWL of kidney (12/25/2007), ESWL of kidney (01/24/2002), ESWL of kidney (12/24/2001), Circumcision, Knee replacement, Maxillary sinus endoscopy with removal of polyps, Transurethral resection of prostate. Discharge Vitals Temperature (Temporal Artery) 37 ?C Heart Rate (Peripheral) 73 Respiratory Rate 18 Blood Pressure 120/67 Height 172.2 cm Height 68 in Weight 92.1 kg Weight 202.62 lb BMI 31.06 What to do next You Need to Schedule the Following Appointments Follow Up with HUSAM ANGELES, JERROD Ch When: Where: [facility] [address] [place] [address]- Medications What How Much When Instructions Unchanged aspirin (aspirin 81 mg oral tablet) 1 Tablets By Mouth Every day Contact prescribing physician if questions or concerns Unchanged metformin-sitagliptin (Janumet) 50/100 By Mouth 2 times a day Contact prescribing physician if questions or concerns Unchanged metolazone (metolazone 5 mg Tab) 1 Tablets Contact prescribing physician if questions or concerns Unchanged metoprolol (Toprol XL 25 mg Tab-ER) By Mouth Every day Contact prescribing physician if questions or concerns Unchanged multivitamin (Multi Vitamin+) 1 tab By Mouth Every day Contact prescribing physician if questions or concerns Unchanged pantoprazole (Protonix 20 mg Tab-DR) By Mouth Every day Contact prescribing physician if questions or concerns Unchanged psyllium (Natural Fiber Therapy 3.4 g/ 7 g oral powder for reconstitution) By Mouth Every day Contact prescribing physician if questions or concerns Unchanged simvastatin (simvastatin 40 mg Tab) 1 Tablets By Mouth Once a day (at bedtime) Contact prescribing physician if questions or concerns Unchanged torsemide (torsemide 20 mg Tab) By Mouth Every day Contact prescribing physician if questions or concerns What How Much When Comments Stop Taking potassium citrate (potassium CITRATE 10 mEq ER Tab) 1 Tablets By Mouth 3 times a day Allergies No Known Allergies Problems Ongoing - Any problem that you are currently receiving treatment for. BPH with urinary obstruction Diabetes Elevated cholesterol Former smoker Glucosuria Hematuria History of kidney stones HTN (hypertension) Hx of senior care use of blood thinners Impotence Kidney stone Melanoma of skin Post-void dribbling Prostatitis Patient Survey You may receive a survey via text or e-mail asking about your office visit. Please share your experience with us by completing your survey. We appreciate your feedback and thank you for choosing us for your care. Education Materials Dietary Guidelines to Help Prevent Kidney Stones Kidney stones are deposits of minerals and salts that form inside your kidneys. Your risk of developing kidney stones may be greater depending on your diet, your lifestyle, the medicines you take, and whether you have certain medical conditions. Most people can lower their risks of developing kidney stones by following these dietary guidelines. Your dietitian may give you more specific [...] ? 8 oz (237 mL) of milk, rgdhkga-arrwyzncjguh-ygn ry milk, and calcium-fortifiedfruit juice. Calcium-fortified means that calcium has been added to these drinks. ? 8 oz (237 mL) of kefir, yogurt, and soy yogurt. ? 4 oz (114 g) of tofu. ? 1 oz (28 g) of cheese. ? 1 cup (150 g) of dried figs. ? 1 cup (91 g) of cooked broccoli. ? One 3 (more content not included)... Normal [facility] Urology Office/Clinic Noteon 04-05-2024 Urology Office/Clinic Note Urology Office/Clinic Note Chief Complaint kidney stones HPI Staff 1 yr w/ KUB. Previous dx: kidney stones, BPH with obstruction, glucosuria. *Potassium citrate 10mEq tid. Pt states that he has not been taking this for a couple of months now due to cost and his insurance will not pay for it. KUB 04/01/24 [facility]. Dysuria: denies Incomplete bladder emptying: denies Hematuria: denies Frequency: denies Urgency: denies Nocturia: 2x Stream: good steady Leaking: denies Post void dripping: denies Wearing pads/ Depends: denies Urge incontinence: denies Stress incontinence: denies Incontinence without Sensory Awareness: denies Abdominal pain: denies Flank pain: denies Sexual complaints: denies History of Present Illness Tests reviewed: UA, KUB I have reviewed the previous health record information and history for this patient from Dr. Stovall. I have reviewed and verified the staff HPI to be accurate for this encounter. Review of Systems PHQ Score Initial Depression Screen Score: 0 SCORE ROS - Provider Constitutional: denies weight loss, denies hot flashes. Eyes: denies eye problems. Gastrointestinal: denies nausea, denies vomiting. Cardiovascular: denies chest pain or angina. Integumentary: no dryness Musculoskeletal: denies musculoskeletal symptoms. ENMT: denies otolaryngeal symptoms. Respiratory: no shortness of breath. Heme/Lymph: denies easy bleeding tendency, denies easy bruising tendency. Psychiatric: no confusion, no anxiety. Genitourinary: See HPI. Physical Exam Vitals & Measurements T: 37 ?C(Temporal Artery) HR: 73(Peripheral) RR: 18 BP: 120/67 HT: 68 in HT: 172.2 cm WT: 92.1 kg WT: 202.62 lb BMI: 31.06 General Appearance: alert, no distress, well nourished, well developed male. Assessment/Plan 1. Kidney stone (N20.0: Calculus of kidney) KUB 03/28/22 - Punctate RLP stone. KUB 03/27/23 - Punctate R renal stones. KUB 04/01/24 [facility] - 3 mm RIP stone, stable. Reviewed imaging with pt. Has not been taking K Citrate 10 mEq TID due to issues with mail order pharmacy and insurance. Recommended filling rx locally and using GoodRx card. After comparing prices on GoodRx, pt prefers to d/c the med, states he is ok with taking the chance at his age. Pt elects to f/u prn. Follow up PRN. Pt understands and agrees with plan. 2. BPH with urinary obstruction (N40.1: Benign prostatic hyperplasia with lower urinary tract symptoms) UA neg. Not taking any prostate or bladder meds. Taking two water pills. Follow-up With When Contact Information HUSAM ANGELES, Sadaf Adamson, URL [facility] [address] [place] [address]- Additional Instructions: PRN Patient Education Dietary Guidelines to Help Prevent Kidney Stones I, Melvina Khan, personally scribed for Dr. Stovall on 04/05/2024 09:14:09. . Documentation recorded by the scribe, Melvina Khan, accurately reflects the services(s) I performed and decisions made by me. Authenticated by Dr. Stovall on 04/05/2024 09:16:52. Problem List/Past Medical History Ongoing BPH with urinary obstruction Diabetes Elevated cholesterol Former smoker Glucosuria Hematuria History of kidney stones HTN (hypertension) Hx of senior care use of blood thinners Impotence Kidney stone Melanoma of skin Post-void dribbling Prostatitis Historical [...] tablet, 81 mg= 1 tab(s), Oral, Daily Janumet, 50/100, Oral, BID metolazone 5 mg Tab, 5 mg= 1 tab(s) Multi Vitamin+, 1 tab, Oral, Daily Natural Fiber Therapy 3.4 g/7 g oral powder for reconstitution, Oral, Daily potassium CITRATE 10 mEq ER Tab, 10 mEq= 1 tab(s), Oral, TID, 4 refills, Not taking: Pt states it is too expensive and his insurance will no longer pay for it. Protonix 20 mg Tab-DR, Oral, Daily simvastatin [...] Tobacco Use:. Household tobacco concerns: No. Yes, 04/05/2024 Family History Stroke: Father and Father. Immunizations Vaccine Date Status Comments influenza virus vaccine, inactivated 03/27/2023 Recorded influenza virus vaccine, inactivated 04/01/2022 Recorded SARS-CoV-2 (COVID-19) [id number] 04/01 (more content not included)... Normal [facility] Comment on above: Result Comment: Elec tronically Signed By: HUSAM ANGELES, Sadaf Adamson\.br\Date and Time Signed: 04/05/24 09:16 EDT\.br\Electronically Co-Signed By: Melvina Khan\.br\Date and Time Co-Signed: 04/05/24 09:14 EDT Laboratory - Hematology and Cell countson 02-28-2024 HbA1c (Bld) [Mass fraction] 6.6 % [facility] No Panel Informationon 02-27 [facility] CNOVon 02-15-2024 CNOV Office Visit (CARDLO ) -------- NAKIA NARAYANAN ([id number]) 1935 M Date Time Provider Department 02/15/24 10:00 AM MARCO A GAVREY During your visit today, we recorded the following information about you: Pulse Blood pressure Weight Height 71/minute 122/72 99 kg 1.727 m Marco A Garvey MD 02/15/2024 9:55 AM Signed [facility] [place] SECTION OF REGIONAL CARDIOLOGY OUTPATIENT VISIT DATE February 15, 2024 OUTPATIENT VISIT TYPE ESTABLISHED PRIMARY CARE PHYSICIAN: Benjie Covarrubias II, MD [address] [place] [address] CHIEF COMPLAINT: Coronary artery disease, Heart failure, [...] heart failure (HCC) I50.32 6. Atherosclerosis of [place] coronary artery of [place] heart without angina pectoris I25.10 PLAN AND [...] MEDICAL HISTORY (more content not included)... Normal [facility] CBC panel Auto (Bld)on 08-14 Erythrocyte distribution width (RBC) [Ratio] 14.8 % 11.5 - 15.0 % [facility] Hematocrit (Bld) [Volume fraction] 40.3 % 39.0 - 51.0 % [facility] Hemoglobin (Bld) [Mass/Vol] 13.4 g/dL 13.0 - 17.0 g/dL [facility] MCH (RBC) [Entitic mass] 30.5 pg 26.0 - 34.0 pg [facility] MCHC (RBC) [Mass/Vol] 33.3 g/dL 30.5 - 36.0 g/dL [facility] MCV (RBC) [Entitic vol] 91.6 fL 80.0 - 100.0 fL [facility] Nucleated RBC (Bld) [#/Vol] <0.01 k/uL [facility] Platelet mean volume (Bld) [Entitic vol] 12.8 fL High 9.0 - 12.7 fL [facility] Platelets (Bld) [#/Vol] 194 10*3/uL 150 - 400 k/uL [facility] RBC (Bld) [#/Vol] 4.40 10*6/uL 4.20 - 6.0 0 m/uL [facility] WBC (Bld) [#/Vol] 10.34 10*3/uL 3.70 - 11 .00 k/uL [facility] Comprehensive metabolic 2000 panelon 08-14-2023 Albumin [Mass/Vol] 3.9 g/dL 3.9 - 4.9 g/dL [facility] ALP [Catalytic activity/Vol] 72 U/L 38 - 113 U/L [facility] ALT [Catalytic activity/Vol] 14 U/L 10 - 54 U/L [facility] Anion gap [Moles/Vol] 13 mmol/L 9 - 18 mmol/L [facility] AST [Catalytic activity/Vol] 20 U/L 14 - 40 U/L [facility] Bilirubin [Mass/Vol] 0.3 mg/dL 0.2 - 1.3 mg/dL [facility] Calcium [Mass/Vol] 9.1 mg/dL 8.5 - 10. 2 mg/dL [facility] Chloride [Moles/Vol] 107 mmol/L High 97 - 105 mmol/L [facility] CO2 [Moles/Vol] 24 mmol/L 22 - 30 mmol/L [facility] Creatinine [Mass/Vol] 1.28 mg/dL High 0.73 - 1.22 mg/dL [facility] Estimated Glomerular Filtration Rate 54 mL/min/1.73m Low >=60 mL/min/1.73m [facility] Glucose [Mass/Vol] 121 mg/dL High 74 - 99 mg/dL [facility] Potassium [Moles/Vol] 4.2 mmol/L 3.7 - 5.1 mmol/L [facility] Protein [Mass/Vol] 6.3 g/dL 6.3 - 8.0 g/dL [facility] Sodium [Moles/Vol] 144 mmol/L 136 - 144 mmol/L [facility] Urea nitrogen [Mass/Vol] 22 mg/dL 9 - 24 mg/dL [facility] ECG COMPLETEon 08-14-2023 Atrial Rate 72 BPM [facility] Calculated P Blackstone 58 degrees [facility] Calculated R Blackstone -9 degrees [facility] Calculated T Blackstone 64 degrees [facility] P-R Interval 182 ms [facility] QRS Duration 102 ms [facility] QT Interval 390 ms [facility] QTC Calculation (Bazett) 427 ms [facility] Ventricular Rate 72 BPM [facility] LIPID PANEL, NONFASTINGon Cholesterol [Mass/Vol] 116 mg/dL <200 mg/dL [facility] HDL Cholesterol, Nonfasting 32 mg/dL Low >39 mg/dL [facility] LDL Cholesterol, Nonfasting 38 mg/dL <100 mg/dL [facility] LDL/HDL Ratio, Nonfasting 1.19 mg/dL <2.54 mg/dL [facility] Non HDL Cholesterol, Nonfasting 84 mg/dL <130 mg/dL [facility] Total Chol/HDL Ratio, Nonfasting 3.63 mg/dL <5.10 mg/dL [facility] Triglycerides, Nonfasting 230 mg/dL High <150 mg/dL [facility] VLDL Cholesterol, Nonfasting 46 mg/dL High <30 mg/dL [facility] MAGNESIUM BLDon 08-14-2023 Magnesium [Mass/Vol] 1.7 mg/dL 1.7 - 2.3 mg/dL [facility] ECG COMPLETEon 08-24-2022 Atrial Rate 72 BPM [facility] Calculated P Blackstone 56 degrees [facility] Calculated R Blackstone 61 degrees [facility] Calculated T Blackstone 42 degrees [facility] P-R Interval 188 ms [facility] QRS Duration 94 ms [facility] QT Interval 402 ms [facility] QTC Calculation (Bazett) 440 ms [facility] Ventricular Rate 72 BPM [facility] CBC panel Auto (Bld)on 08-23 Erythrocyte distribution width (RBC) [Ratio] 14.4 % 11.5 - 15.0 % [facility] Hematocrit (Bld) [Volume fraction] 43.9 % 39.0 - 51.0 % [facility] Hemoglobin (Bld) [Mass/Vol] 14.2 g/dL 13.0 - 17.0 g/dL [facility] MCH (RBC) [Entitic mass] 29.4 pg 26.0 - 34.0 pg [facility] MCHC (RBC) [Mass/Vol] 32.3 g/dL 30.5 - 36.0 g/dL [facility] MCV (RBC) [Entitic vol] 90.9 fL 80.0 - 100.0 fL [facility] Nucleated RBC (Bld) [#/Vol] <0.01 k/uL [facility] Platelet mean volume (Bld) [Entitic vol] 13.0 fL High 9.0 - 12.7 fL [facility] Platelets (Bld) [#/Vol] 189 10*3/uL 150 - 400 k/uL [facility] RBC (Bld) [#/Vol] 4.83 10*6/uL 4.20 - 6.0 0 m/uL [facility] WBC (Bld) [#/Vol] 8.53 10*3/uL 3.70 - 11. 00 k/uL [facility] Comprehensive metabolic 2000 panelon 08-23-2022 Albumin [Mass/Vol] 4.3 g/dL 3.9 - 4.9 g/dL [facility] ALP [Catalytic activity/Vol] 75 U/L 38 - 113 U/L [facility] ALT [Catalytic activity/Vol] 26 U/L 10 - 54 U/L [facility] Anion gap [Moles/Vol] 11 mmol/L 9 - 18 mmol/L [facility] AST [Catalytic activity/Vol] 31 U/L 14 - 40 U/L [facility] Bilirubin [Mass/Vol] 0.4 mg/dL 0.2 - 1.3 mg/dL [facility] Calcium [Mass/Vol] 9.3 mg/dL 8.5 - 10. 2 mg/dL [facility] Chloride [Moles/Vol] 103 mmol/L 97 - 105 mmol/L [facility] CO2 [Moles/Vol] 25 mmol/L 22 - 30 mmol/L [facility] Creatinine [Mass/Vol] 1.17 mg/dL 0.73 - 1.22 mg/dL [facility] Estimated Glomerular Filtration Rate 60 mL/min/1.73m >=60 mL/min/1.73m [facility] Glucose [Mass/Vol] 277 mg/dL High 74 - 99 mg/dL [facility] Potassium [Moles/Vol] 5.0 mmol/L 3.7 - 5.1 mmol/L [facility] Protein [Mass/Vol] 6.4 g/dL 6.3 - 8.0 g/dL [facility] Sodium [Moles/Vol] 139 mmol/L 136 - 144 mmol/L [facility] Urea nitrogen [Mass/Vol] 21 mg/dL 9 - 24 mg/dL [facility] MAGNESIUM [facility] 08-23-2022 Magnesium [Mass/Vol] 1.7 mg/dL 1.7 - 2.3 mg/dL [facility] TSH [facility] 08-23-2022 TSH Qn 5.670 m[IU]/L High 0.270 - 4.200 mIU/L [facility] XR KUB 1 VIEWon 03-28-2022 XR [...] by: LISA CORRALES Date: 2022-03-28 16:12 Normal [facility] XR LSPINE W_OBLS AND FLEX_EX Ton 01-26-2022 [...] by: DOLORES NIETO Date: 2022-01-26 08:10 Normal [facility] Complete Blood Count with Au to Diffon 05-27-2022 Erythrocyte distribution width (RBC) [Ratio] 15.0 % Normal 11.0-15.0 [facility] [employer] Comment on above: Performed By: #### F T4, CMP, TSH reflex FT4, LIPD, URIC, CBCMD JESSICAIFF #### [facility] [address] [place], [place] [id number] Hematocrit (Bld) [Volume fraction] 41.0 % Normal 38.5-50.0 [facility] [employer] Comment on above: Performed By: #### F T4, CMP, TSH reflex FT4, LIPD, URIC, CBCMD JESSICAIFF #### [facility] [address] [place], [place] [id number] Hemoglobin (Bld) [Mass/Vol] 13.2 g/dL Normal 13.0-17.1 [facility] [employer] Comment on above: Performed By: #### F T4, CMP, TSH reflex FT4, LIPD, URIC, CBCMD JESSICAIFF #### [facility] [address] [place], [place] [id number] MCH (RBC) [Entitic mass] 29.3 pg Normal 27.0-33.0 [facility] [employer] Project Engineer Comment on above: Performed By: #### F T4, CMP, TSH reflex FT4, LIPD, URIC, CBCMD JESSICAIFF #### [facility] [address] [place], [place] [id number] MCHC (RBC) [Mass/Vol] 32.2 g/dL Normal 32.0-36.0 [facility] [employer] Project [employer] Comment on above: Performed By: #### F T4, CMP, TSH reflex FT4, LIPD, URIC, CBCMD JESSICAIFF #### [facility] [address] [place], [place] [id number] MCV (RBC) [Entitic vol] 91 fL Normal 80-100 [facility] [employer] Project Engineer Comment on above: Performed By: #### F T4, CMP, TSH reflex FT4, LIPD, URIC, CBCMD JESSICAIFF #### [facility] [address] [place], [place] [id number] Platelet mean volume (Bld) [Entitic vol] 12.40 fL Normal 7.50-12.50 [employer] Project [employer] Comment on above: Performed By: #### F T4, CMP, TSH reflex FT4, LIPD, URIC, CBCAD, MDIFF #### [facility] [address] [place], [place] [id number] Platelets (Bld) [#/Vol] 167 10*3/uL Normal 140-400 [facility] Comment on above: Performed By: #### F T4, CMP, TSH reflex FT4, LIPD, URIC, CBCAD, MDIFF #### [facility] [address] [place], [place] [id number] RBC (Bld) [#/Vol] 4.50 10*6/uL Normal 4.20-5.80 [facility] Comment on above: Performed By: #### F T4, CMP, TSH reflex FT4, LIPD, URIC, CBCAD, MDIFF #### [facility] [address] [place], [place] [id number] RDW-SD 50.4 fL High 37.0-50.0 [facility] Comment on above: Performed By: #### F T4, CMP, TSH reflex FT4, LIPD, URIC, CBCAD, MDIFF #### [facility] [address] [place], [place] [id number] REFLEX Manual Differential Normal [facility] Comment on above: Performed By: #### F T4, CMP, TSH reflex FT4, LIPD, URIC, CBCAD, MDIFF #### [facility] [address] [place], [place] [id number] WBC (Bld) [#/Vol] 10.5 10*3/uL Normal 3.8-11.0 [facility] Comment on above: Performed By: #### F T4, CMP, TSH reflex FT4, LIPD, URIC, CBCAD, MDIFF #### [facility] [address] [place], [place] [id number] Comprehensive Metabolic Pane mary 11-19-2021 Albumin [Mass/Vol] 3.9 g/dL Normal 3.6-5.1 [facility] Comment on above: Performed By: #### F T4, CMP, TSH reflex FT4, LIPD, URIC, CBCAD, MDIFF #### [facility] [address] [place], [place] [id number] Albumin/Globulin [Mass ratio] 1.7 {ratio} Normal 1.0-2.5 [facility] Comment on above: Performed By: #### F T4, CMP, TSH reflex FT4, LIPD, URIC, CBCJESSICA, IFF #### [facility] [address] [place], [place] [id number] ALP [Catalytic activity/Vol] 64 U/L Normal 40-129 [facility] Comment on above: Performed By: #### F T4, CMP, TSH reflex FT4, LIPD, URIC, CBCJESSICA, MDIFF #### [facility] [address] [place], [place] [id number] ALT [Catalytic activity/Vol] 29 U/L Normal 9-46 [facility] Comment on above: Result Comment: 05/26 Female reference range changed. Performed By: #### F T4, CMP, TSH reflex FT4, LIPD, URIC, CBCJESSICA, MDIFF #### [facility] [address] [place], [place] [id number] Anion gap [Moles/Vol] 18 mmol/L Normal 12-20 [facility] Comment on above: Result Comment: Effe ctive 07/01/2019 reference range changed. Performed By: #### F T4, CMP, TSH reflex FT4, LIPD, URIC, CBCAD, MDIFF #### [facility] [address] [place], [place] [id number] AST [Catalytic activity/Vol] 25 U/L Normal 10-40 [facility] Comment on above: Performed By: #### F T4, CMP, TSH reflex FT4, LIPD, URIC, CBCJESSICA, IFF #### [facility] [address] [place], [place] [id number] Bilirubin [Mass/Vol] 0.67 mg/dL Normal 0.30-1.20 [facility] Comment on above: Performed By: #### F T4, CMP, TSH reflex FT4, LIPD, URIC, CBCAD, MDIFF #### [facility] [address] [place], [place] [id number] BUN/CREA 15 Ratio Normal 6-22 [employer] Project Engineer Comment on above: Performed By: #### F T4, CMP, TSH reflex FT4, LIPD, URIC, CBCJESSICA, MDIFF #### [facility] [address] [place], [place] [id number] Calcium [Mass/Vol] 9.0 mg/dL Normal 8.6-10.2 [facility] Comment on above: Performed By: #### F T4, CMP, TSH reflex FT4, LIPD, URIC, CBCJESSICA, MDIFF #### [facility] [address] [place], [place] [id number] Chloride [Moles/Vol] 103 mmol/L Normal 98-107 [facility] Comment on above: Performed By: #### F T4, CMP, TSH reflex FT4, LIPD, URIC, CBCJESSICA, IFF #### [facility] [address] [place], [place] [id number] CO2 [Moles/Vol] 24 mmol/L Normal 20-31 [facility] Comment on above: Performed By: #### F T4, CMP, TSH reflex FT4, LIPD, URIC, CBCJESSICA, MDIFF #### [facility] [address] [place], [place] [id number] Creatinine [Mass/Vol] 1.3 mg/dL Normal 0.7-1.4 [facility] Comment on above: Performed By: #### F T4, CMP, TSH reflex FT4, LIPD, URIC, CBCAD, MDIFF #### [facility] [address] [place], [place] [id number] eGFRAA 62 mL/min/1.73m2 Normal >60 [facility] Comment on above: Performed By: #### F T4, CMP, TSH reflex FT4, LIPD, URIC, CBCJESSICA, MDIFF #### [facility] [address] [place], [place] [id number] eGFRNAA 51 mL/min/1.73m2 Low >60 [facility] Comment on above: Performed By: #### F T4, CMP, TSH reflex FT4, LIPD, URIC, CBCJESSICA, MDIFF #### [facility] [address] [place], [place] [id number] Globulin (S) [Mass/Vol] 2.3 g/dL Normal 1.9-3.7 [facility] [employer] Project Engineer Comment on above: Performed By: #### F T4, CMP, TSH reflex FT4, LIPD, URIC, MD CHINOIFF #### [facility] [address] [place], [place] [id number] Glucose [Mass/Vol] 199 mg/dL High 65-99 [facility] [employer] Project Engineer Comment on above: Result Comment: For FASTING Glucose --- ADA reference ranges: Normal 65-99 mg/dl Prediabetes 100-125 Diabetes >/= 126 Performed By: #### F T4, CMP, TSH reflex FT4, LIPD, URIC, CBCMD JESSICAIFF #### [facility] [address] [place], [place] [id number] Potassium [Moles/Vol] 4.5 mmol/L Normal 3.5-5.5 [facility] [employer] Project Engineer Comment on above: Performed By: #### F T4, CMP, TSH reflex FT4, LIPD, URIC, CBCMD JESSICAIFF #### [facility] [address] [place], [place] [id number] Protein [Mass/Vol] 6.2 g/dL Normal 6.1-8.1 [facility] [employer] Project Engineer Comment on above: Performed By: #### F T4, CMP, TSH reflex FT4, LIPD, URIC, MD CHINOIFF #### [facility] [address] [place], [place] [id number] Sodium [Moles/Vol] 140 mmol/L Normal 135-146 [facility] [employer] Project Engineer Comment on above: Performed By: #### F T4, CMP, TSH reflex FT4, LIPD, URIC, MD CHINOIFF #### [facility] [address] [facility] [place] [id number] Urea nitrogen [Mass/Vol] 20 mg/dL Normal 7-25 [facility] [employer] Project Engineer Comment on above: Performed By: #### F T4, CMP, TSH reflex FT4, LIPD, URIC, CBCMD JESSICAIFF #### [facility] [address] [place], [place] [id number] Free T4on 11-19-2021 Free T4 [Mass/Vol] 0.96 ng/dL Normal 0.80-1.80 [facility] Comment on above: Performed By: #### F T4, CMP, TSH reflex FT4, LIPD, URIC, MD CHINOIFF #### [facility] [address] [place], [place] [id number] Lipid Panelon 11-19-2021 Cholesterol [Mass/Vol] 143 mg/dL Normal 125-200 [facility] Comment on above: Result Comment: Low risk < 200mg/dL Borderline risk 201-239 mg/dl High risk > or equal to 240 Performed By: #### F T4, CMP, TSH reflex FT4, LIPD, URIC, MD CHINOIFF #### [facility] [address] [place], [place] [id number] Cholesterol in HDL [Mass/Vol] 44 mg/dL Normal >40 [facility] Comment on above: Result Comment: High Cardiovascular Risk HDL <40 mg/dL Low Cardiovascular Risk HDL > or equal to 60 mg/dl Performed By: #### F T4, CMP, TSH reflex FT4, LIPD, URIC, MD CHINOIFF #### [facility] [address] [place], [place] [id number] Cholesterol in LDL [Mass/Vol] 74 mg/dL Normal [facility] Comment on above: Result Comment: LDL ATP III CLASSIFICATION LDL less than 100 mg/dl Optimal LDL 100-129 mg/dl Near or above optimal LDL 130-159 Borderline high LDL 160-189 High LDL greater than 189 mg/dl Very High Performed By: #### F T4, CMP, TSH reflex FT4, LIPD, URIC, MD CHINOIFF #### [facility] [address] [place], [place] [id number] Cholesterol in VLDL [Mass/Vol] 25 mg/dL Normal [facility] Comment on above: Performed By: #### F T4, CMP, TSH reflex FT4, LIPD, URIC, MD CHINOIFF #### [facility] [address] [place], [place] [id number] Cholesterol.total/C holesterol in HDL [Mass ratio] 3 {ratio} Normal [facility] Comment on above: Performed By: #### F T4, CMP, TSH reflex FT4, LIPD, URIC, MD CHINOIFF #### [facility] [address] [place], [place] [id number] Triglyceride [Mass/Vol] 124 mg/dL Normal 30-150 [facility] [employer] Project Engineer Comment on above: Result Comment: TRIG ATPIII CLASSIFICATIONS TRIG less than 150 mg/dl Normal TRIG 150-199 mg/dl Borderline High TRIG 200-500 mg/dl High TRIG greather than 500 mg/dl Very High Performed By: #### F T4, CMP, TSH reflex FT4, LIPD, URIC, CBCJESSICA, MDIFF #### [facility] [address] [place], [place] [id number] Manual Differentialon 2021 BAND 0.0 % Normal [facility] Special[facility] Comment on above: Performed By: #### F T4, CMP, TSH reflex FT4, LIPD, URIC, CBCMD JESSICAIFF #### [facility] [address] [place], [place] [id number] BANDABS 0.0 K/uL Normal [facility] [employer] Project Engineer Comment on above: Performed By: #### F T4, CMP, TSH reflex FT4, LIPD, URIC, CBCMD JESSICAIFF #### [facility] [address] [place], [place] [id number] BASO 0.0 % Normal [facility] [employer] Project Engineer Comment on above: Performed By: #### F T4, CMP, TSH reflex FT4, LIPD, URIC, CBCMD JESSICAIFF #### [facility] [address] [place], [place] [id number] BASOABS 0.0 K/uL Normal 0.0-0.2 [facility] [employer] Project Engineer Comment on above: Performed By: #### F T4, CMP, TSH reflex FT4, LIPD, URIC, CBCJESSICA, IFF #### [facility] [address] [place], [place] [id number] EOS 1.0 % Normal [facility] [employer] Project Engineer Comment on above: Performed By: #### F T4, CMP, TSH reflex FT4, LIPD, URIC, CBCMD JESSICAIFF #### [facility] [address] [place], [place] [id number] EOSABS 0.1 K/uL Normal 0.0-0.5 [facility] [employer] Project Engineer Comment on above: Performed By: #### F T4, CMP, TSH reflex FT4, LIPD, URIC, CBCAD, MDIFF #### [facility] [address] [place], [place] [id number] LYMPH 16.0 % Normal [facility] Comment on above: Performed By: #### F T4, CMP, TSH reflex FT4, LIPD, URIC, CBCAD, MDIFF #### [facility] [address] [place], [place] [id number] LYMPHABS 1.7 K/uL Normal 0.9-3.9 [facility] Comment on above: Performed By: #### F T4, CMP, TSH reflex FT4, LIPD, URIC, CBCAD, MDIFF #### [facility] [address] [place], [place] [id number] LYMPHATYP 0.0 % Low 0.9-3.9 [facility] Comment on above: Performed By: #### F T4, CMP, TSH reflex FT4, LIPD, URIC, CBCAD, MDIFF #### [facility] [address] [place], [place] [id number] MONO 9.0 % Normal [facility] Comment on above: Performed By: #### F T4, CMP, TSH reflex FT4, LIPD, URIC, CBCAD, MDIFF #### [facility] [address] [place], [place] [id number] MONOABS 0.9 K/uL Normal 0.2-0.9 [facility] Comment on above: Performed By: #### F T4, CMP, TSH reflex FT4, LIPD, URIC, CBCAD, MDIFF #### [facility] [address] [place], [place] [id number] PLT EST Adequate Normal [facility] Comment on above: Performed By: #### F T4, CMP, TSH reflex FT4, LIPD, URIC, CBCAD, MDIFF #### [facility] [address] [place], [place] [id number] RBCMORPH Normal Normal [facility] Comment on above: Performed By: #### F T4, CMP, TSH reflex FT4, LIPD, URIC, CBCAD, MDIFF #### [facility] [address] [place], [place] [id number] SEG 74.0 % Normal [facility] Comment on above: Performed By: #### F T4, CMP, TSH reflex FT4, LIPD, URIC, CBCAD, MDIFF #### [facility] [address] [place], [place] [id number] SEGABS 7.7 K/uL Normal 1.5-7.8 [facility] Comment on above: Performed By: #### F T4, CMP, TSH reflex FT4, LIPD, URIC, CBCAD, MDIFF #### [facility] [address] [place], [place] [id number] WBC 10.5 K/uL Normal 3.8-11.0 [facility] Comment on above: Performed By: #### F T4, CMP, TSH reflex FT4, LIPD, URIC, CBCAD, MDIFF #### [facility] [address] [place], [place] [id number] TSH w/ Reflex to Free T4on 0 11-19-2021 FT4 reflex Free T4 Normal [facility] Comment on above: Performed By: #### F T4, CMP, TSH reflex FT4, LIPD, URIC, CBCAD, MDIFF #### [facility] [address] [place], [place] [id number] TSH 4.810 uIU/mL High 0.400-4.500 [facility] Manufacturing Project Engineer Comment on above: Performed By: #### F T4, CMP, TSH reflex FT4, LIPD, URIC, CBCAD, MDIFF #### [facility] [address] [place], [place] [id number] Uric Acidon 11-19-2021 URIC 9.1 mg/dL High 4.0-8.0 [facility] Comment on above: Result Comment: Refe rence range change 05/12/2017. Prior reference range F 2.4-5.7mg/dL. M 3.4-7.0 mg/dL. Performed By: #### F T4, CMP, TSH reflex FT4, LIPD, URIC, CBCAD, MDIFF #### [facility] [address] [place], [place] [id number] XR MODIFIED BARIUM SWALLOWon 11-16-2021 XR MODIFIED [...] by: DOLORES NIETO Date: 2021-11-16 09:48 Normal [facility] Vital Signs Date Time Vital Sign Value Performing Clinician Facility 10-17-2024 10:43-0400 Body height 175.3 cm Jaime Rob DPM Work Phone: [facility] 10-17-2024 10:43-0400 Body mass index (BMI) [Ratio] 31.31 kg/m2 Jaime Hanson DPM Work Phone: [facility] 10-17-2024 10:43-0400 Body weight 96.16 kg Jaime Rob DPM Work Phone: [facility] 10-17-2024 10:43-0400 Respiratory rate 18 /min Jaime Hanson DPM Work Phone: [facility] 08-26-2024 11:09-0500 Diastolic blood pressure 82 mm[Hg] Lavisa Lara CLINICAL ABSTRACTOR.INVESTMENT BROKER Work Phone: [facility] 08-26-2024 11:09-0500 Heart rate 67 /min Lavisa Lara CLINICAL ABSTRACTOR.INVESTMENT BROKER Work Phone: [facility] 08-26-2024 11:09-0500 Systolic blood pressure 162 mm[Hg] Lavisa Lara CLINICAL ABSTRACTOR.INVESTMENT BROKER Work Phone: [facility] 08-26-2024 10:54-0500 Body mass index (BMI) [Ratio] 32.75 kg/m2 Lavisa Lara CLINICAL ABSTRACTOR.INVESTMENT BROKER Work Phone: [facility] 08-26-2024 10:54-0500 Body weight 97.7 kg Lavisa Lara CLINICAL ABSTRACTOR.INVESTMENT BROKER Work Phone: [facility] 08-26-2024 10:54-0500 SaO2% (BldA) [Mass fraction] 97 % Steviehien Marco GUILLEN Work Phone: [facility] 08-14-2024 08:30-0500 Body height 175.3 cm Benjie Covarrubias MD Work Phone: [facility] 08-14-2024 08:30-0500 Body mass index (BMI) [Ratio] 31.45 kg/m2 Benjie Covarrubias MD Work Phone: [facility] 08-14-2024 08:30-0500 Body weight 96.62 kg Benjie Covarrubias MD Work Phone: [facility] 08-14-2024 08:30-0500 Diastolic blood pressure 72 mm[Hg] Benjie Covarrubias MD Work Phone: [facility] 08-14-2024 08:30-0500 Heart rate 68 /min Benjie Covarrubias MD Work Phone: [facility] 08-14-2024 08:30-0500 SaO2% (BldA) [Mass fraction] 97 % Benjie Covarrubias MD Work Phone: [facility] 08-14-2024 08:30-0500 Systolic blood pressure 130 mm[Hg] Benjie Covarrubias MD Work Phone: [facility] 08-08-2024 11:01-0500 Body height 175.3 cm Jaime Hanson DPM Work Phone: [facility] 08-08-2024 11:01-0500 Body mass index (BMI) [Ratio] 31.01 kg/m2 Jaime Hanson DPM Work Phone: [facility] 08-08-2024 11:01-0500 Body weight 95.25 kg Jaime Hanson DPM Work Phone: [facility] 08-08-2024 11:01-0500 Respiratory rate 16 /min Jaime Hanson DPM Work Phone: [facility] 07-03-2024 09:05-0500 Body height 175.3 cm Benjie Covarrubias MD Work Phone: [facility] 07-03-2024 09:05-0500 Body mass index (BMI) [Ratio] 31.01 kg/m2 Benjie Covarrubias MD Work Phone: [facility] 07-03-2024 09:05-0500 Body weight 95.25 kg Benjie Covarrubias MD Work Phone: [facility] 07-03-2024 09:05-0500 Diastolic blood pressure 70 mm[Hg] Benjie Covarrubias MD Work Phone: [facility] 07-03-2024 09:05-0500 Heart rate 74 /min Benjie Covarrubias MD Work Phone: [facility] 07-03-2024 09:05-0500 SaO2% (BldA) [Mass fraction] 96 % Benjie Covarrubias MD Work Phone: [facility] 07-03-2024 09:05-0500 Systolic blood pressure 128 mm[Hg] Benjie Covarrubias MD Work Phone: [facility] 05-31-2024 08:35-0500 Body height 175.3 cm Benjie Covarrubias MD Work Phone: [facility] 05-31-2024 08:35-0500 Body mass index (BMI) [Ratio] 31.9 kg/m2 Benjie Covarrubias MD Work Phone: [facility] 05-31-2024 08:35-0500 Body weight 97.98 kg Benjie Covarrubias MD Work Phone: [facility] 05-31-2024 08:35-0500 Diastolic blood pressure 76 mm[Hg] Benjie Covarrubias MD Work Phone: [facility] 05-31-2024 08:35-0500 Heart rate 70 /min Benjie Covarrubias MD Work Phone: [facility] 05-31-2024 08:35-0500 SaO2% (BldA) [Mass fraction] 97 % Benjie Covarrubias MD Work Phone: [facility] 05-31-2024 08:35-0500 Systolic blood pressure 136 mm[Hg] Benjie Covarrubias MD Work Phone: [facility] 05-30-2024 10:50-0500 Body height 175.3 cm Jaime Hanson DPM Work Phone: [facility] 05-30-2024 10:50-0500 Body mass index (BMI) [Ratio] 30.86 kg/m2 Jaime Hanson DPM Work Phone: [facility] 05-30-2024 10:50-0500 Body weight 94.8 kg Jaime Hanson DPM Work Phone: [facility] 05-30-2024 10:50-0500 Respiratory rate 18 /min Jaime Hanson DPM Work Phone: [facility] 05-01-2024 08:30-0500 Body height 175.3 cm Benjie Covarrubias MD Work Phone: [facility] 05-01-2024 08:30-0500 Body mass index (BMI) [Ratio] 30.86 kg/m2 Benjie Covarrubias MD Work Phone: [facility] 05-01-2024 08:30-0500 Body weight 94.8 kg Benjie Covarrubias MD Work Phone: [facility] 05-01-2024 08:30-0500 Diastolic blood pressure 80 mm[Hg] Benjie Covarrubias MD Work Phone: [facility] 05-01-2024 08:30-0500 Heart rate 75 /min Benjie Covarrubias MD Work Phone: [facility] 05-01-2024 08:30-0500 SaO2% (BldA) [Mass fraction] 97 % Benjie Covarrubias MD Work Phone: [facility] 05-01-2024 08:30-0500 Systolic blood pressure 132 mm[Hg] Benjie Covarrubias MD Work Phone: [facility] 04-10-2024 10:17-0400 Body height 175.3 cm Benjie Covarrubias MD Work Phone: [facility] 04-10-2024 10:17-0400 Body mass index (BMI) [Ratio] 31.45 kg/m2 Benjie Covarrubias MD Work Phone: [facility] 04-10-2024 10:17-0400 Body weight 96.62 kg Benjie Covarrubias MD Work Phone: [facility] 04-10-2024 10:17-0400 Diastolic blood pressure 72 mm[Hg] Benjie Covarrubias MD Work Phone: [facility] 04-10-2024 10:17-0400 Heart rate 74 /min Benjie Covarrubias MD Work Phone: [facility] 04-10-2024 10:17-0400 SaO2% (BldA) [Mass fraction] 95 % Benjie Covarrubias MD Work Phone: [facility] 04-10-2024 10:17-0400 Systolic blood pressure 128 mm[Hg] Benjie Covarrubias MD Work Phone: [facility] 04-05-2024 08:23-0400 Blood Pressure Location Sadaf STOV[facility] 04-05-2024 08:23-0400 Body temperature 98.6 [degF] Sadaf STOVALL [facility] 04-05-2024 08:23-0400 Diastolic blood pressure 67 mm[Hg] Sadaf STOVALL [facility] 04-05-2024 08:23-0400 Heart rate 73 /min Sadaf STOVALL [facility] 04-05-2024 08:23-0400 Respiratory rate 18 /min Sadaf STOVALL [facility] 04-05-2024 08:23-0400 Systolic blood pressure 120 mm[Hg] Sadaf STOVALL [facility] 03-14-2024 11:39-0400 Body height 175.3 cm Jaime Hanson DPM Work Phone: [facility] 03-14-2024 11:39-0400 Body mass index (BMI) [Ratio] 31.9 kg/m2 Jaime Hanson DPM Work Phone: [facility] 03-14-2024 11:39-0400 Body weight 97.98 kg Jaime Hanson DPM Work Phone: [facility] 03-14-2024 11:39-0400 Diastolic blood pressure 80 mm[Hg] Jaime Hanson DPM Work Phone: [facility] 03-14-2024 11:39-0400 Heart rate 74 /min Jaime Hanson DPM Work Phone: [facility] 03-14-2024 11:39-0400 Respiratory rate 18 /min Jaime Hanson DPM Work Phone: [facility] 03-14-2024 11:39-0400 Systolic blood pressure 126 mm[Hg] Jaime Hanson DPM Work Phone: [facility] 02-28-2024 08:52-0400 Body height 175.3 cm Benjie Covarrubias MD Work Phone: [facility] 02-28-2024 08:52-0400 Body mass index (BMI) [Ratio] 31.9 kg/m2 Benjie Covarrubias MD Work Phone: [facility] 02-28-2024 08:52-0400 Body weight 97.98 kg Benjie Covarrubias MD Work Phone: [facility] 02-28-2024 08:52-0400 Diastolic blood pressure 70 mm[Hg] Benjie Covarrubias MD Work Phone: [facility] 02-28-2024 08:52-0400 Heart rate 70 /min Benjie Covarrubias MD Work Phone: [facility] 02-28-2024 08:52-0400 SaO2% (BldA) [Mass fraction] 95 % Benjie Covarrubias MD Work Phone: [facility] 02-28-2024 08:52-0400 Systolic blood pressure 126 mm[Hg] Benjie Covarrubias MD Work Phone: [facility] 02-15-2024 09:40-0400 Body height 172.7 cm Marco A Garvey MD Work Phone: [facility] 02-15-2024 09:40-0400 Body mass index (BMI) [Ratio] 33.19 kg/m2 Marco A Garvey MD Work Phone: [facility] 02-15-2024 09:40-0400 Body weight 99 kg Marco A Garvey MD Work Phone: [facility] 02-15-2024 09:40-0400 Diastolic blood pressure 72 mm[Hg] Marco A Garvey MD Work Phone: [facility] Comment on above: manual BP 02-15-2024 09:40-0400 Heart rate 71 /min Marco A Garvey MD Work Phone: [facility] 02-15-2024 09:40-0400 SaO2% (BldA) [Mass fraction] 95 % Marco A Garvey MD Work Phone: [facility] Comment on above: RA 02-15-2024 09:40-0400 Systolic blood pressure 122 mm[Hg] Marco A Garvey MD Work Phone: [facility] Comment on above: manual BP 01-12-2024 10:06-0400 Body height 172.72 cm [facility] 01-12-2024 10:06-0400 Body mass index (BMI) [Ratio] 33.1 kg/m2 [facility] 01-12-2024 10:06-0400 Body temperature 97.5 [degF] [facility] 01-12-2024 10:06-0400 Body weight 98.93 kg [facility] 01-12-2024 10:06-0400 Diastolic blood pressure 82 mm[Hg] [facility] 01-12-2024 10:06-0400 Heart rate 71 /min [facility] 01-12-2024 10:06-0400 Respiratory rate 16 /min [facility] 01-12-2024 10:06-0400 SaO2% (BldA) [Mass fraction] 91 % [facility] 01-12-2024 10:06-0400 Systolic blood pressure 123 mm[Hg] [facility] 08-14-2023 09:58-0500 Diastolic blood pressure 72 mm[Hg] Lavisa Lara CLINICAL ABSTRACTOR.INVESTMENT BROKER Work Phone: [facility] 08-14-2023 09:58-0500 Systolic blood pressure 134 mm[Hg] Lavisa Lara CLINICAL ABSTRACTOR.INVESTMENT BROKER Work Phone: [facility] 08-14-2023 09:33-0500 Body weight 97.7 kg Lavisa Lara CLINICAL ABSTRACTOR.INVESTMENT BROKER Work Phone: [facility] 08-14-2023 09:33-0500 Heart rate 67 /min Lavisa Lara CLINICAL ABSTRACTOR.INVESTMENT BROKER Work Phone: [facility] 08-14-2023 09:33-0500 SaO2% (BldA) [Mass fraction] 97 % Lavisa Alra CLINICAL ABSTRACTOR.INVESTMENT BROKER Work Phone: [facility] 02-20-2023 10:16-0400 Body weight 93.44 kg Marco A Garvey MD Work Phone: [facility] 02-20-2023 10:16-0400 Diastolic blood pressure 92 mm[Hg] Marco A Garvey MD Work Phone: [facility] 02-20-2023 10:16-0400 Heart rate 68 /min Marco A Garvey MD Work Phone: [facility] 02-20-2023 10:16-0400 SaO2% (BldA) [Mass fraction] 95 % Marco A Garvey MD Work Phone: [facility] 02-20-2023 10:16-0400 Systolic blood pressure 137 mm[Hg] Marco A Garvey MD Work Phone: [facility] 08-23-2022 10:34-0500 Diastolic blood pressure 73 mm[Hg] Lavisa Lara CLINICAL ABSTRACTOR.INVESTMENT BROKER Work Phone: [facility] 08-23-2022 10:34-0500 Heart rate 67 /min Lavisa Lara CLINICAL ABSTRACTOR.INVESTMENT BROKER Work Phone: [facility] 08-23-2022 10:34-0500 Systolic blood pressure 153 mm[Hg] Lavisa Lara CLINICAL ABSTRACTOR.INVESTMENT BROKER Work Phone: [facility] 08-23-2022 10:20-0500 Body weight 102.97 kg Joao Lara CLINICAL ABSTRACTOR.INVESTMENT BROKER Work Phone: [facility] 04-01-2022 08:54-0400 Blood Pressure Location Sadaf STOVALL [facility] 04-01-2022 08:54-0400 Diastolic blood pressure 83 mm[Hg] Sadaf STOVALL [facility] 04-01-2022 08:54-0400 Heart rate 73 /min Sadaf STOVALL [facility] 04-01-2022 08:54-0400 Systolic blood pressure 152 mm[Hg] Sadaf STOVALL [facility] 02-21-2022 10:19-0400 Body height 172.7 cm Marco A Garvey MD Work Phone: [facility] 02-21-2022 10:19-0400 Body weight 104.69 kg Marco A Garvey MD Work Phone: [facility] 02-21-2022 10:19-0400 Diastolic blood pressure 84 mm[Hg] Marco A Garvey MD Work Phone: [facility] 02-21-2022 10:19-0400 Heart rate 78 /min Marco A Garvey MD Work Phone: [facility] 02-21-2022 10:190400 SaO2% (BldA) [Mass fraction] 96 % Marco A Garvey MD Work Phone: [facility] 02-21-2022 10:190400 Systolic blood pressure 136 mm[Hg] Marco A Garvey MD Work Phone: [facility] Encounters Encounter Date Encounter Type Care Provider Facility Start: 11-26-2024 End: 11-26-2024 ambulatory HARSHAL GENAO Not Available Start: 10-17-2024 End: 10-17-2024 Bamboo flowsheet Jaime Hanson DPM Work Phone: [facility] Start: 10-17-2024 End: 10-17-2024 Bamboo flowsheet Jaime Hanson DPM Work Phone: [facility] Start: 10-17-2024 End: 10-17-2024 Patient encounter procedure Jaime Hanson DPM Work Phone: [facility] Comment on above: 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) (Primary Dx); Pain due to onychomycosis of toenails of both feet; Venous insufficiency Start: 10-17-2024 End: 10-17-2024 ambulatory JAIME HANSON Not Available Start: 10-15-2024 End: 10-15-2024 Bamboo flowsheet Harshal Genao MD Work Phone: [facility] Start: 10-15-2024 End: 10-15-2024 Bamboo flowsgary Genao MD Work Phone: [facility] Start: 10-15-2024 End: 10-15-2024 Patient encounter procedure Harshal Genao MD Work Phone: [facility] Comment on above: Seborrheic keratosis , inflamed (Primary Dx); Actinic keratosis Start: 10-15-2024 End: 10-15-2024 ambulatory HARSHAL GENAO Not Available Start: 09-23-2024 End: 09-23-2024 Bamboo flowsheet Emmanuel Soils DO Work Phone: [facility] Start: 09-23-2024 End: 09-23-2024 Bamboo flowsheet Emmanuel Solis DO Work Phone: [facility] Start: 09-23-2024 End: 09-23-2024 ambulatory EMMANUEL SOLIS Not Available Start: 09-03-2024 End: 09-03-2024 Office outpatient new 30 minutes Harshal Genao MD Work Phone: [facility] Comment on above: Seborrheic keratosis (Primary Dx); Seborrheic keratosis, inflamed; Actinic keratosis; Lentigines; Neoplasm of unspecified behavior of bone, soft tissue, and skin Start: 09-03-2024 End: 09-03-2024 ambulatory HARSHAL GENAO Not Available Start: 09-03-2024 End: 09-03-2024 Elham Genao MD Work Phone: [facility] Start: 09-03-2024 End: 09-03-2024 Elham Genao MD Work Phone: [facility] Start: 09-02-2024 End: 09-02-2024 ambulatory BENJIE COVARRUBIAS Not Available Start: 08-26-2024 End: 08-26-2024 ambulatory JOAO LARA Facility:[facility] Start: 08-26-2024 End: 08-26-2024 Patient encounter procedure Joao Lara APRN.CNP Work Phone: Cardiology Comment on above: Atherosclerosis of n ative coronary artery of [place] heart without angina pectoris (Primary Dx); S/P CABG x 1; Chronic diastolic heart failure (HCC); Primary hypertension; Nonrheumatic aortic valve stenosis; S/P AVR Start: 08-14-2024 End: 08-14-2024 Bamboo flowsheet Benjie Covarrubias MD Work Phone: [facility] Start: 08-14-2024 End: 08-14-2024 Bamboo flowsheet Benjie Covarrubias MD Work Phone: [facility] Start: 08-14-2024 End: 08-14-2024 Office outpatient visit 25 minutes Benjie Covarrubias MD Work Phone: [facility] Comment on above: Acute non-recurrent sinusitis, unspecified location (Primary Dx); Interstitial pulmonary disease, unspecified ([facility]) Start: 08-14-2024 End: 08-14-2024 ambulatory BENJIE COVARRUBIAS Not Available Start: 08-08-2024 End: 08-08-2024 Bamboo flowsheet Jaime Hanson DPM Work Phone: [facility] Start: 08-08-2024 End: 08-08-2024 Bamboo flowsheet Jaime Hanson DPM Work Phone: [facility] Start: 08-08-2024 End: 08-08-2024 Patient encounter procedure Jaime Hanson DPM Work Phone: [facility] Comment on above: 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, without long-term current use of insulin (HCC) (CMS/HCC) (Primary Dx); Chronic diastolic heart failure (CMS/HCC); Benign essential hypertension (CMS/HCC); Chronic kidney disease, stage 3b (HCC) (CMS/HCC); Malignant melanoma of skin, unspecified (CMS/HCC); Candidiasis of genitalia Start: 07-03-2024 End: 07-03-2024 ambulatory BENJIE COVARRUBIAS Not Available Start: 05-31-2024 End: 05-31-2024 Office outpatient visit 15 minutes Benjie Covarrubias MD Work Phone: [facility] Comment on above: Spasm of right trape zius muscle (Primary Dx) Start: 05-31-2024 End: 05-31-2024 ambulatory BENJIE COVARRUBIAS Not Available Start: 05-30-2024 End: 05-30-2024 Bamboo flowsheet Jaime Hanson DPM Work Phone: [facility] Start: 05-30-2024 End: 05-30-2024 Bamboo flowsheet Jaime Hanson DPM Work Phone: [facility] Start: 05-30-2024 End: 05-30-2024 Patient encounter procedure Jaime Hanson DPM Work Phone: [facility] Comment on above: 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/HCC) (Primary Dx); Onychomycosis; Toe pain, left; Toe pain, right; Venous insufficiency Start: 05-30-2024 End: 05-30-2024 ambulatory JAIME HANSON Not Available Start: 05-27-2024 End: 05-27-2024 Emergency department patient visit Mark Stearns Facility:[facility] Start: 05-01-2024 End: 05-01-2024 Bamboo flowsgary Covarrubias MD Work Phone: [facility] Start: 05-01-2024 End: 05-01-2024 Bamboo jake Covarrubias MD Work Phone: [facility] Start: 05-01-2024 End: 05-01-2024 Office outpatient visit 25 minutes Benjie Covarrubias MD Work Phone: [facility] Comment on above: Uncontrolled type 2 diabetes mellitus with hyperglycemia (CMS/HCC) (Primary Dx); CRF (chronic renal failure), stage 2 (mild); Chronic diastolic heart failure (CMS/HCC); Benign essential hypertension (CMS/HCC) Start: 05-01-2024 End: 05-01-2024 ambulatory BENJIE COVARRUBIAS Not Available Start: 04-24-2024 End: 04-24-2024 Refill Marco A Garvey MD Work Phone: Cardiology Comment on above: Refill Request Start: 04-10-2024 End: 04-10-2024 Bamboo flowsheet Benjie Covarrubias MD Work Phone: [facility] Start: 04-10-2024 End: 04-10-2024 Bamboo flowsheet Benjie Covarrubias MD Work Phone: [facility] Start: 04-10-2024 End: 04-10-2024 Office outpatient visit 25 minutes Benjie Covarrubias MD Work Phone: [facility] Comment on above: Uncontrolled type 2 diabetes mellitus with hyperglycemia (CMS/HCC) (Primary Dx); Hypothyroidism (acquired) (CMS/HCC); Chronic diastolic heart failure (CMS/HCC); Chronic pansinusitis; Follicular cyst of skin and subcutaneous tissue Start: 04-10-2024 End: 04-10-2024 ambulatory BENJIE COVARRUBIAS Not Available Start: 04-05-2024 End: 04-05-2024 ambulatory Sadaf STOVALL Facility:[facility] Start: 04-05-2024 End: 04-05-2024 Patient encounter procedure Sadaf STOVALL [facility] Start: 03-14-2024 End: 03-14-2024 Bamboo flowsheet Jaime Hanson DPM Work Phone: [facility] Start: 03-14-2024 End: 03-14-2024 Bamboo flowsheet Jaime Hanson DPM Work Phone: [facility] Start: 03-14-2024 End: 03-14-2024 Patient encounter procedure Jaime Hanson DPM Work Phone: [facility] Comment on above: Diabetes mellitus du e to underlying condition with diabetic polyneuropathy, without long-term current use of insulin (CMS/HCC) (Primary Dx); Onychomycosis; Toe pain, bilateral; Venous insufficiency Start: 03-14-2024 End: 03-14-2024 ambulatory JAIME HANSON Not Available Start: 02-28-2024 End: 02-28-2024 Bamboo flowsheet Benjie Covarrubias MD Work Phone: [facility] Start: 02-28-2024 End: 02-28-2024 Bamboo flowsheet Benjie Covarrubias MD Work Phone: [facility] Start: 02-28-2024 End: 02-28-2024 Office outpatient visit 25 minutes Benjie Covarrubias MD Work Phone: [facility] Comment on above: Uncontrolled type 2 diabetes mellitus with hyperglycemia (CMS/HCC) (Primary Dx); Hypothyroidism (acquired) (CMS/HCC); Chronic diastolic heart failure (CMS/HCC) Start: 02-28-2024 End: 02-28-2024 ambulatory BENJIE COVARRUBIAS Not Available Start: 02-15-2024 End: 02-15-2024 Patient encounter procedure Marco A Garvey MD Work Phone: Cardiology Comment on above: S/P CABG x 1 (Primar y Dx); S/P AVR; Pure hypercholesterolemia; Primary hypertension; Chronic diastolic heart failure (HCC); Atherosclerosis of [place] coronary artery of [place] heart without angina pectoris Start: 02-15-2024 End: 02-15-2024 ambulatory MARCO A GARVEY Facility:[facility] Start: 01-18-2024 End: 01-18-2024 ambulatory BENJIE COVARRUBIAS Not Available Start: 01-12-2024 End: 01-12-2024 ambulatory [facility] Work Phone: Start: 01-12-2024 End: 01-12-2024 Patient encounter procedure [facility] [place] Work Phone: Start: 01-08-2024 End: 01-08-2024 ambulatory BENJIE COVARRUBIAS Not Available Start: 01-04-2024 End: 01-04-2024 ambulatory JAIME Jonatan ROB Not Available Start: 12-27-2023 End: 12-27-2023 ambulatory RONNIE H TIMMIS Not Available Start: 12-13-2023 End: 12-13-2023 ambulatory RONNIE H TIMMIS Not Available Start: 12-11-2023 End: 12-11-2023 ambulatory BENJIE COVARRUBIAS Not Available Start: 08-14-2023 End: 08-14-2023 Patient encounter procedure Joao Lara APRN.INVESTMENT BROKER Work Phone: Cardiology Comment on above: Primary hypertension (Primary Dx); Chronic diastolic heart failure (HCC); Pure hypercholesterolemia; S/P CABG x 1; Atherosclerosis of [place] coronary artery of [place] heart without angina pectoris; Nonrheumatic aortic valve stenosis Start: 02-20-2023 End: 02-20-2023 Patient encounter procedure Marco A Garvey MD Work Phone: Cardiology Comment on above: Nonrheumatic aortic valve stenosis (Primary Dx); Primary hypertension; Pure hypercholesterolemia; Chronic diastolic heart failure (HCC); Atherosclerosis of [place] coronary artery of [place] heart without angina pectoris; S/P CABG x 1; S/P AVR Start: 08-23-2022 End: 08-23-2022 Patient encounter procedure Joao Lara APRN.INVESTMENT BROKER Work Phone: Cardiology Comment on above: Chronic [...] encounter procedure Sadaf STOVALL [facility] Start: 03-28-2022 End: 03-29-[address] SADAF STOVALL Facility:[facility] Start: 02-21-2022 End: 02-21-2022 Patient encounter procedure Marco A Garvey MD Work Phone: Cardiology Comment on above: Nonrheumatic aortic valve stenosis (Primary Dx); Primary hypertension; Pure hypercholesterolemia; Chronic diastolic heart failure (HCC); Atherosclerosis of [place] coronary artery of [place] heart without angina pectoris; S/P CABG x 1; S/P AVR; Obesity, Class I, BMI 30-34.9 Start: 02-08-2022 End: 02-09-[address] ROSE MARIE MURRAY Facility:[facility] Start: 01-25-2022 End: 01-26-[address] ROSE MARIE MURRAY Facility:[facility] Start: 11-16-2021 End: 11-17-[address] BENJIE COVARRUBIAS Facility:[facility] Start: 04-07-2020 Patient encounter status Marco A Garvey MD Work Phone: [facility] Procedures Date Procedure Procedure Detail Performing Clinician Start: 10-15-2024 End: 10-15-2024 CRYOTHERAPY SKIN LESION Harshal Genao MD Work Phone: Start: 09-23-2024 End: 09-23-2024 [facility] medical xm&eval comprhnsv estab pt 1/> Mild nonproliferative diabetic retinopathy of both eyes without macular edema associated with type 2 diabetes mellitus (CMS/HCC) Emmanuel Solis DO Work Phone: Comment on above: Mild nonproliferative diabetic retinopat hy of both eyes without macular edema associated with type 2 diabetes mellitus (CMS/HCC) (Primary Dx); Dry eyes; Senile ectropion of both lower eyelids; Blepharitis of upper and lower eyelids of both eyes, unspecified type Start: 09-03-2024 SKIN / NAIL BIOPSY Harshal Genao MD Work Phone: Start: 09-03-2024 End: 09-03-2024 CRYOTHERAPY SKIN LESION Harshal Genao MD Work Phone: Start: 07-03-2024 Hemoglobin glycosylated a1c Benjie Covarrubias MD Work Phone: Start: 04-10-2024 Hemoglobin glycosylated a1c Benjie Covarrubias MD Work Phone: Start: 02-28-2024 Hemoglobin glycosylated a1c Benjie Covarrubias MD Work Phone: Start: 08-14-2023 Ecg routine ecg w/least 12 lds i&r only Steviehien Lara CLINICAL ABSTRACTOR.INVESTMENT BROKER Work Phone: Start: 08-23-2022 Ecg routine ecg w/least 12 lds i&r only [facility] Provider Start: 05-08-2020 History of coronary artery bypass grafting S/P CABG x 1 Marco A Garvey MD Work Phone: Start: 08-20-2019 Cataract extraction and insertion of intraocular lens Sadaf STOVALL Start: 08-06-2019 Cataract extraction and insertion of intraocular lens Sadafisamar STOVALL Comment on above: left Start: 06-26-2019 Construction of shunt Sadaf STOVALL Start: 12-23-2013 Cystoscopy Sadafisamar STOVALL Start: 12-04-2013 Urodynamic studies Sadafisamar STOVALL Start: 12-25-2007 Extracorporeal shockwave lithotripsy of calculus of kidney Sadaf STOVALL Comment on above: 09/05/2011, 01/05/2017 Start: 01-24-2002 Extracorporeal shockwave lithotripsy of calculus of kidney Sadafisamar STOVALL Comment on above: 12/2007, 09/21/2017 Start: 12-24-2001 Extracorporeal shockwave lithotripsy of calculus of kidney Sadafisamar STOVALL Arthroplasty of knee Sadafisamar STOVALL Circumcision Sadaf STOVALL History of coronary artery bypass grafting S/P CABG x 1 Marco A Garvey MD Work Phone: History of coronary artery bypass grafting S/P CABG x 1 Joao Lara CLINICAL ABSTRACTOR.INVESTMENT BROKER Work Phone: History of coronary artery bypass grafting S/P CABG x 1 Marco A Garvey MD Work Phone: History of coronary artery bypass grafting S/P CABG x 1 Stevieisa Lara CLINICAL ABSTRACTOR.INVESTMENT BROKER Work Phone: History of coronary artery bypass grafting S/P CABG x 1 Marco A Garvey MD Work Phone: History of coronary artery bypass grafting S/P CABG x 1 Joao Lara CLINICAL ABSTRACTOR.INVESTMENT BROKER Work Phone: Maxillary sinus endo scopy with removal of polyps Sadaf STOVALL Transurethral prostatectomy Sadaf STOVALL Plan of Treatment Date Care Activity Detail Author Start: 09-23-2026 Glaucoma screening Diabetes: Retinopathy Screening [facility] Start: 10-15-2025 End: 10-15-2025 Patient encounter procedure 10/15/2025 10:30 AM EDT Office Visit [facility] [address] [place] [id number] Harshal Genao MD [address] [place] [address] [facility] Start: 09-23-2025 Glaucoma screening Diabetes: Retinopathy Screening [facility] Start: 09-22-2025 End: 09-22-2025 Patient encounter procedure 09/22/2025 1:30 PM EDT Office Visit [facility] [address] [place] [phone] Emmanuel Solis DO [address] [place] [address] [facility] Start: 04-10-2025 Urine screening for protein Diabetes: Urine Protein Screening [facility] Start: 02-27-2025 End: 02-27-2025 Patient encounter procedure Cardiology Comment on above: Atherosclerosis of [place] coronary arter y of [place] heart without angina pectoris [I25.10] 6 month follow up Start: 01-09-2025 Urine screening for protein Diabetes: Urine Protein Screening [facility] Start: 12-11-2024 End: 12-11-2024 Patient encounter procedure 12/11/2024 11:10 AM EDT Office Visit [facility] [address] [place] [address] Ronnie Larios MD [address] [place] [address] [facility] Start: 12-10-2024 End: 12-10-2024 Patient encounter procedure 12/10/2024 3:00 PM EDT [facility] [address] [place] [phone] [facility], A[facility] [address] [place] [address] [facility] Start: 12-03-2024 Hemoglobin A1c measurement Diabetes: Hemoglobin A1C [facility] Start: 12-02-2024 End: 12-02-2024 Patient encounter procedure 12/02/2024 8:30 AM EDT Office Visit [facility] [address] [place] [address] Benjie Covarrubias MD [address] [place] [address] [facility] Start: 10-17-2024 End: 10-17-2024 Patient encounter procedure [facility] Comment on above: Diabetes mellitus due to underlying cond ition with diabetic polyneuropathy, without long-term current use of insulin ([facility]/HCC) (Primary Dx); Pain due to onychomycosis of toenails of both feet; Venous insufficiency Start: 10-15-2024 End: 10-15-2024 Patient encounter procedure [facility] Comment on above: Arrived Start: 10-01-2024 Hemoglobin A1c measurement [facility] Start: 09-23-2024 End: 09-23-2024 Patient encounter procedure [facility] Comment on above: Arrived Start: 09-11-2024 Covid-19 Vaccine () Covid-19 Vaccine () [facility] Start: 09-03-2024 End: 09-03-2024 Patient encounter procedure 09/03/2024 3:45 PM EDT Office Visit [facility] [address] [place] [address] Harshal Genao MD [address] [place] [address] Neoplasm of uncertain behavior of skin of face [facility] Comment on above: Neoplasm of uncertain behavior of skin o f face Start: 09-02-2024 End: 09-02-2024 Patient encounter procedure 09/02/2024 9:00 AM EDT Office Visit [facility] [address] [facility] [address] [place] [address] Benjie Covarrubias MD [address] [facility] [address] [place] [address] [facility] Start: 08-26-2024 End: 08-26-2024 Patient encounter procedure 08/26/2024 10:00 AM EST Office Visit Cardiology [address] [place] [address] Marco A Garvey MD [address] [place], [place] [id number] Return in about 6 months (around 08/17/2024). Cardiology Comment on above: Return in about 6 months (around 08/17/19). Start: 08-14-2024 Hepatitis B surface antibody level LDL Cholesterol [facility] Start: 08-14-2024 End: 08-14-2024 Patient encounter procedure 08/14/2024 8:30 AM EST Office Visit [facility] [address] [facility] [address] [place] [phone] Benjie Covarrubias MD [address] [facility] [address] [place] [address] Arrived [facility] Comment on above: Arrived Start: 08-08-2024 End: 08-08-2024 Patient encounter procedure [facility] Comment on above: Diabetes mellitus due to underlying cond ition with diabetic polyneuropathy, without long-term current use of insulin (CMS/HCC) (Primary Dx); Pain due to onychomycosis of toenails of both feet; Venous insufficiency Start: 07-11-2024 Hemoglobin A1c measurement Diabetes: Hemoglobin A1C [facility] Start: 07-03-2024 End: 07-03-2024 Patient encounter procedure [facility] Comment on above: Arrived Start: 06-26-2024 Advance Directive Discussion Advance Directive Discussion [facility] Start: 05-31-2024 End: 05-31-2024 Patient encounter procedure 05/31/2024 8:30 AM EST Office Visit [facility] [address] [facility] [address] [place] [phone] Benjie Covarrubias MD 112 [facility] [address] [place] [address] [facility] Start: 05-30-2024 End: 05-30-2024 Patient encounter procedure [facility] Comment on above: Diabetes mellitus due to underlying cond ition with diabetic polyneuropathy, without long-term current use of insulin (CMS/HCC) (Primary Dx); Onychomycosis; Toe pain, left; Toe pain, right; Venous insufficiency Start: 05-29-2024 Hemoglobin A1c measurement Diabetes: Hemoglobin A1C [facility] Start: 05-13-2024 End: 05-13-2024 Patient encounter procedure 05/13/2024 3:15 PM EST Office Visit [facility] [address] [facility] [address] [place] [address] Benjie Covarrubias MD 112 [facility] [address] [place] [address] [facility] Start: 05-01-2024 End: 05-01-2024 Patient encounter procedure [facility] Comment on above: Arrived Start: 04-10-2024 End: 04-10-2024 Patient encounter procedure [facility] Comment on above: Arrived Start: 03-14-2024 End: 03-14-2024 Patient encounter procedure [facility] Comment on above: Diabetes mellitus due to underlying cond ition with diabetic polyneuropathy, without long-term current use of insulin ([facility]) (Primary Dx); Onychomycosis; Toe pain, bilateral; Venous insufficiency Start: 02-28-2024 End: 02-27-2025 Comprehensive metabolic 2000 panel - Serum or Plasma Comprehensive metabolic panel Lab Routine Chronic diastolic heart failure ([facility]) Expected: 02/28/2024 (Approximate), Expires: 02/27/2025 [facility] Work Phone: Comment on above: Expected: 02/28/2024 (Approximate), Expi res: 02/27/2025 Start: 02-28-2024 End: 02-27-2025 Thyrotropin [Units/volume] in Serum or Plasma TSH Lab Routine Hypothyroidism (acquired) ([facility]) Expected: 02/28/2024 (Approximate), Expires: 02/27/2025 [facility] Comment on above: Expected: 02/28/2024 (Approximate), Expi res: 02/27/2025 Start: 02-28-2024 End: 02-27-2025 Thyroxine (T4) free [Mass/volume] in Serum or Plasma T4, free Lab Routine Hypothyroidism (acquired) ([facility]) Expected: 02/28/2024 (Approximate), Expires: 02/27/2025 [facility] Comment on above: Expected: 02/28/2024 (Approximate), Expi res: 02/27/2025 Start: 02-28-2024 End: 02-27-2025 Triiodothyronine (T3) Free [Mass/volume] in Serum or Plasma T3, free Lab Routine Hypothyroidism (acquired) (CMS/HCC) Expected: 02/28/2024 (Approximate), Expires: 02/27/2025 [facility] Comment on above: Expected: 02/28/2024 (Approximate), Expi res: 02/27/2025 Start: 02-28-2024 End: 02-28-2024 Patient encounter procedure 02/28/2024 9:00 AM EDT Office Visit [facility] [address] [facility] [address] [place] [id number] Benjie Covarrubias MD [address] [facility] [address] [place] [address] Arrived [facility] Comment on above: Arrived Start: 02-27-2024 Hemoglobin A1c measurement [facility] Start: 02-25-2024 Covid-19 Vaccine ( season) Covid-19 Vaccine () [facility] Start: 02-25-2024 Influenza vaccination Influenza Vaccine (#1) [facility] Start: 10-23-2023 Hemoglobin A1c measurement HbA1C [facility] Start: 07-28-2023 Covid-19 Vaccine ( season) Covid-19 Vaccine () [facility] Start: 06-26-2023 Advance Directive Discussion Advance Directive Discussion [facility] Start: 06-26-2023 Depression Assessment Depression Assessment [facility] Start: 04-13-2023 End: 08-23-2023 Echocardiography ECHO Cardiology Routine Chronic diastolic heart failure (HCC) S/P AVR Expected: 04/13/2023, Expires: 08/23/2023 [facility] Work Phone: Comment on above: Expected: 04/13/2023, Expires: Start: 03-21-2023 Hemoglobin A1c/Hemoglobin.total in Blood HBA1C [facility] Start: 02-24-2023 Influenza vaccination INFLUENZA (#1) [facility] Start: 08-02-2022 COVID-19 VACCINE (5 - Moderna series) COVID-19 VACCINE (5 - Moderna series) [facility] Start: 06-26-2022 ADVANCE DIRECTIVE DISCUSSION ADVANCE DIRECTIVE DISCUSSION [facility] Start: 06-26-2022 DEPRESSION ASSESSMENT DEPRESSION ASSESSMENT [facility] Start: 02-24-2022 Influenza vaccination INFLUENZA (#1) [facility] Start: 09-07-2021 COVID-19 VACCINE (4 - Booster for Moderna series) COVID-19 VACCINE (4 - Booster for Moderna series) [facility] Start: 09-02-2021 Hemoglobin A1c/Hemoglobin.total in Blood HBA1C [facility] Start: 07-03-2021 Glaucoma screening Diabetes: Retinopathy Screening [facility] Start: 06-26-2021 ADVANCE DIRECTIVE DISCUSSION ADVANCE DIRECTIVE DISCUSSION [facility] Start: 04-07-2021 Urine screening for protein Diabetes: Urine Protein Screening [facility] Start: 03-13-2021 3 comp foot exam completed DIABETIC FOOT EXAM [facility] Start: 03-13-2021 Diabetic foot examination Diabetic Foot Exam [facility] Start: 2010 RSV Vaccine (1 - 1-dose 75+ series) RSV Vaccine (1 - 1-dose 75+ series) [facility] Start: 1995 RSV Vaccine (1 - 1-dose 60+ series) RSV Vaccine (1 - 1-dose 60+ series) [facility] Start: 1985 SHINGRIX VACCINE (1 of 2) SHINGRIX VACCINE (1 of 2) [facility] Start: 1954 Urine microalbumin profile [facility] Start: 1953 Anxiety Screening Anxiety Screening [facility] Start: 1953 Depression Screening Depression Screening [facility] Start: 1953 Hepatitis B surface antibody level LDL CHOLESTEROL [facility] Start: 1945 Glaucoma screening Dilated Retinal Exam [facility] Start: 1945 Hepatitis B screening URINE ALBUMIN:CREATININE RATIO [facility] Start: 1945 Hepatitis C antibody, confirmatory test DILATED RETINAL EXAM [facility] Dermatopathology exam Dermatopat hology exam Pathology and Cytology Timed Neoplasm of unspecified behavior of bone, soft tissue, and skin Release Upon Ordering for 1 Occurrences starting 09/03/2024 [facility] Work Phone: Comment on above: Release Upon Ordering for 1 Occurrences starting 09/03/2024 ECG COMPLETE ECG COMPLETE ECG 08/23/2022 10:19 AM EST [facility] ECG COMPLETE ECG COMPLETE ECG 08/14/2023 9:29 AM EST [facility] ECG COMPLETE ECG COMPLETE ECG Routine 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 Chronic diastolic heart failure (HCC) Ordered: 08/26/2024 [facility] Work Phone: Comment on above: Ordered: 08/26/2024 End: 02-21-2024 Echocardiography ECHO Cardiology Routine Nonrheumatic aortic valve stenosis Primary hypertension Pure hypercholesterolemia Chronic diastolic heart failure (HCC) 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 S/P AVR 1 Occurrences starting 02/20/2023 until 02/21/2024 [facility] Work Phone: Comment on above: 1 Occurrences starting 02/20/2023 until 02/21/2024 End: 08-26-2025 Echocardiography ECHO Cardiology Routine 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 Chronic diastolic heart failure (HCC) Primary hypertension Nonrheumatic aortic valve stenosis 1 Occurrences starting 08/26/2024 until 08/26/2025 [facility] Comment on above: 1 Occurrences starting 08/26/2024 until 08/26/2025 [facility] Immunizations Immunization Date Immunization Notes Care Provider [facility] 03-14-2024 influenza, high dose seasonal, preservative-free Benjie Covarrubias MD Work Phone: [facility] 03-14-2024 influenza virus vacc ine, unspecified formulation Benjie Covarrubias MD Work Phone: [facility] 03-27-2023 influenza virus vacc ine, unspecified formulation Marco A Gavrey MD Work Phone: [facility] 04-01-2022 influenza virus vacc ine, unspecified formulation Benjie Covarrubias MD Work Phone: [facility] 04-01-2022 influenza, injectabl e, quadrivalent, preservative free Benjie Covarrubias MD Work Phone: [facility] 04-01-2022 SARS-CoV-2 (COVID-19 ) [id number] Sadaf STOVALL [facility] Comment on above: Result Comment: 2022: [id number] 05-12-2021 influenza virus vacc ine, unspecified formulation Sadaf STOVALL [facility] 05-12-2021 influenza, high dose seasonal, preservative-free Benjie Covarrubias MD Work Phone: [facility] 05-10-2021 SARS-CoV-2 (COVID-19 ) [id number] vaccine Sadaf STOVALL [facility] Comment on above: Result Comment: 2021: [id number] 03-29-2021 influenza virus vacc ine, unspecified formulation Sadaf STOVALL [facility] 08-13-2020 SARS-CoV-2 (COVID-19 ) [id number] vaccine Sadaf STOVALL [facility] 07-13-2020 SARS-CoV-2 (COVID-19 ) [id number] vaccine Sadaf STOVALL [facility] 06-26-2020 SARS-CoV-2 (COVID-19 ) [id number] vaccine Sadaf STOVALL [facility] Comment on above: Result Comment: Pt s tates he is fully vaccinated but does not know the dates 03-30-2020 influenza virus vacc ine, unspecified formulation Sadaf STOVALL [facility] 03-30-2020 influenza, high dose seasonal, preservative-free Marco A Garvey MD Work Phone: [facility] Work Phone: 03-30-2020 Influenza, High-dose Seasonal, Quadrivalent, Preservative Free Benjie Covarrubias MD Work Phone: [facility] 04-11-2019 influenza virus vacc ine, unspecified formulation Sadaf STOVALL [facility] 04-11-2019 influenza, high dose seasonal, preservative-free Marco A Garvey MD Work Phone: [facility] Work Phone: 04-11-2019 Influenza, High-dose Seasonal, Quadrivalent, Preservative Free Benjie Covarrubias MD Work Phone: [facility] 04-03-2018 influenza virus vacc ine, unspecified formulation Sadafisamar STOVALL [facility] 04-03-2018 seasonal influenza, intradermal, preservative free Marco A Garvey MD Work Phone: [facility] Work Phone: 05-10-2017 influenza virus vacc ine, unspecified formulation Sadafisamar STOVALL [facility] 05-10-2017 Seasonal trivalent influenza vaccine, adjuvanted, preservative free Marco A Garvey MD Work Phone: [facility] Work Phone: 04-12-2017 influenza virus vacc ine, unspecified formulation Sadaf STOVALL [facility] 04-12-2017 influenza, high dose seasonal, preservative-free Benjie Covarrubias MD Work Phone: [facility] 04-12-2017 influenza, injectabl e, quadrivalent, preservative free Marco A Garvey MD Work Phone: [facility] Work Phone: 03-27-2017 pneumococcal conjuga te vaccine, 13 valent Marco A Garvey MD Work Phone: [facility] Work Phone: 03-22-2017 pneumococcal conjuga te vaccine, 13 valaly Garvey MD Work Phone: [facility] Work Phone: 03-14-2017 pneumococcal polysaccharide vaccine, 23 valent Marco A Garvey MD Work Phone: [facility] Work Phone: 05-11-2016 influenza virus vacc ine, unspecified formulation Sadaf STOVALL [facility] 05-11-2016 influenza, injectabl e, quadrivalent, preservative free aMrco A Garvey MD Work Phone: [facility] Work Phone: 04-27-2016 influenza virus vacc ine, unspecified formulation Sadaf STOVALL [facility] 04-27-2016 Seasonal trivalent influenza vaccine, adjuvanted, preservative free Marco A Garvey MD Work Phone: [facility] Work Phone: 04-27-2015 seasonal influenza, intradermal, preservative free Benjie Covarrubias MD Work Phone: [facility] 04-24-2015 influenza virus vacc ine, unspecified formulation Sadaf [employer] [facility] 04-24-2015 influenza, injectabl e, quadrivalent, contains preservative Marco A Garvey MD Work Phone: [facility] Work Phone: 02-24-2014 influenza, seasonal, injectable Benjie Covarrubias MD Work Phone: [facility] 05-14-2013 influenza virus vacc ine, unspecified formulation Sadaf STOVALL [facility] 05-14-2013 influenza, seasonal, injectable Marco A Garvey MD Work Phone: [facility] Work Phone: 04-17-2013 seasonal influenza, intradermal, preservative free Benjie Covarrubias MD Work Phone: [facility] 09-27-2006 pneumococcal polysaccharide vaccine, 23 valent Benjie Covarrubias MD Work Phone: [facility] Healthcare Payers Date Payer Category Payer Private Health Insurance [id number] 2024 Self-pay 2022 Medicare (Managed Care) [id number]. [id number] 2018 Medicare [id number] 1959 Medicare [id number] 1959 Medicare [id number] 1935 Unknown [id number] 2.16.84 0.1.979658.3.579.2.593 1935 Unknown [id number] 2.16.84 0.1.211462.3.579.2.593 1935 Unknown [id number] 2.16.84 0.1.469939.3.579.2.593 1935 Unknown [id number] 2.16.84 0.1.094929.3.579.2.593 1935 Unknown [id number] 2.16.84 0.1.250496.3.579.2.593 1935 Unknown [id number] 2.16.84 0.1.501872.3.579.2.593 1935 Unknown [id number] 2.16.8 40.1.061977.3.579.2.727 1935 Unknown [id number] 2.16.8 40.1.511962.3.579.2.1259 1935 Unknown [id number] 2.16.84 0.1.957604.3.579.2.1259 1935 Unknown [id number] 2.16.84 0.1.558693.3.579.2.1259 1935 Unknown [id number] 2.16.84 0.1.650279.3.579.2.9 1935 Unknown [id number] 2.16.84 0.1.064351.3.579.2.1258 1935 Unknown [id number] 2.16.84 0.1.395051.3.579.2.1258 1935 Unknown [id number] 2.16.84 0.1.849180.3.579.2.1258 1935 Unknown [id number] 2.16.84 0.1.388592.3.579.2.9 1935 Unknown [id number] 2.16.84 0.1.973331.3.579.2.1258 1935 Unknown [id number] 2.16.84 0.1.387213.3.579.2.9 1935 Unknown [id number] 2.16.84 0.1.392662.3.579.2.1258 1935 Unknown [id number] 2.16.84 0.1.282118.3.579.2.1258 1935 Unknown [id number] 2.16.84 0.1.076941.3.579.2.1258 1935 Unknown [id number] 2.16.84 0.1.874775.3.579.2.1259 1935 Unknown [id number] 2.16.84 0.1.018374.3.579.2.1258 1935 Unknown [id number] 2.16.84 0.1.024228.3.579.2.9 1935 Unknown [id number] 2.16.84 0.1.334682.3.579.2.1258 1935 Unknown [id number] 2.16.84 0.1.655711.3.579.2.1259 1935 Unknown [id number] 2.16.84 0.1.390595.3.579.2.1259 1935 Unknown [id number] 2.16.84 0.1.421014.3.579.2.1259 1935 Unknown [id number] 2.16.84 0.1.194948.3.579.2.1259 Unknown [id number] 2.16.8 40.1.884481.3.579.2.531 Social History Date Type Detail Facility Start: 02-21-2020 End: 08-23-2022 Tobacco smoking status NHIS Ex-smoker [facility] Start: 06-26-1928 End: 06-26-1963 History of tobacco use Current smoker [facility] Start: 06-26-1928 End: 06-26-1963 History of tobacco use Cigarette Smoker [facility] Start: 02-21-2020 End: 09-02-2024 Cigarettes smoked current (pack per day) - Reported 1 [facility] Work Phone: Start: 02-21-2020 End: 11-18-2022 Tobacco use and exposure Smokeless tobacco non-user [facility] Start: 02-21-2022 End: 08-26-2024 Alcohol intake Lifetime non-drinker (finding) [facility] Start: 04-07-2020 End: 04-09-2020 History SDOH Alcohol Frequency 1 [facility] Start: 04-09-2020 History SDOH Financial 5 [facility] Start: 04-09-2020 History SDOH Transpo rt Med 2 [facility] Start: 1935 Sex Assigned At Not on file C [facility] Start: 02-11-2022 End: 02-21-2022 Exposure to SARS-CoV-2 (event) Not sure [facility] Start: 04-01-2022 End: 11-18-2022 Tobacco smoking status Never smoked tobacco (finding) [facility] Tobacco smoking status Never [facility] Start: 04-07-2020 End: 09-02-2024 Sex Assigned At Male [facility] How often to you hav e a drink containing alcohol? Never [facility] Work Phone: (I/We) worried yuriy er (my/our) food would run out before (I/we) got money to buy more. Never true [facility] Work Phone: Start: 1935 Sex Assigned At Male F [facility] Start: 03-14-2024 End: 10-17-2024 Alcoholic beverage intake Ex-drinker (finding) [facility] Start: 08-17-2023 Alcohol Comment caffeine intak e: 1-2 cups per day,,soda,coffee [facility] Medical Equipment Procedure Code Equipment Code Equipment Original Text Equipment Identifier Dates [place] Thk1.65mm P tfe 4x.5in Cardiovascular Sterile - [id number] Start: 04-08-2020 Valve Perdomo In spiris Resilia 25mm Pericardial Aortic Bioprosthesis - [id number] Start: 04-08-2020 CATARACT EXTRACT ION W/ INTRAOCULAR LENS Zahler DO, Emmanuel 08/06/19 Non Biological Eye L FDA Start: 08-06-2019 CATARACT EXTRACT ION W/ INTRAOCULAR LENS Zahler DO, Emmanuel 08/20/19 Non Biological Eye R [id number] FDA Start: 08-20-2019 CATARACT EXTRACT ION W/ INTRAOCULAR LENS Zahler DO, Emmanuel 08/06/19 Non Biological Eye L FDA Start: 08-06-2019 [id number] Start: 08-31-2023 End: 04-10-2024 1 each by Other route in the morning and 1 each before bedtime. Use as instructed. [id number] Start: 04-03-2024 End: 04-10-2024 TEST ONCE DAILY [id number] Start: 05-02-2024 USE ONCE DAILY [id number] Start: 05-02-2024 Use as instructed [id number] Start: 06-10-2024 Functional Status Date Assessment Result Facility 04-05-2024 Functional Status N/A [facility] 04-01-2022 Functional Status N/A [facility] 04-17-2020 Are you deaf, or do you have serious difficulty hearing No 04/17/2020 1:52 PM EDT George Boles RN No [facility] 04-17-2020 Are you blind, or do you have serious difficulty seeing, even when wearing glasses No 04/17/2020 1:52 PM EDT George Boles, ESTEFANY No [facility] 04-17-2020 Do you have serious difficulty walking or climbing stairs No 04/17/2020 1:52 PM EDT Goerge Boles RN No [facility] 04-17-2020 Do you have difficul ty dressing or bathing No 04/17/2020 1:52 PM EDT George Boles, ESTEFANY No [facility] 04-17-2020 Because of a physica l, mental, or emotional condition, do you have difficulty doing errands alone such as visiting a physician's office or shopping No 04/17/2020 1:52 PM EDT George Boles RN No [facility] Mental Status Date Assessment Result Facility 04-17-2020 Because of a physica l, mental, or emotional condition, do you have serious difficulty concentrating, remembering, or making decisions No 04/17/2020 1:52 PM EDT George Boles, ESTEFANY No [facility] Clinical Notes 04-13-2020 to 10-17-2024 Jaime Hanson, LAZM - 10/17/2024 10:50 AM Edelmira Genao MD - 10/15/2024 10:35 AM Alexys Solis DO - 09/23/2024 2:00 PM Edelmira Genao MD - 09/03/2024 3:45 PM EDT Note Date & Type Note Facility 10-17-2024 History of Present illness Narrative Patient: Nakia Narayanan : 1935 PCP: Benjie Covarrubias MD SUBJECTIVE This is a 89 y.o. male that presents today with a CC of elongated, thick nails. Pt states nails have been elongated and thick for many years and cause pain with ambulation in shoegear. Pt has tried previous treatment with minimal relief. Pt presents today for nail care and treatment. Patient is DM2 Patient has positive history of venous stasis Allergies: No Known Allergies Past Medical History: Past Medical History: Diagnosis Date Aortic valve stenosis Arteriosclerosis of both carotid arteries Arthritis Cardiac murmur Deviated nasal septum Diabetes mellitus (CMS/HCC) Dry eyes GERD (gastroesophageal reflux disease) Hyperlipidemia (CMS/HCC) Hypertension (CMS/HCC) Nasal obstruction Nephrolithiasis Obesity Otitis externa Ventricular hypertrophy left Medications: Current Outpatient Medications: ASPIRIN 81 PO, Take 1 tablet by mouth 1 (one) time each day., Disp: , Rfl: Blood Glucose Monitoring Suppl (Blood Glucose Monitor System) w/Device kit, 1 each Daily, Disp: 1 kit, Rfl: 0 glimepiride (Amaryl) 1 MG tablet, Take 1 tablet (1 mg) by mouth in the morning. Take before meals., Disp: 30 tablet, Rfl: 11 glucose blood (EnpirionTouch Ultra) test strip, Use as instructed, Disp: 100 strip, Rfl: 3 Lancets ([place] [employer] Delica Plus [id number]) mis, TEST ONCE DAILY, Disp: 100 each, Rfl: 3 levothyroxine (Synthroid) 75 MCG tablet, Take 1 tablet (75 mcg) by mouth in the morning. Take before meals., Disp: 30 tablet, Rfl: 11 lidocaine (Lidoderm) 5 % patch, Apply 1 patch topically Daily, Disp: , Rfl: metoprolol succinate XL (Toprol-XL) 50 MG 24 hr tablet, TAKE 1 TABLET BY MOUTH IN THE MORNING, Disp: 90 tablet, Rfl: 3 Multiple Vitamin (multivitamin) capsule, Take by mouth Daily., Disp: , Rfl: naproxen (Naprosyn) 500 MG tablet, Take 500 mg by mouth in the morning and 500 mg before bedtime., Disp: , Rfl: pantoprazole (ProtoNix) 40 MG EC tablet, TAKE 1 TABLET BY MOUTH DAILY, Disp: 90 tablet, Rfl: 3 simvastatin (Zocor) 40 MG tablet, TAKE 1 TABLET BY MOUTH DAILY IN THE EVENING, Disp: 100 tablet, Rfl: 3 SITagliptin-metFORMIN (Janumet) 50-1000 MG tablet, Take 1 tablet by mouth in the morning and 1 tablet in the evening. Take with meals., Disp: 180 tablet, Rfl: 3 torsemide (Demadex) 20 MG tablet, Take 1 tablet (20 mg) by mouth Daily, Disp: 100 tablet, Rfl: 3 Social History: Social History Socioeconomic History Marital status: Spouse name: Not on file Number of children: Not on file Years of education: Not on file Highest education level: Not on file Occupational History Not on file Tobacco Use Smoking status: Never Smokeless tobacco: Never Vaping Use Vaping status: Unknown Substance and Sexual Activity Alcohol use: Not Currently Comment: caffeine intake: 1-2 cups per day,,soda,coffee Drug use: Defer Sexual activity: Defer Other Topics Concern Not on file Social History Narrative Not on file Social Drivers of Health Financial Resource Strain: Low Risk (04/09/2020) Received from [facility] Overall Financial Resource Strain (CARDIA) Difficulty of Paying Living Expenses: Not hard at all Food Insecurity: No Food Insecurity (04/09/2020) Received from [facility] Hunger Vital Sign Worried About Running Out of Food in the Last Year: Never true Ran Out of Food in the Last Year: Never true Transportation Needs: No Transportation Needs (04/09/2020) Received from [facility] PRAPARE - Transportation Lack of Transportation (Medical): No Lack of Transportation (Non-Medical): No Physical Activity: Not on file Stress: Not on file Social Connections: Not on file Intimate Partner Violence: Not on file Housing Stability: Not on file ROS: General: denies fever, chills, fatigue, malaise OBJECTIVE LE EXAM: DERM: Elongated thick yellow crumbly nails digits 1 through 10. Negative hair growth with thin shiny atrophic skin bilaterally +1 pitting edema to bilateral feet and ankles VASC: Negative DP and positive PT pedal pulses NEURO: 5.07 [place] monofilament test diminished to digits and forefoot bilaterally 125Hz tuning fork diminished to 1st MPJ bilaterally ORTHO: Positive pain on palpation to toenails of the left 1,2,3,4,5 toes and right 1,2,3,4,5 toes ASSESSMENT 1. Diabetes mellitus due to underlying condition with diabetic polyneuropathy, without long-term current use of insulin ([facility]) 2. Pain due to onychomycosis of toenails of both feet 3. Venous insufficiency PLAN Discussed proper foot care with patient today. Debride nails in length and thickness digits 1 through 10 Patient educated today on proper diabetic foot care including monitoring feet daily for any signs of infection openings in the skin or irregularities to both feet. Patient had a diabetic neurological exam today to both their feet and discussed proper shoe gear. Patient continue to feet elevated when nonweightbearing. Jaime Hanson DPM documented in this encounter [facility] 10-15-2024 History of Present illness Narrative Follow up Diagnosis: Actinic Keratosis Location: Left antihelix Last visit: 09/03/2024 Symptoms: red Status: healed Procedure performed: Shave biopsy Date of procedure: 09/03/2024 Number of treatments to date: 1 Treatments tried and failed: none Current treatment: here for re-eval/LN2 Lesions: Location: left ankle Duration: month Quality: itchy Modifying factors: aggravated by picking Associated symptoms: rough, scaly Treatments: none All pertinent medical history, medications, and allergies were reviewed. General Exam: alert, oriented to person, place, and time, normal affect, well appearing Unaccompanied A focused exam completed based on patient reported problems, see below: Skin Exam 1. ACTINIC KERATOSIS Left Antihelix [place] macule at biopsy site Patient was counseled regarding these sun-induced growths that can develop into squamous cell carcinoma if left untreated. Discussed treatment with cryotherapy. It was emphasized that any treated lesions that fail to resolve should be re-evaluated. Cryotherapy performed today; see procedure note Diagnosis: Actinic keratosis Indication: Precancerous Location: see skin exam Consent: Verbal consent was obtained and risks were discussed, including, but not limited to risks of scarring, darker or survey instrument operator pigmentary changes, recurrence, incomplete removal and infection. Method: Liquid nitrogen was used to treat the lesion(s) with two 5-10 second freeze-thaw cycles. Number of lesions treated: 1 Post-procedure instructions: Instructions were given orally and in writing. The office will be contacted if the lesion fails to resolve despite treatment, or if a side effect develops such as abnormal crusting, scabbing, redness or tenderness Cryotherapy, skin lesion - Left Antihelix 2. SEBORRHEIC KERATOSIS, INFLAMED Left Ankle - Anterior [place] and brown stuck on verrucous scaly papule with surrounding erythema The patient was informed that symptomatic seborrheic keratoses are benign growths that become inflamed, itchy, tender, traumatized, caught on clothing, or bleed. Symptomatic lesions can be treated with cryotherapy or curretage. Thicker lesions treated with cryotherapy may require more than one treatment. The patient was instructed to notify the office if abnormal redness or tenderness develops at the treatment site. Cryotherapy today, see procedure note. Diagnosis: Inflamed seborrheic keratosis Indication: Inflamed Consent: Verbal consent was obtained and risks were discussed, including, but not limited to risks of scarring, darker or survey instrument operator pigmentary changes, recurrence, incomplete removal and infection. Method: Liquid nitrogen was used to treat the lesion(s) with two 5-10 second freeze-thaw cycles Number of lesions treated: 1 Post-procedure instructions: Instructions were given orally and in writing. The office will be contacted if the lesion fails to resolve despite treatment, or if a side effect develops such as abnormal crusting, scabbing, redness or tenderness Cryotherapy, skin lesion - Left Ankle - Anterior Next Visit: 1 year skin check documented in this encounter [facility] 09-23-2024 History of Present illness Narrative Images from the original note were not included. Assessment/Plan Diagnoses and all orders for this visit: Mild nonproliferative diabetic retinopathy of both eyes without macular edema associated with type 2 diabetes mellitus (CMS/HCC) - Diabetes Mellitus with signs of diabetic retinopathy on dilated retinal examination today OU: Discussed the pathophysiology of diabetes and its effect on the eye. Stressed the importance of strong glucose control. Advised of importance of at least yearly dilated examinations, but to contact us immediately for any problems or concerns. Continue aggressive control of the blood sugar, blood pressure and cholesterol. Dry eyes - Dry Eyes OU -- Environmental changes to minimize dryness and exposure and the use of artificial tears were recommended. Senile ectropion of both lower eyelids - Punctal ectropions exist lower lids both eyes (OU). Stable. Not very symptomatic. Blepharitis of upper and lower eyelids of both eyes, unspecified type - Blepharitis, posterior type OU - The patient exhibits inspissated meibomian glands. Warm compresses, lid massage and lid scrubs were recommended. documented in this encounter [facility] 09-03-2024 History of Present illness Narrative Images from the original note were not included. Skin Check Location: Patient requests a skin examination from the waist up Dermatologic history: no history of skin cancer Lesions: Location: right advent, left advent, right wrist Duration: months Quality: itchy Associated symptoms: enlarged, rough Treatments: none New patient, referred by Benjie Covarrubias MD All pertinent medical history, medications, and allergies were reviewed. General Exam: alert, oriented to person, place, and time, normal affect, well appearing Unaccompanied A complete skin exam was offered, pt declined. Areas not examined despite medical recommendation: From the waist down Scalp, Examined , exam limited by hair Head, Face Examined Neck Examined Chest Examined Back Examined Abdomen Examined Right arm Examined Left arm Examined Hands Examined Digits,nails: Examined Lymphatics: 1. Seborrheic keratosis Head - Anterior (Face) Stuck on verrucous, quesada-brown papules and plaques. Patient was counseled regarding these benign growths. Removal is normally not necessary, but they may be removed if they are symptomatic or for cosmetic reasons. 2. Seborrheic keratosis, inflamed (2) Right Mosque, Right Wrist - Posterior [place] and brown stuck on verrucous scaly papule with surrounding erythema The patient was informed that symptomatic seborrheic keratoses are benign growths that become inflamed, itchy, tender, traumatized, caught on clothing, or bleed. Symptomatic lesions can be treated with cryotherapy or curretage. Thicker lesions treated with cryotherapy may require more than one treatment. The patient was instructed to notify the office if abnormal redness or tenderness develops at the treatment site. Cryotherapy today, see procedure note. Diagnosis: Inflamed seborrheic keratosis Indication: Inflamed Consent: Verbal consent was obtained and risks were discussed, including, but not limited to risks of scarring, darker or survey instrument operator pigmentary changes, recurrence, incomplete removal and infection. Method: Liquid nitrogen was used to treat the lesion(s) with two 5-10 second freeze-thaw cycles Number of lesions treated: 2 Post-procedure instructions: Instructions were given orally and in writing. The office will be contacted if the lesion fails to resolve despite treatment, or if a side effect develops such as abnormal crusting, scabbing, redness or tenderness Cryotherapy, skin lesion - Right Mosque, Right Wrist - Posterior 3. Actinic keratosis (3) Left Mosque, Mid Forehead, Right [place] Erythematous scaly papules Patient was counseled regarding these sun-induced growths that can develop into squamous cell carcinoma if left untreated. Discussed treatment with cryotherapy. It was emphasized that any treated lesions that fail to resolve should be re-evaluated. Cryotherapy performed today; see procedure note Diagnosis: Actinic keratosis Indication: Precancerous Location: see skin exam Consent: Verbal consent was obtained and risks were discussed, including, but not limited to risks of scarring, darker or survey instrument operator pigmentary changes, recurrence, incomplete removal and infection. Method: Liquid nitrogen was used to treat the lesion(s) with two 5-10 second freeze-thaw cycles. Eyes were shielded using cotton pad during procedure Number of lesions treated: 3 Post-procedure instructions: Instructions were given orally and in writing. The office will be contacted if the lesion fails to resolve despite treatment, or if a side effect develops such as abnormal crusting, scabbing, redness or tenderness Cryotherapy, skin lesion - Left Mosque, Mid Forehead, Right [place] 4. Lentigines Scattered quesaad macules in sun-exposed areas. The patient was informed that lentigines are benign pigmented lesions that occur on sun-exposed and sun-damaged skin. No treatment is necessary. Recommended regular use of broad spectrum sunscreen SPF 30 or higher 5. Neoplasm of unspecified behavior of bone, soft tissue, and skin Left Antihelix Pearly papule Lesion biopsy Type of biopsy: tangential Informed consent: discussed and consent obtained Informed consent comment: The risks and benefits of the biopsy were discussed. Risks include but are not limited to bleeding, infection, scarring, pain, and nerve damage. An opportunity to ask questions prior to the procedure was permitted and all questions were answered. Patient was prepped and draped in usual sterile fashion: area cleansed with alcohol. Anesthesia: the lesion was anesthetized in a standard fashion Anesthetic: 1% lidocaine w/ epinephrine 1-100,000 buffered w/ 8.4% NaHCO3 Instrument used: DermaBlade Hemostasis achieved with: electrodesiccation Outcome: patient tolerated procedure well Outcome comment: The specimen was placed in a prelabeled formalin container to be sent for pathology Post-procedure details: sterile dressing applied and wound care instructions given Post-procedure details comment: Emphasized need to contact clinic for any signs of infection, uncontrollable bleeding, or complications. Dressing type: bandage Additional details: Photo taken Amount of lidocaine used: 0.5 cc Specimen A - Dermatopathology exam Differential Diagnosis: hemangioma vs BCC vs lymphangioma Check Margins: No Size of lesion: 0.6 x 0.6 cm Related Procedures Ambulatory referral to Dermatology Next Visit: pending biopsy results, 1 year documented in this encounter [facility] 08-26-2024 Note HNO ID: [id number] Author: JOAO LARA APRN.INVESTMENT BROKER Service: ? Author Type: Nurse Practitioner Type: Progress Notes Filed: 08/26/2024 16:59 Note Text: [facility] [place] [facility] Department of Cardiovascular Medicine SECTION OF REGIONAL CARDIOLOGY August 26, 2024 OUTPATIENT VISIT TYPE ESTABLISHED PRIMARY CARE PHYSICIAN: Benjie Covarrubias II, MD, MD SUBJECTIVE: CHIEF COMPLAINT: Patient presents with: CARD Follow Up 6 Month HISTORY OF PRESENT ILLNESS: Nakia Narayanan is a 89 year old male who presents for 6 month CVM follow up. Patient has a history of hypertension, hyperlipidemia, diastolic heart failure, as well as a history of aortic stenosis, status post AVR along with Coronary artery disease status post coronary artery bypass surgery with 1 vessel grafted on 04/08/2020. Former smoker. Last visit: 02/15/[address] Marco A Garvey. At that time, patient reported shortness of breath requiring extra pillows to help breathe better. No shortness of breath with activity during the day. He was advised to resume taking zaroxolyn. Today, patient denies chest pain, shortness of breath, orthopnea (using 2 pillows chronically), cough, significant edema/weight gain, palpitations, PND, lightheadedness, syncope or other significant CV symptoms. Rubens bruises. No spontaneous bleeding. Average functional capacity (active with ADL). Up and down the stairs 5-6 times daily. Denies exertional symptoms. Upon further questioning, he reports issues with balance. No falls. Home BP: 130/72 Home weight:206-210# Cardiovascular work-up includes: An echocardiogram in 2019 which showed moderate [...] No other valvular disease of any significance. REVIEW OF SYSTEMS: Detailed 14 systems reviewed. Pertinent information, positive and/or negative or non-contributory with the exception of pertinent positives described in HPI. Past Medical, Family and Social history reviewed; unchanged from prior. ASSESSMENT/PLAN: Nakia Narayanan was seen today for CVM follow up. Diagnoses and all orders for this visit: Encounter Diagnosis ICD-10-CM 1. Atherosclerosis of [place] coronary artery of [place] heart without angina pectoris I25.10 ECG COMPLETE ECHO 2. 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 Chronic diastolic heart failure (HCC) I50.32 ECG COMPLETE ECHO 4. Primary hypertension I10 ECHO 5. Nonrheumatic aortic valve stenosis I35.0 ECHO 6. S/P AVR Z95.2 -CAD S/P CABG x1 in 03/2020. There are no current symptoms of angina. -Chronic HFpEF. Echo 03/2023-LVEF 62%. No clinical evidence of CHF. No acute decompensation. -Aortic stenosis-S/P AVR 03/2020. Trace-mild AI. Will reassess bioprosthetic valve with updated Echo. -Goal BP <130/80 mmHg. Uncontrolled BP in the setting of right foot pain. He is also reporting some occasional neck pain. He has been using Naproxen 500 mg . Office BP check with Primary care in 1 week. I have advised that he not take Naproxen and use Tylenol as listed on his MAR. He can discuss other options with pain management or PCP. -Goal LDL <70 mg/dL. -Continue lifestyle modifications: Reduce sodium intake, regular aerobic exercise 30 mins/day for at least 5 days/week, eating heart healthy/Plant-based/mostly whole foods, limited animal products and low dairy diet and maintaining ideal body weight with BMI < 25. -Continue aspirin 81 mg daily, Toprol XL 50 mg once daily, simvastatin 40 mg daily at bedtime and torsemide 20 mg daily. He reports PCP stopped Zaroxolyn for low potassium. Follow up: -Patient will follow-up in 6 months with Echo same day and communication in between if symptoms or changes occur. -Patient should continue to follow with their primary physician for routine health care maintenance and age appropriate risk factor assessment, modification and screenings. PHYSICAL EXAMINATION: BP 162/82 (BP Site: Left Arm, BP Position: Sitting, BP Cuff Size: Regular Adult) Pulse 67 Wt 97.7 kg (215 lb 6.2 oz) SpO2 97% BMI 32.75 kg/m? General appearance: in no acute distress, alert. Eyes: Anicteric sclera. EOMI Neck: No carotid bruits. No JVD Lungs: No wheezing, crackles, or rhonchi. Heart: Regular rhythm. Regular rate. No significant murmur. No peripheral edema Abdomen: Ab (more content not included)... [facility] 08-26-2024 History of Present illness Narrative Images from the original note were not included. [facility] [place] [facility] Department of Cardiovascular Medicine SECTION OF REGIONAL CARDIOLOGY August 26, 2024 OUTPATIENT VISIT TYPE ESTABLISHED PRIMARY CARE PHYSICIAN: Benjie Covarrubias II, MD, MD SUBJECTIVE: CHIEF COMPLAINT: Patient presents with: CARD Follow Up 6 Month HISTORY OF PRESENT ILLNESS: Nakia Narayanan is a 89 year old male who presents for 6 month CVM follow up. Patient has a history of hypertension, hyperlipidemia, diastolic heart failure, as well as a history of aortic stenosis, status post AVR along with Coronary artery disease status post coronary artery bypass surgery with 1 vessel grafted on 04/08/2020. Former smoker. Last visit: 02/15/[address] Marco A Garvey. At that time, patient reported shortness of breath requiring extra pillows to help breathe better. No shortness of breath with activity during the day. He was advised to resume taking zaroxolyn. Today, patient denies chest pain, shortness of breath, orthopnea (using 2 pillows chronically), cough, significant edema/weight gain, palpitations, PND, lightheadedness, syncope or other significant CV symptoms. Rubens bruises. No spontaneous bleeding. Average functional capacity (active with ADL). Up and down the stairs 5-6 times daily. Denies exertional symptoms. Upon further questioning, he reports issues with balance. No falls. Home BP: 130/72 Home weight:206-210# Cardiovascular work-up includes: An echocardiogram in 2018 [...] No other valvular disease of any significance. REVIEW OF SYSTEMS: Detailed 14 systems reviewed. Pertinent information, positive and/or negative or non-contributory with the exception of pertinent positives described in HPI. Past Medical, Family and Social history reviewed; unchanged from prior. ASSESSMENT/PLAN: Nakia Narayanan was seen today for CVM follow up. Diagnoses and all orders for this visit: Encounter Diagnosis ICD-10-CM 1. Atherosclerosis of [place] coronary artery of [place] heart without angina pectoris I25.10 ECG COMPLETE ECHO 2. 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 Chronic diastolic heart failure (HCC) I50.32 ECG COMPLETE ECHO 4. Primary hypertension I10 ECHO 5. Nonrheumatic aortic valve stenosis I35.0 ECHO 6. S/P AVR Z95.2 -CAD S/P CABG x1 in 03/2020. There are no current symptoms of angina. -Chronic HFpEF. Echo 03/2023-LVEF 62%. No clinical evidence of CHF. No acute decompensation. -Aortic stenosis-S/P AVR 03/2020. Trace-mild AI. Will reassess bioprosthetic valve with updated Echo. -Goal BP <130/80 mmHg. Uncontrolled BP in the setting of right foot pain. He is also reporting some occasional neck pain. He has been using Naproxen 500 mg . Office BP check with Primary care in 1 week. I have advised that he not take Naproxen and use Tylenol as listed on his MAR. He can discuss other options with pain management or PCP. -Goal LDL <70 mg/dL. -Continue lifestyle modifications: Reduce sodium intake, regular aerobic exercise 30 mins/day for at least 5 days/week, eating heart healthy/Plant-based/mostly whole foods, limited animal products and low dairy diet and maintaining ideal body weight with BMI < 25. -Continue aspirin 81 mg daily, Toprol XL 50 mg once daily, simvastatin 40 mg daily at bedtime and torsemide 20 mg daily. He reports PCP stopped Zaroxolyn for low potassium. Follow up: -Patient will follow-up in 6 months with Echo same day and communication in between if symptoms or changes occur. -Patient should continue to follow with their primary physician for routine health care maintenance and age appropriate risk factor assessment, modification and screenings. PHYSICAL EXAMINATION: BP 162/82 (BP Site: Left Arm, BP Position: Sitting, BP Cuff Size: Regular Adult) Pulse 67 Wt 97.7 kg (215 lb 6.2 oz) SpO2 97% BMI 32.75 kg/m General appearance: in no acute distress, alert. Eyes: Anicteric sclera. EOMI Neck: No carotid bruits. No JVD Lungs: No wheezing, crackles, or rhonchi. Heart: Regular rhythm. Regular rate. No significant murmur. No peripheral edema Abdomen: Abdomen soft, non-tender. Vascular: Central and peripheral pulses: +2. Neuro: No gross focal deficits Psych: mood appropriate Skin: no rash, cellulitis or lesions appreciated Last 4 Encounter Wt Readings: Date: Wt: 02/15/2024 99 kg (218 lb 4.1 oz) 08/14/2023 97.7 kg (215 lb 6.2 oz) 02/20/2023 93.4 kg (206 lb) 08/23/2022 103 kg (227 lb) Last 4 Encounter BP Readings: Date: BP: 02/15/2024 122/72[manual BP[ 08/14/2023 134/72 02/20/2023 137/92 08/23/2022 153/73 Last 4 Encounter Pulse Readings: Date: Pulse: 02/15/2024 71 08/14/2023 67 02/20/2023 68 08/23/2022 67 CARDIOVASCULAR MEDICINE TESTING: I have personally reviewed ECG, laboratory results, and echocardiogram report P[employer]INENT LABORATORY STUDIES Potassium (mmol/L) Date Value 08/14/2023 4.2 04/17/2020 4.1 Sodium (mmol/L) Date Value 08/14/2023 144 04/17/2020 137 Magnesium (mg/dL) Date Value 08/14/2023 1.7 04/14/2020 1.8 Creatinine (mg/dL) Date Value 08/14/2023 1.28 04/17/2020 1.35 BUN (mg/dL) Date Value 08/14/2023 22 04/17/2020 37 Glucose (mg/dL) Date Value 08/14/2023 121 04/17/2020 145 PT INR (no units) Date Value 04/14/2020 1.1 TSH (mIU/L) Date Value 08/23/2022 5.670 NT Pro BNP (pg/mL) Date Value 02/21/2020 253 Total Cholesterol, Nonfasting Date Value Ref Range Status 08/14/2023 116 <200 mg/dL Final Comment: <200 mg/dL, Desirable 200-239 mg/dL, Borderline high >239 mg/dL, High HDL Cholesterol, Nonfasting Date Value Ref Range Status 08/14/2023 32 (L) >39 mg/dL Final Comment: 40-59 mg/dL, Acceptable >59 mg/dL, High: Negative risk factor for coronary heart disease <40 mg/dL, Low: Positive risk factor for coronary heart disease LDL Cholesterol, Nonfasting Date Value Ref Range Status 08/14/2023 38 <100 mg/dL Final Comment: <100 mg/dL, Optimal 100-129 mg/dL, Near optimal/above optimal 130-159 mg/dL, Borderline high 160-189 mg/dL, High >189 mg/dL, Very high Secondary prevention optimal LDL Cholesterol levels are recommended to be < 70 mg/dL Triglycerides, Nonfasting Date Value Ref Range Status 08/14/2023 230 (H) <150 mg/dL Final Comment: <150 mg/dL, Normal 150-199 mg/dL, Borderline high 200-499 mg/dL, High >499 mg/dL, Very high MEDICATIONS Current Outpatient Medications on File Prior to Visit Medication Sig metOLazone (ZAROXOLYN) 5 mg tablet TAKE 1 TABLET BY MOUTH EVERY MONDAY, MONDAY, AND MONDAY torsemide (DEMADEX) 20 mg tablet TAKE 1 [...] 40 mg by mouth daily at bedtime. No current facility-administered medications on file prior [...] [place] DC 04/[address] Berrios. Per REVIEW CONSULTANT ok to advance diet, use same controls [...] is a 84 year old male from [place], [place]. Supportive son. PT/OT recs Home. CM [...] HH diet 04/16. Nutrition following. Atherosclerosis of [place] Coronary Artery of [place] Heart Without Angina Pectoris - 04/07/2020 Comment: [...] Dr. Berrios recs. Chronic Diastolic Heart Failure ([facility]) - 01/15/2020 Comment: History: Pre-op on GDMT [...] PAST MEDICAL HISTORY Diagnosis Date Atherosclerosis of [place] coronary artery of [place] heart without angina pectoris 04/07/2020 Chronic diastolic [...] date: 1928 Quit date: 1963 Years since quittin.2 Smokeless tobacco: Never Vaping Use Vaping status: [...] visit. This note was partially generated with salgomed voice recognition software and may contain errors, including spelling, grammar, syntax and misrecognition of what was dictated, that may not be fully corrected. I appreciate the opportunity to participate in this patient's care. Please do not hesitate to call my office if you have any questions. CONTACT INFORMATION: Joao Lara APRN.SOHAN Adult Nurse Practitioner [facility] Department of Cardiovascular Medicine [facility], V[facility], [facility] [place] [facility] Cardiology Consult Team documented in this encounter [facility] 08-14-2024 History of Present illness Narrative Images from the original note were not included. Subjective Patient ID: Nakia Narayanan is a 89 y.o. male who presents for Earache. Left ear pain started 2 weeks ago seems to be gradually improving states he had similar pain in past and antibiotic cleared it up Dull pain per pt Denies bleeding from ear or fever Earache Current Outpatient Medications on File Prior to Visit Medication Sig Dispense Refill ASPIRIN 81 PO Take 1 tablet by mouth 1 (one) time each day. Blood Glucose Monitoring Suppl (Blood Glucose Monitor System) w/Device kit 1 each Daily 1 kit 0 Fiber 500 MG capsule 1 (one) time each day. glimepiride (Amaryl) 1 MG tablet Take 1 tablet (1 mg) by mouth in the morning. Take before meals. 30 tablet 11 glucose blood (OneTouch Ultra) test strip Use as instructed 100 strip 3 Lancets (OneTouch Delica Plus [id number]) misc TEST ONCE DAILY 100 each 3 levothyroxine (Synthroid) 75 MCG tablet Take 1 tablet (75 mcg) by mouth in the morning. Take before meals. 30 tablet 11 lidocaine (Lidoderm) 5 % patch Apply 1 patch topically Daily metoprolol succinate XL (Toprol-XL) 50 MG 24 hr tablet TAKE 1 TABLET BY MOUTH IN THE MORNING 90 tablet 3 Multiple Vitamin (multivitamin) capsule Take by mouth Daily. naproxen (Naprosyn) 500 MG tablet Take 500 mg by mouth in the morning and 500 mg before bedtime. pantoprazole (ProtoNix) 40 MG EC tablet TAKE 1 TABLET BY MOUTH DAILY 90 tablet 3 simvastatin (Zocor) 40 MG tablet TAKE 1 TABLET BY MOUTH DAILY IN THE EVENING 90 tablet 3 SITagliptin-metFORMIN (Janumet) 50-1000 MG tablet Take 1 tablet by mouth in the morning and 1 tablet in the evening. Take with meals. 180 tablet 3 torsemide (Demadex) 20 MG tablet Take 1 tablet (20 mg) by mouth Daily 100 tablet 3 [DISCONTINUED] torsemide (Demadex) 20 MG tablet Take 1 tablet (20 mg) by mouth in the morning. 100 tablet 3 No current facility-administered medications on file prior to visit. I have reviewed and reconciled the history and medication list with the patient today. No Known Allergies Social History Tobacco Use Smoking status: Never Smokeless tobacco: Never Vaping Use Vaping status: Unknown Substance Use Topics Alcohol use: Not Currently Comment: caffeine intake: 1-2 cups per day,,soda,coffee Drug use: Defer Family History Problem Relation Name Age of Onset Cancer Mother Stroke Father Heart disease Maternal Grandmother Heart disease Maternal Grandfather Heart disease Paternal Grandmother Heart disease Paternal Grandfather Past Medical History: Diagnosis Date Aortic valve stenosis Arteriosclerosis of both carotid arteries Arthritis Cardiac murmur Deviated nasal septum Diabetes mellitus (CMS/HCC) GERD (gastroesophageal reflux disease) Hyperlipidemia (CMS/HCC) Hypertension (CMS/HCC) Nasal obstruction Nephrolithiasis Obesity Otitis externa Ventricular hypertrophy left Past Surgical History: Procedure Laterality Date ANAL FISTULOTOMY and hemorrhoids AORTIC VALVE REPLACEMENT 2019 cabg CARDIAC CATHETERIZATION COLONOSCOPY 2005 CYST REMOVAL [address] stovall IR JOINT ASPIRATION left right joint IR JOINT ASPIRATION NASAL MASS EXCISION 2016 OTHER SURGICAL HISTORY Cardiac bypass -2019 TONSILLECTOMY TOTAL KNEE ARTHROPLASTY 2010 TURP / TRANSURETHRAL INCISION / DRAINAGE PROSTATE Visit Vitals BP 130/72 Pulse 68 Ht 5' 9 Wt 213 lb SpO2 97% BMI 31.45 kg/m Smoking Status Never BSA 2.17 m Review of Systems HENT: Positive for ear pain. Objective Physical Exam Constitutional: General: He is not in acute distress. Appearance: He is normal weight. He is not ill-appearing. HENT: Head: Normocephalic. Nose: Congestion present. Mouth/Throat: Pharynx: Oropharyngeal exudate and posterior oropharyngeal erythema present. Cardiovascular: Rate and Rhythm: Normal rate and regular rhythm. Heart sounds: Normal heart sounds. No murmur heard. Pulmonary: Effort: Pulmonary effort is normal. Breath sounds: Normal breath sounds. Musculoskeletal: General: No swelling. Right lower leg: No edema. Left lower leg: No edema. Neurological: Mental Status: He is alert. Psychiatric: Mood and Affect: Mood normal. Thought Content: Thought content normal. Judgment: Judgment normal. Assessment/Plan Diagnoses and all orders for this visit: Acute non-recurrent sinusitis, unspecified location - cefdinir (Omnicef) 300 MG capsule; Take 1 capsule (300 mg) by mouth in the morning and 1 capsule (300 mg) before bedtime. Do all this for 7 days. Interstitial pulmonary disease, unspecified (CMS/HCC) Follow up for As Previously Scheduled. documented in this encounter [facility] 08-08-2024 History of Present illness Narrative Patient: Nakia Narayanan : 1935 PCP: Benjie Covarrubias MD SUBJECTIVE This is a 88 y.o. male that presents today with a CC of elongated, thick nails. Pt states nails have been elongated and thick for many years and cause pain with ambulation in shoegear. Pt has tried previous treatment with minimal relief. Pt presents today for nail care and treatment. Patient is DM2 Patient has positive history of venous stasis Allergies: No Known Allergies Past Medical History: Past Medical History: Diagnosis Date Aortic valve stenosis Arteriosclerosis of both carotid arteries Arthritis Cardiac murmur Deviated nasal septum Diabetes mellitus (CMS/HCC) GERD (gastroesophageal reflux disease) Hyperlipidemia (CMS/HCC) Hypertension (CMS/[facility]) Nasal obstruction Nephrolithiasis Obesity Otitis externa Ventricular hypertrophy left Medications: Current Outpatient Medications: ASPIRIN 81 PO, Take 1 tablet by mouth 1 (one) time each day., Disp: , Rfl: Blood Glucose Monitoring Suppl (Blood Glucose Monitor System) w/Device kit, 1 each Daily, Disp: 1 kit, Rfl: 0 Fiber 500 MG capsule, 1 (one) time each day., Disp: , Rfl: glimepiride (Amaryl) 1 MG tablet, Take 1 tablet (1 mg) by mouth in the morning. Take before meals., Disp: 30 tablet, Rfl: 11 glucose blood ([place] [employer] Ultra) test strip, Use as instructed, Disp: 100 strip, Rfl: 3 Lancets ([place] [employer] Delica Plus [id number]) misc, TEST ONCE DAILY, Disp: 100 each, Rfl: 3 levothyroxine (Synthroid) 75 MCG tablet, Take 1 tablet (75 mcg) by mouth in the morning. Take before meals., Disp: 30 tablet, Rfl: 11 lidocaine (Lidoderm) 5 % patch, Apply 1 patch topically Daily, Disp: , Rfl: metoprolol succinate XL (Toprol-XL) 50 MG 24 hr tablet, TAKE 1 TABLET BY MOUTH IN THE MORNING, Disp: 90 tablet, Rfl: 3 Multiple Vitamin (multivitamin) capsule, Take by mouth Daily., Disp: , Rfl: naproxen (Naprosyn) 500 MG tablet, Take 500 mg by mouth in the morning and 500 mg before bedtime., Disp: , Rfl: pantoprazole (ProtoNix) 40 MG EC tablet, TAKE 1 TABLET BY MOUTH DAILY, Disp: 90 tablet, Rfl: 3 simvastatin (Zocor) 40 MG tablet, TAKE 1 TABLET BY MOUTH DAILY IN THE EVENING, Disp: 90 tablet, Rfl: 3 SITagliptin-metFORMIN (Janumet) 50-1000 MG tablet, Take 1 tablet by mouth in the morning and 1 tablet in the evening. Take with meals., Disp: 180 tablet, Rfl: 3 torsemide (Demadex) 20 MG tablet, Take 1 tablet (20 mg) by mouth in the morning., Disp: 100 tablet, Rfl: 3 Social History: Social History Socioeconomic History Marital status: Spouse name: Not on file Number of children: Not on file Years of education: Not on file Highest education level: Not on file Occupational History Not on file Tobacco Use Smoking status: Never Smokeless tobacco: Never Vaping Use Vaping status: Unknown Substance and Sexual Activity Alcohol use: Not Currently Comment: caffeine intake: 1-2 cups per day,,soda,coffee Drug use: Defer Sexual activity: Defer Other Topics Concern Not on file Social History Narrative Not on file Social Drivers of Health Financial Resource Strain: Low Risk (04/09/2020) Received from [facility] Overall Financial Resource Strain (CARDIA) Difficulty of Paying Living Expenses: Not hard at all Food Insecurity: No Food Insecurity (04/09/2020) Received from [facility] Hunger Vital Sign Worried About Running Out of Food in the Last Year: Never true Ran Out of Food in the Last Year: Never true Transportation Needs: No Transportation Needs (04/09/2020) Received from [facility] PRAPARE - Transportation Lack of Transportation (Medical): No Lack of Transportation (Non-Medical): No Physical Activity: Not on file Stress: Not on file Social Connections: Not on file Intimate Partner Violence: Not on file Housing Stability: Not on file ROS: General: denies fever, chills, fatigue, malaise OBJECTIVE LE EXAM: DERM: Elongated thick yellow crumbly nails digits 1 through 10. Negative hair growth with thin shiny atrophic skin bilaterally +1 pitting edema to bilateral feet and ankles VASC: Negative DP and positive PT pedal pulses NEURO: 5.07 [place] Ramon monofilament test diminished to digits and forefoot bilaterally 125Hz tuning fork diminished to 1st MPJ bilaterally ORTHO: Positive pain on palpation to toenails of the left 1,2,3,4,5 toes and right 1,2,3,4,5 toes ASSESSMENT 1. Diabetes mellitus due to underlying condition with diabetic polyneuropathy, without long-term current use of insulin ([facility]) 2. Pain due to onychomycosis of toenails of both feet 3. Venous insufficiency PLAN Discussed proper foot care with patient today. Debride nails in length and thickness digits 1 through 10 Patient educated today on proper diabetic foot care including monitoring feet daily for any signs of infection openings in the skin or irregularities to both feet. Patient had a diabetic neurological exam today to both their feet and discussed proper shoe gear. Patient continue to feet elevated when nonweightbearing. Jaime Hanson DPM documented in this encounter [facility] 07-03-2024 History of Present illness Narrative Images from the original note were not included. Subjective Patient ID: Nakia Narayanan is a 88 y.o. male who presents for Diabetes and Hypertension. Diabetes Mellitus Patient presents for follow up of diabetes. Current symptoms include: hyperglycemia. Patient denies foot ulcerations, hypoglycemia , polydipsia, polyuria, and vomiting. Evaluation to date has included: fasting blood sugar, fasting lipid panel, and hemoglobin A1C. Home sugars: BGs range in the 150-225 ISSUES WITH FARXIGA pt states he is taking farxiga but states it is causing some irritation, erythema and inflammation in genital area he states it is also expensive so he would like to discuss a different option Diabetes Hypoglycemia symptoms include dizziness. Pertinent negatives for diabetes include no chest pain. Hypertension Pertinent negatives include no chest pain. Med Refill Associated symptoms include arthralgias. Pertinent negatives include no chest pain. Current Outpatient Medications on File Prior to Visit Medication Sig Dispense Refill ASPIRIN 81 PO Take 1 tablet by mouth 1 (one) time each day. Blood Glucose Monitoring Suppl (Blood Glucose Monitor System) w/Device kit 1 each Daily 1 kit 0 dapagliflozin (Farxiga) 5 MG Take 1 tablet (5 mg) by mouth Daily 90 tablet 3 Fiber 500 MG capsule 1 (one) time each day. glucose blood (OneTouch Ultra) test strip Use as instructed 100 strip 3 Lancets (OneTouch Delica Plus [id number]) misc TEST ONCE DAILY 100 each 3 levothyroxine (Synthroid) 75 MCG tablet Take 1 tablet (75 mcg) by mouth in the morning. Take before meals. 30 tablet 11 lidocaine (Lidoderm) 5 % patch Apply 1 patch topically Daily metoprolol succinate XL (Toprol-XL) 50 MG 24 hr tablet TAKE 1 TABLET BY MOUTH IN THE MORNING 90 tablet 3 Multiple Vitamin (multivitamin) capsule Take by mouth Daily. naproxen (Naprosyn) 500 MG tablet Take 500 mg by mouth in the morning and 500 mg before bedtime. pantoprazole (ProtoNix) 40 MG EC tablet TAKE 1 TABLET BY MOUTH DAILY 90 tablet 3 simvastatin (Zocor) 40 MG tablet TAKE 1 TABLET BY MOUTH DAILY IN THE EVENING 90 tablet 3 SITagliptin-metFORMIN (Janumet) 50-1000 MG tablet Take 1 tablet by mouth in the morning and 1 tablet in the evening. Take with meals. 180 tablet 3 torsemide (Demadex) 20 MG tablet Take 1 tablet (20 mg) by mouth in the morning. 100 tablet 3 No current facility-administered medications on file prior to visit. I have reviewed and reconciled the history and medication list with the patient today. No Known Allergies Social History Tobacco Use Smoking status: Never Smokeless tobacco: Never Vaping Use Vaping status: Unknown Substance Use Topics Alcohol use: Not Currently Comment: caffeine intake: 1-2 cups per day,,soda,coffee Drug use: Defer Family History Problem Relation Name Age of Onset Cancer Mother Stroke Father Heart disease Maternal Grandmother Heart disease Maternal Grandfather Heart disease Paternal Grandmother Heart disease Paternal Grandfather Past Medical History: Diagnosis Date Aortic valve stenosis Arteriosclerosis of both carotid arteries Arthritis Cardiac murmur Deviated nasal septum Diabetes mellitus (CMS/HCC) GERD (gastroesophageal reflux disease) Hyperlipidemia (CMS/HCC) Hypertension (CMS/HCC) Nasal obstruction Nephrolithiasis Obesity Otitis externa Ventricular hypertrophy left Past Surgical History: Procedure Laterality Date ANAL FISTULOTOMY and hemorrhoids AORTIC VALVE REPLACEMENT 2019 cabg CARDIAC CATHETERIZATION COLONOSCOPY 2005 CYST REMOVAL [address] stovall IR JOINT ASPIRATION left right joint IR JOINT ASPIRATION NASAL MASS EXCISION 2016 OTHER SURGICAL HISTORY Cardiac bypass -2019 TONSILLECTOMY TOTAL KNEE ARTHROPLASTY 2010 TURP / TRANSURETHRAL INCISION / DRAINAGE PROSTATE Visit Vitals BP 128/70 Pulse 74 Ht 5' 9 Wt 210 lb SpO2 96% BMI 31.01 kg/m Smoking Status Never BSA 2.15 m Review of Systems Cardiovascular: Negative for chest pain. Musculoskeletal: Positive for arthralgias. Neurological: Positive for dizziness. Objective Physical Exam Constitutional: General: He is not in acute distress. HENT: Head: Normocephalic and atraumatic. Cardiovascular: Rate and Rhythm: Normal rate and regular rhythm. Pulses: Dorsalis pedis pulses are 0 on the right side and 0 on the left side. Posterior tibial pulses are 0 on the right side and 0 on the left side. Heart sounds: Murmur heard. Systolic murmur is present with a grade of 2/6. Pulmonary: Effort: Pulmonary effort is normal. No respiratory distress. Breath sounds: Normal breath sounds. No wheezing. Abdominal: General: Bowel sounds are normal. There is no distension. Palpations: Abdomen is soft. Tenderness: There is no abdominal tenderness. There is no guarding. Musculoskeletal: Right lower leg: Edema present. Left lower leg: Edema present. Neurological: General: No focal deficit present. Mental Status: He is alert and oriented to person, place, and time. Psychiatric: Mood and Affect: Mood normal. Assessment/Plan Diagnoses and all orders for this visit: Type 2 diabetes mellitus with stage 3b chronic kidney disease, without long-term current use of insulin (HCC) ([facility]/HCC) - POCT Glycated hemoglobin, total - glimepiride (Amaryl) 1 MG tablet; Take 1 tablet (1 mg) by mouth in the morning. Take before meals. Chronic diastolic heart failure (CMS/HCC) Benign essential hypertension (CMS/HCC) Chronic kidney disease, stage 3b (HCC) (CMS/HCC) Malignant melanoma of skin, unspecified ([facility]/HCC) Candidiasis of genitalia - fluconazole (Diflucan) 100 MG tablet; Take 1 tablet (100 mg) by mouth Daily for 7 days Follow up in about 2 months (around 08/31/2024) for DM- A1C, F/U med changes. documented in this encounter [facility] 05-31-2024 History of Present illness Narrative Images from the original note were not included. HPI Follow-up Additional comments: [facility] 05/27/24 dx: neck strain rx's given for naproxen,lidoderm patch,prednisone Last edited by Lea Owens LPN on 05/31/2024 8:35 AM. Subjective Patient ID: Nakia Narayanan is a 88 y.o. male who presents for Follow-up ([facility] 05/27/24 dx: neck strain rx's given for naproxen,lidoderm patch,prednisone). Flowsheet Row Documentation from 05/29/2024 in [facility] with Lilo Donahue MA Hospital Information ED, Hospital or [facility] Facility Discharge? ED Patient has been contacted within 1 week of being seen in the ED Yes Diagnosis neck strain Discharge Date 05/27/24 Discharged To: Home Setting Discharge [facility] Engagement Call Start Time 1330 Admission Date 05/27/24 Medications Discharge medications reviewed and reconciled from hospital? Yes Appointments Does the patient have a primary care provider? Yes Self Management Patient Teaching Does the patient have access to their discharge instructions? Yes Wrap Up Call End Time 1331 Pt states today is the last day of the prednisone He is using the naproxen Has not used the lidoderm patches in a couple days pt states his neck is much better now Current Outpatient Medications on File Prior to Visit Medication Sig Dispense Refill ASPIRIN 81 PO Take 1 tablet by mouth 1 (one) time each day. Blood Glucose Monitoring Suppl (Blood Glucose Monitor System) w/Device kit 1 each Daily 1 kit 0 dapagliflozin (Farxiga) 5 MG Take 1 tablet (5 mg) by mouth Daily 90 tablet 3 Fiber 500 MG capsule 1 (one) time each day. Lancets ([place] [employer] Delica Plus [id number]) misc TEST ONCE DAILY 100 each 3 lidocaine (Lidoderm) 5 % patch Apply 1 patch topically Daily metoprolol succinate XL (Toprol-XL) 50 MG 24 hr tablet TAKE 1 TABLET BY MOUTH IN THE MORNING 90 tablet 3 Multiple Vitamin (multivitamin) capsule Take by mouth Daily. naproxen (Naprosyn) 500 MG tablet Take 500 mg by mouth in the morning and 500 mg before bedtime. [place] [employer] Ultra test strip USE ONCE DAILY 100 strip 3 pantoprazole (ProtoNix) 40 MG EC tablet TAKE 1 TABLET BY MOUTH DAILY 90 tablet 3 simvastatin (Zocor) 40 MG tablet TAKE 1 TABLET BY MOUTH DAILY IN THE EVENING 90 tablet 3 SITagliptin-metFORMIN (Janumet) 50-1000 MG tablet Take 1 tablet by mouth in the morning and 1 tablet in the evening. Take with meals. 180 tablet 3 torsemide (Demadex) 20 MG tablet Take 1 tablet (20 mg) by mouth in the morning. 100 tablet 3 No current facility-administered medications on file prior to visit. I have reviewed and reconciled the history and medication list with the patient today. No Known Allergies Social History Tobacco Use Smoking status: Never Smokeless tobacco: Never Vaping Use Vaping status: Unknown Substance Use Topics Alcohol use: Not Currently Comment: caffeine intake: 1-2 cups per day,,soda,coffee Drug use: Defer Family History Problem Relation Name Age of Onset Cancer Mother Stroke Father Heart disease Maternal Grandmother Heart disease Maternal Grandfather Heart disease Paternal Grandmother Heart disease Paternal Grandfather Past Medical History: Diagnosis Date Aortic valve stenosis Arteriosclerosis of both carotid arteries Arthritis Cardiac murmur Deviated nasal septum Diabetes mellitus (CMS/HCC) GERD (gastroesophageal reflux disease) Hyperlipidemia (CMS/HCC) Hypertension (CMS/HCC) Nasal obstruction Nephrolithiasis Obesity Otitis externa Ventricular hypertrophy left Past Surgical History: Procedure Laterality Date ANAL FISTULOTOMY and hemorrhoids AORTIC VALVE REPLACEMENT 2019 cabg CARDIAC CATHETERIZATION COLONOSCOPY 2005 CYST REMOVAL [address] stovall IR JOINT ASPIRATION left right joint IR JOINT ASPIRATION NASAL MASS EXCISION 2016 OTHER SURGICAL HISTORY Cardiac bypass -2019 TONSILLECTOMY TOTAL KNEE ARTHROPLASTY 2010 TURP / TRANSURETHRAL INCISION / DRAINAGE PROSTATE Visit Vitals BP 136/76 Pulse 70 Ht 5' 9 Wt 216 lb SpO2 97% BMI 31.90 kg/m Smoking Status Never BSA 2.18 m Review of Systems Objective Physical Exam Constitutional: General: He is not in acute distress. HENT: Head: Normocephalic and atraumatic. Cardiovascular: Rate and Rhythm: Normal rate and regular rhythm. Pulses: Dorsalis pedis pulses are 0 on the right side and 0 on the left side. Posterior tibial pulses are 0 on the right side and 0 on the left side. Heart sounds: Murmur heard. Systolic murmur is present with a grade of 2/6. Pulmonary: Effort: Pulmonary effort is normal. No respiratory distress. Breath sounds: Normal breath sounds. No wheezing. Abdominal: General: Bowel sounds are normal. There is no distension. Palpations: Abdomen is soft. Tenderness: There is no abdominal tenderness. There is no guarding. Musculoskeletal: Right lower leg: Edema present. Left lower leg: Edema present. Neurological: General: No focal deficit present. Mental Status: He is alert and oriented to person, place, and time. Psychiatric: Mood and Affect: Mood normal. Assessment/Plan Diagnoses and all orders for this visit: Spasm of right trapezius muscle - The patient was seen today in follow up of recent hospital ER visit. All available hospital records/labs/diagnostics were reviewed and discussed with the patient. ER discharge meds were reviewed. Any changes to plan are noted above. Condition has resolved. Follow up for As Previously Scheduled. documented in this encounter [facility] 05-30-2024 History of Present illness Narrative Patient: Nakia Narayanan : 1935 PCP: Benjie Covarrubias MD SUBJECTIVE This is a 88 y.o. male that presents today with a CC of elongated, thick nails. Pt states nails have been elongated and thick for many years and cause pain with ambulation in shoegear. Pt has tried previous treatment with minimal relief. Pt presents today for nail care and treatment. Patient is DM2 Patient has positive history of venous stasis Allergies: No Known Allergies Past Medical History: Past Medical History: Diagnosis Date Aortic valve stenosis Arteriosclerosis of both carotid arteries Arthritis Cardiac murmur Deviated nasal septum Diabetes mellitus (CMS/HCC) GERD (gastroesophageal reflux disease) Hyperlipidemia (CMS/HCC) Hypertension (CMS/HCC) Nasal obstruction Nephrolithiasis Obesity Otitis externa Ventricular hypertrophy left Medications: Current Outpatient Medications: ASPIRIN 81 PO, Take 1 tablet by mouth 1 (one) time each day., Disp: , Rfl: Blood Glucose Monitoring Suppl (Blood Glucose Monitor System) w/Device kit, 1 each Daily, Disp: 1 kit, Rfl: 0 dapagliflozin (Farxiga) 5 MG, Take 1 tablet (5 mg) by mouth Daily, Disp: 90 tablet, Rfl: 3 Fiber 500 MG capsule, 1 (one) time each day., Disp: , Rfl: Lancets ([employer]ionTouch Delica Plus [id number]) misc, TEST ONCE DAILY, Disp: 100 each, Rfl: 3 metoprolol succinate XL (Toprol-XL) 50 MG 24 hr tablet, TAKE 1 TABLET BY MOUTH IN THE MORNING, Disp: 90 tablet, Rfl: 3 Multiple Vitamin (multivitamin) capsule, Take by mouth Daily., Disp: , Rfl: OneTouch Ultra test strip, USE ONCE DAILY, Disp: 100 strip, Rfl: 3 pantoprazole (ProtoNix) 40 MG EC tablet, TAKE 1 TABLET BY MOUTH DAILY, Disp: 90 tablet, Rfl: 3 simvastatin (Zocor) 40 MG tablet, TAKE 1 TABLET BY MOUTH DAILY IN THE EVENING, Disp: 90 tablet, Rfl: 3 SITagliptin-metFORMIN (Janumet) 50-1000 MG tablet, Take 1 tablet by mouth in the morning and 1 tablet in the evening. Take with meals., Disp: 180 tablet, Rfl: 3 torsemide (Demadex) 20 MG tablet, Take 1 tablet (20 mg) by mouth in the morning., Disp: 100 tablet, Rfl: 3 Social History: Social History Socioeconomic History Marital status: Spouse name: Not on file Number of children: Not on file Years of education: Not on file Highest education level: Not on file Occupational History Not on file Tobacco Use Smoking status: Never Smokeless tobacco: Never Vaping Use Vaping status: Unknown Substance and Sexual Activity Alcohol use: Not Currently Comment: caffeine intake: 1-2 cups per day,,soda,coffee Drug use: Defer Sexual activity: Defer Other Topics Concern Not on file Social History Narrative Not on file Social Drivers of Health Financial Resource Strain: Low Risk (04/09/2020) Received from [facility] Overall Financial Resource Strain (CARDIA) Difficulty of Paying Living Expenses: Not hard at all Food Insecurity: No Food Insecurity (04/09/2020) Received from [facility] Hunger Vital Sign Worried About Running Out of Food in the Last Year: Never true Ran Out of Food in the Last Year: Never true Transportation Needs: No Transportation Needs (04/09/2020) Received from [facility] PRAPARE - Transportation Lack of Transportation (Medical): No Lack of Transportation (Non-Medical): No Physical Activity: Not on file Stress: Not on file Social Connections: Not on file Intimate Partner Violence: Not on file Housing Stability: Not on file ROS: General: denies fever, chills, fatigue, malaise OBJECTIVE LE EXAM: DERM: Elongated thick yellow crumbly nails digits 1 through 10. Negative hair growth with thin shiny atrophic skin bilaterally +1 pitting edema to bilateral feet and ankles VASC: Negative DP and positive PT pedal pulses NEURO: 5.07 [place] Ramon monofilament test diminished to digits and forefoot bilaterally 125Hz tuning fork diminished to 1st MPJ bilaterally ORTHO: Positive pain on palpation to nails 1 through 10 ASSESSMENT 1. Diabetes mellitus due to underlying condition with diabetic polyneuropathy, without long-term current use of insulin ([facility]) 2. Onychomycosis 3. Toe pain, left 4. Toe pain, right 5. Venous insufficiency PLAN Discussed proper foot care with patient today. Debride nails in length and thickness digits 1 through 10 Patient educated today on proper diabetic foot care including monitoring feet daily for any signs of infection openings in the skin or irregularities to both feet. Patient had a diabetic neurological exam today to both their feet and discussed proper shoe gear. Patient continue to feet elevated when nonweightbearing. Jaime Hanson DPM documented in this encounter [facility] 05-01-2024 History of Present illness Narrative Images from the original note were not included. HPI Results Additional comments: Lab results Last edited by Lea Owens LPN on 05/01/2024 8:37 AM. Subjective Patient ID: Nakia Narayanan is a 88 y.o. male who presents for Diabetes, Results (Lab results), and shoulder/neck pain. HPI Results Additional comments: Lab results Last edited by Lea Owens LPN on 05/01/2024 8:37 AM. Pt states he has pain across both shoulder and into neck x 1 month. Denies injury . Some help with heat and OTC tylenol Diabetes Mellitus Patient presents for follow up of diabetes. Current symptoms include: hyperglycemia. Patient denies foot ulcerations, hypoglycemia , polydipsia, polyuria, and vomiting. Evaluation to date has included: fasting blood sugar, fasting lipid panel, and hemoglobin A1C. Home sugars: BGs range in the 100's Diabetes Hypoglycemia symptoms include dizziness. Pertinent negatives for diabetes include no chest pain. Med Refill Associated symptoms include arthralgias. Pertinent negatives include no chest pain. Current Outpatient Medications on File Prior to Visit Medication Sig Dispense Refill ASPIRIN 81 PO Take 1 tablet by mouth 1 (one) time each day. Blood Glucose Monitoring Suppl (Blood Glucose Monitor System) w/Device kit 1 each Daily 1 kit 0 dapagliflozin (Farxiga) 5 MG Take 1 tablet (5 mg) by mouth Daily 30 tablet 11 Fiber 500 MG capsule 1 (one) time each day. glucose blood test strip Use one daily 100 strip 0 Lancets 33G misc Use daily 100 each 0 metoprolol succinate XL (Toprol-XL) 50 MG 24 hr tablet TAKE 1 TABLET BY MOUTH IN THE MORNING 90 tablet 3 Multiple Vitamin (multivitamin) capsule Take by mouth Daily. pantoprazole (ProtoNix) 40 MG EC tablet TAKE 1 TABLET BY MOUTH DAILY 90 tablet 3 simvastatin (Zocor) 40 MG tablet TAKE 1 TABLET BY MOUTH DAILY IN THE EVENING 90 tablet 3 SITagliptin-metFORMIN (Janumet) 50-1000 MG tablet Take 1 tablet by mouth in the morning and 1 tablet in the evening. Take with meals. 180 tablet 3 torsemide (Demadex) 20 MG tablet Take 1 tablet (20 mg) by mouth in the morning. 100 tablet 3 No current facility-administered medications on file prior to visit. I have reviewed and reconciled the history and medication list with the patient today. No Known Allergies Social History Tobacco Use Smoking status: Never Smokeless tobacco: Never Vaping Use Vaping status: Unknown Substance Use Topics Alcohol use: Not Currently Comment: caffeine intake: 1-2 cups per day,,soda,coffee Drug use: Defer Family History Problem Relation Name Age of Onset Cancer Mother Stroke Father Heart disease Maternal Grandmother Heart disease Maternal Grandfather Heart disease Paternal Grandmother Heart disease Paternal Grandfather Past Medical History: Diagnosis Date Aortic valve stenosis Arteriosclerosis of both carotid arteries Arthritis Cardiac murmur Deviated nasal septum Diabetes mellitus (CMS/HCC) GERD (gastroesophageal reflux disease) Hyperlipidemia (CMS/HCC) Hypertension (CMS/HCC) Nasal obstruction Nephrolithiasis Obesity Otitis externa Ventricular hypertrophy left Past Surgical History: Procedure Laterality Date ANAL FISTULOTOMY and hemorrhoids AORTIC VALVE REPLACEMENT 2019 cabg CARDIAC CATHETERIZATION COLONOSCOPY 2005 CYST REMOVAL [address] stovall IR JOINT ASPIRATION left right joint IR JOINT ASPIRATION NASAL MASS EXCISION 2016 OTHER SURGICAL HISTORY Cardiac bypass -2019 TONSILLECTOMY TOTAL KNEE ARTHROPLASTY 2010 TURP / TRANSURETHRAL INCISION / DRAINAGE PROSTATE Visit Vitals BP 132/80 Pulse 75 Ht 5' 9 Wt 209 lb SpO2 97% BMI 30.86 kg/m Smoking Status Never BSA 2.15 m Review of Systems Respiratory: Negative for chest tightness. Cardiovascular: Negative for chest pain and palpitations. Musculoskeletal: Positive for arthralgias. Neurological: Positive for dizziness. Objective Physical Exam Constitutional: General: He is not in acute distress. HENT: Head: Normocephalic and atraumatic. Cardiovascular: Rate and Rhythm: Normal rate and regular rhythm. Pulses: Dorsalis pedis pulses are 0 on the right side and 0 on the left side. Posterior tibial pulses are 0 on the right side and 0 on the left side. Heart sounds: Murmur heard. Systolic murmur is present with a grade of 2/6. Pulmonary: Effort: Pulmonary effort is normal. No respiratory distress. Breath sounds: Normal breath sounds. No wheezing. Abdominal: General: Bowel sounds are normal. There is no distension. Palpations: Abdomen is soft. Tenderness: There is no abdominal tenderness. There is no guarding. Musculoskeletal: Right lower leg: Edema present. Left lower leg: Edema present. Neurological: General: No focal deficit present. Mental Status: He is alert and oriented to person, place, and time. Psychiatric: Mood and Affect: Mood normal. Office Visit on 04/10/2024 Component Date Value Ref Range Status Hemoglobin A1C 04/10/2024 8.2 Final Office Visit on 04/10/2024 Component Date Value Ref Range Status Hemoglobin A1C 04/10/2024 8.2 Final Office Visit on 02/28/2024 Component Date Value Ref Range Status Hemoglobin A1C 02/28/2024 6.6 Final Glucose 04/10/2024 263 (H) 65 - 99 mg/dL Final Comment: Fasting reference interval For someone without known diabetes, a glucose value >125 mg/dL indicates that they may have diabetes and this should be confirmed with a follow-up test. BUN 04/10/2024 33 (H) 7 - 25 mg/dL Final Creatinine 04/10/2024 1.71 (H) 0.70 - 1.22 mg/dL Final EGFR 04/10/2024 38 (L) > OR = 60 mL/min/1.73m2 Final BUN/CREATININE RATIO 04/10/2024 19 6 - 22 (calc) Final Sodium 04/10/2024 138 135 - 146 mmol/L Final Potassium, Bld 04/10/2024 4.0 3.5 - 5.3 mmol/L Final Chloride 04/10/2024 97 (L) 98 - 110 mmol/L Final Carbon Dioxide 04/10/2024 27 20 - 32 mmol/L Final Calcium 04/10/2024 9.2 8.6 - 10.3 mg/dL Final PROTEIN, TOTAL 04/10/2024 6.3 6.1 - 8.1 g/dL Final ALBUMIN 04/10/2024 4.2 3.6 - 5.1 g/dL Final GLOBULIN 04/10/2024 2.1 1.9 - 3.7 g/dL (calc) Final ALBUMIN/GLOBULIN RATIO 04/10/2024 2.0 1.0 - 2.5 (calc) Final BILIRUBIN, TOTAL 04/10/2024 0.6 0.2 - 1.2 mg/dL Final ALKALINE PHOSPHATASE 04/10/2024 51 35 - 144 U/L Final AST 04/10/2024 25 10 - 35 U/L Final ALT 04/10/2024 23 9 - 46 U/L Final TSH 04/10/2024 2.16 0.40 - 4.50 mIU/L Final T3, FREE 04/10/2024 3.2 2.3 - 4.2 pg/mL Final T4, FREE 04/10/2024 1.3 0.8 - 1.8 ng/dL Final Office Visit on 01/08/2024 Component Date Value Ref Range Status WHITE BLOOD CELL COUNT 01/10/2024 9.1 3.8 - 10.8 Thousand/uL Final RED BLOOD CELL COUNT 01/10/2024 4.29 4.20 - 5.80 Million/uL Final HEMOGLOBIN 01/10/2024 12.9 (L) 13.2 - 17.1 g/dL Final HEMATOCRIT 01/10/2024 41.9 38.5 - 50.0 % Final MCV 01/10/2024 97.7 80.0 - 100.0 fL Final MCH 01/10/2024 30.1 27.0 - 33.0 pg Final MCHC 01/10/2024 30.8 (L) 32.0 - 36.0 g/dL Final RDW 01/10/2024 15.8 (H) 11.0 - 15.0 % Final PLATELET COUNT 01/10/2024 164 140 - 400 Thousand/uL Final MPV 01/10/2024 11.8 7.5 - 12.5 fL Final ABSOLUTE NEUTROPHILS 01/10/2024 5,733 1,500 - 7,800 cells/uL Final ABSOLUTE LYMPHOCYTES 01/10/2024 1,483 850 - 3,900 cells/uL Final ABSOLUTE MONOCYTES 01/10/2024 1,083 (H) 200 - 950 cells/uL Final ABSOLUTE EOSINOPHILS 01/10/2024 701 (H) 15 - 500 cells/uL Final ABSOLUTE BASOPHILS 01/10/2024 100 0 - 200 cells/uL Final NEUTROPHILS 01/10/2024 63.0 % Final LYMPHOCYTES 01/10/2024 16.3 % Final MONOCYTES 01/10/2024 11.9 % Final EOSINOPHILS 01/10/2024 7.7 % Final BASOPHILS 01/10/2024 1.1 % Final COMMENT(S) 01/10/2024 Final Comment: Review of peripheral smear confirms automated results. Glucose 01/10/2024 153 (H) 65 - 139 mg/dL Final Comment: Non-fasting reference interval For someone without known diabetes, a glucose value >125 mg/dL indicates that they may have diabetes and this should be confirmed with a follow-up test. BUN 01/10/2024 28 (H) 7 - 25 mg/dL Final Creatinine 01/10/2024 1.40 (H) 0.70 - 1.22 mg/dL Final EGFR 01/10/2024 48 (L) > OR = 60 mL/min/1.73m2 Final BUN/CREATININE RATIO 01/10/2024 20 6 - 22 (calc) Final Sodium 01/10/2024 142 135 - 146 mmol/L Final Potassium, Bld 01/10/2024 4.5 3.5 - 5.3 mmol/L Final Chloride 01/10/2024 107 98 - 110 mmol/L Final Carbon Dioxide 01/10/2024 24 20 - 32 mmol/L Final Calcium 01/10/2024 9.2 8.6 - 10.3 mg/dL Final PROTEIN, TOTAL 01/10/2024 6.1 6.1 - 8.1 g/dL Final ALBUMIN 01/10/2024 3.9 3.6 - 5.1 g/dL Final GLOBULIN 01/10/2024 2.2 1.9 - 3.7 g/dL (calc) Final ALBUMIN/GLOBULIN RATIO 01/10/2024 1.8 1.0 - 2.5 (calc) Final BILIRUBIN, TOTAL 01/10/2024 0.5 0.2 - 1.2 mg/dL Final ALKALINE PHOSPHATASE 01/10/2024 52 35 - 144 U/L Final AST 01/10/2024 17 10 - 35 U/L Final ALT 01/10/2024 11 9 - 46 U/L Final TSH W/REFLEX TO FT4 01/10/2024 6.13 (H) 0.40 - 4.50 mIU/L Final B TYPE NATRIURETIC PEPTIDE (BNP) 01/10/2024 139 (H) <100 pg/mL Final Comment: BNP levels increase with age in the general population with the highest values seen in individuals greater than 75 years of age. Reference: J. Am. Cody. Cardiol. 2002; 40:976-982. T4, FREE 01/10/2024 0.9 0.8 - 1.8 ng/dL Final Office Visit on 11/27/2023 Component Date Value Ref Range Status Hemoglobin A1C 11/27/2023 6.1 Final Assessment/Plan Diagnoses and all orders for this visit: Uncontrolled type 2 diabetes mellitus with hyperglycemia (CMS/HCC) - Patient was previously seen for this problem. Interventions discussed at that prior visit have improved this problem significantly. Please seen that office visit for details. CRF (chronic renal failure), stage 2 (mild) - Labs discussed. GFR is down, likely due to Torsemide. Recheck net OV. Note that this elevation was PRIOR to starting the Farxiga. Chronic diastolic heart failure (CMS/HCC) - No current active congestive heart failure. Dyspnea at exertion, but not at rest. No evidence of pulmonary edema. Medications unchanged. Benign essential hypertension (CMS/HCC) - This is a chronic medical condition that is stable since last assessment. No changes in treatment are suggested at this time. Follow up in about 2 months (around 07/01/2024) for Wellness. documented in this encounter [facility] 04-24-2024 Telephone encounter Note Last OV: 01/2024 Future appt noted: 08/2024 Latest Ref Rng 08/14/2023 Protein, Total 6.3 - 8.0 g/dL 6.3 Albumin 3.9 - 4.9 g/dL 3.9 Calcium 8.5 - 10.2 mg/dL 9.1 Bilirubin, Total 0.2 - 1.3 mg/dL 0.3 Alkaline Phosphatase 38 - 113 U/L 72 AST 14 - 40 U/L 20 ALT 10 - 54 U/L 14 Glucose 74 - 99 mg/dL 121 (H) BUN 9 - 24 mg/dL 22 Creatinine 0.73 - 1.22 mg/dL 1.28 (H) Sodium 136 - 144 mmol/L 144 Potassium 3.7 - 5.1 mmol/L 4.2 Chloride 97 - 105 mmol/L 107 (H) CO2 22 - 30 mmol/L 24 Anion Gap 9 - 18 mmol/L 13 eGFR >=60 mL/min/1.73m 54 (L) Legend: (H) High (L) Low [facility] 04-24-2024 Miscellaneous Notes Last OV: 01/2024 Future appt noted: 08/2024 Latest Ref Rng 08/14/2023 Protein, Total 6.3 - 8.0 g/dL 6.3 Albumin 3.9 - 4.9 g/dL 3.9 Calcium 8.5 - 10.2 mg/dL 9.1 Bilirubin, Total 0.2 - 1.3 mg/dL 0.3 Alkaline Phosphatase 38 - 113 U/L 72 AST 14 - 40 U/L 20 ALT 10 - 54 U/L 14 Glucose 74 - 99 mg/dL 121 (H) BUN 9 - 24 mg/dL 22 Creatinine 0.73 - 1.22 mg/dL 1.28 (H) Sodium 136 - 144 mmol/L 144 Potassium 3.7 - 5.1 mmol/L 4.2 Chloride 97 - 105 mmol/L 107 (H) CO2 22 - 30 mmol/L 24 Anion Gap 9 - 18 mmol/L 13 eGFR >=60 mL/min/1.73m 54 (L) Legend: (H) High (L) Low documented in this encounter [facility] 04-10-2024 History of Present illness Narrative Images from the original note were not included. HPI Results Additional comments: Labs Follow-up Additional comments: Thyroid dose changed last visit Metolazone stopped Med Refill Additional comments: Test strips--optum rx Last edited by Lea Owens LPN on 04/10/2024 10:24 AM. Subjective Patient ID: Nakia Narayanan is a 88 y.o. male who presents for Diabetes, Results (Labs), Follow-up (Thyroid dose changed last visit /Metolazone stopped), and Med Refill (Test strips--optum rx). Check lump on right abd. Pt states it has been there > 1 year denies pain Has some pain in one area of left jaw when he presses on it Diabetes Mellitus Patient presents for follow up of diabetes. Current symptoms include: hyperglycemia. Patient denies foot ulcerations, hypoglycemia , polydipsia, polyuria, and vomiting. Evaluation to date has included: fasting blood sugar, fasting lipid panel, and hemoglobin A1C. Home sugars: BGs range in the 200's Diabetes Hypoglycemia symptoms include dizziness. Med Refill Current Outpatient Medications on File Prior to Visit Medication Sig Dispense Refill ASPIRIN 81 PO Take 1 tablet by mouth 1 (one) time each day. Blood Glucose Monitoring Suppl (Blood Glucose Monitor System) w/Device kit 1 each Daily 1 kit 0 Fiber 500 MG capsule 1 (one) time each day. glucose blood test strip 1 each by Other route in the morning and 1 each before bedtime. Use as instructed. metoprolol succinate XL (Toprol-XL) 50 MG 24 hr tablet TAKE 1 TABLET BY MOUTH IN THE MORNING 90 tablet 3 Multiple Vitamin (multivitamin) capsule Take by mouth Daily. pantoprazole (ProtoNix) 40 MG EC tablet TAKE 1 TABLET BY MOUTH DAILY 90 tablet 3 simvastatin (Zocor) 40 MG tablet TAKE 1 TABLET BY MOUTH DAILY IN THE EVENING 90 tablet 3 SITagliptin-metFORMIN (Janumet) 50-1000 MG tablet Take 1 tablet by mouth in the morning and 1 tablet in the evening. Take with meals. 180 tablet 3 torsemide (Demadex) 20 MG tablet Take 1 tablet (20 mg) by mouth in the morning. 100 tablet 3 [DISCONTINUED] glucose blood (Prodigy No Coding Blood Gluc) test strip Test glucose twice a day 200 strip 3 [DISCONTINUED] glucose blood test strip 1 each by Other route in the morning and 1 each before bedtime. Use as instructed. 200 each 3 No current facility-administered medications on file prior to visit. I have reviewed and reconciled the history and medication list with the patient today. No Known Allergies Social History Tobacco Use Smoking status: Never Smokeless tobacco: Never Vaping Use Vaping status: Unknown Substance Use Topics Alcohol use: Not Currently Comment: caffeine intake: 1-2 cups per day,,soda,coffee Drug use: Defer Family History Problem Relation Name Age of Onset Cancer Mother Stroke Father Heart disease Maternal Grandmother Heart disease Maternal Grandfather Heart disease Paternal Grandmother Heart disease Paternal Grandfather Past Medical History: Diagnosis Date Aortic valve stenosis Arteriosclerosis of both carotid arteries Arthritis Cardiac murmur Deviated nasal septum Diabetes mellitus (CMS/HCC) GERD (gastroesophageal reflux disease) Hyperlipidemia (CMS/HCC) Hypertension (CMS/HCC) Nasal obstruction Nephrolithiasis Obesity Otitis externa Ventricular hypertrophy left Past Surgical History: Procedure Laterality Date ANAL FISTULOTOMY and hemorrhoids AORTIC VALVE REPLACEMENT 2019 cabg CARDIAC CATHETERIZATION COLONOSCOPY 2005 CYST REMOVAL [address] stovall IR JOINT ASPIRATION left right joint IR JOINT ASPIRATION NASAL MASS EXCISION 2016 OTHER SURGICAL HISTORY Cardiac bypass -2019 TONSILLECTOMY TOTAL KNEE ARTHROPLASTY 2010 TURP / TRANSURETHRAL INCISION / DRAINAGE PROSTATE Visit Vitals BP 128/72 Pulse 74 Ht 5' 9 Wt 213 lb SpO2 95% BMI 31.45 kg/m Smoking Status Never BSA 2.17 m Review of Systems Neurological: Positive for dizziness. Objective Physical Exam Constitutional: General: He is not in acute distress. HENT: Head: Normocephalic and atraumatic. Cardiovascular: Rate and Rhythm: Normal rate and regular rhythm. Pulses: Dorsalis pedis pulses are 0 on the right side and 0 on the left side. Posterior tibial pulses are 0 on the right side and 0 on the left side. Heart sounds: Murmur heard. Systolic murmur is present with a grade of 2/6. Pulmonary: Effort: Pulmonary effort is normal. No respiratory distress. Breath sounds: Normal breath sounds. No wheezing. Abdominal: General: Bowel sounds are normal. There is no distension. Palpations: Abdomen is soft. Tenderness: There is no abdominal tenderness. There is no guarding. Musculoskeletal: Right lower leg: Edema present. Left lower leg: Edema present. Neurological: General: No focal deficit present. Mental Status: He is alert and oriented to person, place, and time. Psychiatric: Mood and Affect: Mood normal. Office Visit on 04/10/2024 Component Date Value Ref Range Status Hemoglobin A1C 04/10/2024 8.2 Final Diagnoses and all orders for this visit: Uncontrolled type 2 diabetes mellitus with hyperglycemia (CMS/HCC) - POCT Glycated hemoglobin, total - dapagliflozin (Farxiga) 5 MG; Take 1 tablet (5 mg) by mouth Daily Hypothyroidism (acquired) (CMS/HCC) - labs as ordered last visit (not done yet) Chronic diastolic heart failure (CMS/HCC) - No current active congestive heart failure. Dyspnea at exertion, but not at rest. No evidence of pulmonary edema. Medications unchanged. Chronic pansinusitis - sulfamethoxazole-trimethoprim (Bactrim DS) 800-160 MG per tablet; Take 1 tablet by mouth in the morning and 1 tablet before bedtime. Do all this for 10 days. Follicular cyst of skin and subcutaneous tissue - sulfamethoxazole-trimethoprim (Bactrim DS) 800-160 MG per tablet; Take 1 tablet by mouth in the morning and 1 tablet before bedtime. Do all this for 10 days. Follow up in about 4 weeks (around 05/08/2024). documented in this encounter [facility] 04-05-2024 Hospital Discharge instructions Patient Education 04/05/2024 09:12:08 Dietary Guidelines to Help Prevent Kidney Stones Dietary Guidelines to Help Prevent Kidney Stones Kidney stones are deposits of minerals and salts that form inside your kidneys. Your risk of developing kidney stones may be greater depending on your diet, your lifestyle, the medicines you take, and whether you have certain medical conditions. Most people can lower their risks of developing kidney stones by following these dietary guidelines. Your dietitian may give you more specific instructions depending on your overall health and the type of kidney stones you tend to develop. What are tips for following this plan? Reading food labels Choose foods with no salt added or low-salt labels. Limit your salt (sodium) intake to less than 1,500 mg a day. Choose foods with calcium for each meal and snack. Try to eat about 300 mg of calcium at each meal. Foods that contain 200 500 mg of calcium a serving include: ?8 oz (237 mL) of milk, lzktvyu-gyewoehynnzm-gdbkk milk, and calcium-fortifiedfruit juice. Calcium-fortified means that calcium has been added to these drinks. ?8 oz (237 mL) of kefir, yogurt, and soy yogurt. ?4 oz (114 g) of tofu. ?1 oz (28 g) of cheese. ?1 cup (150 g) of dried figs. ?1 cup (91 g) of cooked broccoli. ?One 3 oz (85 g) can of sardines or mackerel. Most people need 1,000 1,500 mg of calcium a day. Talk to your dietitian about how much calcium is recommended for you. Shopping Buy plenty of fresh fruits and vegetables. Most people do not need to avoid fruits and vegetables, even if these foods contain nutrients that may contribute to kidney stones. When shopping for convenience foods, choose: ?Whole pieces of fruit. ?Pre-made salads with dressing on the side. ?Low-fat fruit and yogurt smoothies. Avoid buying frozen meals or prepared deli foods. These can be high in sodium. Look for foods with live cultures, such as yogurt and kefir. Choose high-fiber grains, such as whole-wheat breads, oat bran, and wheat cereals. Cooking Do not add salt to food when cooking. Place a salt shaker on the table and allow each person to add their own salt to taste. Use vegetable protein, such as beans, textured vegetable protein (TVP), or tofu, instead of meat in pasta, casseroles, and soups. Meal planning Eat less salt, if told by your dietitian. To do this: ?Avoid eating processed or pre-made food. ?Avoid eating fast food. Eat less animal protein, including cheese, meat, poultry, or fish, if told by your dietitian. To do this: ?Limit the number of times you have meat, poultry, fish, or cheese each week. Eat a diet free of meat at least 2 days a week. ?Eat only one serving each day of meat, poultry, fish, or seafood. ?When you prepare animal proteins, cut pieces into small portion sizes. For most meat and fish, one serving is about the size of the palm of your hand. Eat at least five servings of fresh fruits and vegetables each day. To do this: ?Keep fruits and vegetables on hand for snacks. ?Eat one piece of fruit or a handful of berries with breakfast. ?Have a salad and fruit at lunch. ?Have two kinds of vegetables at dinner. You may be told to limit foods that are high in a substance called oxalate. These include: ?Spinach (cooked), rhubarb, beets, sweet potatoes, and Kosovan chard. ?Peanuts. ?Potato chips, c[place] islander fries, and baked potatoes with skin on. ?Nuts and nut products. ?Chocolate. If you regularly take a diuretic medicine, make sure to eat at least 1 or 2 servings of fruits or vegetables that are high in potassium each day. These include: ?Avocado. ?Banana. ?Kent, prune, carrot, or tomato juice. ?Baked potato. ?Cabbage. ?Beans and split peas. Lifestyle Drink enough fluid to keep your urine pale yellow. This is the most important thing you can do. Spread your fluid intake throughout the day. If you drink alcohol: ?Limit how much you have to: ?0 1 drink a day for women who are not . ?0 2 drinks a day for men. ?Know how much alcohol is in your drink. In the [place] one drink equals one 12 oz bottle of beer (355 mL), one 5 oz glass of wine (148 mL), or one 1 oz glass of hard liquor (44 mL). Lose weight if told by your health care provider. Work with your dietitian to find an eating plan and weight loss strategies that work best for you. General information Talk to your health care provider and dietitian about taking daily supplements. Depending on your health and the cause of your kidney stones, you may be told: ?Do not take high-dose supplements of vitamin C (1,000 mg a day or more). ?To take a calcium supplement. ?To take a daily probiotic supplement. ?To take other supplements such as magnesium, fish oil, or vitamin B6. Take osfr-sqa-harjzss and prescription medicines only as told by your health care provider. These include supplements. What foods should I limit? Limit your intake of the following foods, or eat them as told by your dietitian. Vegetables Spinach. Rhubarb. Beets. Canned vegetables. Pickles. Olives. Baked potatoes with skin. Grains Wheat bran. Baked goods. Salted crackers. Cereals high in sugar. Meats and other proteins Nuts. Nut butters. Large portions of meat, poultry, or fish. Salted, precooked, or cured meats, such as sausages, meat loaves, and hot dogs. Dairy Cheeses. Beverages Regular soft drinks. Regular vegetable juice. Seasonings and condiments Seasoning blends with salt. Salad dressings. Soy sauce. Ketchup. Barbecue sauce. Other foods Canned soups. Canned pasta sauce. Casseroles. Pizza. Lasagna. Frozen meals. Potato chips. Estonian fries. The items listed above may not be a complete list of foods and beverages you should limit. Contact a dietitian for more information. What foods should I avoid? Talk to your dietitian about specific foods you should avoid based on the type of kidney stones you have and your overall health. Fruits Grapefruit. The item listed above may not be a complete list of foods and beverages you should avoid. Contact a dietitian for more information. Summary Kidney stones are deposits of minerals and salts that form inside your kidneys. You can lower your risk of kidney stones by making changes to your diet. The most important thing you can do is drink enough fluid. Drink enough fluid to keep your urine pale yellow. Talk to your dietitian about how much calcium you should have each day, and eat less salt and animal protein as told by your dietitian. This information is not intended to replace advice given to you by your health care provider. Make sure you discuss any questions you have with your health care provider. Document Revised: 09/22/2022 Document Reviewed: 09/22/2022 [employer] Patient Education 2023 App[employer]. Follow Up Care 04/03/2023 09:27:29 With:HUSAM ANGELES, Sadaf Adamson, URL Address: [facility] [address], [place] [id number]- When: Unknown [facility] 04-05-2024 Note Patient Education Nephrology Dietary Guidelines to Help Prevent Kidney Stones Kidney stones are deposits of minerals and salts that form inside your kidneys. Your risk of developing kidney stones may be greater depending on your diet, your lifestyle, the medicines you take, and whether you have certain medical conditions. Most people can lower their risks of developing kidney stones by following these dietary guidelines. Your dietitian may give you more specific [...] ? 8 oz (237 mL) of milk, fncisci-vxompehczvct-jzhuj milk, and calcium-fortifiedfruit juice. Calcium-fortified means that [...] table and allow each person to add their own salt to taste. ? Use vegetable [...] or seafood. ? When you prepare animal proteins, cut pieces into small portion sizes. For [...] two kinds of vegetables at dinner. ? You may be told to limit foods that are high in a substance called oxalate. These include: ? Spinach (cooked), rhubarb, beets, sweet potatoes, and Kosovan chard. ? Peanuts. ? Potato chips, cayman islander fries, and baked potatoes with skin on. ? Nuts and nut products. ? Chocolate. ? If you regularly take a diuretic medicine, make sure to eat at least 1 or 2 servings of fruits or vegetables that are high in potassium each day. These include: ? Avocado. ? Banana. ? [place], prune, carrot, or tomato juice. ? Baked potato. ? Cabbage. ? Beans and split peas. Lifestyle ? Drink enough fluid to keep your urine pale yellow. This is the most important thing you can do. Spread your fluid intake throughout the day. ? If you drink alcohol: ? Limit how much you have to: ? 0?1 drink a day for women who are not . ? 0?2 drinks a day for men. ? Know how much alcohol is in your drink. [...] provider and dietitian about taking daily supplements. Depending on your health and the cause of your kidney stones, you may be told: ? Do not take high-dose supplements of vitamin C (1,000 mg a day or more). ? To take a calcium supplement. ? To take a daily probiotic supplement. ? To take other supplements such as magnesium, fish oil, or vitamin B6. ? Take dawx-hsy-wxpnlno and prescription medicines only as told by your health care provider. These include suppleme (more content not included)... [facility] 03-14-2024 History of Present illness Narrative Patient: Nakia Narayanan : 1935 PCP: Benjie Covarrubias MD SUBJECTIVE This is a 88 y.o. male that presents today with a CC of elongated, thick nails. Pt states nails have been elongated and thick for many years and cause pain with ambulation in shoegear. Pt has tried previous treatment with minimal relief. Pt presents today for nail care and treatment. Patient is DM2 Patient has positive history of venous stasis Allergies: No Known Allergies Past Medical History: Past Medical History: Diagnosis Date Aortic valve stenosis Arteriosclerosis of both carotid arteries Arthritis Cardiac murmur Deviated nasal septum Diabetes mellitus (CMS/HCC) GERD (gastroesophageal reflux disease) Hyperlipidemia (CMS/HCC) Hypertension (CMS/HCC) Nasal obstruction Nephrolithiasis Obesity Otitis externa Ventricular hypertrophy left Medications: Current Outpatient Medications: ASPIRIN 81 PO, Take 1 tablet by mouth 1 (one) time each day., Disp: , Rfl: Fiber 500 MG capsule, 1 (one) time each day., Disp: , Rfl: glucose blood ([employer] No Coding Blood Gluc) test strip, Test glucose twice a day, Disp: 200 strip, Rfl: 3 glucose blood test strip, 1 each by Other route in the morning and 1 each before bedtime. Use as instructed., Disp: , Rfl: metoprolol succinate XL (Toprol-XL) 50 MG 24 hr tablet, TAKE 1 TABLET BY MOUTH IN THE MORNING, Disp: 90 tablet, Rfl: 3 Multiple Vitamin (multivitamin) capsule, Take by mouth Daily., Disp: , Rfl: pantoprazole (ProtoNix) 40 MG EC tablet, TAKE 1 TABLET BY MOUTH DAILY, Disp: 90 tablet, Rfl: 3 simvastatin (Zocor) 40 MG tablet, TAKE 1 TABLET BY MOUTH DAILY IN THE EVENING, Disp: 90 tablet, Rfl: 3 SITagliptin-metFORMIN (Janumet) 50-1000 MG tablet, Take 1 tablet by mouth in the morning and 1 tablet in the evening. Take with meals., Disp: 180 tablet, Rfl: 3 torsemide (Demadex) 20 MG tablet, Take 1 tablet (20 mg) by mouth in the morning., Disp: 100 tablet, Rfl: 3 Social History: Social History Socioeconomic History Marital status: Spouse name: Not on file Number of children: Not on file Years of education: Not on file Highest education level: Not on file Occupational History Not on file Tobacco Use Smoking status: Never Smokeless tobacco: Never Vaping Use Vaping status: Unknown Substance and Sexual Activity Alcohol use: Not Currently Comment: caffeine intake: 1-2 cups per day,,soda,coffee Drug use: Defer Sexual activity: Defer Other Topics Concern Not on file Social History Narrative Not on file Social Determinants of Health Financial Resource Strain: Low Risk (04/09/2020) Received from [facility] Overall Financial Resource Strain (CARDIA) Difficulty of Paying Living Expenses: Not hard at all Food Insecurity: No Food Insecurity (04/09/2020) Received from [facility] Hunger Vital Sign Worried About Running Out of Food in the Last Year: Never true Ran Out of Food in the Last Year: Never true Transportation Needs: No Transportation Needs (04/09/2020) Received from [facility] PRAPARE - Transportation Lack of Transportation (Medical): No Lack of Transportation (Non-Medical): No Physical Activity: Not on file Stress: Not on file Social Connections: Not on file Intimate Partner Violence: Not on file Housing Stability: Not on file ROS: General: denies fever, chills, fatigue, malaise OBJECTIVE LE EXAM: DERM: Elongated thick yellow crumbly nails digits 1 through 10. Negative hair growth with thin shiny atrophic skin bilaterally +1 pitting edema to bilateral feet and ankles VASC: Negative DP and positive PT pedal pulses NEURO: 5.07 Worthington Ramon monofilament test diminished to digits and forefoot bilaterally 125Hz tuning fork diminished to 1st MPJ bilaterally ORTHO: Positive pain on palpation to nails 1 through 10 ASSESSMENT 1. Diabetes mellitus due to underlying condition with diabetic polyneuropathy, without long-term current use of insulin ([facility]) 2. Onychomycosis 3. Toe pain, bilateral 4. Venous insufficiency PLAN Discussed proper foot care with patient today. Debride nails in length and thickness digits 1 through 10 Patient educated today on proper diabetic foot care including monitoring feet daily for any signs of infection openings in the skin or irregularities to both feet. Patient had a diabetic neurological exam today to both their feet and discussed proper shoe gear. Jaime Hanson DPM documented in this encounter [facility] 02-28-2024 History of Present illness Narrative Images from the original note were not included. HPI Hypothyroidism Additional comments: Pt stopped levothyroxine 2-3 weeks ago states he feels it was making him feel worse Diabetes Additional comments: Pt stopped the glimepiride 2-3 weeks ago felt he was having side effects Last edited by Lea Owens LPN on 02/28/2024 8:57 AM. Subjective Patient ID: Nakia Narayanan is a 88 y.o. male who presents for Hypothyroidism (Pt stopped levothyroxine 2-3 weeks ago states he feels it was making him feel worse ) and Diabetes (Pt stopped the glimepiride 2-3 weeks ago felt he was having side effects). Diabetes Mellitus Patient presents for follow up of diabetes. Current symptoms include: hyperglycemia. Patient denies foot ulcerations, hypoglycemia , polydipsia, polyuria, and vomiting. Evaluation to date has included: fasting blood sugar, fasting lipid panel, and hemoglobin A1C. Home sugars: BGs range between 110-120 Diabetes Hypoglycemia symptoms include dizziness. Current Outpatient Medications on File Prior to Visit Medication Sig Dispense Refill ASPIRIN 81 PO Take 1 tablet by mouth 1 (one) time each day. Fiber 500 MG capsule 1 (one) time each day. glucose blood (doubleTwistigy No Coding Blood Gluc) test strip Test glucose twice a day 200 strip 3 glucose blood test strip 1 each by Other route in the morning and 1 each before bedtime. Use as instructed. Janumet 50-1000 MG tablet TAKE 1 TABLET TWICE A DAY WITH MEALS 180 tablet 3 metoprolol succinate XL (Toprol-XL) 50 MG 24 hr tablet TAKE 1 TABLET BY MOUTH IN THE MORNING 90 tablet 3 Multiple Vitamin (multivitamin) capsule Take by mouth Daily. pantoprazole (ProtoNix) 40 MG EC tablet TAKE 1 TABLET BY MOUTH DAILY 90 tablet 3 simvastatin (Zocor) 40 MG tablet TAKE 1 TABLET BY MOUTH DAILY IN THE EVENING 90 tablet 3 torsemide (Demadex) 20 MG tablet Take 1 tablet (20 mg) by mouth in the morning. 100 tablet 3 [DISCONTINUED] metOLazone (Zaroxolyn) 5 MG tablet Take 5 mg by mouth every other day M,W,F [DISCONTINUED] glimepiride (Amaryl) 2 MG tablet Take 1 tablet (2 mg) by mouth in the morning. Take before meals. 100 tablet 3 [DISCONTINUED] levothyroxine (Synthroid) 75 MCG tablet Take 1 tablet (75 mcg) by mouth in the morning. Take before meals. 30 tablet 11 No current facility-administered medications on file prior to visit. I have reviewed and reconciled the history and medication list with the patient today. No Known Allergies Social History Tobacco Use Smoking status: Never Smokeless tobacco: Never Vaping Use Vaping status: Unknown Substance Use Topics Alcohol use: Not Currently Comment: caffeine intake: 1-2 cups per day,,soda,coffee Drug use: Defer Family History Problem Relation Name Age of Onset Cancer Mother Stroke Father Heart disease Maternal Grandmother Heart disease Maternal Grandfather Heart disease Paternal Grandmother Heart disease Paternal Grandfather Past Medical History: Diagnosis Date Aortic valve stenosis Arteriosclerosis of both carotid arteries Arthritis Cardiac murmur Deviated nasal septum Diabetes mellitus (CMS/HCC) GERD (gastroesophageal reflux disease) Hyperlipidemia (CMS/HCC) Hypertension (CMS/HCC) Nasal obstruction Nephrolithiasis Obesity Otitis externa Ventricular hypertrophy left Past Surgical History: Procedure Laterality Date ANAL FISTULOTOMY and hemorrhoids AORTIC VALVE REPLACEMENT 2019 cabg CARDIAC CATHETERIZATION COLONOSCOPY 2005 CYST REMOVAL [address] stovall IR JOINT ASPIRATION left right joint IR JOINT ASPIRATION NASAL MASS EXCISION 2016 OTHER SURGICAL HISTORY Cardiac bypass -2019 TONSILLECTOMY TOTAL KNEE ARTHROPLASTY 2010 TURP / TRANSURETHRAL INCISION / DRAINAGE PROSTATE Visit Vitals BP 126/70 Pulse 70 Ht 5' 9 Wt 216 lb SpO2 95% BMI 31.90 kg/m Smoking Status Never BSA 2.18 m Review of Systems Neurological: Positive for dizziness. Objective Physical Exam Constitutional: General: He is not in acute distress. HENT: Head: Normocephalic and atraumatic. Cardiovascular: Rate and Rhythm: Normal rate and regular rhythm. Pulses: Dorsalis pedis pulses are 0 on the right side and 0 on the left side. Posterior tibial pulses are 0 on the right side and 0 on the left side. Heart sounds: Murmur heard. Systolic murmur is present with a grade of 2/6. Pulmonary: Effort: Pulmonary effort is normal. No respiratory distress. Breath sounds: Normal breath sounds. No wheezing. Abdominal: General: Bowel sounds are normal. There is no distension. Palpations: Abdomen is soft. Tenderness: There is no abdominal tenderness. There is no guarding. Musculoskeletal: Right lower leg: Edema present. Left lower leg: Edema present. Neurological: General: No focal deficit present. Mental Status: He is alert and oriented to person, place, and time. Psychiatric: Mood and Affect: Mood normal. Office Visit on 02/28/2024 Component Date Value Ref Range Status Hemoglobin A1C 02/28/2024 6.6 Final Assessment/Plan Diagnoses and all orders for this visit: Uncontrolled type 2 diabetes mellitus with hyperglycemia ([facility]) - POCT Glycated hemoglobin, total - Recheck A1C next appt, he has stopped Amaryl X 2 -3 weeks now. Hypothyroidism (acquired) ([facility]) - TSH; Future - T3, free; Future - T4, free; Future - Restart Levothyroxine 75; check labs in 6 weeks, appt in 2 months Chronic diastolic heart failure ([facility]) - Comprehensive metabolic panel; Future - Compensated - Stop Metolazone, he c/o tired all the time . Follow up in about 2 months (around 04/29/2024) for F/U med changes, Test/Lab Review. documented in this encounter [facility] 02-15-2024 Note HNO ID: [id number] Author: MARCO A GARVEY MD Service: ? Author Type: Physician Type: Progress Notes Filed: 02/15/2024 09:55 Note Text: [facility] [place] SECTION OF REGIONAL CARDIOLOGY OUTPATIENT VISIT DATE February 15, 2024 OUTPATIENT VISIT TYPE ESTABLISHED PRIMARY CARE PHYSICIAN: Benjie Covarrubias II, MD [address] [place] [address] CHIEF COMPLAINT: Coronary artery disease, Heart failure, [...] smoker. Cardiovascular work-up includes: An echocardiogram in 2019 which showed moderate [...] heart failure (HCC) I50.32 6. Atherosclerosis of [place] coronary artery of [place] heart without angina pectoris I25.10 PLAN AND [...] above. PAST MEDICAL HISTORY 04/07/2020: Atherosclerosis of [place] coronary artery of [place] heart without angina pectoris No date: Chronic diastolic heart failure (HCC) 2000: DMII (diabetes mellitus, type 2) (HCC) 2000: HLD (hyperlipidemia) 2000: HTN (hypertension) No date: N (more content not included)... [facility] 02-15-2024 History of Present illness Narrative Images from the original note were not included. [facility] [place] SECTION OF REGIONAL CARDIOLOGY OUTPATIENT VISIT DATE February 15, 2024 OUTPATIENT VISIT TYPE ESTABLISHED PRIMARY CARE PHYSICIAN: Benjie Covarrubias II, MD [address] [place] [address] CHIEF COMPLAINT: Coronary artery disease, Heart failure, [...] heart failure (HCC) I50.32 6. Atherosclerosis of [place] coronary artery of [place] heart without angina pectoris I25.10 PLAN AND [...] above. PAST MEDICAL HISTORY 04/07/2020: Atherosclerosis of [place] coronary artery of [place] heart without angina pectoris No date: Chronic diastolic heart failure (HCC) 2000: DMII (diabetes mellitus, type 2) ([facility]) 2000: HLD (hyperlipidemia) 2000: HTN (hypertension) No date: Nonrheumatic aortic valve stenosis No date: Orthostatic lightheadedness 06/18/2019: Pure hypercholesterolemia 04/07/2020: Type 2 diabetes mellitus without complication, with long- term current use of insulin ([facility]) PAST SURGICAL HISTORY 1994: ARTHRP KNE CONDYLE&PLATU [...] Reported on 02/15/2024) documented in this encounter [facility] 08-14-2023 History of Present illness Narrative Images from the original note were not included. [facility] [place] Stacy Gavin Department of Cardiovascular Medicine SECTION [...] CABG x 1 Z95.1 5. Atherosclerosis of [place] coronary artery of [place] heart without angina pectoris I25.10 COMP METABOLIC [...] [place] 04/[address] Berrios. Per REVIEW CONSULTANT ok to advance diet, use same controls [...] is a 84 year old male from [place], [place]. Supportive son. PT/OT recs Home. CM [...] HH diet 04/16. Nutrition following. Atherosclerosis of [place] Coronary Artery of [place] Heart Without Angina Pectoris - 04/07/2020 Comment: [...] PAST MEDICAL HISTORY Diagnosis Date Atherosclerosis of [place] coronary artery of [place] heart without angina pectoris 04/07/2020 Chronic diastolic [...] visit. This note was partially generated with salgomed voice recognition software and may contain errors, including spelling, grammar, syntax and misrecognition of what was dictated, that may not be fully corrected. I appreciate the opportunity to participate in this patient's care. Please do not hesitate to call my office if you have any questions. CONTACT INFORMATION: Joao Lara APRN.CNP Adult Nurse Practitioner [facility] Department of Cardiovascular Medicine [facility] Heart, V[facility], [facility] [place] [facility] Cardiology Consult Team documented in this encounter [facility] 02-20-2023 History of Present illness Narrative Images from the original note were not included. [facility] [place] SECTION OF REGIONAL CARDIOLOGY OUTPATIENT VISIT DATE February 20, 2023 OUTPATIENT VISIT TYPE ESTABLISHED PRIMARY CARE PHYSICIAN: Benjie Covarrubias II, MD [address] [facility] [address] [place] [address] CHIEF COMPLAINT: Heart failure, Hyperlipidemia, Hypertension, and [...] failure (HCC) I50.32 ECHO 5. Atherosclerosis of [place] coronary artery of [place] heart without angina pectoris I25.10 ECHO 6. [...] ECG Confirmed by MARCO A GARVEY MD ([id number]) on 08/24/2022 10:00:15 AM PAST CARDIAC HISTORY: See above. PAST MEDICAL HISTORY Diagnosis Date Atherosclerosis of [place] coronary artery of [place] heart without angina pectoris 04/07/2020 Chronic diastolic [...] pack years: 35.00 Types: Cigarettes Quit date: 1964 Years since quittin.6 Smokeless tobacco: Never Vaping [...] with breakfast.^Disp: ^Rfl: documented in this encounter [facility] 08-23-2022 Instructions Joao Lara APRN.SOHAN - 08/23/2022 [...] cheeses Yogurt MILK & DAIRY Buttermilk Cheese ([place], Francis, Cheddar, Blue, Gouda, Rwandan, Velveeta) Cheese spreads FRUIT & VEGETABLES 5-9 [...] pie) Salted nuts MISC. Allspice, Mustard (dry) [place] Extract Basil Marlboro Leaves Capello's Jamaican Style Seasoning Jez Seeds Chives Cider Vinegar Cinnamon Velazco Powder Bita Crystal Dill Garlic Powder Dimas Herbal Seasonings: Lawry's Seasoned Pepper Lawry's Seasoning (no salt) Lemon Juice Mace Mrs. Sharif Nutmeg Onion Powder Paprika Parsley Parsley Patch Peppermint Extract Pimento Jennifer Deandre Salt free seasoning blends Savory Sodium-free Baking Powder Thyme Turmeric Vinegar Ruiz's all-purpose Seasonings MISC. Accent Adela-[place] All commercially prepared and convenience foods such as TV dinners, box mixes, canned entrees, Hamburger [place], meat pies, Irish dinners, pizza, Shake'n Bake mixes BBQ sauce Celery salt [place] sauce Garlic salt Horseradish Kitchen Bouquet Lemon pepper Marinade sauce Meat tenderizers Monosodium Glutamate (MSG) Onion salt Constitution Party spreads Regular ketchup Relish Salad dressings Salt Seasoning salts Sodium Benzoate Sodium Caseinate Sodium Citrate Sodium Nitrate Sodium Phosphate Sodium Propionate Sodium Saccharin Soy sauce Steak sauce Tartar sauce Teriyaki sauce [facility] sauce Labeled no salt Products, Assorted [e.g., hooks paste and sauces, oriental dried plums and other dried seeds, vegetables and fruits (lemon & dimas)] documented in this encounter [facility] 08-23-2022 History of Present illness Narrative Images from the original note were not included. [facility] [place] Stacy Gavin Department of Cardiovascular Medicine SECTION [...] and down stairs; dong laundry, walking in [employer] [place]. Cardiac work-up includes : An echocardiogram in [...] [place] 04/[address] Berrios. Per REVIEW CONSULTANT ok to advance diet, use same controls [...] is a 84 year old male from [place], [place]. Supportive son. PT/OT recs Home. CM [...] HH diet 04/16. Nutrition following. Atherosclerosis of [place] Coronary Artery of [place] Heart Without Angina Pectoris - 04/07/2020 Comment: S/p 04/08/2020: AVR, CABGx1 (Vein graft ascending aorta end to side obtuse marginal 1) CAD Core Measures: Aspirin: Yes Beta blockers: Yes Statins: Yes Type 2 Diabetes Mellitus, Without Long-Term Current Use of Insulin ([facility]) - 04/07/2020 Comment: History: Pre-op on insulin/oral [...] PAST MEDICAL HISTORY Diagnosis Date Atherosclerosis of [place] coronary artery of [place] heart without angina pectoris 04/07/2020 Chronic diastolic [...] visit. This note was partially generated with salgomed voice recognition software and may contain errors, including spelling, grammar, syntax and misrecognition of what was dictated, that may not be fully corrected. I appreciate the opportunity to participate in this patient's care. Please do not hesitate to call my office if you have any questions. CONTACT INFORMATION: Joao Lara APRN.INVESTMENT BROKER Adult Nurse Practitioner [facility] Department of Cardiovascular Medicine [facility] [place] [facility] Cardiology Consult Team documented in this encounter [facility] 07-05-2022 Note PROCEDURE: XR GI UPP [...] authenticated by: DOLORES NIETO Date: 2022-07-05 09:31 [facility] 07-05-2022 Note PROCEDURE: XR GI UPP [...] authenticated by: DOLORES NIETO Date: 2022-07-05 09:31 [facility] 04-01-2022 Hospital Discharge instructions Patient Education 04/01/2022 09:37:53 Kidney Stones, Pqut-hw-Oiru Kidney Stones Kidney stones are rock-like masses [...] Follow these instructions at home: Medicines Take jqst-bmx-qwfrddo and prescription medicines only as told by [...] 11/28/2008 Document Revised: 10/29/2019 Document Reviewed: 10/29/2019 [employer] Patient Education 2020 [employer] Follow Up Care 03/29/2021 11:32:59 With:HUSAM ANGELES, Sadaf Adamson, URL Address: [address] [place] [address]- When: Unknown [facility] History of Present illness Narrative Images from the original note were not included. [facility] [place] SECTION OF REGIONAL CARDIOLOGY OUTPATIENT VISIT DATE February 21, 2022 OUTPATIENT VISIT TYPE ESTABLISHED PRIMARY CARE PHYSICIAN: Benjie Covarrubias II, MD [address] [address] CHIEF COMPLAINT: Coronary artery disease, Heart failure, [...] heart failure (HCC) I50.32 5. Atherosclerosis of [place] coronary artery of [place] heart without angina pectoris I25.10 6. S/P [...] PAST MEDICAL HISTORY Diagnosis Date Atherosclerosis of [place] coronary artery of [place] heart without angina pectoris 04/07/2020 Chronic diastolic [...] mouth twice daily. documented in this encounter [facility] 02-08-2022 Note CONSULTATION CONSULTATION DATE: 02/08/2022 [...] this recently), Tylenol 500 mg. He applies VicSportPursuit VapoRub to his back and finds this [...] once again. CC: Benjie Covarrubias M.D. [facility] 01-25-2022 Note CONSULTATION CONSULTATION DATE: 01/25/2022 CHIEF [...] two weeks. CC: Benjie Covarrubias M.D. [facility] 01-25-2022 Note CONSULTATION PROCEDURE DATE: 01/25/2022 PREOPERATIVE [...] be followed up in the office. [facility] 04-13-2020 History of Past i llness Narrative Problem Noted Date Resolved Date Hyperlipemia 04/13/2020 02/21/2022 Overview: History: On Simvastatin preop. Assessment: Resumed on HH diet 04/16 Plan: Continue statin, trend LFTs On mechanically assisted ventilation 04/08/2020 04/11/2020 Overview: Grade III airway with bougie A/P-WTE Stress hyperglycemia 04/08/2020 04/08/2020 documented as of this encounter (statuses as of 02/21/2022) [facility] History of Past illness Narrative* Problem Noted Date Resolved Date Hyperlipemia 04/13/2020 02/21/2022 Overview: History: On Simvastatin preop. Assessment: Resumed on HH diet 04/16 Plan: Continue statin, trend LFTs On mechanically assisted ventilation 04/08/2020 04/11/2020 Overview: Grade III airway with bougie A/P-WTE Stress hyperglycemia 04/08/2020 04/08/2020 documented as of this encounter (statuses as of 09/09/2022) [facility] History of Past illness Narrative* Problem Noted Date Diagnosed Date Resolved Date Hyperlipemia 04/13/2020 02/21/2022 Overview: History: On Simvastatin preop. Assessment: Resumed on HH diet 04/16 Plan: Continue statin, trend LFTs On mechanically assisted ventilation 04/08/2020 04/11/2020 Overview: Grade III airway with bougie A/P-WTE Stress hyperglycemia 04/08/2020 020 documented as of this encounter (statuses as of 02/20/2023) [facility] History of Past illness Narrative* Problem Noted Date Diagnosed Date Resolved Date Hyperlipemia 04/13/2020 02/21/2022 Overview: History: On Simvastatin preop. Assessment: Resumed on HH diet 04/16 Plan: Continue statin, trend LFTs On mechanically assisted ventilation 04/08/2020 04/11/2020 Overview: Grade III airway with bougie A/P-WTE Stress hyperglycemia 04/08/2020 020 documented as of this encounter (statuses as of 08/28/2023) [facility] Future App[facility]ments Appointment Date:04/03/2023 08:45:00 AM Scheduled Provider:Sadaf STOVALL MD Location:[facility] Appointment Type:URO Office Visit [facility] evaluation note* Diagnosis Nonrheumatic aortic valve stenosis- Primary Aortic valve disorders Primary hypertension Unspecified essential hypertension Pure hypercholesterolemia Chronic diastolic heart failure (HCC) Chronic diastolic heart failure 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, Class I, BMI 30-34.9 Obesity, unspecified documented [facility] encounter [facility] Diagnosis Chronic diastolic heart failure (HCC)- [...] abnormal clinical finding documented [facility] Diagnosis Nonrheumatic aortic valve stenosis- Primary Aortic valve disorders Primary hypertension Unspecified essential hypertension Pure hypercholesterolemia Chronic diastolic heart failure (HCC) Chronic diastolic heart failure 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 S/P AVR Heart valve replaced by other means documented [facility] Diagnosis Primary hypertension- Primary Unspecified essential hypertension Chronic diastolic heart failure (HCC) Chronic diastolic heart failure Pure hypercholesterolemia 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 Aortic valve disorders documented in this encounter [facility] noteNo assessment information availableC[facility] Work Phone: Evaluation note* Diagnosis S/P CABG x 1- Primary Postsurgical aortocoronary bypass status S/P AVR Heart valve replaced by other means Pure hypercholesterolemia Primary hypertension Unspecified essential hypertension Chronic diastolic heart failure (HCC) Chronic diastolic heart failure Atherosclerosis of [place] coronary artery of [place] heart without angina pectoris documented [facility] encounter [facility] Diagnosis Uncontrolled type 2 diabetes mellitus with hyperglycemia (CMS/HCC)- Primary Hypothyroidism (acquired) (CMS/HCC) Unspecified hypothyroidism Chronic diastolic heart failure (CMS/HCC) Chronic diastolic heart failure Chronic pansinusitis Other chronic sinusitis Follicular cyst of skin and subcutaneous tissue documented in this encounter [facility]* Diagnosis Primary hypertension- Primary Unspecified essential hypertension [facility] Diagnosis Uncontrolled type 2 diabetes mellitus with hyperglycemia (CMS/HCC)- Primary CRF (chronic renal failure), stage 2 (mild) Chronic diastolic heart failure (CMS/HCC) Chronic diastolic heart failure Benign essential hypertension (CMS/HCC) Essential hypertension, benign documented in this encounter [facility] HealthcareEvaluation note* Diagnosis Diabetes mellitus due to underlying condition with diabetic polyneuropathy, without long-term current use of insulin (CMS/HCC)- Primary Onychomycosis Dermatophytosis of nail Toe pain, left Pain in soft tissues of limb Toe pain, right Pain in soft tissues of limb Venous insufficiency Unspecified venous (peripheral) insufficiency documented in this encounter [facility] HealthcareEvaluation note* Diagnosis Spasm of right trapezius muscle- Primary documented in this encounter [facility]Evaluation note* Diagnosis Uncontrolled type 2 diabetes mellitus with hyperglycemia (CMS/HCC)- Primary Hypothyroidism (acquired) (CMS/HCC) Unspecified hypothyroidism Chronic diastolic heart failure (CMS/HCC) Chronic diastolic heart failure documented in this encounter [facility]Evaluation note* Diagnosis Diabetes mellitus due to underlying condition with diabetic polyneuropathy, without long-term current use of insulin (CMS/HCC)- Primary Onychomycosis Dermatophytosis of nail Toe pain, bilateral Venous insufficiency Unspecified venous (peripheral) insufficiency documented in this encounter [facility]Evaluation note* Diagnosis Type 2 diabetes mellitus with stage 3b chronic kidney disease, without long-term current use of insulin ([facility]) ([facility])- Primary Chronic diastolic heart failure ([facility]) Chronic diastolic heart failure Benign essential hypertension ([facility]) Essential hypertension, benign Chronic kidney disease, stage 3b ([facility]) ([facility]) Malignant melanoma of skin, unspecified ([facility]) Candidiasis of genitalia documented in this encounter [facility]Evaluation [facility]* Diagnosis Diabetes mellitus due to underlying condition with diabetic polyneuropathy, without long-term current use of insulin ([facility])- Primary Pain due to onychomycosis of toenails of both feet Venous insufficiency Unspecified venous (peripheral) insufficiency documented in this encounter [facility]Evaluation note* Diagnosis Acute non-recurrent sinusitis, unspecified location- Primary Interstitial pulmonary disease, unspecified ([facility]) documented in this encounter [facility] HealthcareEvaluation note* Diagnosis Atherosclerosis of [place] coronary artery of [place] heart without angina pectoris- Primary S/P CABG x 1 Postsurgical aortocoronary bypass status Chronic diastolic heart failure ([facility]) Chronic diastolic heart failure Primary hypertension Unspecified essential hypertension Nonrheumatic aortic valve stenosis Aortic valve disorders S/P AVR Heart valve replaced by other means documented [facility] encounter [facility] Diagnosis Seborrheic keratosis- Primary Seborrheic keratosis, inflamed Actinic keratosis Lentigines Neoplasm of unspecified behavior of bone, soft tissue, and skin documented in this encounter [facility]* Diagnosis Mild nonproliferative diabetic retinopathy of both eyes without macular edema associated with type 2 diabetes mellitus (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)- Primary Pain due to onychomycosis of toenails of both feet Venous insufficiency Unspecified venous (peripheral) insufficiency documented in this encounter [facility]* Diagnosis Diabetes mellitus due to underlying condition with diabetic polyneuropathy, without long-term current use of insulin (CMS/HCC)- Primary Pain due to onychomycosis of toenails of both feet Venous insufficiency Unspecified venous (peripheral) insufficiency documented [facility] this encounter [facility] Narrative No data available for this section [facility] progress note No data available for this section [facility] reason for referral (narrative)* Outpatient Procedure (Routine) - Authorized Specialty Diagnoses / Procedures Referred By Snuil kapoor Referred To Contact [facility] Diagnoses Chronic diastolic heart failure (HCC) S/P AVR Procedures ECHO ECHO TTHRC R-T 2D W/WOM-MODE COMPL SPEC&COLR D Joao Lara APRN.CNP [id number] [place] [address] Referral ID Status Reason Start Date Expiration Date Visits Requested Visits Authorized [id number] Authorized Auto-Generat ed Referral 08/23/2023 1 1 * Outpatient Procedure (Routine) - Closed Specialty Diagnoses / Procedures Referred By Sunil kapoor Referred To Contact [facility] Diagnoses Chronic diastolic heart failure (HCC) Primary hypertension Procedures ECG COMPLETE ECG ROUTINE ECG W/LEAST 12 LDS W/I&R Joao Lara APRN.CNP [id number] [place] [address] Referral ID Status Reason Start Date Expiration Date V isits Requested Visits Authorized [id number] Closed Auto-Generate d Referral 08/23/2022 08/23/2023 1 1 [facility] for referral (narrative)* Outpatient Procedure (Routine) - Pending Review Specialty Diagnoses / Procedures Referred By Sunil kapoor Referred To Contact [facility] Diagnoses Nonrheumatic aortic valve stenosis Primary hypertension Pure hypercholesterolemia Chronic diastolic heart failure (HCC) 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 S/P AVR Procedures ECHO ECHO TTHRC R-T 2D W/WOM-MODE COMPL SPEC&COLR Marco A Begum MD [address] [place] [address] [facility] [address] [address] Referral ID Status Reason Start Date Expiration Date Visits Requested Visits Authorized [id number] Pending Review Auto-Generat ed Referral 02/20/2023 02/20/2024 1 1 [facility] Outpatient Procedure (Routine) - Pending Review Specialty Diagnoses / Procedures Referred By Contac t Referred To [facility] Diagnoses Primary hypertension Procedures ECG COMPLETE ECG ROUTINE ECG W/LEAST 12 LDS W/I&R Joao Lara APRN.INVESTMENT BROKER [address] [place] [address] [facility] [address] [address] Referral ID Status Reason Start Date Expiration Date Visits Requested Visits Authorized [id number] Pending Review Auto-Generat ed Referral 08/14/2023 08/13/2024 1 1 [facility] Summary Purpose Family History No Family History Records FoundNo Family History Records FoundNo Family History Records Found No data available for this section No Family History Records FoundNo Family History [...] section and content) DATE CREATED AUTHOR 11/20/2021 [facility] DATE CREATED AUTHOR AUTHOR'S ORGANIZ ATION 07/07/2022 [facility] DATE CREATED AUTHOR AUTHOR'S ORGANIZ ATION 04/07/2024 [facility] DATE CREATED AUTHOR AUTHOR'S ORGANIZ ATION 06/08/2024 [facility] DATE CREATED AUTHOR AUTHOR'S ORGANIZ ATION 08/29/2024 [facility] DATE CREATED AUTHOR AUTHOR'S ORGANIZ ATION 11/27/2024 [facility] EPIC Source Comments (unrecognize d section and content) In the event this informatio n is protected by the Federal Confidentiality of Alcohol and Drug Abuse Patient Records regulations: The Federal rules restrict any use of the information to criminally investigate or prosecute any alcohol or drug abuse patient.[facility] the event this information is protected by the Federal Confidentiality of Alcohol and Drug Abuse Patient Records regulations: The Federal rules restrict any use of the information to criminally investigate or prosecute any alcohol or drug abuse patient.[facility] the event this information is protected by the Federal Confidentiality of Alcohol and Drug Abuse Patient Records regulations: The Federal rules restrict any use of the information to criminally investigate or prosecute any alcohol or drug abuse patient.[facility] the event this information is protected by the Federal Confidentiality of Alcohol and Drug Abuse Patient Records regulations: The Federal rules restrict any use of the information to criminally investigate or prosecute any alcohol or drug abuse patient.[facility] the event this information is protected by the Federal Confidentiality of Alcohol and Drug Abuse Patient Records regulations: The Federal rules restrict any use of the information to criminally investigate or prosecute any alcohol or drug abuse patient.[facility] the event this information is protected by the Federal Confidentiality of Alcohol and Drug Abuse Patient Records regulations: The Federal rules restrict any use of the information to criminally investigate or prosecute any alcohol or drug abuse patient.[facility] the event this information is protected by the Federal Confidentiality of Alcohol and Drug Abuse Patient Records regulations: The Federal rules restrict any use of the information to criminally investigate or prosecute any alcohol or drug abuse patient.[facility] Reason for Visit (unrecogniz ed section and content) Reason Comments Cardiology Follow Up Reason Comments CARD Follow Up 6 Month Reason Comments CARD Follow Up 6 Month Reason Comments Cardiology Follow Up Reason Comments Diabetes Results Labs Follow-up Thyroid dose changed last visit Metolazone stopped Med Refill Test strips--optum r x Reason Comments Refill Request Reason Comments Diabetes Results Lab results shoulder/neck pain Reason Comments DM Foot Care Dm nail care Reason Comments Follow-up [facility] 05/27/24 dx: neck strain rx's given for naproxen,lidoderm patch,prednisone Reason Comments Hypothyroidism Pt stopped levothyro xine 2-3 weeks ago states he feels it was making him feel worse Diabetes Pt stopped the glime piride 2-3 weeks ago felt he was having side effects Reason Comments Toenail Care NON DM NAIL CARE Reason Comments Diabetes Hypertension Reason Comments Toenail Care Non dm nail care Reason Comments Earache Reason Comments Skin Check Specialty Diagnoses / Procedures Referred By Contkassy t Referred To Contact Dermatology Diagnoses Neoplasm of uncertain behavior of skin of face Procedures [place] OFFICE/OUTPATIENT NEW HIGH MDM 60 MINUTES Benjie Covarrubias MD [address] [facility] [address] [place] [address] Phone: tel: fax: Ayana Viveros, CLINICAL ABSTRACTOR-INVESTMENT BROKER [address] [place] [address] Phone: tel: fax: Referral ID Status Reason Start Date Expiration Date V isits Requested Visits Authorized [id number] Closed Specialty Services Required 09/02/2024 03/01/2025 1 1 Reason Comments Diabetic Eye Exam Reason Comments Toenail Care Non dm mayuri care Care Teams (unrecognized sec tion and content) Clinical Nursing Assistant Relationship Specialty Start Date End Date Benjie Covarrubias II [address] [place] [address] PCP - General Internal Medicine 02/19/20 Benjie Covarrubias II [address] [facility] [address] [place] [address] Referring Internal Medicine 06/11/19 No, Referral Referring Cardiology 02/24/20 Clinical Nursing Assistant Relationship Specialty Start Date End Date Benjie Covarrubias II [address] [place] [address] PCP - General Internal Medicine 02/19/20 Benjie Covarrubias II [address] [place] [address] Referring Internal Medicine 06/11/19 No, Referral Referring Cardiology 02/24/20 Clinical Nursing Assistant Relationship Specialty Start Date End Date Benjie Covarrubias II, MD [address] [place] [address] PCP - General Internal Medicine 02/19/20 Benjie Covarrubias II, MD [address] [place] [address] Referring Internal Medicine 06/11/19 No, Referral Referring Cardiology 02/24/20 Clinical Nursing Assistant Relationship Specialty Start Date End Date Benjie Covarrubias II, MD [address] [place] [address] PCP - General Internal Medicine 02/19/20 Benjie Covarrubias II, MD [address] [place] [address] Referring Internal Medicine 06/11/19 No, Referral Referring Cardiology 02/24/20 Team Status: Active Member Role Status Dates Benjie Covarrubias II MD Primary Care Provider Active Team Status: Inactive Member Role Status Dates Benjie Covarrubias II MD Primary Care Provider Active Start: January 12, 2024 End: January 12, 2024 Sonia Mchugh APRN Attending Provider Active Start: January 12, 2024 End: January 12, 2024 Clinical Nursing Assistant Relationship Specialty Start Date End Date Benjie Covarrubias II, MD [address] [place] [address] PCP - General Internal Medicine 02/19/20 Benjie Covarrubias II, MD [address] [place] [address] Referring Internal Medicine 06/11/19 No, Referral Referring Cardiology 02/24/20 Clinical Nursing Assistant Relationship Specialty Start Date End Date Benjie Covarrubias MD [address] [place] [address] PCP - General Internal Medicine 11/08/22 Clinical Nursing Assistant Relationship Specialty Start Date End Date Benjie Covarrubias MD [address] [place] [address] PCP - General Internal Medicine 11/08/22 Clinical Nursing Assistant Relationship Specialty Start Date End Date Benjie Covarrubias II, MD [address] [place] [address] PCP - General Internal Medicine 02/19/20 Benjie Covarrubias II, MD [address] [place] [address] Referring Internal Medicine 06/11/19 No, Referral Referring Cardiology 02/24/20 Clinical Nursing Assistant Relationship Specialty Start Date End Date Benjie Covarrubias MD [address] [place] [address] PCP - General Internal Medicine 11/08/22 Clinical Nursing Assistant Relationship Specialty Start Date End Date Benjie Covarrubias MD [address] [place] [address] PCP - General Internal Medicine 11/08/22 Clinical Nursing Assistant Relationship Specialty Start Date End Date Benjie Covarrubias MD [address] [place] [address] PCP - General Internal Medicine 11/08/22 Clinical Nursing Assistant Relationship Specialty Start Date End Date Benjie Covarrubias MD [address] [place] [address] PCP - General Internal Medicine 11/08/22 Clinical Nursing Assistant Relationship Specialty Start Date End Date Benjie Covarrubias MD [address] [place] [address] PCP - General Internal Medicine 11/08/22 Clinical Nursing Assistant Relationship Specialty Start Date End Date Benjie Covarrubias MD [address] [place] [address] PCP - General Internal Medicine 11/08/22 Clinical Nursing Assistant Relationship Specialty Start Date End Date Benjie Covarrubias MD [address] [place] [address] PCP - General Internal Medicine 11/08/22 Clinical Nursing Assistant Relationship Specialty Start Date End Date Benjie Covarrubias MD [address] [place] [address] PCP - General Internal Medicine 11/08/22 Clinical Nursing Assistant Relationship Specialty Start Date End Date Benjie Covarrubias MD [address] [place] [address] PCP - General Internal Medicine 11/08/22 Clinical Nursing Assistant Relationship Specialty Start Date End Date Benjie Covarrubias MD [address] [place] [address] PCP - General Internal Medicine 11/08/22 Clinical Nursing Assistant Relationship Specialty Start Date End Date Benjie Covarrubias II, MD [address] [place] [address] PCP - General Internal Medicine 02/19/20 Benjie Covarrubias II, MD [address] [place] [address] Referring Internal Medicine 06/11/19 No, Referral Referring Cardiology 02/24/20 Clinical Nursing Assistant Relationship Specialty Start Date End Date Benjie Covarrubias MD [address] [place] [address] PCP - General Internal Medicine 11/08/22 Clinical Nursing Assistant Relationship Specialty Start Date End Date Benjie Covarrubias MD [address] [place] [address] PCP - General Internal Medicine 11/08/22 Clinical Nursing Assistant Relationship Specialty Start Date End Date Benjie Covarrubias MD [address] [place] [address] PCP - General Internal Medicine 11/08/22 Clinical Nursing Assistant Relationship Specialty Start Date End Date Benjie Covarrubias MD [address] [place] [address] PCP - General Internal Medicine 11/08/22 Goals (unrecognized section and content) Goals may [...] BE BASED ON THE PRIMARY CLINICAL RECORDS. [facility], [facility]. provides no warranty or guarantee of the accuracy or completeness of information in this document.
--- NOTE | 2024-12-02 16:52 | ED.GENADUL1 ---
HPI HPI - General Adult General Chief complaint: Ear Stated complaint: EAR DRAINAGE SPOTS OF BLOOD Time Seen by Provider: 12/02/24 15:23 Source: patient and family Mode of arrival: walk-in History of Present Illness HPI narrative: Patient is a 89-year-old male whose been having clearish drainage from his left ear since . Patient wears a hearing aid in his left ear. 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 Patient says that his hearing aid has been getting clogged up some with the drainage is coming from the left ear. Patient has no headache. No sinus pressure. Patient has not had any pain to left ear. No neck pain. No trauma. No other acute complaints. Patient's brother is at bedside. Patient was waiting a long time in the ER, Multiple blameless apologies were given to the patient. All systems are negative except as noted/marked. All systems reviewed and otherwise negative. Nurses note and vital signs reviewed and patient is not hypoxic. General: The patient appears well and in no apparent distress. Patient is resting comfortably on cart. Patient is not toxic, lethargic, or listless Skin: Warm, dry, no pallor noted. There is no rash noted. No petechiae, purpura. Head: Normocephalic, atraumatic Eye: Normal conjunctiva, no drainage, EOMI. PERRL Ears, Nose, Mouth, and Throat: oral mucosa is moist. Patient right TM shows no erythema, perforation or bulging. Patient has no pain to right external ear. Patient's left ear shows no pain to the left external ear. Patient does have yellowish-whitish drainage to left outer ear canal, he has no pain to palpation to pinna, tragus, or left outer ear. Patient does have air-fluid levels and yellow pus noted behind left TM. Patient has narrow canals, I cannot see a perforation in the left TM. No blood noted behind left TM, no hemotympanum. Nares patent. Mouth without vesicles. Cardiovascular: Regular Rate and Rhythm, no murmur, gallop, rub Respiratory: Patient is in no distress, no accessory muscle use, lungs are clear to auscultation, no wheezing, rales or rhonchi Back: non-tender, no CVA tenderness bilaterally to percussion. No CT LS midline pain GI: no tenderness to palpation, no masses appreciated. No rebound, guarding, or rigidity noted. No distention Musculoskeletal: Patient has full range of motion of all of the extremities, no motor, sensory, or focal neurological deficits Neurological: A&O x4, normal speech Psychiatric: Cooperative Related Data Home Medications ?Medication ?Instructions ?Recorded ?Confirmed aspirin 81 mg tablet,delayed 81 mg PO DAILY 11/27/22 12/02/24 release (Adult Low Dose Aspirin) metoprolol succinate 50 mg 25 mg PO DAILY 11/27/22 12/02/24 tablet,extended release 24 hr (Toprol XL) multivitamin (Multiple Vitamins 1 tab PO DAILY 11/27/22 12/02/24 tablet) pantoprazole 40 mg tablet,delayed 40 mg PO DAILY 11/27/22 12/02/24 release (Protonix) psyllium husk 3.4 gram oral powder 1 packet PO DAILY 11/27/22 12/02/24 packet (Metamucil Fiber (aspartame)) simvastatin 40 mg tablet 40 mg PO DAILY 11/27/22 12/02/24 sitagliptin phosphate 50 1 tab PO BID 11/27/22 12/02/24 mg-metformin 1,000 mg tablet (Janumet) torsemide 20 mg tablet 20 mg PO DAILY 11/27/22 12/02/24 glimepiride 1 mg tablet 1 mg PO DAILY 12/02/24 12/02/24 levothyroxine 75 mcg tablet 75 mcg PO DAILY 12/02/24 12/02/24 Previous Rx's ?Medication ?Instructions ?Recorded amoxicillin 500 mg capsule 500 mg PO BID 10 days #20 caps 12/02/24 ciprofloxacin 0.3 %-dexamethasone 4 drp otic (ear) BID 7 days #7.5 mL 12/02/24 0.1 % ear drops,suspension Allergies Allergy/AdvReac Type Severity Reaction Status Date / Time No Known Drug Allergies Allergy Verified 12/02/24 11:05 Opioid HPI Opioid Management Most Recent Opioid Data: Last Pain Scale 4 04/03/24, 14:30 PFSH PFS Social History Smoking status: Former smoker Little interest or pleasure in doing things: not at all Feeling down, depressed, or hopeless: not at all Exam Constitutional Vital Signs, click to edit/add: Last Vital Signs Temp 98.2 F 12/02/24 11:05 Pulse 71 12/02/24 11:05 Resp 16 12/02/24 11:05 BP 163/88 H 12/02/24 11:05 Pulse Ox 97 12/02/24 11:05 O2 Del Method Room Air 12/02/24 11:05 Course Vital Signs Vital signs: Vital Signs Temperature 98.2 F 12/02/24 11:05 Pulse Rate 71 12/02/24 11:05 Respiratory Rate 16 12/02/24 11:05 Blood Pressure 163/88 H 12/02/24 11:05 Pulse Oximetry 97 12/02/24 11:05 Oxygen Delivery Method Room Air 12/02/24 11:05 Temperature 98.2 F 12/02/24 11:05 Pulse Rate 71 12/02/24 11:05 Respiratory Rate 16 12/02/24 11:05 Blood Pressure 163/88 H 12/02/24 11:05 Pulse Oximetry 97 12/02/24 11:05 Oxygen Delivery Method Room Air 12/02/24 11:05 Medical Decision Making MDM Narrative Medical decision making narrative: Patient is having drainage coming from the left ear since . Patient noticed small amount of blood coming from the left ear this morning. Patient's had no sinus pressure or pain. No ear pain. No outer ear pain. Patient most likely has left TM rupture. Patient was placed on Ciprodex and amoxicillin. I was not able to visualize the rupture on physical exam, but patient tolerated ear exam well with no pain. Patient will follow-up with PCP. Patient does have an appoint with Dr. Larios next week. Multiple blameless apologies were given for patient's length of stay today secondary to ER volume and I was the only provider in the ER today. Patient was understanding Discharge Plan Discharge Chief Complaint: Ear Clinical Impression: Ear drum perforation, Acute serous otitis media Patient Disposition: Home, Self-Care Time of Disposition Decision: 16:46 Condition: Fair Prescriptions / Home Meds: New ciprofloxacin-dexamethasone 0.3-0.1 % drops,suspension 4 drp otic (ear) BID 7 Days Qty: 7.5 0RF amoxicillin 500 mg capsule 500 mg PO BID 10 Days Qty: 20 0RF No Action aspirin [Adult Low Dose Aspirin] 81 mg tablet,delayed release (DR/EC) 81 mg PO DAILY Janumet 50-1,000 mg tablet 1 tab PO BID torsemide 20 mg tablet 20 mg PO DAILY simvastatin 40 mg tablet 40 mg PO DAILY pantoprazole [Protonix] 40 mg tablet,delayed release (DR/EC) 40 mg PO DAILY metoprolol succinate [Toprol XL] 50 mg tablet extended release 24 hr 25 mg PO DAILY multivitamin [Multiple Vitamins] Tablet 1 tab PO DAILY Metamucil Fiber (aspartame) 3.4 gram powder in packet 1 packet PO DAILY glimepiride 1 mg tablet 1 mg PO DAILY levothyroxine 75 mcg tablet 75 mcg PO DAILY Print Language: Azeri Instructions: Ruptured Eardrum (ED), How to Use Ear Drops (ED), Ear Infection (ED) Additional Instructions: Start taking antibiotics and finish them for serious otitis media Use antibiotic drops for the next 7 days as well to help with tympanic membrane perforation and infection as well. Alternate Tylenol and either Motrin, Advil, or ibuprofen every 4 hours to help with pain. Maximum dose of Tylenol is 3000 mg a day. Maximum dose of either Motrin, Advil, or ibuprofen is 2400 mg a day. Referrals: LETHA COFFMAN [Primary Care Provider, Internal Medicine] - 1 week Karissa Larios MD [Physician, Ear, Nose, Throat] - 1 week Discharge Date/Time: 12/02/24 16:59
== END 2024-12-02 16:59 | disposition home or self-care (01) ==
PROVIDERS: Emergency Provider Emergency Medicine; PCP Internal Medicine
DX: H72.92 Unspecified perforation of tympanic membrane, left ear (principal); H65.92 Unspecified nonsuppurative otitis media, left ear; Z87.891 Personal history of nicotine dependence
CPT/HCPCS: 99283